=== PATIENT | female | born 1945 | race Caucasian/White ===

== ENCOUNTER → 2016-04-16 | Outpatient (CLI) | payer OTHER ==
[~2016-04-16] MED LIST: ACET-1256 PO; ASPI81TA28 PO; ATRIN INH; ATRINS NEB; AZIT500T26 PO; CLOP1TAB5 PO; FRS/40 PO; FURO-85 PO; IPRA1AER2 INH; LEVO112T4 PO; LISI-788 PO; LPT/40 PO; LSX40 PO; METO25TA56 PO; NTRGSL/4 UT; OXGN; PARO1TAB29 PO; POLYCAP4 PO; PRED10TA PO; SYMIN/8045 INH; TRAM-10 PO
[2016-04-16 17:24] LABS: HEMATOCRIT 33.6 % (37-47); MEAN CORPUSCULAR HEMOGLOBIN 22.2 pg (25-34); MEAN CORPUSCULAR HGB CONC 30.1 g/dl (32-36); MEAN PLATELET VOLUME 9.5 fL (7.4-10.4); PLATELET COUNT 314 K/uL (130-400); RED BLOOD COUNT 4.54 M/uL (4.2-5.4); WHITE BLOOD COUNT 6.35 K/uL (4.8-10.8)
[2016-04-16 17:41] LABS: ALT/SGPT 21 U/L (12-78); AST/SGOT 15 U/L (15-37); BLOOD UREA NITROGEN 17 mg/dl (7-18); BUN/CREATININE RATIO 19.8 (10-20); CALCIUM 8.9 mg/dl (8.5-10.1); CARBON DIOXIDE 28 mmol/L (21-32); CHLORIDE 101 mmol/L (98-107); CREATININE 0.87 mg/dl (0.60-1.20); GLUCOSE 92 mg/dl (70-99); POTASSIUM 3.9 mmol/L (3.5-5.1); SODIUM 139 mmol/L (136-145)
[2016-04-16 17:52] LABS: ALB/GLOB RATIO 1.3 (0.9-2); ALKALINE PHOSPHATASE 108 U/L (45-117); CHOLESTEROL 131 mg/dl (0-200); CHOLESTEROL/HDL RATIO 2.5; HDL CHOLESTEROL 53 mg/dl; LDL CHOLESTEROL CALCULATED 54 mg/dl; TRIGLYCERIDES 119 mg/dl (0-150); VERY LOW DENSITY LIPOPROT CALC 24 mg/dl
== END | disposition home or self-care (01) ==
LOC: C.LABBFT 12:34
PROVIDERS: ATTEND Internal Medicine
DX: E03.9 Hypothyroidism, unspecified (principal); I10 Essential (primary) hypertension; E78.00 Pure hypercholesterolemia, unspecified

== ENCOUNTER → 2016-04-17 | Outpatient (CLI) | payer OTHER ==
--- NOTE | 2016-04-17 11:34 | DIAGNOSTIC IMAGING REPORT ---
ULTRASOUND LEFT LOWER EXTREMITY VENOUS CLINICAL HISTORY: Left leg swelling. COMPARISON STUDY: No priors. TECHNIQUE: Real-time, grayscale, and color Doppler sonography of the deep veins of the left lower extremity was performed from the inguinal crease to the calf. Compression and augmentation were utilized. FINDINGS: There is no sonographic evidence of deep venous thrombosis identified in the left lower extremity. The common femoral, superficial femoral, and popliteal veins are patent and normally compressible. The greater saphenous vein and the profunda femoris vein at the junction with the common femoral vein are clear. The visualized calf veins are patent. IMPRESSION: There is no sonographic evidence of deep venous thrombosis identified in the left lower extremity. Electronically signed by: Suleman Mcpherson M.D. 04/17/2016 11:32 AM Dictated Date/Time: 04/17/2016 11:32 AM
--- NOTE | 2016-04-21 11:46 | CODING QUERY MEDICAL NECESSITY ---
SUPPORTING DIAGNOSIS NEEDED A supporting diagnosis is required for the test/procedure performed on this patient in order for us to be reimbursed by the patient's insurance. Please provide a supporting diagnosis for the following test/procedure listed below next to the test name along with your signature. *If there is no additional diagnosis for this patient that would support the following test/procedure please document that below next to the test/procedure. Test(s)/Procedure(s) that require a supporting diagnosis: * VENOUS DOPPLER LOWER EXTREMITY DIAGNOSIS: * DOS: 04/17/16 Provider Signature: Date: Thank you Viviane Darby Health Information Management Once completed, please kindly fax back to [phone] For questions please call [phone]
== END | disposition home or self-care (01) ==
LOC: C.ULTR 10:40
PROVIDERS: ATTEND Internal Medicine
DX: M79.89 Other specified soft tissue disorders (principal)

== ENCOUNTER → 2016-04-21 | Outpatient (CLI) | payer OTHER ==
[2016-04-21 18:08] LABS: FERRITIN 13.2 ng/ml (8.0-388.0)
--- NOTE | 2016-04-25 08:42 | CODING QUERY MEDICAL NECESSITY ---
SUPPORTING DIAGNOSIS NEEDED Dr. Samayoa, A supporting diagnosis is required for the test/procedure performed on this patient in order for us to be reimbursed by the patient's insurance. Please provide a supporting diagnosis for the following test/procedure listed below next to the test name along with your signature. *If there is no additional diagnosis for this patient that would support the following test/procedure please document that below next to the test/procedure. Test(s)/Procedure(s) that require a supporting diagnosis: * ([id number]) B12 VITAMIN LEVEL DIAGNOSIS: * ([id number]) FOLATE LEVEL DIAGNOSIS: DATE OF SERVICE: 04/21/16 Provider Signature: Date: Thank you Eriberto Winter [facility] Information Management Once completed, please kindly fax back to [phone] For questions please call [phone]
== END | disposition home or self-care (01) ==
LOC: C.LABBFT 12:27
PROVIDERS: ATTEND Internal Medicine
DX: D64.9 Anemia, unspecified (principal)

== ENCOUNTER 2016-04-29 06:55 | Inpatient (IN) | payer OTHER ==
[2016-04-29] VITALS (8 sets, daily range): BP systolic 109–136; BP diastolic 61–78; PULSE 75–83; TEMP 36.8–37; O2SAT 94–100; Ht 172.7 cm; Wt 77.2 kg
[~2016-04-29] VITALS: Ht 172.7 cm; Wt 77.2 kg
[~2016-04-29 06:55] MED LIST changes: -ACET-1256 PO; -FRS/40 PO; -LSX40 PO; -POLYCAP4 PO
--- NOTE | 2016-04-29 07:03 | EMERGENCY ROOM VISIT NOTE ---
History Report prepared by Phuong: Kiley Martinez Under the Supervision of: Dr. Edith Hart M.D. First contact with patient: 06:56 Chief Complaint: SHORTNESS OF BREATH Stated Complaint: SHORT OF BREATH/NEAR SYNCOPE History of Present Illness The patient is a 70 year old female who presents to the Emergency Room via ambulance with complaints of worsening shortness of breath that began KILN TENDER. Per nursing notes, en route to the emergency room, she was given DuoNeb, Albuterol, 125 mg Solu-Medrol, 0.5 mg Ativan, and 5 sprays of Nitro. She states that her breathing is slightly better. Denies chest pain, nausea, or other complaints. History is limited secondary to dyspnea. Source of History: patient, nursing staff History Limited By: dyspnea Onset: KILN TENDER Position: other (respiratory) Quality: other (shortness of breath) Timing: worsening Modifying Factors (Relieving): other (albuterol, ativan, duoneb, nitro, solu -medrol) Associated Symptoms: No chest pain, No nausea Review of Systems Limited secondary to dyspnea. Past Medical & Surgical Medical Problems: (1) Hypertension (2) Kidney disease (3) STEMI (ST elevation myocardial infarction) Family History FH: cancer FH: gallbladder disease FH: heart disease FH: lung disease FH: seizures Hypertension Social History Smoking Status: Current Every Day Smoker Alcohol Use: none Drug Use: none Marital Status: Housing Status: lives with family Occupation Status: retired, other Current/Historical Medications Scheduled Aspirin (Aspirin Ec), 81 MG PO QAM Atorvastatin (Lipitor), 40 MG PO HS Budesonide/Formoterol Fumarate (Symbicort 80/4.5 Inhaler), 2 PUFFS INH BID Ipratropium [place] (Atrovent Hfa), 2 PUFFS INH BID Ipratropium-Albuterol (Combivent Respimat), 1 PUFFS INH QID Levothyroxine Sodium (Levothyroxine Sodium), 112 MCG PO QAM Metoprolol Tartrate (Lopressor) (Lopressor), 25 MG PO BID Paroxetine (Paxil), 40 MG PO QAM Polysaccharide Iron Complex (Iferex 150), 150 MG PO BID Scheduled PRN Furosemide (Lasix), 20 MG PO DAILY PRN for WT GAIN >9LB Ipratropium [place] (Ipratropium [place]), 1 VIAL NEB QID PRN for Shortness of Breath Nitroglycerin (Nitrostat), 0.4 MG UT UD PRN for Chest Pain Oxygen (Oxygen), 2 LITERS NA UD PRN for Shortness of Breath Tramadol (Ultram), 50 MG PO Q6 PRN for Pain Allergies Coded Allergies: Penicillins (Verified Allergy, Severe, SWELLING, 04/29/16) Morphine (Verified Allergy, Intermediate, bradycardia and hypotension, ) Promethazine (Verified Allergy, Intermediate, bradycardia and hypotension , 04/29/16) Sulfa Antibiotics (Verified Allergy, Unknown, RASH, 04/29/16) Physical Exam Vital Signs Date Time Temp Pulse Resp B/P Pulse Ox O2 Delivery O2 Flow Rate FiO2 04/29/16 12:25 100 CPAP 04/29/16 12:17 74 04/29/16 11:59 74 21 121/84 100 BiPAP 04/29/16 11:44 BiPAP 04/29/16 10:59 68 20 97/55 100 BiPAP 70 04/29/16 10:17 37.0 81 16 109/61 100 BiPAP 70 04/29/16 10:01 68 16 109/61 100 04/29/16 09:30 66 21 119/56 100 04/29/16 09:15 64 20 104/70 100 04/29/16 08:29 61 22 83/53 100 BiPAP 04/29/16 07:30 66 23 87/58 99 CPAP Nebulizer 04/29/16 07:14 77 22 93/64 100 Room Air 04/29/16 07:12 76 04/29/16 07:02 81 30 99 BiPAP/CPAP 70 04/29/16 07:02 100 CPAP 04/29/16 07:02 100 CPAP 04/29/16 07:02 81 99 70 04/29/16 07:02 37.0 88 26 131/75 99 CPAP Physical Exam Vital signs reviewed. Noted to be slightly hypotensive. General: Elderly, critically ill-appearing 70 year old female HEENT: No scleral icterus, PERRLA, neck supple. Atraumatic. Cardiovascular: Regular rate and rhythm, no extra sounds. Pulmonary: Minimal air movement bilaterally with diffuse wheezing. Increased work of breathing on C-pap. Abdomen: Soft, nontender, nondistended, positive bowel sounds. Musculoskeletal: Atraumatic, no peripheral edema. Neurologic: Patient awake alert and oriented x 3, full strength in all 4 extremities. Cranial nerves 2 through 12 grossly intact. Skin: Warm, dry, no rash Medical Decision & Procedures ER Provider Diagnostic Interpretation: X-ray results as stated below per interpretation by me and the radiologist: CHEST ONE VIEW PORTABLE CLINICAL HISTORY: SOB dyspnea COMPARISON STUDY: 08/13/2015 FINDINGS: Diffuse prominence of pulmonary vasculature and interstitium. A component of pulmonary edema must be considered. Diaphragms smooth. IMPRESSION: Pulmonary edema Electronically signed by: Rusty Mays M.D. 04/29/2016 7:28 AM Dictated Date/Time: 04/29/2016 7:28 AM Laboratory Results 04/29/16 06:45 Red Blood Count 4.93, Mean Corpuscular Volume 72.2, Mean Corpuscular Hemoglobin 21.5, Mean Corpuscular Hemoglobin Concent 29.8, Mean Platelet Volume 8.7 Test 04/29/16 06:45 04/29/16 07:19 04/29/16 07:28 04/29/16 09:25 White Blood Count 13.29 K/uL (4.8-10.8) Red Blood Count 4.93 M/uL (4.2-5.4) Hemoglobin 10.6 g/dL (12.0-16.0) Hematocrit 35.6 % (37-47) Mean Corpuscular Volume 72.2 fL (80-100) Mean Corpuscular Hemoglobin 21.5 pg (25-34) Mean Corpuscular Hemoglobin Concent 29.8 g/dl (32-36) Platelet Count 589 K/uL (130-400) Mean Platelet Volume 8.7 fL (7.4-10.4) RDW Standard Deviation 46.8 fL (36.4-46.3) RDW Coefficient of Variation 17.7 % (11.5-14.5) Neutrophils % (Manual) 49.9 % Lymphocytes % (Manual) 33.3 % Monocytes % (Manual) 7.9 % Eosinophils % (Manual) 4.4 % Basophils % (Manual) 1.8 % Metamyelocytes % 1.8 % Myelocytes % 0.9 % Neutrophils # (Manual) 6.63 K/uL (1.4-6.5) Total Absolute Neutrophils 6.63 K/uL (1.4-6.5) Lymphocytes # (Manual) 4.43 K/uL (1.2-3.4) Total Absolute Lymphocytes 4.43 K/uL (1.2-3.4) Monocytes # (Manual) 1.05 K/uL (0.11-0.59) Eosinophils # (Manual) 0.58 K/uL (0-0.5) Basophils # (Manual) 0.24 K/uL (0-0.2) Metamyelocytes # 0.24 K/uL (0-0) Myelocytes # 0.12 K/uL (0-0) Hypochromasia PRESENT Microcytosis PRESENT Ovalocytes 1+ Magnesium Level 2.4 mg/dl (1.8-2.4) Total Bilirubin 0.3 mg/dl (0.2-1) Direct Bilirubin < 0.1 mg/dl (0-0.2) Aspartate Amino Transf (AST/SGOT) 27 U/L (15-37) Alanine Aminotransferase (ALT/SGPT) 27 U/L (12-78) Alkaline Phosphatase 119 U/L (45-117) Total Creatine Kinase 107 U/L (26-192) Total Protein 7.4 gm/dl (6.4-8.2) Albumin 3.2 gm/dl (3.4-5.0) Bedside Troponin I 0.000 ng/ml (0-0.045) EP-Aie-Y-Type Natriuretic Peptide 875 pg/ml (0-900) Bedside Lactic Acid Venous 1.86 mmol/L (0.90-1.70) Prothrombin Time 10.7 SECONDS (9.0-12.0) Prothromb Time International Ratio 1.0 (0.9-1.1) Activated Partial Thromboplast Time 25.0 SECONDS (21.0-31.0) Partial Thromboplastin Ratio 1.0 Laboratory results per my review. Medications Administered Medications (Trade) Dose Ordered Sig/Ton Route Start Time Stop Time Status Last Admin Dose Admin Albuterol/ Ipratropium (Duoneb) 12 ml ONE ONCE INH 04/29/16 07:15 04/29/16 07:16 DC 04/29/16 07:02 12 ML ECG Indication: SOB/dyspnea Rate (beats per minute): 78 Rhythm: sinus rhythm Findings: PVC, no acute ischemic change, other (left atrial enlargement, LVH) ED Course 0659: I gave medic command for this patient en route. Past medical records reviewed. The patient was evaluated in room B1. A complete history and physical examination was performed. 0715: Ordered DuoNeb 12 ml INH. 54: Upon reevaluation, the patient is resting comfortably. I discussed laboratory and radiographic results with the patient and her family. They verbalized agreement of the treatment plan. 55: I spoke with Dr. Vega of the [facility] Hospitalist Service. The patient will be evaluated for further management and care. Medical Decision Differential diagnosis: Etiologies such as infections, reactive airway disease, pneumonia, pneumothorax , COPD, CHF, cardiac ischemia, pulmonary embolism, musculoskeletal, gastrointestinal, as well as others were entertained. This patient was evaluated and appeared to be in some discomfort. Patient was somnolent however vital signs were stable on CPAP. She did receive Ativan in route. Patient's chest x-ray is read as pulmonary edema however the patient has minimal air movement and wheezes bilaterally. EKG reveals a normal sinus rhythm with PVCs and no evidence of acute ischemia. Patient's blood pressure has been low after receiving nitroglycerin in route. Patient was given IV hydration and a continuous DuoNeb treatment. Laboratory work reveals negative cardiac enzymes and a normal BNP. Patient's case was discussed with the hospitalist service. They will evaluate the patient for further management. Patient family are aware of the plan and agree. Consults Time Called: [phone] Consulting Physician: Dr. Vega of the [facility] Hospitalist Service Returned Call: [phone] Vega of the [facility] Hospitalist Service. The patient will be evaluated for further management and care. Impression Primary Impression: COPD exacerbation Additional Impression: Pulmonary congestion Critical Care I have personally spent greater than 30 minutes of critical care time in the direct management of this patient. This includes bedside care, interpretation of diagnostic studies, and testing, discussion with consultants, patient, and family members, and other required patient management activities. This 30 minutes is in excess of all separately billable procedures. Scribe Attestation The scribe's documentation has been prepared under my direction and personally reviewed by me in its entirety. I confirm that the note above accurately reflects all work, treatment, procedures, and medical decision making performed by me. Departure Information Dispostion Being Evaluated By Hospitalist Referrals Ismael Samayoa M.D. (PCP) Patient Instructions My [facility] Problem Qualifiers
[2016-04-29 07:13] LABS: HEMATOCRIT 35.6 % (37-47); MEAN CELL VOLUME 72.2 fL (80-100); MEAN CORPUSCULAR HEMOGLOBIN 21.5 pg (25-34); MEAN CORPUSCULAR HGB CONC 29.8 g/dl (32-36); MEAN PLATELET VOLUME 8.7 fL (7.4-10.4); PLATELET COUNT 589 K/uL (130-400); RED BLOOD COUNT 4.93 M/uL (4.2-5.4); WHITE BLOOD COUNT 13.29 K/uL (4.8-10.8)
[2016-04-29] MEDS ORDERED: ALBUT/IPRATROP 3MG/0.5MG NEB 3 ML VIAL INH ONE (07:15)
--- NOTE | 2016-04-29 07:29 | DIAGNOSTIC IMAGING REPORT ---
CHEST ONE VIEW PORTABLE CLINICAL HISTORY: SOB dyspnea COMPARISON STUDY: 08/13/2015 FINDINGS: Diffuse prominence of pulmonary vasculature and interstitium. A component of pulmonary edema must be considered. Diaphragms smooth. IMPRESSION: Pulmonary edema Electronically signed by: Rusty Mays M.D. 04/29/2016 7:28 AM Dictated Date/Time: 04/29/2016 7:28 AM
[2016-04-29 07:34] LABS: ALT/SGPT 27 U/L (12-78); AST/SGOT 27 U/L (15-37); BLOOD UREA NITROGEN 12 mg/dl (7-18); BUN/CREATININE RATIO 12.6 (10-20); CALCIUM 9.2 mg/dl (8.5-10.1); CARBON DIOXIDE 26 mmol/L (21-32); CHLORIDE 94 mmol/L (98-107); CREATININE 0.97 mg/dl (0.60-1.20); GLUCOSE 294 mg/dl (70-99); MAGNESIUM 2.4 mg/dl (1.8-2.4); POTASSIUM 4.6 mmol/L (3.5-5.1); SODIUM 131 mmol/L (136-145)
[2016-04-29 07:38] LABS: ALKALINE PHOSPHATASE 119 U/L (45-117); CKMB/CK RATIO 1.9 (0-3.0)
[2016-04-29] MEDS ORDERED: POLYCAP4 PO (07:44)
[2016-04-29 07:53] LABS: BASO ABS # 0.24 K/uL (0-0.2); BASOPHIL % 1.8 %; COMPLETE YES; EOSINOPHIL % 4.4 %; HYPOCHROMIA PRESENT; LYMPH ABS # 4.43 K/uL (1.2-3.4); LYMPHOCYTE % 33.3 %; META ABS # 0.24 K/uL (0-0); METAMYELOCYTE % 1.8 %; MICROCYTOSIS PRESENT; MYELOCYTE % 0.9 %; NEUTROPHILS % 49.9 %; OVALOCYTES 1+
[2016-04-29 09:56] LABS: PROTHROMBIN TIME (PATIENT) 10.7 SECONDS (9.0-12.0)
--- NOTE | 2016-04-29 12:26 | History and Physical ---
History & Physical Date & Time of Service: Apr 29, 2016 at 12:02 Chief Complaint: Short Of Breath/Near Syncope Primary Care Physician: Ismael Samayoa M.D. History of Present Illness 70 F pmh COPD on O2 at home, systolic CHF EF 45%, CAD s/p WA s/p stents, htn, hypothyroid brought in by EMS due to worsening SOB. Pt's BP was initially elevated and received several sprays of nitro which subsequently dropped her BP to systolic 80s. She was then given a bolus of fluid which then improved her BP to low 100s. She was then placed on BIPAP and given ativan and duoneb as well as solu-medrol. Family is at bedside. Patient reports she has been having progressive SOB in the past few days. According to , she has had some URI symptoms and has not been feeling well the past few days. She denies orthopnea but does report an episode of PND the other night. She admits non-compliance to salt restriction but reports taking her medications regularly. She does however note that she has been needing her inhalers more frequently in the past few days but unable to quantify. No LE swelling. No chest pain, no abd pain, no urinary symptoms, no fevers, and has a chronic cough has not been worsening. Past Medical/Surgical History Medical Problems: (1) Hypertension Status: Chronic (2) Kidney disease Status: Chronic (3) STEMI (ST elevation myocardial infarction) Status: Resolved Family History FH: cancer FH: gallbladder disease FH: heart disease FH: lung disease FH: seizures Hypertension Social History Smoking Status: Current Every Day Smoker (1 PPD X52 yrs) Drug Use: none Marital Status: Housing status: lives with family Occupational Status: retired, other Immunizations History of Influenza Vaccine: No History of Tetanus Vaccine?: Unknown History of Pneumococcal: Yes Pneumococcal Date: Jun 18, 2010 History of Hepatitis B Vaccine: Unknown Multi-Drug Resistant Organisms History of MDRO: No Allergies Coded Allergies: Penicillins (Verified Allergy, Severe, SWELLING, 04/29/16) Morphine (Verified Allergy, Intermediate, bradycardia and hypotension, ) Promethazine (Verified Allergy, Intermediate, bradycardia and hypotension , 04/29/16) Sulfa Antibiotics (Verified Allergy, Unknown, RASH, 04/29/16) Home Medications Scheduled Aspirin (Aspirin Ec), 81 MG PO QAM Atorvastatin (Lipitor), 40 MG PO HS Budesonide/Formoterol Fumarate (Symbicort 80/4.5 Inhaler), 2 PUFFS INH BID Ipratropium [place] (Atrovent Hfa), 2 PUFFS INH BID Ipratropium-Albuterol (Combivent Respimat), 1 PUFFS INH QID Levothyroxine Sodium (Levothyroxine Sodium), 112 MCG PO QAM Metoprolol Tartrate (Lopressor) (Lopressor), 25 MG PO BID Paroxetine (Paxil), 40 MG PO QAM Polysaccharide Iron Complex (Iferex 150), 150 MG PO BID Scheduled PRN Furosemide (Lasix), 20 MG PO DAILY PRN for WT GAIN >9LB Ipratropium [place] (Ipratropium [place]), 1 VIAL NEB QID PRN for Shortness of Breath Nitroglycerin (Nitrostat), 0.4 MG UT UD PRN for Chest Pain Oxygen (Oxygen), 2 LITERS NA UD PRN for Shortness of Breath Tramadol (Ultram), 50 MG PO Q6 PRN for Pain Review of Systems ROS as per HPI. Rest of ROS negative. Physical Exam Vital Signs Date Time Temp Pulse Resp B/P Pulse Ox O2 Delivery O2 Flow Rate FiO2 04/29/16 10:59 68 20 97/55 100 BiPAP 70 04/29/16 10:17 37.0 81 16 109/61 100 BiPAP 70 04/29/16 10:01 68 16 109/61 100 04/29/16 09:30 66 21 119/56 100 04/29/16 09:15 64 20 104/70 100 04/29/16 08:29 61 22 83/53 100 BiPAP 04/29/16 07:30 66 23 87/58 99 CPAP Nebulizer 04/29/16 07:14 77 22 93/64 100 Room Air 04/29/16 07:12 76 04/29/16 07:02 81 30 99 BiPAP/CPAP 70 04/29/16 07:02 100 CPAP 04/29/16 07:02 100 CPAP 04/29/16 07:02 81 99 70 04/29/16 07:02 37.0 88 26 131/75 99 CPAP NAD, AOx3, eomi, perrl, anicteric s1 s2 rrr, no murmurs appreciated diminished breath sounds with scattered wheezing, remains on BIPAP, minimal rales at bases abd soft, nt/nd +BS no LE edema unable to fully assess neuro status, patient just received ativan but no focal deficits noted and no facial drooping Diagnostics Laboratory Results Results Past 24 Hours Test 04/29/16 06:45 04/29/16 07:19 04/29/16 07:28 04/29/16 09:25 Range/Units White Blood Count 13.29 4.8-10.8 K/uL Red Blood Count 4.93 4.2-5.4 M/uL Hemoglobin 10.6 12.0-16.0 g/dL Hematocrit 35.6 37-47 % Mean Corpuscular Volume 72.2 80-100 fL Mean Corpuscular Hemoglobin 21.5 25-34 pg Mean Corpuscular Hemoglobin Concent 29.8 32-36 g/dl Platelet Count 589 130-400 K/uL Mean Platelet Volume 8.7 7.4-10.4 fL RDW Standard Deviation 46.8 36.4-46.3 fL RDW Coefficient of Variation 17.7 11.5-14.5 % Neutrophils % (Manual) 49.9 % Lymphocytes % (Manual) 33.3 % Monocytes % (Manual) 7.9 % Eosinophils % (Manual) 4.4 % Basophils % (Manual) 1.8 % Metamyelocytes % 1.8 % Myelocytes % 0.9 % Neutrophils # (Manual) 6.63 1.4-6.5 K/uL Total Absolute Neutrophils 6.63 1.4-6.5 K/uL Lymphocytes # (Manual) 4.43 1.2-3.4 K/uL Total Absolute Lymphocytes 4.43 1.2-3.4 K/uL Monocytes # (Manual) 1.05 0.11-0.59 K/uL Eosinophils # (Manual) 0.58 0-0.5 K/uL Basophils # (Manual) 0.24 0-0.2 K/uL Metamyelocytes # 0.24 0-0 K/uL Myelocytes # 0.12 0-0 K/uL Hypochromasia PRESENT Microcytosis PRESENT Ovalocytes 1+ Sodium Level 131 136-145 mmol/L Potassium Level 4.6 3.5-5.1 mmol/L Chloride Level 94 98-107 mmol/L Carbon Dioxide Level 26 21-32 mmol/L Anion Gap 11.0 3-11 mmol/L Blood Urea Nitrogen 12 7-18 mg/dl Creatinine 0.97 0.60-1.20 mg/dl Est Creatinine Clear Calc Drug Dose 60.6 ml/min Estimated GFR () 68.6 Estimated GFR (Non- 59.2 BUN/Creatinine Ratio 12.6 10-20 Random Glucose 294 70-99 mg/dl Calcium Level 9.2 8.5-10.1 mg/dl Magnesium Level 2.4 1.8-2.4 mg/dl Total Bilirubin 0.3 0.2-1 mg/dl Direct Bilirubin < 0.1 0-0.2 mg/dl Aspartate Amino Transf (AST/SGOT) 27 15-37 U/L Alanine Aminotransferase (ALT/SGPT) 27 12-78 U/L Alkaline Phosphatase 119 45-117 U/L Total Creatine Kinase 107 26-192 U/L Creatine Kinase MB 2.0 0.5-3.6 ng/ml Creatine Kinase MB Ratio 1.9 0-3.0 Total Protein 7.4 6.4-8.2 gm/dl Albumin 3.2 3.4-5.0 gm/dl Bedside Troponin I 0.000 0-0.045 ng/ml FI-Cjx-Q-Type Natriuretic Peptide 875 0-900 pg/ml Bedside Lactic Acid Venous 1.86 0.90-1.70 mmol/L Prothrombin Time 10.7 9.0-12.0 SECONDS Prothromb Time International Ratio 1.0 0.9-1.1 Activated Partial Thromboplast Time 25.0 21.0-31.0 SECONDS Partial Thromboplastin Ratio 1.0 Microbiology Results 04/29/16 Blood Culture, Received Pending 04/29/16 Blood Culture, Received Pending Diagnostic Radiology CHEST ONE VIEW PORTABLE CLINICAL HISTORY: SOB dyspnea COMPARISON STUDY: 08/13/2015 FINDINGS: Diffuse prominence of pulmonary vasculature and interstitium. A component of pulmonary edema must be considered. Diaphragms smooth. IMPRESSION: Pulmonary edema Interpretation Summary * Name: SHARAN YEN Study Date: 08/13/2015 10:21 AM BP: 164/93 mmHg Patient Location: [facility] HR: 82 : 1945 (M/d/yyy) Gender : Female Height: 64 in Age: 70 yrs Ethnicity: [place] Weight: 156 lb Ordering Physician: Areli Barba Referring Physician: ARELI BARBA Performed By: Arabella Moe RDCS Reason For Study: CHF BSA: 1.8 m2 History: CHFThe left ventricle is normal in size.There is normal left ventricular wall thickness.Left ventricular systolic function is mildly reduced.Ejection Fraction = 45-50%.RCA and/or Lcx regional wall motion abnormalities. EKG Poor data quality, interpretation may be adversely affected Sinus rhythm with occasional Premature ventricular complexes Possible Left atrial enlargement Left ventricular hypertrophy Abnormal ECG When compared with ECG of 14-AUG-2015 09:09, Premature ventricular complexes are now Present T wave amplitude has decreased in Lateral leads Impression Assessment and Plan 1. acute COPD exacerbation - CXR without e/o pneumonia, will hold off on antibiotic - cont bipap for now - solu-medrol 40mg q8h for now and will taper when improves - nebs around the clock and as needed - advised on smoking cessation 2. acute systolic decompensated CHF - cxr with e/o pulmonary edema, bnp slightly elevated - will switch to IV lasix and monitor i/o and daily weights - will advise on low-salt diet adherence - smoking cessation 3. CAD - cont asa, atorvastatin, metoprolol - cardiac enzymes - EKG as above - tele monitoring 4. HTN - BP elevated initially, now low after nitro - monitor - metoprolol with holding parameters 5.hypothyroid - cont levothyroxine 6. microcytic anemia - likely MALI - cont iron supplementation dvt ppx with lovenox Advanced Directives Existing Living Will: No Existing Power of Insurance Investigator: No
[2016-04-29] MEDS ORDERED: TRAMADOL HCL 50 MG TAB PO PRN (12:30)
[2016-04-29] MEDS ORDERED: ALBUTEROL 0.083% NEBU SOLN 3 ML VIAL INH PRN (12:30)
[2016-04-29] MEDS ORDERED: NITROGLYCERIN 0.4 MG SL PER TAB CHARGE SL PRN (12:30)
[2016-04-29] MEDS ORDERED: FUROSEMIDE INJ 40 MG in SYRINGE 0 ML IV ONE (14:00)
[2016-04-29] MEDS: METHYLPREDNISOLONE IV 40 MG in SYRINGE 0 ML IV SCH ×2 (14:33→20:45)
[2016-04-29] MEDS: ALBUT/IPRATROP 3MG/0.5MG NEB 3 ML VIAL INH SCH ×2 (15:38→19:10)
[2016-04-29] MEDS: ATORVASTATIN 40 MG TAB PO SCH (20:44)
[2016-04-29] MEDS: METOPROLOL TARTRATE 25 MG TAB PO SCH (20:45)
[2016-04-29] MEDS: IRON COMPLEX POLYSACCHARIDE W/VIT C 150 MG CAP PO SCH (20:45)
[2016-04-29] MEDS: ENOXAPARIN 40 MG/0.4 ML SYR SC SCH (20:45)
[2016-04-30] VITALS (18 sets, daily range): BP systolic 130–154; BP diastolic 75–90; PULSE 72–93; TEMP 36.6–36.9; O2SAT 90–99
[2016-04-30] MEDS: ALBUT/IPRATROP 3MG/0.5MG NEB 3 ML VIAL INH SCH ×5 (02:27→19:17)
[2016-04-30 02:47] LABS: BLOOD UREA NITROGEN 16 mg/dl (7-18); BUN/CREATININE RATIO 17.3 (10-20); CALCIUM 9.7 mg/dl (8.5-10.1); CARBON DIOXIDE 31 mmol/L (21-32); CHLORIDE 98 mmol/L (98-107); CREATININE 0.92 mg/dl (0.60-1.20); GLUCOSE 150 mg/dl (70-99); SODIUM 138 mmol/L (136-145)
[2016-04-30 02:49] LABS: CHOLESTEROL 117 mg/dl (0-200); CHOLESTEROL/HDL RATIO 2.8; HDL CHOLESTEROL 42 mg/dl; LDL CHOLESTEROL CALCULATED 57 mg/dl; TRIGLYCERIDES 90 mg/dl (0-150); VERY LOW DENSITY LIPOPROT CALC 18 mg/dl
[2016-04-30] MEDS: METHYLPREDNISOLONE IV 40 MG in SYRINGE 0 ML IV SCH ×3 (05:55→21:54)
[2016-04-30] MEDS: LEVOTHYROXINE 112 MCG TAB PO SCH (05:55)
[2016-04-30] MEDS: METOPROLOL TARTRATE 25 MG TAB PO SCH ×2 (08:10→20:40)
[2016-04-30] MEDS: PAROXETINE 20 MG TAB PO SCH (08:10)
[2016-04-30] MEDS: IRON COMPLEX POLYSACCHARIDE W/VIT C 150 MG CAP PO SCH ×2 (08:10→20:40)
[2016-04-30] MEDS: ASPIRIN 81 MG ECTAB PO SCH (08:11)
[2016-04-30] MEDS: FUROSEMIDE INJ 40 MG in SYRINGE 0 ML IV SCH (08:11)
[2016-04-30] MEDS ORDERED: VANCOMYCIN CONSULT ACTIVE PRN (11:11)
--- NOTE | 2016-04-30 11:37 | Pharmacy Progress Note ---
Pharmacy Antibiotic Consult Date of Service: Apr 30, 2016. Pharmacy Dosing Scope Pharmacy is consulted to initiate vancomycin IV dosing therapy, order appropriate labs and adjust drug dose/frequency. Subjective The patient is a 70 year old female admitted on Apr 29, 2016 at 12:25 with a COPD exacerbation. Her vitals and laboratory work is stable. 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 Objective Height (Feet): 5 Height (Inches): 8.00 Weight (Kilograms): 77.200 Lab Results (24hrs): Laboratory Tests Test 04/30/16 02:02 BUN/Creatinine Ratio 17.3 Blood Urea Nitrogen 16 mg/dl Creatinine 0.92 mg/dl Micro Results: RUN DATE: 04/30/16 [facility] LAB PAGE 1 RUN TIME: 917 Specimen Inquiry PATIENT: SHARAN YEN LOC: [facility] # : [id number] AGE/SX: 70/F ROOM: [facility] REG : 04/29/[address]: Chelsea Landa MD : 1945 BED: 2 DIS : STATUS: ADM IN TLOC: SPEC #: [id number] GILDA: 04/29/16 STATUS: RES REQ #: [id number] RECD: 04/29/[address]: Edith Hart M.D. SOURCE: BLOOD ENTR: 04/29/[address] [facility] [address]: Ismael Samayoa M.D. [facility]: ORDERED: BLOOD CULTURE Procedure Result Verified Site BLD CULT Preliminary 04/30/16 Organism 1 GRAM POSITIVE COCCI SENS SENSITIVITIES DEPENDENT ON FURTHER IDENTIFICATION Phoned Positive Blood Culture Gram Stain Report to ABDOULAYE ARMAS on 04/30/16 At 0915 By KEN. Results were verbalized back to KEN. Assessment & Plan Loading dose: vancomycin 2000 mg (25 mg/kg) IV X 1 dose then: vancomycin 1200 mg IV every 14 hours (population pharmacokinetics suggest a half-life of 12.17 hr with an elimination constant of 0.057 hr-1). Goal peak level estimate: between 35 - 40 mcg/mL. Goal trough level estimate: between 15 - 20 mcg/mL (indication bacteremia with unknown GP cocci). Trough has been ordered for: prior to the 0600 dose. Pharmacy will continue to follow and will adjust dose/frequency as necessary. Thank you
[2016-04-30] MEDS ORDERED: VANCOMYCIN INJ 2,000 MG in SODIUM CHLORIDE 0.9% 500ML 500 ML IV ONE (11:45)
--- NOTE | 2016-04-30 14:14 | Progress Note ---
Subjective Date of Service: Apr 30, 2016. Subjective Pt evaluation today including: conversation w/ patient, physical exam, review of studies, review of inpatient medication list Off bipap, breathing better and more comfortable. Voiding well without issues. No chest pain. Problem List Medical Problems: (1) Back pain Status: Acute (2) CHF (congestive heart failure) Status: Acute (3) COPD exacerbation Status: Acute (4) Pulmonary congestion Status: Acute Review of Systems All Other Systems: Reviewed and Negative Medications Albuterol Sulfate (Ventolin 0.083% 2.5MG/3ML Neb) 2.5 mg Q3H PRN INH; Start at 12:30; Stop 05/29/16 at 12:29 Albuterol/ Ipratropium (Duoneb) 3 ml QIDR INH Last administered on 04/30/16 15: 23; Admin Dose 3 ML; Start 04/29/16 at 16:00; Stop 05/29/16 at 15:59 Aspirin (Ecotrin Tab) 81 mg QAM PO Last administered on 04/30/16 08:11; Admin Dose 81 MG; Start 04/30/16 at 09:00; Stop 05/30/16 at 08:59 Atorvastatin Calcium (Lipitor Tab) 40 mg HS PO Last administered on 04/29/16 20 :44; Admin Dose 40 MG; Start 04/29/16 at 21:00; Stop 05/29/16 at 20:59 Enoxaparin Sodium (Lovenox Inj) 40 mg Q24H SC Last administered on 04/29/16 20: 45; Admin Dose 40 MG; Start 04/29/16 at 21:00; Stop 05/29/16 at 20:59 Furosemide/Syringe (Lasix Inj/ Syringe) 4 ml @ 4 mls/min DAILY@09 IV Last administered on 04/30/16 08:11; Admin Dose 4 MLS/MIN; Start 04/30/16 at 09:00; Stop 05/30/16 at 08:59 Levothyroxine Sodium (Synthroid Tab) 112 mcg DAILYBB PO Last administered on 04/30 05:55; Admin Dose 112 MCG; Start 04/30/16 at 06:30; Stop 05/30/16 at 06:29 Methylprednisolone Sodium Succinate/ Syringe (Solu-Medrol IV/ Syringe) 0.64 ml @ 1.5 mls/min Q8@0600,1400,2200 IV Last administered on 04/30/16 15:09; Admin Dose 1.5 MLS/MIN; Start 04/29/16 at 14:30; Stop 05/29/16 at 14:29 Metoprolol Tartrate (Lopressor Tab) 25 mg BID PO Last administered on 04/30/16 08:10; Admin Dose 25 MG; Start 04/29/16 at 21:00; Stop 05/29/16 at 20:59 Nitroglycerin 0.4 mg 0.4 mg UD PRN SL; Start 04/29/16 at 12:30; Stop 05/29/16 at 12:29 Paroxetine HCl (pAXil TAB) 40 mg QAM PO Last administered on 04/30/16 08:10; Admin Dose 40 MG; Start 04/30/16 at 09:00; Stop 05/30/16 at 08:59 Polysaccharide Iron Complex (Niferex-150 w/ Vit C Cap) 150 mg BID PO Last administered on 04/30/16 08:10; Admin Dose 150 MG; Start 04/29/16 at 21:00; Stop 05/29/16 at 20:59 Tramadol HCl (Ultram Tab) 50 mg Q6 PRN PO; Start 04/29/16 at 12:30; Stop at 12:29 Vancomycin HCl 1 ea 1 ea UD PRN N/A; Start 04/30/16 at 11:11; Stop 05/30/16 at 11:10 Vancomycin HCl/ Sodium Chloride (Vancomycin Inj/ Nss 250ml) 274 ml @ 125 mls/ hr Q14H IV; Start 05/01/16 at 02:00; Stop 05/07/16 at 23:59 Objective Vital Signs Date Time Temp Pulse Resp B/P Pulse Ox O2 Delivery O2 Flow Rate FiO2 04/30/16 11:42 79 20 94 Nasal Cannula 3.0 04/30/16 11:22 36.7 75 16 144/85 93 04/30/16 08:00 99 3.0 04/30/16 07:41 36.6 73 16 146/90 99 04/30/16 07:13 72 99 40 04/30/16 07:12 75 22 99 BiPAP/CPAP 5.0 04/30/16 04:55 130/82 3/1/17 04:48 36.8 76 20 154/90 99 BiPAP 04/30/16 04:00 98 BiPAP 04/30/16 02:28 77 99 40 04/30/16 02:27 77 22 96 Nasal Cannula 4.0 04/30/16 00:00 95 Nasal Cannula 3.0 04/29/16 23:40 36.8 83 16 136/78 94 Nasal Cannula 3.0 04/29/16 20:00 Nasal Cannula 4.0 04/29/16 19:11 82 20 95 Nasal Cannula 3.0 04/29/16 16:00 100 BiPAP 40 04/29/16 15:38 80 100 40 04/29/16 15:38 80 22 100 BiPAP/CPAP 40 Physical Exam Comments: nad, aox3, work of breathing is less than yesterday diminished breath sounds, scattered wheezing, scattered rales s1 s2 no murmurs appreciated rrr abd soft nt/nd +BS no LE edema coherent and fluent speech, cn 2-12 grossly intact Laboratory Results Last 24 Hours Test 04/29/16 18:02 04/30/16 02:02 Creatine Kinase MB 3.7 ng/ml 4.0 ng/ml Creatine Kinase MB Ratio Troponin I 0.024 ng/ml 0.015 ng/ml Sodium Level 138 mmol/L Potassium Level 4.0 mmol/L Chloride Level 98 mmol/L Carbon Dioxide Level 31 mmol/L Anion Gap 9.0 mmol/L Blood Urea Nitrogen 16 mg/dl Creatinine 0.92 mg/dl Est Creatinine Clear Calc Drug Dose 63.9 ml/min Estimated GFR () 73.1 Estimated GFR (Non- 63.1 BUN/Creatinine Ratio 17.3 Random Glucose 150 mg/dl Calcium Level 9.7 mg/dl Triglycerides Level 90 mg/dl Cholesterol Level 117 mg/dl HDL Cholesterol 42 mg/dl LDL Cholesterol, Calculated 57 mg/dl VLDL Cholesterol, Calculated 18 mg/dl Cholesterol/HDL Ratio 2.8 Assessment and Plan 1. acute COPD exacerbation - CXR without e/o pneumonia - BCx did come back with GPC, started on vanco for now until cultures come back - cont bipap as needed - solu-medrol 40mg q8h for now and will taper when improves - nebs around the clock and as needed - advised on smoking cessation - repeat CXR in AM 2. acute systolic decompensated CHF - cxr with e/o pulmonary edema, bnp slightly elevated - will switch to IV lasix and monitor i/o and daily weights - will advise on low-salt diet adherence - smoking cessation 3. CAD - cont asa, atorvastatin, metoprolol - cardiac enzymes negative - tele monitoring 4. HTN - BP elevated initially, now low after nitro - monitor - metoprolol with holding parameters 5.hypothyroid - cont levothyroxine 6. microcytic anemia - likely MALI - cont iron supplementation dvt ppx with lovenox
[2016-04-30] MEDS: ATORVASTATIN 40 MG TAB PO SCH (20:40)
[2016-04-30] MEDS: ENOXAPARIN 40 MG/0.4 ML SYR SC SCH (20:41)
[2016-05-01] VITALS (18 sets, daily range): BP systolic 121–179; BP diastolic 80–107; PULSE 73–97; TEMP 36.4–36.9; O2SAT 94–100
[2016-05-01] MEDS: VANCOMYCIN INJ 1,200 MG in SODIUM CHLORIDE 0.9% 250ML 250 ML IV SCH ×2 (01:42→16:09)
[2016-05-01] MEDS: ALBUT/IPRATROP 3MG/0.5MG NEB 3 ML VIAL INH SCH ×5 (01:57→20:17)
[2016-05-01] MEDS: METHYLPREDNISOLONE IV 40 MG in SYRINGE 0 ML IV SCH ×2 (05:37→18:15)
[2016-05-01] MEDS: LEVOTHYROXINE 112 MCG TAB PO SCH (06:11)
[2016-05-01 06:43] LABS: BUN/CREATININE RATIO 34.3 (10-20); CALCIUM 9.2 mg/dl (8.5-10.1); CREATININE 0.69 mg/dl (0.60-1.20); MAGNESIUM 2.3 mg/dl (1.8-2.4); POTASSIUM 4.2 mmol/L (3.5-5.1)
[2016-05-01 06:53] LABS: BASO % 0.1 %; BASO ABS # 0.02 K/uL (0-0.2); HEMATOCRIT 29.9 % (37-47); IG% 0.6 %; LYMPH ABS # 0.87 K/uL (1.2-3.4); MEAN CELL VOLUME 73.1 fL (80-100); MEAN CORPUSCULAR HEMOGLOBIN 21.8 pg (25-34); MEAN CORPUSCULAR HGB CONC 29.8 g/dl (32-36); MEAN PLATELET VOLUME 8.7 fL (7.4-10.4); MONO % 3.9 %; NEUT % 89.4 %; PLATELET COUNT 406 K/uL (130-400); RED BLOOD COUNT 4.09 M/uL (4.2-5.4); WHITE BLOOD COUNT 14.46 K/uL (4.8-10.8)
--- NOTE | 2016-05-01 07:18 | DIAGNOSTIC IMAGING REPORT ---
CHEST ONE VIEW PORTABLE CLINICAL HISTORY: sob dyspnea COMPARISON STUDY: 04/29/2016 FINDINGS: Findings of improving congestive heart failure pulmonary vasculature is diminished. Diaphragms are smooth. IMPRESSION: Improving congestive heart failure Electronically signed by: Rusty Mays M.D. 05/01/2016 7:17 AM Dictated Date/Time: 05/01/2016 7:15 AM
[2016-05-01] MEDS: IRON COMPLEX POLYSACCHARIDE W/VIT C 150 MG CAP PO SCH ×2 (07:41→21:13)
[2016-05-01] MEDS: ASPIRIN 81 MG ECTAB PO SCH (07:41)
[2016-05-01] MEDS: METOPROLOL TARTRATE 25 MG TAB PO SCH ×2 (07:42→21:13)
[2016-05-01] MEDS: PAROXETINE 20 MG TAB PO SCH (07:42)
[2016-05-01 08:58] LABS: COMPLETE YES; HYPOCHROMIA PRESENT; LARGE PLATELETS 1+; MICROCYTOSIS PRESENT; POLYCHROMASIA 1+
[2016-05-01] MEDS: FUROSEMIDE INJ 40 MG in SYRINGE 0 ML IV SCH ×2 (09:11→16:10)
--- NOTE | 2016-05-01 09:49 | Progress Note ---
Subjective Date of Service: May 01, 2016. Subjective Feeling better. SOB usually in the late afternoon. otherwise, no CP , no abd pain. Problem List Medical Problems: (1) Back pain Status: Acute (2) CHF (congestive heart failure) Status: Acute (3) COPD exacerbation Status: Acute (4) Pulmonary congestion Status: Acute Review of Systems All Other Systems: Reviewed and Negative Medications Albuterol Sulfate (Ventolin 0.083% 2.5MG/3ML Neb) 2.5 mg Q3H PRN INH; Start at 12:30; Stop 05/29/16 at 12:29 Albuterol/ Ipratropium (Duoneb) 3 ml QIDR INH Last administered on 05/01/16 07: 15; Admin Dose 3 ML; Start 04/29/16 at 16:00; Stop 05/29/16 at 15:59 Aspirin (Ecotrin Tab) 81 mg QAM PO Last administered on 05/01/16 07:41; Admin Dose 81 MG; Start 04/30/16 at 09:00; Stop 05/30/16 at 08:59 Atorvastatin Calcium (Lipitor Tab) 40 mg HS PO Last administered on 04/30/16 20: 40; Admin Dose 40 MG; Start 04/29/16 at 21:00; Stop 05/29/16 at 20:59 Enoxaparin Sodium (Lovenox Inj) 40 mg Q24H SC Last administered on 04/30/16 20: 41; Admin Dose 40 MG; Start 04/29/16 at 21:00; Stop 05/29/16 at 20:59 Furosemide/Syringe (Lasix Inj/ Syringe) 4 ml @ 4 mls/min DAILY@09 IV Last administered on 05/01/16 09:11; Admin Dose 4 MLS/MIN; Start 04/30/16 at 09:00; Stop 05/30/16 at 08:59 Levothyroxine Sodium (Synthroid Tab) 112 mcg DAILYBB PO Last administered on 05/01 06:11; Admin Dose 112 MCG; Start 04/30/16 at 06:30; Stop 05/30/16 at 06:29 Methylprednisolone Sodium Succinate/ Syringe (Solu-Medrol IV/ Syringe) 0.64 ml @ 1.5 mls/min Q8@0600,1400,2200 IV Last administered on 05/01/16 05:37; Admin Dose 1.5 MLS/MIN; Start 04/29/16 at 14:30; Stop 05/29/16 at 14:29 Metoprolol Tartrate (Lopressor Tab) 25 mg BID PO Last administered on 05/01/16 07:42; Admin Dose 25 MG; Start 04/29/16 at 21:00; Stop 05/29/16 at 20:59 Nitroglycerin 0.4 mg 0.4 mg UD PRN SL; Start 04/29/16 at 12:30; Stop 05/29/16 at 12:29 Paroxetine HCl (pAXil TAB) 40 mg QAM PO Last administered on 05/01/16 07:42; Admin Dose 40 MG; Start 04/30/16 at 09:00; Stop 05/30/16 at 08:59 Polysaccharide Iron Complex (Niferex-150 w/ Vit C Cap) 150 mg BID PO Last administered on 05/01/16 07:41; Admin Dose 150 MG; Start 04/29/16 at 21:00; Stop 05/29/16 at 20:59 Tramadol HCl (Ultram Tab) 50 mg Q6 PRN PO; Start 04/29/16 at 12:30; Stop at 12:29 Vancomycin HCl 1 ea 1 ea UD PRN N/A; Start 04/30/16 at 11:11; Stop 05/30/16 at 11:10 Vancomycin HCl/ Sodium Chloride (Vancomycin Inj/ Nss 250ml) 274 ml @ 125 mls/ hr Q14H IV Last administered on 05/01/16 01:42; Admin Dose 125 MLS/HR; Start 05/01/16 at 02:00; Stop 05/07/16 at 23:59 Objective Vital Signs Date Time Temp Pulse Resp B/P Pulse Ox O2 Delivery O2 Flow Rate FiO2 05/01/16 08:00 Nasal Cannula 2.0 05/01/16 07:30 36.4 80 20 168/104 95 05/01/16 07:16 87 16 96 Nasal Cannula 2.0 05/01/16 04:21 36.7 79 20 169/107 99 BiPAP 05/01/16 04:00 98 BiPAP 05/01/16 02:02 77 100 40 05/01/16 01:57 82 20 96 Nasal Cannula 2.0 05/01/16 00:22 36.9 83 20 161/93 95 Nasal Cannula 3.0 05/01/16 00:00 94 Nasal Cannula 3.0 04/30/16 20:35 130/75 04/30/16 20:00 90 Nasal Cannula 3.0 BiPAP 04/30/16 19:51 36.9 81 18 137/80 96 Nasal Cannula 3.0 04/30/16 19:17 87 20 93 Nasal Cannula 2.0 04/30/16 16:00 Nasal Cannula 3.0 BiPAP 04/30/16 15:41 36.7 93 18 151/89 92 Nasal Cannula 3.0 04/30/16 15:23 77 20 94 Nasal Cannula 3.0 04/30/16 11:42 79 20 94 Nasal Cannula 3.0 04/30/16 11:22 36.7 75 16 144/85 93 Physical Exam Comments: nad, aox3, eomi, perrl, anicteric s1 s2 rrr, no murmurs ctab no w/r/r abd soft nt/nd +BS no LE edema cn 2-12 grossly intact Laboratory Results Last 24 Hours Test 05/01/16 05:42 White Blood Count 14.46 K/uL Red Blood Count 4.09 M/uL Hemoglobin 8.9 g/dL Hematocrit 29.9 % Mean Corpuscular Volume 73.1 fL Mean Corpuscular Hemoglobin 21.8 pg Mean Corpuscular Hemoglobin Concent 29.8 g/dl Platelet Count 406 K/uL Mean Platelet Volume 8.7 fL Neutrophils (%) (Auto) 89.4 % Lymphocytes (%) (Auto) 6.0 % Monocytes (%) (Auto) 3.9 % Eosinophils (%) (Auto) 0.0 % Basophils (%) (Auto) 0.1 % Neutrophils # (Auto) 12.93 K/uL Lymphocytes # (Auto) 0.87 K/uL Monocytes # (Auto) 0.56 K/uL Eosinophils # (Auto) 0.00 K/uL Basophils # (Auto) 0.02 K/uL RDW Standard Deviation 48.3 fL RDW Coefficient of Variation 18.0 % Immature Granulocyte % (Auto) 0.6 % Immature Granulocyte # (Auto) 0.08 K/uL Large Platelets 1+ Polychromasia 1+ Hypochromasia PRESENT Microcytosis PRESENT Sodium Level 140 mmol/L Potassium Level 4.2 mmol/L Chloride Level 102 mmol/L Carbon Dioxide Level 31 mmol/L Anion Gap 7.0 mmol/L Blood Urea Nitrogen 24 mg/dl Creatinine 0.69 mg/dl Est Creatinine Clear Calc Drug Dose 82.9 ml/min Estimated GFR () 102.2 Estimated GFR (Non- 88.2 BUN/Creatinine Ratio 34.3 Random Glucose 133 mg/dl Calcium Level 9.2 mg/dl Magnesium Level 2.3 mg/dl CHEST ONE VIEW PORTABLE CLINICAL HISTORY: sob dyspnea COMPARISON STUDY: 04/29/2016 FINDINGS: Findings of improving congestive heart failure pulmonary vasculature is diminished. Diaphragms are smooth. IMPRESSION: Improving congestive heart failure Electronically signed by: Rusty Mays M.D. 05/01/2016 7:17 AM Dictated Date/Time: 05/01/2016 7:15 AM Assessment and Plan 1. acute COPD exacerbation - CXR without e/o pneumonia - BCx did come back with GPC, started on vanco for now until cultures come back - cont bipap as needed - solu-medrol 40mg q8h tapered to q12h - nebs around the clock and as needed - advised on smoking cessation - repeat CXR improved 2. acute systolic decompensated CHF - cxr with e/o pulmonary edema - will switch to IV lasix and now BID and monitor i/o and daily weights - will advise on low-salt diet adherence - smoking cessation emphasized - nicotine patch 3. CAD - cont asa, atorvastatin, metoprolol - cardiac enzymes negative - tele monitoring 4. HTN - BP elevated initially, now low after nitro - monitor - metoprolol with holding parameters 5.hypothyroid - cont levothyroxine 6. microcytic anemia - likely MALI - cont iron supplementation dvt ppx with lovenox
[2016-05-01] MEDS: ENOXAPARIN 40 MG/0.4 ML SYR SC SCH (21:12)
[2016-05-01] MEDS: ATORVASTATIN 40 MG TAB PO SCH (21:13)
[2016-05-02] VITALS (9 sets, daily range): BP systolic 139–175; BP diastolic 75–103; PULSE 67–88; TEMP 36.3–37; O2SAT 95–100
[2016-05-02] MEDS ORDERED: VANCOMYCIN TROUGH SCH (05:30)
[2016-05-02 06:02] LABS: BASO % 0.2 %; BASO ABS # 0.02 K/uL (0-0.2); EOS % 0.1 %; HEMATOCRIT 32.6 % (37-47); IG% 0.5 %; LYMPH % 12.2 %; LYMPH ABS # 1.54 K/uL (1.2-3.4); MEAN CELL VOLUME 73.6 fL (80-100); MEAN CORPUSCULAR HEMOGLOBIN 21.7 pg (25-34); MEAN CORPUSCULAR HGB CONC 29.4 g/dl (32-36); MEAN PLATELET VOLUME 8.5 fL (7.4-10.4); MONO % 9.3 %; NEUT % 77.7 %; PLATELET COUNT 448 K/uL (130-400); RED BLOOD COUNT 4.43 M/uL (4.2-5.4); WHITE BLOOD COUNT 12.64 K/uL (4.8-10.8)
[2016-05-02] MEDS: METHYLPREDNISOLONE IV 40 MG in SYRINGE 0 ML IV SCH ×2 (06:10→17:27)
[2016-05-02] MEDS: LEVOTHYROXINE 112 MCG TAB PO SCH (06:10)
[2016-05-02] MEDS: VANCOMYCIN INJ 1,200 MG in SODIUM CHLORIDE 0.9% 250ML 250 ML IV SCH (06:10)
[2016-05-02 06:24] LABS: COMPLETE YES; HYPOCHROMIA PRESENT
[2016-05-02 06:39] LABS: CALCIUM 9.2 mg/dl (8.5-10.1); CREATININE 0.76 mg/dl (0.60-1.20); MAGNESIUM 2.2 mg/dl (1.8-2.4); POTASSIUM 4.3 mmol/L (3.5-5.1)
[2016-05-02] MEDS: ALBUT/IPRATROP 3MG/0.5MG NEB 3 ML VIAL INH SCH ×4 (07:04→19:15)
[2016-05-02] MEDS: METOPROLOL TARTRATE 25 MG TAB PO SCH ×2 (07:40→21:48)
[2016-05-02] MEDS: ASPIRIN 81 MG ECTAB PO SCH (07:41)
[2016-05-02] MEDS: PAROXETINE 20 MG TAB PO SCH (07:41)
[2016-05-02] MEDS: IRON COMPLEX POLYSACCHARIDE W/VIT C 150 MG CAP PO SCH ×2 (07:41→21:47)
[2016-05-02] MEDS: NICOTINE 14 MG/24 HR TDSY TD SCH (07:41)
[2016-05-02] MEDS: FUROSEMIDE INJ 40 MG in SYRINGE 0 ML IV SCH ×2 (08:27→15:52)
--- NOTE | 2016-05-02 11:14 | Pharmacy Progress Note ---
Pharmacy Antibiotic Prog Note Date of Service: May 02, 2016. Subjective: The patient is currently receiving vancomycin 1200 mg iv q 14 hours The patient is currently on day # 3 of IV therapy. Objective: Height (Feet): 5 Height (Inches): 8.00 Weight (Kilograms): 75.500 Levels: Item Value Date Time Vancomycin Level Trough 13.8 mcg/ml 05/02/16 0548 Lab Results (24hrs): Laboratory Tests Test 05/02/16 05:48 BUN/Creatinine Ratio 31.0 Blood Urea Nitrogen 24 mg/dl Creatinine 0.76 mg/dl White Blood Count 12.64 K/uL Red Blood Count 4.43 M/uL Hemoglobin 9.6 g/dL Hematocrit 32.6 % Mean Corpuscular Volume 73.6 fL Mean Corpuscular Hemoglobin 21.7 pg Mean Corpuscular Hemoglobin Concent 29.4 g/dl Platelet Count 448 K/uL Mean Platelet Volume 8.5 fL Neutrophils (%) (Auto) 77.7 % Lymphocytes (%) (Auto) 12.2 % Monocytes (%) (Auto) 9.3 % Eosinophils (%) (Auto) 0.1 % Basophils (%) (Auto) 0.2 % Neutrophils # (Auto) 9.84 K/uL Lymphocytes # (Auto) 1.54 K/uL Monocytes # (Auto) 1.17 K/uL Eosinophils # (Auto) 0.01 K/uL Basophils # (Auto) 0.02 K/uL Micro Results: Item Value Date Time Blood Culture Received 05/02/16 0900 Blood Pending Blood Culture - Preliminary Resulted 04/29/16 0750 Blood Staphylococcus Aureus Blood Culture - Preliminary Resulted 04/29/16 0720 Blood NO GROWTH TO DATE. Assessment & Plan: Patient on vancomycin for possible pneumonia/COPD exacerbation. BC 03/03 now positive MRSA and repeat BC are pending. Leukocytosis is improving. Patient afebrile. Vancomycin: * Trough level this am was ~13.8 mcg/ml (slightly subtherapeutic - goal is 15- 20 mcg/ml) * Will increase the dose to vancomycin 1500 mg iv q 14 hours to provide trough within goal * Renal function is stable, CrCl today 70 ml/min * Will plan to recheck trough prior to the 1400 dose on 05/04 to ensure therapeutic; will recheck sooner if renal function changes Pharmacy will continue to follow and will adjust dose/frequency as necessary. Thank you
[2016-05-02] MEDS ORDERED: VANCOMYCIN CONSULT ACTIVE PRN (11:30)
--- NOTE | 2016-05-02 12:58 | Progress Note ---
Subjective Date of Service: May 02, 2016. Subjective Pt evaluation today including: conversation w/ patient, physical exam, lab review, review of studies, review of inpatient medication list She reports rashes around her legs which were itchy yesterday but has gotten better. She also notes a few rashes in her back. Breathing is much improved. No chest pain. No n/v/d/c, no urinary symptoms. Problem List Medical Problems: (1) Back pain Status: Acute (2) CHF (congestive heart failure) Status: Acute (3) COPD exacerbation Status: Acute (4) Pulmonary congestion Status: Acute Review of Systems All Other Systems: Reviewed and Negative Medications Albuterol Sulfate (Ventolin 0.083% 2.5MG/3ML Neb) 2.5 mg Q3H PRN INH; Start at 12:30; Stop 05/29/16 at 12:29 Albuterol/ Ipratropium (Duoneb) 3 ml QIDR INH Last administered on 05/02/16 11: 35; Admin Dose 3 ML; Start 04/29/16 at 16:00; Stop 05/29/16 at 15:59 Aspirin (Ecotrin Tab) 81 mg QAM PO Last administered on 05/02/16 07:41; Admin Dose 81 MG; Start 04/30/16 at 09:00; Stop 05/30/16 at 08:59 Atorvastatin Calcium (Lipitor Tab) 40 mg HS PO Last administered on 05/01/16 21: 13; Admin Dose 40 MG; Start 04/29/16 at 21:00; Stop 05/29/16 at 20:59 Diphenhydramine HCl 25 mg 25 mg Q6H PRN PO Last administered on 05/02/16 07:40 ; Admin Dose 25 MG; Start 05/01/16 at 22:45; Stop 05/31/16 at 22:44 Enoxaparin Sodium (Lovenox Inj) 40 mg Q24H SC Last administered on 05/01/16 21: 12; Admin Dose 40 MG; Start 04/29/16 at 21:00; Stop 05/29/16 at 20:59 Furosemide 40 mg/ Syringe 4 ml @ 4 mls/min BID@0900,1500 IV Last administered on 05/02/16 08:27; Admin Dose 4 MLS/MIN; Start 05/01/16 at 15:00; Stop 05/31/16 at 14:59 Levothyroxine Sodium (Synthroid Tab) 112 mcg DAILYBB PO Last administered on 05/02 06:10; Admin Dose 112 MCG; Start 04/30/16 at 06:30; Stop 05/30/16 at 06:29 Methylprednisolone Sodium Succinate/ Syringe (Solu-Medrol IV/ Syringe) 0.64 ml @ 1.5 mls/min Q12@0600,1800 IV Last administered on 05/02/16 06:10; Admin Dose 1.5 MLS/MIN; Start 05/01/16 at 18:00; Stop 05/31/16 at 17:59 Metoprolol Tartrate (Lopressor Tab) 25 mg BID PO Last administered on 05/02/16 07:40; Admin Dose 25 MG; Start 04/29/16 at 21:00; Stop 05/29/16 at 20:59 Miscellaneous (Remove Nicoderm Patch) 1 ea DAILY@2100 N/A; Start 05/02/16 at 21: 00; Stop 06/01/16 at 20:59 Nicotine (Nicoderm Cq 14MG Patch) 1 patch DAILY TD; Start 05/02/16 at 09:00; Stop 06/01/16 at 08:59 Nitroglycerin (Nitrostat Tab) 0.4 mg UD PRN SL; Start 04/29/16 at 12:30; Stop 05/29/16 at 12:29 Paroxetine HCl (pAXil TAB) 40 mg QAM PO Last administered on 05/02/16 07:41; Admin Dose 40 MG; Start 04/30/16 at 09:00; Stop 05/30/16 at 08:59 Polysaccharide Iron Complex (Niferex-150 w/ Vit C Cap) 150 mg BID PO Last administered on 05/02/16 07:41; Admin Dose 150 MG; Start 04/29/16 at 21:00; Stop 05/29/16 at 20:59 Tramadol HCl 50 mg 50 mg Q6 PRN PO; Start 04/29/16 at 12:30; Stop 05/29/16 at 12:29 Vancomycin HCl (Consult) 1 ea UD PRN N/A; Start 05/02/16 at 11:30; Stop 06/01/16 at 11:29 Vancomycin HCl/ Sodium Chloride (Vancomycin Inj/ Nss 500ml) 530 ml @ 200 mls/ hr Q14H IV; Start 05/02/16 at 20:00; Stop 05/07/16 at 19:59 Objective Vital Signs Date Time Temp Pulse Resp B/P Pulse Ox O2 Delivery O2 Flow Rate FiO2 05/02/16 12:29 36.3 88 24 145/75 98 Room Air 05/02/16 11:35 71 16 97 Nasal Cannula 2.0 05/02/16 07:52 Nasal Cannula 2.0 05/02/16 07:31 36.7 73 24 175/103 100 2.0 164/94 05/02/16 07:05 85 16 95 Nasal Cannula 2.0 05/02/16 04:00 Nasal Cannula 2.0 05/02/16 04:00 36.5 73 16 172/90 96 Nasal Cannula 2.0 05/02/16 00:00 Nasal Cannula 2.0 05/01/16 23:19 36.4 75 20 172/90 97 Nasal Cannula 2.0 05/01/16 20:17 79 16 96 Nasal Cannula 2.0 05/01/16 20:00 96 Nasal Cannula 2.0 05/01/16 19:45 36.5 83 14 179/94 96 Nasal Cannula 2.0 05/01/16 15:56 88 16 97 Nasal Cannula 2.0 05/01/16 15:36 95 Nasal Cannula 2.0 05/01/16 14:47 36.8 78 20 161/97 95 Physical Exam Comments: nad, aox3 eomi, perrl, anicteric s1 s2 no m/r/g appreciated diminished breath sounds, no rhonchi, no rales abd soft, nt/nd +BS no LEedema cn 2-12 grossly intact Laboratory Results Last 24 Hours Test 05/02/16 05:48 White Blood Count 12.64 K/uL Red Blood Count 4.43 M/uL Hemoglobin 9.6 g/dL Hematocrit 32.6 % Mean Corpuscular Volume 73.6 fL Mean Corpuscular Hemoglobin 21.7 pg Mean Corpuscular Hemoglobin Concent 29.4 g/dl Platelet Count 448 K/uL Mean Platelet Volume 8.5 fL Neutrophils (%) (Auto) 77.7 % Lymphocytes (%) (Auto) 12.2 % Monocytes (%) (Auto) 9.3 % Eosinophils (%) (Auto) 0.1 % Basophils (%) (Auto) 0.2 % Neutrophils # (Auto) 9.84 K/uL Lymphocytes # (Auto) 1.54 K/uL Monocytes # (Auto) 1.17 K/uL Eosinophils # (Auto) 0.01 K/uL Basophils # (Auto) 0.02 K/uL RDW Standard Deviation 48.1 fL RDW Coefficient of Variation 18.1 % Immature Granulocyte % (Auto) 0.5 % Immature Granulocyte # (Auto) 0.06 K/uL Hypochromasia PRESENT Macrocytosis PRESENT Sodium Level 138 mmol/L Potassium Level 4.3 mmol/L Chloride Level 98 mmol/L Carbon Dioxide Level 33 mmol/L Anion Gap 7.0 mmol/L Blood Urea Nitrogen 24 mg/dl Creatinine 0.76 mg/dl Est Creatinine Clear Calc Drug Dose 69.5 ml/min Estimated GFR () 92.1 Estimated GFR (Non- 79.5 BUN/Creatinine Ratio 31.0 Random Glucose 110 mg/dl Calcium Level 9.2 mg/dl Magnesium Level 2.2 mg/dl Vancomycin Level Trough 13.8 mcg/ml Assessment and Plan 1. acute COPD exacerbation - CXR without e/o pneumonia - MRSA BSI on vanco - cont bipap as needed - solu-medrol 40mg q8h tapered to q12h - nebs around the clock and as needed - advised on smoking cessation - repeat CXR improved 2. MRSA BSI - no e/o pneumonia on cxr - possibly skin source? - repeat BCx pending - contact precautions - Cont vanco for now - ID consulted 3. acute systolic decompensated CHF - cxr with e/o pulmonary edema - improving - will transition to po lasix 40mg IV to 80 mg po daily - advised on low-salt diet adherence - smoking cessation emphasized - nicotine patch 3. CAD - cont asa, atorvastatin, metoprolol - cardiac enzymes negative - tele monitoring 4. HTN - BP elevated initially, now low after nitro - monitor - metoprolol with holding parameters 5.hypothyroid - cont levothyroxine 6. microcytic anemia - likely MALI - cont iron supplementation dvt ppx with lovenox
--- NOTE | 2016-05-02 15:17 | Progress Note ---
Progress Note Date of Service May 02, 2016. Progress Note ID Consult Dictated #[id number] A/P: 1. MRSA Septicemia 2. Leukocytosis- likely multifactorial, bsi and IV steroids -Continue vanco, maintain trough 15-20 -repeat blood cultures pending, follow results -will need tte, r/o veg -If echo and repeat blood cultures negative will need 14 days IV abx from first negative culture -thank you
--- NOTE | 2016-05-02 15:46 | INFECT. DISEASE CONSULTATION ---
DATE OF CONSULTATION: 05/02/2016 DATE OF CONSULTATION: 05/02/2016. REQUESTING PHYSICIAN: Dr. Landa. HISTORY OF PRESENT ILLNESS: This is a 70-year-old female who was admitted after she had worsening shortness of breath at home. She has been treated for COPD exacerbation here. She has not had a flu swab. Her chest x-ray was negative for pulmonary infiltrate. She is currently receiving a nebulizer treatment on my examination. She states overall she is feeling significantly better. She denies any cough, shortness of breath, wheezing or chest pain on my examination. Overall, her pulmonary complaints have improved. She denies any fevers or chills during this admission or at home prior to admission. She states she was having several small areas where she had scratched and had opened cuts on her skin, but otherwise has no other complaints. As part of her initial workup, blood cultures were obtained in the Emergency Room. One of 2 sets is growing MRSA. She has been on vancomycin and is tolerating this well. Her trough is acceptable. She is also receiving IV steroids. She has been afebrile since admission. Her initial white blood cell count was 13, it has improved to 12.6 today. Repeat blood cultures were ordered today and are pending. She has not had an echocardiogram. Her remaining review of systems are reviewed and are negative except or as noted above. PAST MEDICAL HISTORY: Significant for hypertension, kidney disease, coronary artery disease with a history of ST elevated [place]. She also has an ejection fraction of 45%. PAST SURGICAL HISTORY: Unremarkable. FAMILY HISTORY: Noncontributory. SOCIAL HISTORY: Significant for daily tobacco use. She smoked 1 pack per day for 52 years. She is . She lives with her family. She denies any drug use or alcohol use. She denies any sick contacts recently. ALLERGIES: SHE HAS ALLERGIES TO PENICILLIN, MORPHINE, PROMETHAZINE, SULFA ANTIBIOTICS. CURRENT MEDICATIONS: Include Lasix, prednisone, vancomycin, Nicoderm patch, Benadryl, Solu-Medrol, furosemide, Paxil, Ecotrin, Synthroid, Lovenox, Lipitor, Lopressor, Niferex, DuoNebs, albuterol and Ultram. PHYSICAL EXAMINATION: VITAL SIGNS: She is afebrile since admission, pulse 71, respiratory rate 16, blood pressure 145/75, oxygen saturation is 98% on room air. GENERAL: She is awake, alert and oriented x3. She is in no acute distress. HEAD, EYES, EARS, NOSE, AND THROAT: Mucous membranes are moist. She is receiving a neb treatment on my examination. HEART: Regular. I do not auscultate a murmur. LUNGS: Clear bilaterally with decreased breath sounds. ABDOMEN: Soft. There is no lower extremity edema. I do not see any rash on exam. LABORATORY STUDIES: CBC today reveals a white blood cell count 12.6, hemoglobin 9.6, platelets are 448. Chemistry panel today reveals a sodium of 138, potassium 4.3, BUN 24, creatinine 0.7, glucose 110. LFTs were done on admission and were normal. Vancomycin level today is 13.8, 1 out of 2 blood cultures done on the is growing MRSA with a vanco JULIETTE of 1, repeat blood cultures done today are pending. Most recent chest x-ray was done yesterday which shows pulmonary edema. ASSESSMENT AND PLAN: Methicillin-resistant Staphylococcus aureus septicemia, likely secondary to skin source. She is on vancomycin and tolerating this well. Repeat blood cultures have been obtained today. If these are negative, she will need 14 days from first negative culture. Her trough should be maintained between 15 and 20. If her repeat cultures are negative and an echocardiogram is negative for vegetation she can be treated with a 14-day course of IV vancomycin. She will likely need a PICC line placement prior to discharge. I would await the results of her repeat blood cultures to ensure sterility prior to placing a PICC line. Thank you for this consultation.
--- NOTE | 2016-05-02 17:45 | ECHOCARDIOGRAM REPORT ---
*NOTICE TO RECEIVING [employer] This information is strictly Confidential and protected under [place] law. [place] law prohibits you from making any further disclosure of this information unless further disclosure is expressly permitted by the written consent of the person to whom it pertains or is authorized by law. A general authorization for the release of medical or other information is not sufficient for this purpose. Hospital accepts no responsibility if the information is made available to any other person, INCLUDING THE PATIENT. Interpretation Summary * Name: SHARAN YEN Study Date: 05/02/2016 04:27 PM BP: 149/96 mmHg * Patient Location: [facility]\S\N284\S\2 HR: 73 * : 1945 (M/d/yyy) Gender: Female Height: 68 in * Age: 70 yrs Ethnicity: [place] Weight: 166 lb * Ordering Physician: Chelsea Landa * Referring Physician: Self, Referred * Performed By: Arabella Moe RDCS * * Reason For Study: CHF * BSA: 1.9 m2 * History: CHF * -- Conclusions -- * Left ventricular systolic function is low normal. * There are regional wall motion abnormalities as specified. * The left atrium is mildly dilated. * There is mild mitral regurgitation. * Grade I diastolic dysfunction, (abnormal relaxation pattern). * Compared directly to the last echocardiogram from 08/2015, there is minimal change Procedure Details * A complete two-dimensional transthoracic echocardiogram was performed (2D, M-mode, Doppler and color flow Doppler). Left Ventricle * The left ventricle is normal in size. * There is normal left ventricular wall thickness. * Ejection Fraction = 50-55%. * Left ventricular systolic function is low normal. * Grade I diastolic dysfunction, (abnormal relaxation pattern). * Mild basal inferior and lateral hypokinesis. Mild basal anterior hypokinesis * There are regional wall motion abnormalities as specified. Right Ventricle * The right ventricle is normal in size and function. Atria * The left atrium is mildly dilated. * Right atrial size is normal. Mitral Valve * The mitral valve is grossly normal. * There is mild mitral regurgitation. Tricuspid Valve * There is trace tricuspid regurgitation. * Right ventricular systolic pressure is normal. Aortic Valve * Aortic valve sclerosis mild, without significant aortic valvular stenosis. * No hemodynamically significant valvular aortic stenosis. * There is no significant aortic regurgitation. Great Vessels * The aortic root is normal size. Pericardium/Pleural * There is no pericardial effusion. MMode 2D Measurements and Calculations IVSd 1.1 cm IVSs 1.4 cm LVIDd 4.9 cm LVIDs 3.6 cm LVPWd 1.2 cm LVPWs 1.3 cm IVS/LVPW 0.91 FS 25.6 % EDV(Teich) 110.7 ml ESV(Teich) 55.0 ml EF(Teich) 50.3 % EDV(cubed) 114.8 ml ESV(cubed) 47.3 ml EF(cubed) 58.9 % % IVS thick 31.9 % % LVPW thick 12.3 % LV mass(C)d 203.6 grams LV mass(C)dI 107.7 grams/m\S\2 LV mass(C)s 174.1 grams LV mass(C)sI 92.1 grams/m\S\2 SV(Teich) 55.7 ml SI(Teich) 29.5 ml/m\S\2 SV(cubed) 67.6 ml SI(cubed) 35.8 ml/m\S\2 Ao root diam 3.3 cm Ao root area 8.8 cm\S\2 LA dimension 4.2 cm LA/Ao 1.3 LVAd ap4 31.8 cm\S\2 LVLd ap4 8.4 cm EDV(MOD-sp4) 100.0 ml EDV(sp4-el) 102.7 ml LVAs ap4 20.5 cm\S\2 LVLs ap4 7.2 cm ESV(MOD-sp4) 49.9 ml ESV(sp4-el) 49.2 ml EF(MOD-sp4) 50.0 % EF(sp4-el) 52.1 % LVAd ap2 28.5 cm\S\2 LVLd ap2 8.4 cm EDV(MOD-sp2) 81.8 ml EDV(sp2-el) 81.8 ml LVAs ap2 18.2 cm\S\2 LVLs ap2 7.2 cm ESV(MOD-sp2) 40.0 ml ESV(sp2-el) 39.0 ml EF(MOD-sp2) 51.1 % EF(sp2-el) 52.3 % LVLd %diff 0.21 % EDV(MOD-bp) 90.6 ml LVLs %diff -0.31 % ESV(MOD-bp) 44.6 ml EF(MOD-bp) 50.7 % SV(MOD-sp4) 50.0 ml SI(MOD-sp4) 26.5 ml/m\S\2 SV(MOD-sp2) 41.8 ml SI(MOD-sp2) 22.1 ml/m\S\2 SV(MOD-bp) 46.0 ml SI(MOD-bp) 24.3 ml/m\S\2 SV(sp4-el) 53.5 ml SI(sp4-el) 28.3 ml/m\S\2 SV(sp2-el) 42.8 ml SI(sp2-el) 22.6 ml/m\S\2 Doppler Measurements and Calculations MV E max maged 74.0 cm/sec MV A max maged 56.2 cm/sec MV E/A 1.3 MV dec time 0.25 sec Ao V2 max 163.1 cm/sec Ao max PG 10.6 mmHg Ao max PG (full) 7.1 mmHg LV V1 max PG 3.5 mmHg LV V1 max 94.0 cm/sec TR max maged 259.4 cm/sec
[2016-05-02 18:06] LABS: BUN/CREATININE RATIO 29.7 (10-20); CALCIUM 9.6 mg/dl (8.5-10.1); CREATININE 0.92 mg/dl (0.60-1.20)
[2016-05-02] MEDS: VANCOMYCIN INJ 1,500 MG in SODIUM CHLORIDE 0.9% 500ML 500 ML IV SCH (20:04)
[2016-05-02] MEDS: ENOXAPARIN 40 MG/0.4 ML SYR SC SCH (21:47)
[2016-05-02] MEDS: ATORVASTATIN 40 MG TAB PO SCH (21:48)
[2016-05-03] VITALS (10 sets, daily range): BP systolic 135–163; BP diastolic 81–99; PULSE 61–75; TEMP 36.5–36.8; O2SAT 95–99
[2016-05-03 06:10] LABS: BASO % 0.2 %; BASO ABS # 0.02 K/uL (0-0.2); EOS % 0.1 %; HEMATOCRIT 34.1 % (37-47); IG% 0.5 %; LYMPH % 14.4 %; LYMPH ABS # 1.74 K/uL (1.2-3.4); MEAN CELL VOLUME 72.9 fL (80-100); MEAN CORPUSCULAR HEMOGLOBIN 21.4 pg (25-34); MEAN CORPUSCULAR HGB CONC 29.3 g/dl (32-36); MEAN PLATELET VOLUME 8.7 fL (7.4-10.4); MONO % 8.3 %; NEUT % 76.5 %; PLATELET COUNT 481 K/uL (130-400); RED BLOOD COUNT 4.68 M/uL (4.2-5.4); WHITE BLOOD COUNT 12.08 K/uL (4.8-10.8)
[2016-05-03] MEDS: LEVOTHYROXINE 112 MCG TAB PO SCH (06:12)
[2016-05-03 06:31] LABS: ANISOCYTOSIS PRESENT; COMPLETE YES; HYPOCHROMIA PRESENT; POLYCHROMASIA 1+
[2016-05-03 06:36] LABS: CREATININE 0.72 mg/dl (0.60-1.20)
[2016-05-03] MEDS: ALBUT/IPRATROP 3MG/0.5MG NEB 3 ML VIAL INH SCH ×4 (07:35→19:08)
[2016-05-03] MEDS: METOPROLOL TARTRATE 25 MG TAB PO SCH ×2 (08:28→20:25)
[2016-05-03] MEDS: NICOTINE 14 MG/24 HR TDSY TD SCH (08:29)
[2016-05-03] MEDS: PAROXETINE 20 MG TAB PO SCH (08:29)
[2016-05-03] MEDS: IRON COMPLEX POLYSACCHARIDE W/VIT C 150 MG CAP PO SCH ×2 (08:29→20:27)
[2016-05-03] MEDS: ASPIRIN 81 MG ECTAB PO SCH (08:29)
[2016-05-03] MEDS ORDERED: FUROSEMIDE 80 MG TAB PO SCH (09:00)
[2016-05-03] MEDS: VANCOMYCIN INJ 1,500 MG in SODIUM CHLORIDE 0.9% 500ML 500 ML IV SCH (09:45)
[2016-05-03] MEDS: FUROSEMIDE 40 MG TAB PO SCH (10:34)
--- NOTE | 2016-05-03 12:17 | Progress Note ---
Subjective Date of Service: May 03, 2016. Subjective Pt evaluation today including: conversation w/ patient, physical exam, lab review, review of inpatient medication list Feeling well. Afebrile. No chest pain. Breathing much improved. No new complaints. Problem List Medical Problems: (1) Back pain Status: Acute (2) CHF (congestive heart failure) Status: Acute (3) COPD exacerbation Status: Acute (4) Pulmonary congestion Status: Acute Review of Systems All Other Systems: Reviewed and Negative Medications Albuterol Sulfate (Ventolin 0.083% 2.5MG/3ML Neb) 2.5 mg Q3H PRN INH; Start at 12:30; Stop 05/29/16 at 12:29 Albuterol/ Ipratropium (Duoneb) 3 ml QIDR INH Last administered on 05/03/16 11: 20; Admin Dose 3 ML; Start 04/29/16 at 16:00; Stop 05/29/16 at 15:59 Aspirin (Ecotrin Tab) 81 mg QAM PO Last administered on 05/03/16 08:29; Admin Dose 81 MG; Start 04/30/16 at 09:00; Stop 05/30/16 at 08:59 Atorvastatin Calcium (Lipitor Tab) 40 mg HS PO Last administered on 05/02/16 21: 48; Admin Dose 40 MG; Start 04/29/16 at 21:00; Stop 05/29/16 at 20:59 Diphenhydramine HCl 25 mg 25 mg Q6H PRN PO Last administered on 05/02/16 07:40 ; Admin Dose 25 MG; Start 05/01/16 at 22:45; Stop 05/31/16 at 22:44 Enoxaparin Sodium (Lovenox Inj) 40 mg Q24H SC Last administered on 05/02/16 21: 47; Admin Dose 40 MG; Start 04/29/16 at 21:00; Stop 05/29/16 at 20:59 Furosemide (Lasix Tab) 40 mg QAM PO Last administered on 05/03/16 10:34; Admin Dose 40 MG; Start 05/03/16 at 10:45; Stop 06/02/16 at 10:44 Levothyroxine Sodium (Synthroid Tab) 112 mcg DAILYBB PO Last administered on 05/03 06:12; Admin Dose 112 MCG; Start 04/30/16 at 06:30; Stop 05/30/16 at 06:29 Metoprolol Tartrate (Lopressor Tab) 25 mg BID PO Last administered on 05/03/16 08:28; Admin Dose 25 MG; Start 04/29/16 at 21:00; Stop 05/29/16 at 20:59 Miscellaneous (Remove Nicoderm Patch) 1 ea DAILY@2100 N/A; Start 05/02/16 at 21: 00; Stop 06/01/16 at 20:59 Nicotine (Nicoderm Cq 14MG Patch) 1 patch DAILY TD; Start 05/02/16 at 09:00; Stop 06/01/16 at 08:59 Nitroglycerin (Nitrostat Tab) 0.4 mg UD PRN SL; Start 04/29/16 at 12:30; Stop 05/29/16 at 12:29 Paroxetine HCl (pAXil TAB) 40 mg QAM PO Last administered on 05/03/16 08:29; Admin Dose 40 MG; Start 04/30/16 at 09:00; Stop 05/30/16 at 08:59 Polysaccharide Iron Complex (Niferex-150 w/ Vit C Cap) 150 mg BID PO Last administered on 05/03/16 08:29; Admin Dose 150 MG; Start 04/29/16 at 21:00; Stop 05/29/16 at 20:59 Prednisone (PredniSONE TAB) 20 mg Q12 PO Last administered on 05/03/16 08:28; Admin Dose 20 MG; Start 05/03/16 at 09:00; Stop 06/02/16 at 08:59 Tramadol HCl (Ultram Tab) 50 mg Q6 PRN PO; Start 04/29/16 at 12:30; Stop at 12:29 Vancomycin HCl (Consult) 1 ea UD PRN N/A; Start 05/02/16 at 11:30; Stop 06/01/16 at 11:29 Vancomycin HCl/ Sodium Chloride (Vancomycin Inj/ Nss 500ml) 530 ml @ 200 mls/ hr Q14H IV Last administered on 05/03/16 09:45; Admin Dose 200 MLS/HR; Start 05/02/16 at 20:00; Stop 05/07/16 at 19:59 Objective Vital Signs Date Time Temp Pulse Resp B/P Pulse Ox O2 Delivery O2 Flow Rate FiO2 05/03/16 11:20 61 16 97 Nasal Cannula 2.0 05/03/16 11:20 36.6 65 20 146/92 97 05/03/16 07:56 Nasal Cannula 2.0 05/03/16 07:44 36.7 65 20 163/99 97 05/03/16 07:35 65 16 97 Nasal Cannula 2.0 05/03/16 04:20 Nasal Cannula 2.0 05/03/16 04:00 36.5 65 18 151/96 99 2.0 05/03/16 00:00 Nasal Cannula 2.0 05/03/16 00:00 36.8 75 18 153/84 95 2.0 05/02/16 20:00 Nasal Cannula 2.0 05/02/16 19:30 37.0 67 18 139/86 97 Nasal Cannula 2.0 05/02/16 19:15 70 16 97 Nasal Cannula 2.0 05/02/16 16:00 Nasal Cannula 2.0 05/02/16 15:32 36.6 73 24 149/96 98 05/02/16 15:02 71 16 97 Nasal Cannula 2.0 05/02/16 12:29 36.3 88 24 145/75 98 Room Air Physical Exam Comments: nad, aox3 perrl, eomi s1 s2 rrr, no murmurs appreciated ctab no w/r/r abd soft nt/nd +BS no le edema cn 2-12 grossly intact Laboratory Results Last 24 Hours Test 05/02/16 17:30 05/03/16 05:38 Sodium Level 138 mmol/L Potassium Level 4.0 mmol/L Chloride Level 95 mmol/L Carbon Dioxide Level 35 mmol/L Anion Gap 8.0 mmol/L Blood Urea Nitrogen 27 mg/dl Creatinine 0.92 mg/dl 0.72 mg/dl Est Creatinine Clear Calc Drug Dose 57.4 ml/min 73.3 ml/min Estimated GFR () 73.1 98.3 Estimated GFR (Non- 63.1 84.9 BUN/Creatinine Ratio 29.7 Random Glucose 108 mg/dl Calcium Level 9.6 mg/dl White Blood Count 12.08 K/uL Red Blood Count 4.68 M/uL Hemoglobin 10.0 g/dL Hematocrit 34.1 % Mean Corpuscular Volume 72.9 fL Mean Corpuscular Hemoglobin 21.4 pg Mean Corpuscular Hemoglobin Concent 29.3 g/dl Platelet Count 481 K/uL Mean Platelet Volume 8.7 fL Neutrophils (%) (Auto) 76.5 % Lymphocytes (%) (Auto) 14.4 % Monocytes (%) (Auto) 8.3 % Eosinophils (%) (Auto) 0.1 % Basophils (%) (Auto) 0.2 % Neutrophils # (Auto) 9.25 K/uL Lymphocytes # (Auto) 1.74 K/uL Monocytes # (Auto) 1.00 K/uL Eosinophils # (Auto) 0.01 K/uL Basophils # (Auto) 0.02 K/uL RDW Standard Deviation 48.0 fL RDW Coefficient of Variation 18.3 % Immature Granulocyte % (Auto) 0.5 % Immature Granulocyte # (Auto) 0.06 K/uL Polychromasia 1+ Hypochromasia PRESENT Anisocytosis PRESENT Assessment and Plan 1. acute COPD exacerbation - CXR without e/o pneumonia - MRSA BSI on vanco - cont bipap as needed - steroids now po pred 20mg bid - nebs around the clock and as needed - advised on smoking cessation 2. MRSA BSI - no e/o pneumonia on cxr - possibly skin source? - repeat BCx pending - contact precautions - Cont vanco for now - ID input appreciated 3. acute systolic decompensated CHF - cxr with e/o pulmonary edema - improving - now on po lasix and cont to monitor i/o and daily weights - advised on low-salt diet adherence - smoking cessation emphasized - nicotine patch 3. CAD - cont asa, atorvastatin, metoprolol - cardiac enzymes negative - tele monitoring 4. HTN - BP elevated initially, now low after nitro - monitor - metoprolol with holding parameters 5.hypothyroid - cont levothyroxine 6. microcytic anemia - likely MALI - cont iron supplementation dvt ppx with lovenox
[2016-05-03] MEDS: ENOXAPARIN 40 MG/0.4 ML SYR SC SCH (20:26)
[2016-05-03] MEDS: ATORVASTATIN 40 MG TAB PO SCH (20:27)
[2016-05-04] VITALS (16 sets, daily range): BP systolic 105–167; BP diastolic 66–102; PULSE 59–71; TEMP 36.6–37.4; O2SAT 95–98
[2016-05-04] MEDS: VANCOMYCIN INJ 1,500 MG in SODIUM CHLORIDE 0.9% 500ML 500 ML IV SCH ×2 (00:25→14:00)
[2016-05-04] MEDS: LEVOTHYROXINE 112 MCG TAB PO SCH (05:57)
[2016-05-04 06:13] LABS: BUN/CREATININE RATIO 35.1 (10-20); CALCIUM 8.9 mg/dl (8.5-10.1); CREATININE 0.67 mg/dl (0.60-1.20); MAGNESIUM 2.4 mg/dl (1.8-2.4); POTASSIUM 4.5 mmol/L (3.5-5.1)
[2016-05-04] MEDS: ALBUT/IPRATROP 3MG/0.5MG NEB 3 ML VIAL INH SCH ×4 (07:01→20:11)
--- NOTE | 2016-05-04 08:23 | Progress Note ---
Subjective Date of Service: May 04, 2016. Subjective echo negative, repeat cultures negative to date, afebrile. tolerating abx. Problem List Medical Problems: (1) Back pain Status: Acute (2) CHF (congestive heart failure) Status: Acute (3) COPD exacerbation Status: Acute (4) Pulmonary congestion Status: Acute Objective Vital Signs Date Time Temp Pulse Resp B/P Pulse Ox O2 Delivery O2 Flow Rate FiO2 05/04/16 07:19 36.9 67 20 141/93 98 Nasal Cannula 2.0 05/04/16 05:06 167/88 05/04/16 04:00 Nasal Cannula 2.0 05/04/16 03:10 36.6 67 16 159/102 95 Nasal Cannula 2.0 05/03/16 23:59 Nasal Cannula 2.0 05/03/16 23:57 36.7 71 18 151/91 95 2.0 05/03/16 20:00 Nasal Cannula 2.0 05/03/16 19:08 65 16 97 Nasal Cannula 2.0 05/03/16 16:00 95 Nasal Cannula 2.0 05/03/16 15:42 71 16 95 Nasal Cannula 2.0 05/03/16 15:31 36.7 70 16 135/81 98 05/03/16 12:00 Nasal Cannula 2.0 05/03/16 11:20 61 16 97 Nasal Cannula 2.0 05/03/16 11:20 36.6 65 20 146/92 97 Laboratory Results Item Value Date Time Blood Culture - Preliminary Resulted 05/02/16 0900 Blood NO GROWTH TO DATE. Blood Culture - Preliminary Resulted 04/29/16 0750 Blood Staphylococcus Aureus Last 24 Hours Test 05/04/16 05:05 Sodium Level 137 mmol/L Potassium Level 4.5 mmol/L Chloride Level 97 mmol/L Carbon Dioxide Level 34 mmol/L Anion Gap 6.0 mmol/L Blood Urea Nitrogen 23 mg/dl Creatinine 0.67 mg/dl Est Creatinine Clear Calc Drug Dose 78.8 ml/min Estimated GFR () 103.2 Estimated GFR (Non- 89.1 BUN/Creatinine Ratio 35.1 Random Glucose 125 mg/dl Calcium Level 8.9 mg/dl Magnesium Level 2.4 mg/dl Assessment and Plan (1) Staphylococcus aureus septicemia Assessment & Plan: echo negative, repeat cultures negative. will need 14 days IV vanco from first negative culture, ok for picc line. maintain vanco level 15- 20
[2016-05-04] MEDS: NICOTINE 14 MG/24 HR TDSY TD SCH ×2 (09:00→09:04)
[2016-05-04] MEDS ORDERED: LISINOPRIL 10 MG TAB PO ONE (09:00)
[2016-05-04] MEDS: ASPIRIN 81 MG ECTAB PO SCH (09:02)
[2016-05-04] MEDS: METOPROLOL TARTRATE 25 MG TAB PO SCH ×2 (09:03→20:46)
[2016-05-04] MEDS: FUROSEMIDE 40 MG TAB PO SCH ×2 (09:03→15:40)
[2016-05-04] MEDS: IRON COMPLEX POLYSACCHARIDE W/VIT C 150 MG CAP PO SCH ×2 (09:03→20:44)
[2016-05-04] MEDS: PAROXETINE 20 MG TAB PO SCH (09:03)
--- NOTE | 2016-05-04 10:42 | Progress Note ---
Subjective Date of Service: May 04, 2016. Subjective Pt evaluation today including: conversation w/ patient, physical exam, review of inpatient medication list Feeling well. Breathing continues to improve. No fevers. No chest pain. No new complaints. RIsk/benefits/alternatives to PICC discussed. Consent signed. Problem List Medical Problems: (1) Back pain Status: Acute (2) CHF (congestive heart failure) Status: Acute (3) COPD exacerbation Status: Acute (4) Pulmonary congestion Status: Acute Review of Systems All Other Systems: Reviewed and Negative Medications Albuterol Sulfate (Ventolin 0.083% 2.5MG/3ML Neb) 2.5 mg Q3H PRN INH; Start at 12:30; Stop 05/29/16 at 12:29 Albuterol/ Ipratropium (Duoneb) 3 ml QIDR INH Last administered on 05/04/16 07: 01; Admin Dose 3 ML; Start 04/29/16 at 16:00; Stop 05/29/16 at 15:59 Aspirin (Ecotrin Tab) 81 mg QAM PO Last administered on 05/04/16 09:02; Admin Dose 81 MG; Start 04/30/16 at 09:00; Stop 05/30/16 at 08:59 Atorvastatin Calcium (Lipitor Tab) 40 mg HS PO Last administered on 05/03/16 20: 27; Admin Dose 40 MG; Start 04/29/16 at 21:00; Stop 05/29/16 at 20:59 Diphenhydramine HCl 25 mg 25 mg Q6H PRN PO Last administered on 05/02/16 07:40 ; Admin Dose 25 MG; Start 05/01/16 at 22:45; Stop 05/31/16 at 22:44 Enoxaparin Sodium (Lovenox Inj) 40 mg Q24H SC Last administered on 05/03/16 20: 26; Admin Dose 40 MG; Start 04/29/16 at 21:00; Stop 05/29/16 at 20:59 Furosemide (Lasix Tab) 40 mg BID@0700,1500 PO; Start 05/04/16 at 15:00; Stop 06/03 at 14:59 Levothyroxine Sodium (Synthroid Tab) 112 mcg DAILYBB PO Last administered on 05/04 05:57; Admin Dose 112 MCG; Start 04/30/16 at 06:30; Stop 05/30/16 at 06:29 Lisinopril (Zestril Tab) 10 mg HS PO; Start 05/04/16 at 21:00; Stop 06/03/16 at 20 :59 Metoprolol Tartrate (Lopressor Tab) 25 mg BID PO Last administered on 05/04/16 09:03; Admin Dose 25 MG; Start 04/29/16 at 21:00; Stop 05/29/16 at 20:59 Miscellaneous (Remove Nicoderm Patch) 1 ea DAILY@2100 N/A; Start 05/02/16 at 21: 00; Stop 06/01/16 at 20:59 Nicotine (Nicoderm Cq 14MG Patch) 1 patch DAILY TD; Start 05/02/16 at 09:00; Stop 06/01/16 at 08:59 Nitroglycerin (Nitrostat Tab) 0.4 mg UD PRN SL; Start 04/29/16 at 12:30; Stop 05/29/16 at 12:29 Paroxetine HCl (pAXil TAB) 40 mg QAM PO Last administered on 05/04/16 09:03; Admin Dose 40 MG; Start 04/30/16 at 09:00; Stop 05/30/16 at 08:59 Polysaccharide Iron Complex (Niferex-150 w/ Vit C Cap) 150 mg BID PO Last administered on 05/04/16 09:03; Admin Dose 150 MG; Start 04/29/16 at 21:00; Stop 05/29/16 at 20:59 Prednisone (PredniSONE TAB) 20 mg Q12 PO Last administered on 05/04/16 09:03; Admin Dose 20 MG; Start 05/03/16 at 09:00; Stop 06/02/16 at 08:59 Tramadol HCl (Ultram Tab) 50 mg Q6 PRN PO; Start 04/29/16 at 12:30; Stop at 12:29 Vancomycin HCl (Consult) 1 ea UD PRN N/A; Start 05/02/16 at 11:30; Stop 06/01/16 at 11:29 Vancomycin HCl/ Sodium Chloride (Vancomycin Inj/ Nss 500ml) 530 ml @ 200 mls/ hr Q14H IV Last administered on 05/04/16 00:25; Admin Dose 200 MLS/HR; Start 05/02/16 at 20:00; Stop 05/07/16 at 19:59 Objective Vital Signs Date Time Temp Pulse Resp B/P Pulse Ox O2 Delivery O2 Flow Rate FiO2 05/04/16 08:00 98 Nasal Cannula 2.0 05/04/16 07:19 36.9 67 20 141/93 98 Nasal Cannula 2.0 05/04/16 07:01 71 16 98 Nasal Cannula 2.0 05/04/16 05:06 167/88 05/04/16 04:00 Nasal Cannula 2.0 05/04/16 03:10 36.6 67 16 159/102 95 Nasal Cannula 2.0 05/03/16 23:59 Nasal Cannula 2.0 05/03/16 23:57 36.7 71 18 151/91 95 2.0 05/03/16 20:00 Nasal Cannula 2.0 05/03/16 19:08 65 16 97 Nasal Cannula 2.0 05/03/16 16:00 95 Nasal Cannula 2.0 05/03/16 15:42 71 16 95 Nasal Cannula 2.0 05/03/16 15:31 36.7 70 16 135/81 98 05/03/16 12:00 Nasal Cannula 2.0 05/03/16 11:20 61 16 97 Nasal Cannula 2.0 05/03/16 11:20 36.6 65 20 146/92 97 Physical Exam Comments: nad, aox3 eomi, perrl s1 s2 rrr, no murmurs appreciated ctab no w/r/r abd soft nt/nd +BS no Le edema cn 2-12 grossly intact Laboratory Results Last 24 Hours Test 05/04/16 05:05 Sodium Level 137 mmol/L Potassium Level 4.5 mmol/L Chloride Level 97 mmol/L Carbon Dioxide Level 34 mmol/L Anion Gap 6.0 mmol/L Blood Urea Nitrogen 23 mg/dl Creatinine 0.67 mg/dl Est Creatinine Clear Calc Drug Dose 78.8 ml/min Estimated GFR () 103.2 Estimated GFR (Non- 89.1 BUN/Creatinine Ratio 35.1 Random Glucose 125 mg/dl Calcium Level 8.9 mg/dl Magnesium Level 2.4 mg/dl Assessment and Plan 1. acute COPD exacerbation - CXR without e/o pneumonia - MRSA BSI on vanco - steroids now po pred 20mg bid and cont to taper - nebs around the clock and as needed - advised on smoking cessation 2. MRSA BSI - no e/o pneumonia on cxr - possibly skin source? - repeat BCx negative so far from 05/02 - contact precautions - Cont vanco until 05/15 to maintain trough 15-20 - ID input appreciated - for PICC line - will need to be arranged for home infusions 3. acute systolic decompensated CHF - cxr with e/o pulmonary edema - improving - would discharge on lasix 40mg bid and counselled on weight-directed lasix dosing - advised on low-salt diet adherence - smoking cessation emphasized - nicotine patch now and on discharge 3. CAD - cont asa, atorvastatin, metoprolol - cardiac enzymes negative 4. HTN - BP elevated initially, now low after nitro - monitor - metoprolol with holding parameters 5.hypothyroid - cont levothyroxine 6. microcytic anemia - likely MALI - cont iron supplementation dvt ppx with lovenox
[2016-05-04] MEDS ORDERED: VANCOMYCIN TROUGH ONE (13:30)
--- NOTE | 2016-05-04 15:51 | Pharmacy Progress Note ---
Pharmacy Antibiotic Prog Note Date of Service: May 04, 2016. Subjective: The patient is currently receiving Vancomycin 1500mg IV q14h. The patient is currently on day #5 of IV therapy. Objective: Height (Feet): 5 Height (Inches): 8.00 Weight (Kilograms): 76.100 Levels: Item Value Date Time Vancomycin Level Trough 15.5 mcg/ml 05/04/16 1341 Vancomycin Level Trough 13.8 mcg/ml 05/02/16 0548 Lab Results (24hrs): Laboratory Tests Test 05/04/16 05:05 BUN/Creatinine Ratio 35.1 Blood Urea Nitrogen 23 mg/dl Creatinine 0.67 mg/dl Micro Results: Item Value Date Time Blood Culture - Preliminary Resulted 04/29/16 0720 Blood NO GROWTH TO DATE. Blood Culture - Preliminary Resulted 04/29/16 0750 Blood Staphylococcus Aureus Blood Culture - Preliminary Resulted 05/02/16 0900 Blood NO GROWTH TO DATE. RUN DATE: 05/02/16 [facility] PAGE 1 RUN TIME: 812 Specimen Inquiry PATIENT: SHARAN YEN LOC: [facility] U # : [id number] AGE/SX: 70/F ROOM: N284 REG : 04/29/[address]: Chelsea Landa MD : 1945 BED: 2 DIS : STATUS: ADM IN TLOC: SPEC #: [id number] GILDA: 04/29/16 STATUS: RES REQ #: [id number] RECD: 04/29/[address]: Edith Hart M.D. SOURCE: BLOOD ENTR: 04/29/[address] [facility] [address]: Ismael Samayoa M.D. [facility]: ORDERED: BLOOD CULTURE Procedure Result Verified Site BLD CULT Preliminary 05/02/16-08 Organism 1 STAPHYLOCOCCUS AUREUS SENS SENSITIVITY TO FOLLOW SENSITIVITY RESULT INDICATES A METHICILLIN RESISTANT STAPH. AUREUS. PHONED TO TISH HOPKINS ON 05/02/16 AT 0812 BY Karen Patricia. Results were verbalized back to ADRIEL. RESULTS WERE ALSO CALLED TO [facility] CONTROL ANSWERING MACHINE ON 05/02/16 BY ADRIEL. Phoned Positive Blood Culture Gram Stain Report to ABDOULAYE ARMAS on 04/30/16 At 0915 By KEN. Results were verbalized back to KEN. 1. STAPHYLOCOCCUS AUREUS Target Route Dose RX AB Cost M.I.C. IQ ------ ----- ------ -- ------ -------- - ------ TRIMET/SULFA S <=0.5/ 9.5 * OXACILLIN R * >2 VANCOMYCIN S 1 ERYTHROMYCIN R >4 TETRACYCLINE S <=4 CLINDAMYCIN R >4 DAPTOMYCIN S <=0.5 RIFAMPIN S <=1 S = SENSITIVE I = INTERMEDIATE R = RESISTANT Recent Pertinent Medications: Item Value Date Time Vancomycin HCl 540 ml @ 200 mls/hr 04/30/16 1145 2000 mg/Sodium NOW ONCE/IV 04/30/16 1235 Chloride Vancomycin HCl 274 ml @ 125 mls/hr 05/01/16 0200 1200 mg/Sodium Q14H/IV 05/02/16 0610 Chloride Vancomycin HCl 530 ml @ 200 mls/hr 05/02/16 2000 1500 mg/Sodium Q14H/IV 05/04/16 1400 Chloride Assessment & Plan: Vancomycin * 70 yo F on IV Vanco for GPC bacteremia to continue for 14 days from first negative culture * goal trough level: 15-20mcg/mL * trough level drawn: 15.5mcg/mL --> Therapeutic * continue current dose: vancomycin 1500mg IV q14h * will recheck level in a few days or sooner if needed Pharmacy will continue to follow and will adjust dose/frequency as necessary. Thank you
[2016-05-04] MEDS: LISINOPRIL 10 MG TAB PO SCH ×2 (20:44→21:00)
[2016-05-04] MEDS: ATORVASTATIN 40 MG TAB PO SCH (20:47)
[2016-05-04] MEDS: ENOXAPARIN 40 MG/0.4 ML SYR SC SCH (20:48)
[2016-05-05] VITALS (8 sets, daily range): BP systolic 117–158; BP diastolic 55–90; PULSE 62–69; TEMP 36.5–36.9; O2SAT 93–97
[2016-05-05] MEDS: VANCOMYCIN INJ 1,500 MG in SODIUM CHLORIDE 0.9% 500ML 500 ML IV SCH (04:25)
[2016-05-05] MEDS: LEVOTHYROXINE 112 MCG TAB PO SCH (05:16)
[2016-05-05 05:57] LABS: CREATININE 0.68 mg/dl (0.60-1.20)
[2016-05-05] MEDS: FUROSEMIDE 40 MG TAB PO SCH ×2 (06:04→13:42)
[2016-05-05] MEDS: ALBUT/IPRATROP 3MG/0.5MG NEB 3 ML VIAL INH SCH ×3 (07:00→11:47)
[2016-05-05] MEDS: METOPROLOL TARTRATE 25 MG TAB PO SCH (08:27)
[2016-05-05] MEDS: PAROXETINE 20 MG TAB PO SCH (08:27)
[2016-05-05] MEDS: IRON COMPLEX POLYSACCHARIDE W/VIT C 150 MG CAP PO SCH (08:27)
[2016-05-05] MEDS: NICOTINE 14 MG/24 HR TDSY TD SCH (08:27)
[2016-05-05] MEDS: ASPIRIN 81 MG ECTAB PO SCH (08:28)
[2016-05-05] MEDS ORDERED: VANCOMYCIN INJ 1,250 MG in SODIUM CHLORIDE 0.9% 250ML 250 ML IV ONE (14:00)
[2016-05-05] MEDS ORDERED: PRED10TA PO (14:14)
--- NOTE | 2016-05-05 14:24 | Discharge Instructions ---
Discharge Instructions Date of Service May 05, 2016. Admission Reason for Admission: Chf, Copd Exacerbation Discharge Discharge Diagnosis / Problem: MRSA septicemia, COPD exacerbation. Discharge Goals Goal(s): Decrease discomfort, Improve function Activity Recommendations Activity Limitations: resume your previous activity . Instructions / Follow-Up Instructions / Follow-Up Take your prednisone as follows: Prednisone 10mg tablets take #2 each day for days 1-5, then take #1 each day for days 6-10. Vancomycin IV 1250mg Q 12 hours via PICC line through 05/15/16. (Hand written script provided) Follow up with your PCP in 5-7 days. Follow up with Infectious disease, Dr. Chelsie Fu D.O. - call office for a hospital follow up appointment. Have home alvin team draw blood for CBC, BMP, and vancomycin trough before your morning dose of vancomycin on Thursday05/07/16. Current Hospital Diet Patient's current hospital diet: Regular Diet, Low Sodium Diet (2gm Na), AHA Diet (Heart Healthy) Discharge Diet Recommended Diet: Regular Diet Procedures Procedures Performed: PICC line placement 05/04/16 Pending Studies Studies pending at discharge: no Laboratory Results Lipid Panel Test 04/30/16 02:02 Range/Units Triglycerides Level 90 0-150 mg/dl Cholesterol Level 117 0-200 mg/dl HDL Cholesterol 42 mg/dl Cholesterol/HDL Ratio 2.8 LDL Cholesterol, Calculated 57 mg/dl Medical Emergencies . Who to Call and When: Medical Emergencies: If at any time you feel your situation is an emergency, please call 911 immediately. . Non-Emergent Contact Non-Emergency issues call your: Primary Care Provider . . "Provider Documentation" section prepared by Negrito Connell. VTE Core Measure Inpt VTE Proph given/why not?: Enoxaparin (Lovenox)SQ
[2016-05-05] MEDS ORDERED: LSX40 PO (14:28)
--- NOTE | 2016-05-05 14:45 | Discharge Summary ---
Discharge Summary Date of Service May 05, 2016. Discharge Summary Admission Date: Apr 29, 2016 at 12:25 Discharge Date: May 05, 2016 Discharge Disposition: Home with services Principal Diagnosis: COPD exacerbation, MRSA septicemia Problems/Secondary Diagnoses: HTN Immunizations: Have You Had Influenza Vaccine: No History of Tetanus Vaccine?: Unknown History of Pneumococcal: Yes Pneumococcal Date: Jun 18, 2010 History of Hepatitis B Vaccine: Unknown Consultations: Infectious diseases, Dr. Chelsie Fu, D.O. Medication Reconciliation New Medications: Prednisone (Prednisone) 10 Mg Tab 10 MG PO DIRECTED for 10 Days, #15 TAB NS Furosemide (Furosemide) 40 Mg Tab 40 MG PO BID@0700,1500 for 30 Days, #60 TAB 0 Refills Continued Medications: Aspirin (Aspirin Ec) 81 Mg Tab 81 MG PO QAM Atorvastatin (Lipitor) 40 Mg Tab 40 MG PO HS, TAB Budesonide/Formoterol Fumarate (Symbicort 80/4.5 Inhaler) Aero 2 PUFFS INH BID, INHALER Ipratropium [place] (Atrovent Hfa) 200 Puffs/3400 Mcg Aers 2 PUFFS INH BID, #12.9 GM 3 Refills Ipratropium [place] (Ipratropium [place]) 0.5 Mg/2.5 Ml Nebu 1 VIAL NEB QID PRN for Shortness of Breath for 30 Days, #300 ML 3 Refills Ipratropium-Albuterol (Combivent Respimat) 1 Aer Aer 1 PUFFS INH QID, INH Levothyroxine Sodium (Levothyroxine Sodium) 112 Mcg Tab 112 MCG PO QAM Metoprolol Tartrate (Lopressor) (Lopressor) 25 Mg Tab 25 MG PO BID, TAB Nitroglycerin (Nitrostat) 0.4 Mg Tab 0.4 MG UT UD PRN for Chest Pain Oxygen (Oxygen) Gas 2 LITERS NA UD PRN for Shortness of Breath Paroxetine (Paxil) 40 Mg Tab 40 MG PO QAM Polysaccharide Iron Complex (Iferex 150) 150 Mg Cap 150 MG PO BID Tramadol (Ultram) 50 Mg Tab 50 MG PO Q6 PRN for Pain, TAB Discontinued Medications: Furosemide (Lasix) 20 Mg Tab 20 MG PO DAILY PRN for WT GAIN >9LB MAY TAKE ADDITION TO ROUTINE DAILY 20MG FOR INCREASED WEIGHT DAILY Discharge Exam A 10 system review was performed and all were negative or than an intermittent cough. GEN: Awake, alert, and oriented x 3. Not in acute distress HEENT: Tm's intact, no inflammation, EOMI, PERRLA, MMM Neck: Soft, supple Lungs: CTA b/l, no r/r/w Heart: REG, nrl S1S2 without murmurs, rubs or gallops Abdomen: Soft, NT, ND, + BS EXT: No C/C/E NEURO: CN's II-XII grossly intact, non-focal Skin: warm, dry, no rashes PSYCH: pleasant, cooperative, no signs of significant anxiety or depression. Hospital Course Patient was admitted with COPD exacerbation and treated with IV antibiotics and IV steroids. Blood culture grew MRSA and infectious disease specialist was consulted. It was felt that the patient should continue IV Vancomycin through . A PICC line was placed on 05/04/16. It was felt the patient had clinical signs and CXR evidence of CHF. It was felt that this was systolic decompensated CHF. The patients Lasix dose was increased to 40mg po BID. She continued her other outpatient medications for chronic medical conditions. On the day of discharge, her vital signs were stable. She was afebrile and felt that she would do well at home. Total Time Spent: Greater than 30 minutes This includes examination of the patient, discharge planning, medication reconciliation, and communication with other providers. Discharge Instructions Please refer to the electronic Patient Visit Report (Discharge Instructions) for additional information. Follow-Up PCP in 5-7 days. Infectious disease, Dr. Chelsie Fu, D.O. - call office for hospital follow up appointment.
[2016-05-05] MEDS ORDERED: VANCOMYCIN INJ 1,250 MG in SODIUM CHLORIDE 0.9% 250ML 250 ML IV SCH (16:00)
[2016-05-05] MEDS ORDERED: VANCOMYCIN INJ 1,250 MG in SODIUM CHLORIDE 0.9% 500ML 500 ML IV SCH (16:00)
[2016-05-07] MEDS ORDERED: VANCOMYCIN TROUGH SCH ×2 (03:30→11:30)
[2016-11-12] MEDS ORDERED: FURO-85 PO (11:46)
[2016-11-12] MEDS ORDERED: FRS/40 PO (11:46)
[2016-11-12] MEDS ORDERED: ACET-1256 PO (11:46)
== END 2016-05-05 16:15 | disposition home health service (06) | DRG 190 ==
LOC: ENRESERVDT → ENRESERVTM → EDBD 06:55 → C.EDB 06:56 → C.MED 12:25 → C.2E 05-03 18:48 → CMPBEDREQ 05-05 12:29
PROVIDERS: ADMIT Internal Medicine; ATTEND Internal Medicine
DX: J44.1 Chronic obstructive pulmonary disease with (acute) exacerbation (principal); I50.23 Acute on chronic systolic (congestive) heart failure; I13.0 Hypertensive heart and chronic kidney disease with heart failure and stage 1 through stage 4 chronic kidney disease, or unspecified chronic kidney disease; N18.9 Chronic kidney disease, unspecified; I25.2 Old myocardial infarction; I25.10 Atherosclerotic heart disease of native coronary artery without angina pectoris; E03.9 Hypothyroidism, unspecified; D50.9 Iron deficiency anemia, unspecified; F17.200 Nicotine dependence, unspecified, uncomplicated; Z80.9 Family history of malignant neoplasm, unspecified; Z82.49 Family history of ischemic heart disease and other diseases of the circulatory system; Z88.4 Allergy status to anesthetic agent; Z88.0 Allergy status to penicillin; Z79.82 Long term (current) use of aspirin

== ENCOUNTER → 2016-05-07 | Outpatient (CLI) | payer OTHER ==
[~2016-05-07] MED LIST changes: +ACET-1256 PO; -AZIT500T26 PO; -CLOP1TAB5 PO; +FRS/40 PO; -LISI-788 PO; +LSX40 PO; +POLYCAP4 PO
[2016-05-07 09:52] LABS: BASO % 0.4 %; BASO ABS # 0.05 K/uL (0-0.2); EOS % 1.7 %; HEMATOCRIT 32.6 % (37-47); IG% 0.5 %; LYMPH % 19.6 %; LYMPH ABS # 2.43 K/uL (1.2-3.4); MEAN CELL VOLUME 72.8 fL (80-100); MEAN CORPUSCULAR HEMOGLOBIN 22.1 pg (25-34); MEAN CORPUSCULAR HGB CONC 30.4 g/dl (32-36); MEAN PLATELET VOLUME 8.9 fL (7.4-10.4); MONO % 11.2 %; NEUT % 66.6 %; PLATELET COUNT 477 K/uL (130-400); RED BLOOD COUNT 4.48 M/uL (4.2-5.4); WHITE BLOOD COUNT 12.42 K/uL (4.8-10.8)
[2016-05-07 09:59] LABS: BLOOD UREA NITROGEN 25 mg/dl (7-18); BUN/CREATININE RATIO 27.4 (10-20); CALCIUM 8.8 mg/dl (8.5-10.1); CARBON DIOXIDE 33 mmol/L (21-32); CHLORIDE 96 mmol/L (98-107); CREATININE 0.91 mg/dl (0.60-1.20); GLUCOSE 82 mg/dl (70-99); POTASSIUM 3.7 mmol/L (3.5-5.1); SODIUM 137 mmol/L (136-145)
[2016-05-07 10:27] LABS: ANISOCYTOSIS PRESENT; COMPLETE YES; HYPOCHROMIA PRESENT; POLYCHROMASIA 1+
--- NOTE | 2016-05-08 08:58 | CODING QUERY NO DIAGNOSIS ---
Valid Physician Order Needed 45 A valid physician order must be submitted in order to properly bill for the service(s) provided, including date of service(s), valid diagnosis, and physician signature. If these tests are done on a recurring basis the original physician order must be submitted in order to code and bill for the service(s) provided. Please fax us the original, signed physician order so that we may expedite billing to [phone] DOS 05/07/2016 * PARTIAL RENAL PROFILE * CBC W/AUTO DIFF * VANCO TROUGH Thank you [facility] Information Management
== END | disposition home or self-care (01) ==
LOC: C.LABSPEC 09:41
PROVIDERS: ATTEND Hospitalist
DX: A41.02 Sepsis due to Methicillin resistant Staphylococcus aureus (principal)

== ENCOUNTER → 2016-05-08 | Outpatient (CLI) | payer OTHER ==
[2016-05-08 08:30] LABS: BLOOD UREA NITROGEN 21 mg/dl (7-18); BUN/CREATININE RATIO 22.9 (10-20); CALCIUM 9.1 mg/dl (8.5-10.1); CARBON DIOXIDE 32 mmol/L (21-32); CHLORIDE 97 mmol/L (98-107); CREATININE 0.93 mg/dl (0.60-1.20); GLUCOSE 88 mg/dl (70-99); POTASSIUM 3.4 mmol/L (3.5-5.1); SODIUM 138 mmol/L (136-145)
== END | disposition home or self-care (01) ==
LOC: C.LABSPEC 08:03
PROVIDERS: ATTEND Internal Medicine Infectious Disease
DX: A49.02 Methicillin resistant Staphylococcus aureus infection, unspecified site (principal)

== ENCOUNTER → 2016-05-11 | Outpatient (CLI) | payer OTHER ==
[2016-05-11 09:10] LABS: BASO % 1.3 %; BASO ABS # 0.16 K/uL (0-0.2); EOS % 5.1 %; HEMATOCRIT 32.1 % (37-47); IG% 0.3 %; LYMPH % 18.4 %; LYMPH ABS # 2.35 K/uL (1.2-3.4); MEAN CORPUSCULAR HEMOGLOBIN 22.6 pg (25-34); MEAN CORPUSCULAR HGB CONC 30.5 g/dl (32-36); MEAN PLATELET VOLUME 9.1 fL (7.4-10.4); MONO % 8.6 %; NEUT % 66.3 %; PLATELET COUNT 415 K/uL (130-400); RED BLOOD COUNT 4.34 M/uL (4.2-5.4)
[2016-05-11 09:28] LABS: ALT/SGPT 29 U/L (12-78); BLOOD UREA NITROGEN 20 mg/dl (7-18); BUN/CREATININE RATIO 22.2 (10-20); C-REACTIVE PROTEIN < 0.29 mg/dl (0-0.29); CALCIUM 8.9 mg/dl (8.5-10.1); CARBON DIOXIDE 34 mmol/L (21-32); CHLORIDE 97 mmol/L (98-107); CREATININE 0.92 mg/dl (0.60-1.20); GLUCOSE 89 mg/dl (70-99); POTASSIUM 3.3 mmol/L (3.5-5.1); SODIUM 138 mmol/L (136-145)
[2016-05-11 09:31] LABS: ALB/GLOB RATIO 1.1 (0.9-2); ALKALINE PHOSPHATASE 75 U/L (45-117); ANISOCYTOSIS PRESENT; AST/SGOT 17 U/L (15-37); COMPLETE YES; HYPOCHROMIA PRESENT; MICROCYTOSIS PRESENT
== END ==
LOC: C.LABSPEC 12:08
PROVIDERS: ATTEND Internal Medicine Infectious Disease
DX: A49.02 Methicillin resistant Staphylococcus aureus infection, unspecified site (principal)

== ENCOUNTER → 2016-05-19 | Outpatient (CLI) | payer OTHER ==
[~2016-05-19] MED LIST changes: -PRED10TA PO
[2016-05-19 10:43] LABS: BASO ABS # 0.13 K/uL (0-0.2); EOS % 9.4 %; HEMATOCRIT 31.7 % (37-47); IG% 0.3 %; LYMPH % 28.9 %; LYMPH ABS # 1.85 K/uL (1.2-3.4); MEAN CELL VOLUME 76.4 fL (80-100); MEAN CORPUSCULAR HEMOGLOBIN 22.9 pg (25-34); MEAN PLATELET VOLUME 9.4 fL (7.4-10.4); MONO % 8.9 %; NEUT % 50.5 %; PLATELET COUNT 286 K/uL (130-400); RED BLOOD COUNT 4.15 M/uL (4.2-5.4); WHITE BLOOD COUNT 6.41 K/uL (4.8-10.8)
[2016-05-19 10:51] LABS: ALT/SGPT 30 U/L (12-78); BLOOD UREA NITROGEN 11 mg/dl (7-18); BUN/CREATININE RATIO 11.1 (10-20); C-REACTIVE PROTEIN < 0.29 mg/dl (0-0.29); CARBON DIOXIDE 31 mmol/L (21-32); CHLORIDE 99 mmol/L (98-107); GLUCOSE 91 mg/dl (70-99); POTASSIUM 3.5 mmol/L (3.5-5.1); SODIUM 137 mmol/L (136-145)
[2016-05-19 10:54] LABS: ALB/GLOB RATIO 1.1 (0.9-2); ALKALINE PHOSPHATASE 86 U/L (45-117); AST/SGOT 18 U/L (15-37)
[2016-05-19 12:04] LABS: ANISOCYTOSIS PRESENT; COMPLETE YES; POLYCHROMASIA 1+
== END | disposition home or self-care (01) ==
LOC: C.LABSPEC 09:33
PROVIDERS: ATTEND Internal Medicine Infectious Disease
DX: Z79.2 Long term (current) use of antibiotics (principal); Z51.81 Encounter for therapeutic drug level monitoring

== ENCOUNTER → 2016-05-26 | Outpatient (CLI) | payer OTHER ==
[2016-05-26 08:53] LABS: BASO % 0.8 %; BASO ABS # 0.06 K/uL (0-0.2); EOS % 9.1 %; HEMATOCRIT 29.9 % (37-47); IG% 0.1 %; LYMPH % 25.4 %; LYMPH ABS # 1.81 K/uL (1.2-3.4); MEAN CELL VOLUME 73.5 fL (80-100); MEAN CORPUSCULAR HEMOGLOBIN 23.1 pg (25-34); MEAN CORPUSCULAR HGB CONC 31.4 g/dl (32-36); MEAN PLATELET VOLUME 8.7 fL (7.4-10.4); MONO % 7.4 %; NEUT % 57.2 %; PLATELET COUNT 281 K/uL (130-400); RED BLOOD COUNT 4.07 M/uL (4.2-5.4); WHITE BLOOD COUNT 7.12 K/uL (4.8-10.8)
[2016-05-26 09:00] LABS: BLOOD UREA NITROGEN 20 mg/dl (7-18); C-REACTIVE PROTEIN < 0.29 mg/dl (0-0.29); CALCIUM 9.3 mg/dl (8.5-10.1); CARBON DIOXIDE 31 mmol/L (21-32); CHLORIDE 99 mmol/L (98-107); GLUCOSE 92 mg/dl (70-99); POTASSIUM 3.4 mmol/L (3.5-5.1); SODIUM 137 mmol/L (136-145)
[2016-05-26 09:03] LABS: ALB/GLOB RATIO 1.1 (0.9-2); ALKALINE PHOSPHATASE 106 U/L (45-117); ALT/SGPT 47 U/L (12-78); AST/SGOT 32 U/L (15-37)
[2016-05-26 09:32] LABS: ANISOCYTOSIS PRESENT; COMPLETE YES; OVALOCYTES 1+; POLYCHROMASIA 1+
== END | disposition home or self-care (01) ==
LOC: C.LABSPEC 08:34
PROVIDERS: ATTEND Internal Medicine Infectious Disease
DX: Z79.2 Long term (current) use of antibiotics (principal)

== ENCOUNTER 2016-08-25 12:20 | Emergency (ER) | payer OTHER ==
[~2016-08-25] VITALS: Ht 165.1 cm; Wt 77.5 kg
[~2016-08-25 12:20] MED LIST changes: -ACET-1256 PO; -FRS/40 PO; -FURO-85 PO
[2016-08-25 12:27] VITALS: TEMP 37; Ht 165.1 cm; Wt 77.5 kg
[2016-08-25] MEDS ORDERED: IBUPROFEN 600 MG TAB PO STA (12:44)
--- NOTE | 2016-08-25 13:23 | DIAGNOSTIC IMAGING REPORT ---
LEFT WRIST 5 VIEWS CLINICAL HISTORY: Fall with wrist pain. FINDINGS: 5 views of the left wrist are obtained. No prior studies are available for comparison at the time of dictation. The skeletal structures are osteopenic. There is no subtle cortical buckling seen on the posterior aspect of the distal radial metaphysis only on the lateral view. No additional findings are concerning for Fracture. Mild narrowing is seen at the radiocarpal articulation. The joint spaces of the wrist are otherwise preserved. Mild soft tissue swelling is noted. IMPRESSION: 1. There is mild soft soft tissue swelling. Subtle cortical buckling is suggested along the dorsal aspect of the distal right metaphysis only on the lateral view. Fracture is not excluded. Correlate for point tenderness at this site. 2. No additional findings are concerning for fracture. Electronically signed by: Suleman Mcpherson M.D. 08/25/2016 1:22 PM Dictated Date/Time: 08/25/2016 1:18 PM
--- NOTE | 2016-08-25 13:32 | EMERGENCY ROOM VISIT NOTE ---
ED Visit Note First contact with patient: 12:27 This Patient was discussed with the physician safety admin assistant, Eileen Mays PA-C. The pertinent historical and physical exam findings were confirmed. I agree with the studies ordered and with the interpretations of these studies. I agree with the disposition and care plan.
--- NOTE | 2016-08-25 13:33 | EMERGENCY ROOM VISIT NOTE ---
ED Visit Note First contact with patient: 12:27 CHIEF COMPLAINT: Left wrist injury HISTORY OF PRESENT ILLNESS: This 71-year-old female presents the ER with chief complaint of left wrist pain secondary to an injury. The patient states last week she was walking and actually tripped and fell onto an outstretched left arm. The patient now has pain in the left wrist. Patient denies any numbness and tingling. The patient is right-hand dominant. The patient has not taken anything for pain today. The patient has not seen any orthopedics surgeons in the past. REVIEW OF SYSTEMS: 6 system review was performed and was negative unless stated otherwise in history of present illness. PMH: The patient is healthy; CAD, urgency, hypertension, COPD, cholecystectomy SOCIAL HISTORY: Patient admits to tobacco use but denies any alcohol use PHYSICAL EXAM: Vital Signs: Were reviewed Reviewed Nurse's notes. GEN.: 71-year -old white female appears in no acute distress. Nasal cannula is in place. MENTAL Status: Alert and oriented 3. LEFT WRIST: No gross bony deformity noted. There is edema and ecchymosis noted over the radial aspect of the wrist and tenderness over the snuffbox. The patient is able to flex and extend her fingers without difficulty. No elbow tenderness noted. EMERGENCY DEPARTMENT COURSE: The patient was evaluated. The patient was given Motrin 600 mg by mouth for pain. X-ray of the left wrist with navicular view was ordered to by the radiologist and myself. DIAGNOSTICS:LEFT WRIST 5 VIEWS CLINICAL HISTORY: Fall with wrist pain. FINDINGS: 5 views of the left wrist are obtained. No prior studies are available for comparison at the time of dictation. The skeletal structures are osteopenic. There is no subtle cortical buckling seen on the posterior aspect of the distal radial metaphysis only on the lateral view. No additional findings are concerning for Fracture. Mild narrowing is seen at the radiocarpal articulation. The joint spaces of the wrist are otherwise preserved. Mild soft tissue swelling is noted. IMPRESSION: 1. There is mild soft soft tissue swelling. Subtle cortical buckling is suggested along the dorsal aspect of the distal right metaphysis only on the lateral view. Fracture is not excluded. Correlate for point tenderness at this site. 2. No additional findings are concerning for fracture. Electronically signed by: Suleman Mcpherson M.D. 08/25/2016 1:22 PM the patient was informed of the findings. The patient was placed in a thumb spica splint. The patient was independently evaluated by Dr. Landin who agreed with treatment plan. The patient was discharged home in stable condition. DIAGNOSIS: Fractured distal left radius DISCHARGE INSTRUCTIONS AND TREATMENT: Wear the wrist splint except for bathing until evaluated by orthopedics. Ibuprofen 600 mg every 6 hours with food for pain. Call [facility] for follow-up appointment. Problem List Medical Problems: (1) Hypertension Status: Chronic (2) Kidney disease Status: Chronic (3) STEMI (ST elevation myocardial infarction) Status: Resolved Current/Historical Medications Scheduled Aspirin (Aspirin Ec), 81 MG PO QAM Atorvastatin (Lipitor), 40 MG PO HS Budesonide/Formoterol Fumarate (Symbicort 80/4.5 Inhaler), 2 PUFFS INH BID Furosemide (Furosemide), 40 MG PO BID@0700,1500 Ipratropium [place] (Atrovent Hfa), 2 PUFFS INH BID Ipratropium-Albuterol (Combivent Respimat), 1 PUFFS INH QID Levothyroxine Sodium (Levothyroxine Sodium), 112 MCG PO QAM Metoprolol Tartrate (Lopressor) (Lopressor), 25 MG PO BID Paroxetine (Paxil), 40 MG PO QAM Polysaccharide Iron Complex (Iferex 150), 150 MG PO BID Scheduled PRN Home O2 Therapy (Oxygen), 2 LITERS NA UD PRN for Shortness of Breath Ipratropium [place] (Ipratropium [place]), 1 VIAL NEB QID PRN for Shortness of Breath Nitroglycerin (Nitrostat), 0.4 MG UT UD PRN for Chest Pain Allergies Coded Allergies: Penicillins (Verified Allergy, Severe, SWELLING, 08/25/16) Morphine (Verified Allergy, Intermediate, bradycardia and hypotension, ) Promethazine (Verified Allergy, Intermediate, bradycardia and hypotension , 08/25/16) Sulfa Antibiotics (Verified Allergy, Unknown, RASH, 08/25/16) Vital Signs Date Time Temp Pulse Resp B/P (MAP) Pulse Ox O2 Delivery O2 Flow Rate FiO2 08/25/16 12:27 37.0 59 18 103/71 98 Nasal Cannula 2.0 Medications Administered Medications (Trade) Dose Ordered Sig/Ton Route Start Time Stop Time Status Last Admin Dose Admin Ibuprofen (Motrin Tab) 600 mg NOW STAT PO 08/25/16 12:44 08/25/16 12:45 DC 08/25/16 12:52 600 MG Departure Information Referrals No Doctor, Assigned (PCP) Patient Instructions [facility]
[2016-08-25 13:45] VITALS: BP 113/72; PULSE 59; O2SAT 98
[2016-11-12] MEDS ORDERED: FURO-85 PO (11:46)
[2016-11-12] MEDS ORDERED: ACET-1256 PO (11:46)
[2016-11-12] MEDS ORDERED: FRS/40 PO (11:46)
== END 2016-08-25 13:50 | disposition home or self-care (01) ==
LOC: C.EDB 12:21 → C.EDD 13:50
DX: S52.502A Unspecified fracture of the lower end of left radius, initial encounter for closed fracture (principal); W01.198A Fall on same level from slipping, tripping and stumbling with subsequent striking against other object, initial encounter; Y93.01 Activity, walking, marching and hiking; Y99.8 Other external cause status; I10 Essential (primary) hypertension; I25.10 Atherosclerotic heart disease of native coronary artery without angina pectoris; J44.9 Chronic obstructive pulmonary disease, unspecified; I25.2 Old myocardial infarction; Z90.49 Acquired absence of other specified parts of digestive tract; Z72.0 Tobacco use; Z79.82 Long term (current) use of aspirin; Z79.899 Other long term (current) drug therapy

== ENCOUNTER → 2016-10-23 | Outpatient (CLI) | payer OTHER ==
[~2016-10-23] MED LIST changes: +ACET-1256 PO; +FRS/40 PO; +FURO-85 PO; -TRAM-10 PO
[2016-10-23 17:56] LABS: ALT/SGPT 26 U/L (12-78); AST/SGOT 16 U/L (15-37); BLOOD UREA NITROGEN 14 mg/dl (7-18); BUN/CREATININE RATIO 14.1 (10-20); CALCIUM 9.1 mg/dl (8.5-10.1); CARBON DIOXIDE 34 mmol/L (21-32); CHLORIDE 99 mmol/L (98-107); CHOLESTEROL 146 mg/dl (0-200); CREATININE 0.96 mg/dl (0.60-1.20); GLUCOSE 101 mg/dl (70-99); POTASSIUM 3.7 mmol/L (3.5-5.1); SODIUM 136 mmol/L (136-145); TRIGLYCERIDES 121 mg/dl (0-150); VERY LOW DENSITY LIPOPROT CALC 24 mg/dl
[2016-10-23 18:05] LABS: ALB/GLOB RATIO 1.1 (0.9-2); ALKALINE PHOSPHATASE 117 U/L (45-117); CHOLESTEROL/HDL RATIO 2.8; FERRITIN 5.8 ng/ml (8.0-388.0); HDL CHOLESTEROL 52 mg/dl; LDL CHOLESTEROL CALCULATED 70 mg/dl; THYROID STIMULATING HORMONE 0.404 uIu/ml (0.300-4.500); TOTAL IRON BINDING CAPACITY 519 mcg/dl (250-450)
[2016-10-23 18:34] LABS: HEMATOCRIT 35.2 % (37-47); MEAN CELL VOLUME 72.3 fL (80-100); MEAN CORPUSCULAR HEMOGLOBIN 20.9 pg (25-34); MEAN PLATELET VOLUME 8.9 fL (7.4-10.4); PLATELET COUNT 294 K/uL (130-400); RED BLOOD COUNT 4.87 M/uL (4.2-5.4); WHITE BLOOD COUNT 6.06 K/uL (4.8-10.8)
[2016-10-23 18:46] LABS: ANISOCYTOSIS PRESENT; BASO % 0.5 %; BASO ABS # 0.03 K/uL (0-0.2); COMPLETE YES; EOS % 3.5 %; IG% 0.2 %; LYMPH % 34.5 %; LYMPH ABS # 2.09 K/uL (1.2-3.4); MONO % 9.2 %; NEUT % 52.1 %; OVALOCYTES 1+; POLYCHROMASIA 1+
== END | disposition home or self-care (01) ==
LOC: C.LABBFT 13:37
PROVIDERS: ATTEND Internal Medicine
DX: E03.9 Hypothyroidism, unspecified (principal); D64.9 Anemia, unspecified; J44.9 Chronic obstructive pulmonary disease, unspecified; I25.10 Atherosclerotic heart disease of native coronary artery without angina pectoris

== ENCOUNTER → 2016-12-03 | Day surgery (SDC) | payer OTHER ==
[2016-11-12 11:48] VITALS: Ht 165.1 cm; Wt 74.1 kg
[~2016-12-03] VITALS: Ht 165.1 cm; Wt 74.1 kg
[~2016-12-03] MED LIST changes: +500ML BSS 0.3ML EPI 1:1000PF IRRIG ONE; +ACETAMINOPHEN 325 MG TAB ONE; +ACETAMINOPHEN 325 MG TAB PO PRN; +AMVISC PLUS 0.8ML SYRINGE INT OCU ONE; -ATRIN INH; +ATROPINE SULFATE 0.1 MG/ML 5ML SYR IV PRN; +BSS FLUSH ONE; +ENDOCOAT 0.85ML SYRINGE INT OCU ONE; +EpHEDrine SULFATE INJ 50 MG/ML AMP IV PRN; +EpINEphrine INJ 1MG/ML AMP 1 MG/ML AMP ONE; +FENTANYL CITRATE INJ 50 MCG/1 ML 2 ML VIAL IV PRN; +FLUMAZENIL 0.1 MG/1 ML 10 ML VIAL IV PRN; +LABETALOL HCL IV 5 MG/ML 20ML IV PRN; +LACTATED RINGER'S 1000ML 500 ML IV SCH; +LIDOCAINE 4% OP SOLN DROP CHARGE ONE; +LIDOCAINE 4% OP SOLN DROP CHARGE OPR SCH; +LIDOCAINE HCL 1% MPF 2 ML VIAL ONE; -LSX40 PO; +MEPERIDINE HCL 25 MG/ML CARP IV PRN; +MIDAZOLAM HCL 1 MG/ML 2ML VIAL ONE; +MIX: 4ML BSS 1ML EPI 1:1000 PF TOP ONE; +MOXIFLOXACIN OPH SOLN PER DROP CHARGE ONE; +NALOXONE HCL 0.4 MG/1 ML VIAL/CARP IV PRN; +ONDANSETRON INJ 2 MG/ML 2 ML VIAL IV PRN; +PHENYLEPHRINE 100MCG/ML 5ML SYR IV PRN; +POVIDONE-IODINE OP SOLN 30 ML BTL ONE; +PROPARACAINE 0.5% OP SOLN PER DROP CHARGE OPR SCH; +TOBRAMYCIN/DEXAMETHASONE OPH OINT PER APPLN CHARGE ONE
--- NOTE | 2016-12-03 09:24 | History & Physical Bridge - SC ---
H&P Re-Evaluation Bridge Note: I have examined the patient, reviewed the History & Physical and in the interval since the performance of the History & Physical I have noted the following changes of clinical significance: No changes noted
[2016-12-03] MEDS: PHENYLEPHRINE HCL 2.5% OP SOLN PER DROP CHARGE OPR SCH ×3 (09:33→09:43)
[2016-12-03] MEDS: TROPICAMIDE 1% OP SOLN PER DROP CHARGE OPR SCH ×3 (09:34→09:44)
[2016-12-03] MEDS: CYCLOPENTOLATE HCL 1% OP SOLN PER DROP CHARGE OPR SCH ×3 (09:35→09:45)
[2016-12-03] MEDS: MOXIFLOXACIN OPH SOLN PER DROP CHARGE OPR SCH ×3 (09:36→09:46)
--- NOTE | 2016-12-03 10:48 | [facility] Post Operative Brief Note ---
Immediate Operative Summary Operative Date Dec 03, 2016. Pre-Operative Diagnosis Right Eye Cataract Post-Operative Diagnosis same Procedure(s) Performed Right Cataract Phacoemulsification With Intraocular Lens Implant Surgeon Dr Johnson Geomagnetician Surgeon(s) none Estimated Blood Loss 0ml Findings right cataract Specimens none Complication(s) None Disposition
--- NOTE | 2016-12-03 10:49 | [facility] Operative Report ---
Operative Report Date of Service Dec 03, 2016. Operative Report DATE OF OPERATION: 12/03/16 PREOPERATIVE DIAGNOSIS: Senile nuclear cataract, right eye POSTOPERATIVE DIAGNOSIS: Senile nuclear cataract, right eye PROCEDURE PERFORMED: Phacoemulsification with intraocular lens implantation, right eye SURGEON: Dr. Ghassan Johnson ANESTHESIA: Topical with 1% intracameral lidocaine and monitored anesthesia care COMPLICATIONS: None DESCRIPTION OF PROCEDURE: After positively identifying the patient both verbally and by wristband in the preoperative area, the right eye was marked as the operative eye. The patient was then brought back to the operating room by the anesthesia and nursing staff where they were given a drop of Lidocaine and betadine into the operative eye. They were then sterilely prepped and draped in the standard fashion typical for ophthalmic surgery. Steri-strips were placed along the upper eyelids to keep the lashes back, and a lid speculum was placed into the operative eye. At this point, a documented time out was performed with members of the ophthalmology, nursing, and anesthesia staffs all agreeing upon the correct patient, correct location for surgery, correct procedure, and correct type and power of intraocular lens to be implanted. The microscope was then swung into position. First, a paracentesis wound was made using a sideport blade. Then, in sequence, 1% preservative-free lidocaine followed by Endocoat viscoelastic was injected into the anterior chamber. Next , the main incision was made with a keratome blade in triplanar fashion. A sharp cystotome was introduced into the eye and used to create a tear in the anterior capsule, which was directed into a continuous curvilinear capsulorrhexis using Utrata forceps. Hydrodissection was then performed with BSS on a flat-tip cannula. Next, the phacoemulsification handpiece was introduced into the eye and used to remove the nucleus in a [id number] fashion. This was done without complication and then the irrigation-aspiration handpiece was introduced into the eye and used to remove all remaining cortical and epinuclear material. Amvisc was then injected into the anterior chamber as well as into the capsular bag and using the lens injector system, an MX60 21.5 D lens, serial number [id number], and expiration date 08/2019 was injected into the capsular bag and rotated into the correct position. Next, the irrigation- aspiration handpiece was used to remove all remaining Amvisc. BSS was used to hydrate the main wound, and then BSS was injected into the paracentesis site to reach physiologic pressure and then the main wound was checked and found to be watertight. The patient was given drops of Vigamox and Tobradex ointment into the operative eye, and then the surrounding area was cleaned and dried. A clear plastic shield was placed over the eye and the patient was then sat up and taken from the operating room by the anesthesia staff having tolerated the procedure well and suffering no complications. DISPOSITION: The patient was returned to the recovery room in stable condition. I attest to the content of the Intraoperative Record and any orders documented therein. Any exceptions are noted below.
--- NOTE | 2016-12-03 10:50 | Discharge Instructions-SurgCtr ---
Discharge Instructions Date of Service Dec 03, 2016. Visit Reason for Visit: Cataract Right Eye Discharge Discharge Diagnosis / Problem: right cataract Discharge Goals Goal(s): Decrease discomfort, Improve function Activity Recommendations Activity Limitations: as noted below Anesthesia . Post Anesthesia Instructions: If you have had General Anesthesia or IV Sedation: * Do not drive today. * Resume driving when surgeon permits. * Do not make important decisions or sign legal documents today. * Call surgeon for: 1. Temperature elevations greater than 101 degrees F. 2. Uncontrollable pain. 3. Excessive bleeding. 4. Persistent nausea and vomiting. 5. Medication intolerance (nausea, vomiting or rash). * For nausea and vomiting use only clear liquids such as: tea, soda, bouillon until nausea subsides, then gradually increase diet as tolerated. * If you have any concerns or questions, call your surgeon's office. If physician is unavailable and it is an emergency, call 911 or go to the nearest emergency room. . Instructions / Follow-Up Instructions / Follow-Up ACTIVITY RECOMMENDATIONS: * Light activities. * You may walk outside, read, watch television. * You may notice redness on the white part of the eye and some blurry vision - this is normal. MEDICATIONS: Resume previous medications unless instructed otherwise by your surgeon. Start all eye drops at 1 pm today: * Eye drops (today): Prednisone - one drop in operative eye every 2 hours while awake Ofloxacin - one drop in operative eye every 2 hours while awake Bromfenac - one drop in operative eye daily SPECIAL CARE INSTRUCTIONS: * Tape plastic shield over eye to sleep at night. Call your doctor at with any concerns or problems. FOLLOW UP VISIT: Follow-up with Dr Johnson at [place] office as scheduled. Diet Recommendations Home Diet: no limitations Procedures Procedures Performed: Right Cataract Phacoemulsification With Intraocular Lens Implant Pending Studies Studies pending at discharge: no Medical Emergencies . Who to Call and When: Medical Emergencies: If at any time you feel your situation is an emergency, please call 911 immediately. . Non-Emergent Contact Non-Emergency issues call your: Surgeon . . "Provider Documentation" section prepared by Ghassan Johnson. .
--- NOTE | 2016-12-03 11:09 | Anesthesia Progress Nt - [facility] ---
Anesthesia Post Op Note Date & Time Dec 03, 2016 at 11:08 Vital Signs Pain Intensity: 0 Vital Signs Past 12 Hours Date Time Temp Pulse Resp B/P (MAP) Pulse Ox O2 Delivery O2 Flow Rate FiO2 12/03/16 10:50 36.5 66 16 143/79 (100) 97 Room Air 12/03/16 09:21 36.8 66 16 134/88 (103) 94 Room Air Notes Mental Status: alert / awake / arousable, participated in evaluation Pt Amnestic to Procedure: Yes Nausea / Vomiting: adequately controlled Pain: adequately controlled Airway Patency, RR, SpO2: stable & adequate BP & HR: stable & adequate Hydration State: stable & adequate Anesthetic Complications: no major complications apparent
[2016-12-03 11:20] VITALS: BP 145/76; PULSE 71; O2SAT 95
== END | disposition home or self-care (01) ==
LOC: X.SURG 09:06
PROVIDERS: ATTEND Ophthalmology
DX: H25.11 Age-related nuclear cataract, right eye (principal); I10 Essential (primary) hypertension; J43.9 Emphysema, unspecified; E78.00 Pure hypercholesterolemia, unspecified; I25.2 Old myocardial infarction; Z85.3 Personal history of malignant neoplasm of breast; M06.9 Rheumatoid arthritis, unspecified; F32.9 Major depressive disorder, single episode, unspecified; Z90.10 Acquired absence of unspecified breast and nipple; Z95.818 Presence of other cardiac implants and grafts; E03.9 Hypothyroidism, unspecified; Z79.82 Long term (current) use of aspirin; Z86.718 Personal history of other venous thrombosis and embolism; Z87.442 Personal history of urinary calculi; I25.10 Atherosclerotic heart disease of native coronary artery without angina pectoris

== ENCOUNTER → 2016-12-24 | Day surgery (SDC) | payer OTHER ==
[2016-12-18 10:04] VITALS: Ht 162.6 cm; Wt 74.1 kg
[~2016-12-24] VITALS: Ht 162.6 cm; Wt 74.1 kg
[~2016-12-24] MED LIST changes: -ACETAMINOPHEN 325 MG TAB ONE; -FENTANYL CITRATE INJ 50 MCG/1 ML 2 ML VIAL IV PRN; -FLUMAZENIL 0.1 MG/1 ML 10 ML VIAL IV PRN; -LABETALOL HCL IV 5 MG/ML 20ML IV PRN; +LIDOCAINE 4% OP SOLN DROP CHARGE OPL SCH; -LIDOCAINE 4% OP SOLN DROP CHARGE OPR SCH; -MEPERIDINE HCL 25 MG/ML CARP IV PRN; -NALOXONE HCL 0.4 MG/1 ML VIAL/CARP IV PRN; -ONDANSETRON INJ 2 MG/ML 2 ML VIAL IV PRN; -PHENYLEPHRINE 100MCG/ML 5ML SYR IV PRN; +PROPARACAINE 0.5% OP SOLN PER DROP CHARGE OPL SCH; -PROPARACAINE 0.5% OP SOLN PER DROP CHARGE OPR SCH
[2016-12-24] MEDS: PHENYLEPHRINE HCL 2.5% OP SOLN PER DROP CHARGE OPL SCH ×3 (06:51→07:02)
[2016-12-24] MEDS: TROPICAMIDE 1% OP SOLN PER DROP CHARGE OPL SCH ×3 (06:52→07:02)
[2016-12-24] MEDS: CYCLOPENTOLATE HCL 1% OP SOLN PER DROP CHARGE OPL SCH ×3 (06:52→07:02)
[2016-12-24] MEDS: MOXIFLOXACIN OPH SOLN PER DROP CHARGE OPL SCH ×3 (06:53→07:02)
--- NOTE | 2016-12-24 08:15 | [facility] Post Operative Brief Note ---
Immediate Operative Summary Operative Date Dec 24, 2016. Pre-Operative Diagnosis Cataract Left Eye Post-Operative Diagnosis Same Procedure(s) Performed Left Cataract Phacoemulsification With Intraocular Lens Implant Surgeon Dr. Johnson Database D[employer] Surgeon(s) None Estimated Blood Loss 0 Findings left cataract Specimens 0 Complication(s) None Disposition
--- NOTE | 2016-12-24 08:16 | [facility] Operative Report ---
Operative Report Date of Service Dec 24, 2016. Operative Report DATE OF OPERATION: 12/24/16 PREOPERATIVE DIAGNOSIS: Senile nuclear cataract, left eye POSTOPERATIVE DIAGNOSIS: Senile nuclear cataract, left eye PROCEDURE PERFORMED: Phacoemulsification with intraocular lens implantation, left eye SURGEON: Dr. Ghassan Johnson ANESTHESIA: Topical with 1% intracameral lidocaine and monitored anesthesia care COMPLICATIONS: None DESCRIPTION OF PROCEDURE: After positively identifying the patient both verbally and by wristband in the preoperative area, the left eye was marked as the operative eye. The patient was then brought back to the operating room by the anesthesia and nursing staff where they were given a drop of Lidocaine and betadine into the operative eye. They were then sterilely prepped and draped in the standard fashion typical for ophthalmic surgery. Steri-strips were placed along the upper eyelids to keep the lashes back, and a lid speculum was placed into the operative eye. At this point, a documented time out was performed with members of the ophthalmology, nursing, and anesthesia staffs all agreeing upon the correct patient, correct location for surgery, correct procedure, and correct type and power of intraocular lens to be implanted. The microscope was then swung into position. First, a paracentesis wound was made using a sideport blade. Then, in sequence, 1% preservative-free lidocaine followed by Endocoat viscoelastic was injected into the anterior chamber. Next , the main incision was made with a keratome blade in triplanar fashion. A sharp cystotome was introduced into the eye and used to create a tear in the anterior capsule, which was directed into a continuous curvilinear capsulorrhexis using Utrata forceps. Hydrodissection was then performed with BSS on a flat-tip cannula. Next, the phacoemulsification handpiece was introduced into the eye and used to remove the nucleus in a [id number] fashion. This was done without complication and then the irrigation-aspiration handpiece was introduced into the eye and used to remove all remaining cortical and epinuclear material. Amvisc was then injected into the anterior chamber as well as into the capsular bag and using the lens injector system, an MX60 22.0 D lens, serial number [id number], and expiration date 07/2019 was injected into the capsular bag and rotated into the correct position. Next, the irrigation- aspiration handpiece was used to remove all remaining Amvisc. BSS was used to hydrate the main wound, and then BSS was injected into the paracentesis site to reach physiologic pressure and then the main wound was checked and found to be watertight. The patient was given drops of Vigamox and Tobradex ointment into the operative eye, and then the surrounding area was cleaned and dried. A clear plastic shield was placed over the eye and the patient was then sat up and taken from the operating room by the anesthesia staff having tolerated the procedure well and suffering no complications. DISPOSITION: The patient was returned to the recovery room in stable condition. I attest to the content of the Intraoperative Record and any orders documented therein. Any exceptions are noted below.
--- NOTE | 2016-12-24 08:17 | Discharge Instructions-SurgCtr ---
Discharge Instructions Date of Service Dec 24, 2016. Visit Reason for Visit: Left Cataract Discharge Discharge Diagnosis / Problem: left cataract Discharge Goals Goal(s): Decrease discomfort, Improve function Activity Recommendations Activity Limitations: as noted below Anesthesia . Post Anesthesia Instructions: If you have had General Anesthesia or IV Sedation: * Do not drive today. * Resume driving when surgeon permits. * Do not make important decisions or sign legal documents today. * Call surgeon for: 1. Temperature elevations greater than 101 degrees F. 2. Uncontrollable pain. 3. Excessive bleeding. 4. Persistent nausea and vomiting. 5. Medication intolerance (nausea, vomiting or rash). * For nausea and vomiting use only clear liquids such as: tea, soda, bouillon until nausea subsides, then gradually increase diet as tolerated. * If you have any concerns or questions, call your surgeon's office. If physician is unavailable and it is an emergency, call 911 or go to the nearest emergency room. . Instructions / Follow-Up Instructions / Follow-Up ACTIVITY RECOMMENDATIONS: * Light activities. * You may walk outside, read, watch television. * You may notice redness on the white part of the eye and some blurry vision - this is normal. MEDICATIONS: Resume previous medications unless instructed otherwise by your surgeon. Start all eye drops at 10 am today: * Eye drops (today): Prednisone - one drop in operative eye every 2 hours while awake Ofloxacin - one drop in operative eye every 2 hours while awake Bromfenac - one drop in operative eye daily SPECIAL CARE INSTRUCTIONS: * Tape plastic shield over eye to sleep at night. Call your doctor at with any concerns or problems. FOLLOW UP VISIT: Follow-up with Dr Johnson at [place] office as scheduled. Diet Recommendations Home Diet: no limitations Procedures Procedures Performed: Left Cataract Phacoemulsification With Intraocular Lens Implant Pending Studies Studies pending at discharge: no Medical Emergencies . Who to Call and When: Medical Emergencies: If at any time you feel your situation is an emergency, please call 911 immediately. . Non-Emergent Contact Non-Emergency issues call your: Surgeon . . "Provider Documentation" section prepared by Ghassan Johnson. .
[2016-12-24 08:18] VITALS: TEMP 37
[2016-12-24 08:34] VITALS: BP 155/95; PULSE 64; O2SAT 94
--- NOTE | 2016-12-24 08:37 | Anesthesiology Progress Note ---
Anesthesia Post Op Note Date & Time Dec 24, 2016 at 08:36 Vital Signs Pain Intensity: 0 Vital Signs Past 12 Hours Date Time Temp Pulse Resp B/P (MAP) Pulse Ox O2 Delivery O2 Flow Rate FiO2 12/24/16 08:34 64 16 155/95 (115) 94 Room Air 12/24/16 08:18 37 60 16 147/89 (108) 97 Room Air 12/24/16 06:40 37 58 24 144/87 (106) 94 Room Air Notes Mental Status: alert / awake / arousable, participated in evaluation Nausea / Vomiting: adequately controlled Pain: adequately controlled Airway Patency, RR, SpO2: stable & adequate BP & HR: stable & adequate Hydration State: stable & adequate Anesthetic Complications: no major complications apparent
== END | disposition home or self-care (01) ==
LOC: X.SURG 06:25
PROVIDERS: ATTEND Ophthalmology
DX: H25.12 Age-related nuclear cataract, left eye (principal); I11.0 Hypertensive heart disease with heart failure; I50.9 Heart failure, unspecified; J44.9 Chronic obstructive pulmonary disease, unspecified; J45.909 Unspecified asthma, uncomplicated; F32.9 Major depressive disorder, single episode, unspecified; I25.10 Atherosclerotic heart disease of native coronary artery without angina pectoris; G47.33 Obstructive sleep apnea (adult) (pediatric); I25.2 Old myocardial infarction; F17.200 Nicotine dependence, unspecified, uncomplicated; Z88.0 Allergy status to penicillin; Z88.2 Allergy status to sulfonamides; Z88.5 Allergy status to narcotic agent; Z90.10 Acquired absence of unspecified breast and nipple; Z90.89 Acquired absence of other organs

== ENCOUNTER → 2017-02-02 | Outpatient (CLI) | payer OTHER ==
[~2017-02-02] MED LIST changes: -500ML BSS 0.3ML EPI 1:1000PF IRRIG ONE; -ACETAMINOPHEN 325 MG TAB PO PRN; -AMVISC PLUS 0.8ML SYRINGE INT OCU ONE; -ATROPINE SULFATE 0.1 MG/ML 5ML SYR IV PRN; -BSS FLUSH ONE; -ENDOCOAT 0.85ML SYRINGE INT OCU ONE; -EpHEDrine SULFATE INJ 50 MG/ML AMP IV PRN; -EpINEphrine INJ 1MG/ML AMP 1 MG/ML AMP ONE; -LACTATED RINGER'S 1000ML 500 ML IV SCH; -LIDOCAINE 4% OP SOLN DROP CHARGE ONE; -LIDOCAINE 4% OP SOLN DROP CHARGE OPL SCH; -LIDOCAINE HCL 1% MPF 2 ML VIAL ONE; -MIDAZOLAM HCL 1 MG/ML 2ML VIAL ONE; -MIX: 4ML BSS 1ML EPI 1:1000 PF TOP ONE; -MOXIFLOXACIN OPH SOLN PER DROP CHARGE ONE; -POVIDONE-IODINE OP SOLN 30 ML BTL ONE; -PROPARACAINE 0.5% OP SOLN PER DROP CHARGE OPL SCH; -TOBRAMYCIN/DEXAMETHASONE OPH OINT PER APPLN CHARGE ONE
== END | disposition home or self-care (01) ==
LOC: C.MAMM 09:06
PROVIDERS: ATTEND Internal Medicine
DX: M81.0 Age-related osteoporosis without current pathological fracture (principal); M85.851 Other specified disorders of bone density and structure, right thigh

== ENCOUNTER → 2017-05-06 | Outpatient (CLI) | payer OTHER ==
[2017-05-06 18:19] LABS: ALBUMIN 3.6 gm/dl (3.4-5.0); ALT/SGPT 29 U/L (12-78); BLOOD UREA NITROGEN 17 mg/dl (7-18); CALCIUM 9.2 mg/dl (8.5-10.1); CARBON DIOXIDE 31 mmol/L (21-32); CHOLESTEROL 123 mg/dl (0-200); CREATININE 0.85 mg/dl (0.60-1.20); GLUCOSE 91 mg/dl (70-99); POTASSIUM 3.8 mmol/L (3.5-5.1); SODIUM 137 mmol/L (136-145)
[2017-05-06 18:28] LABS: ALKALINE PHOSPHATASE 112 U/L (45-117); AST/SGOT 23 U/L (15-37); LDL CHOLESTEROL CALCULATED 56 mg/dl; TOTAL PROTEIN 6.6 gm/dl (6.4-8.2); TRANSFERRIN 352 mg/dl (200-360)
[2017-05-06 19:07] LABS: BASO % 0.8 %; BASO ABS # 0.05 K/uL (0-0.2); EOS % 2.9 %; EOS ABS # 0.19 K/uL (0-0.5); HEMATOCRIT 38.1 % (37-47); HEMOGLOBIN 11.3 g/dL (12.0-16.0); IG# 0.01 K/uL (0.00-0.02); LYMPH % 29.2 %; LYMPH ABS # 1.89 K/uL (1.2-3.4); MEAN CELL VOLUME 76.2 fL (80-100); MEAN CORPUSCULAR HEMOGLOBIN 22.6 pg (25-34); MEAN CORPUSCULAR HGB CONC 29.7 g/dl (32-36); MEAN PLATELET VOLUME 9.8 fL (7.4-10.4); MONO % 8.3 %; MONO ABS # 0.54 K/uL (0.11-0.59); NEUT % 58.6 %; PLATELET COUNT 283 K/uL (130-400); RED CELL DISTRIBUTION WIDTH CV 18.1 % (11.5-14.5); RED CELL DISTRIBUTION WIDTH SD 50.7 fL (36.4-46.3); WHITE BLOOD COUNT 6.48 K/uL (4.8-10.8)
== END | disposition home or self-care (01) ==
LOC: C.LABBFT 13:17
PROVIDERS: ATTEND Internal Medicine
DX: D64.9 Anemia, unspecified (principal); I25.10 Atherosclerotic heart disease of native coronary artery without angina pectoris; E03.9 Hypothyroidism, unspecified

== ENCOUNTER 2019-03-13 09:52 | Observation (INO) ==
[2019-03-13] MEDS ORDERED: SODIUM CHLORIDE 0.9% 1000ML 250 ML IV ONE (10:22)
[2019-03-13] MEDS ORDERED: ALBUTEROL 0.083% NEBU SOLN 3 ML VIAL NEB STA (10:23)
[2019-03-13] MEDS ORDERED: methylPREDNISolone 125 MG/2 ML VIAL IV STA (10:23)
[2019-03-13 11:08] LABS: Basophils # (auto) 0.05 K/uL (0-0.2); Basophils % (auto) 0.7 %; Eosinophils # (auto) 0.61 K/uL (0-0.5); Eosinophils % (auto) 8.9 %; Hematocrit (blood only) 39.5 % (37-47); Hemoglobin 12.5 g/dL (12.0-16.0); Immature Granulocytes # (auto) 0.01 K/uL (0.00-0.02); Immature Granulocytes % (auto) 0.1 %; Lymphocytes # (auto) 1.67 K/uL (1.2-3.4); Lymphocytes % (auto) 24.3 %; Mean Corpuscular Hemoglobin 29.2 pg (25-34); Mean Corpuscular Hgb Conc 31.6 g/dL (32-36); Mean Corpuscular Volume 92.3 fL (80-100); Mean Platelet Volume 9.8 fL (7.4-10.4); Monocytes # (auto) 0.57 K/uL (0.11-0.59); Monocytes % (auto) 8.3 %; Neutrophils # (auto) 3.97 K/uL (1.4-6.5); Neutrophils % (auto) 57.7 %; Platelet Count 199 K/uL (130-400); RDW Coefficient of Variation 12.7 % (11.5-14.5); RDW Standard Deviation 43.1 fL (36.4-46.3); Red Blood Count 4.28 M/uL (4.2-5.4); White Blood Count 6.88 K/uL (4.8-10.8)
--- NOTE | 2019-03-13 11:15 | XRay Report ---
XR chest 1V portable CLINICAL HISTORY: SEPSIS COUGH SHORTNESS OF BREATH AND WEAKNESS COMPARISON STUDY: May 01, 2016 FINDINGS: The cardiac and mediastinal contours are normal. There is no evidence of focal pulmonary co nsolidation. There is no evidence of failure. No pleural effusions are visualized.[The patient is hyp erinflated. Surgical clips project over the left upper chest. IMPRESSION: No active disease in the chest. ACT 112: Negative or not required by law. Electronically signed by: Prashant Grewal M.D. 03/13/2019 11:14 AM
[2019-03-13 11:18] LABS: Partial Thromboplastin Ratio 0.9; Partial Thromboplastin Time 25.3 Seconds (21.0-31.0); Prothrombin Time 10.3 Seconds (9.0-12.0)
[2019-03-13 11:26] LABS: Alanine Aminotransferase 16 U/L (12-78); Albumin Level 3.4 gm/dl (3.4-5.0); Aspartate Aminotransferase 13 U/L (15-37); BUN Creatinine Ratio 12.9 (10-20); Blood Urea Nitrogen 10 mg/dl (7-18); Calcium 9.3 mg/dl (8.5-10.1); Carbon Dioxide 39 mmol/L (21-32); Chloride 100 mmol/L (98-107); Creatinine Clr Calc Pharmacy 62.5 ml/min; Est GFR (African American) 86.1; Est GFR (Non-African American) 74.3; Glucose 113 mg/dl (70-99); Magnesium 2.1 mg/dl (1.8-2.4); Potassium 2.9 mmol/L (3.5-5.1); Sodium 140 mmol/L (136-145)
[2019-03-13 11:29] LABS: Albumin Globulin Ratio 1.1 (0.9-2); Alkaline Phosphatase 106 U/L (45-117); Bilirubin,Total 0.4 mg/dl (0.2-1); Total Protein 6.4 gm/dl (6.4-8.2); Troponin I < 0.015 ng/ml (0-0.045)
[2019-03-13 11:42] LABS: Influenza A virus by PCR Neg for Influ A (Neg); Influenza B virus by PCR Neg for Influ B (Neg)
[2019-03-13] MEDS ORDERED: POTASSIUM CHLORIDE 10 MEQ TABCR PO STA (12:55)
--- NOTE | 2019-03-13 13:16 | Emergency Department Note ---
Entered by Evin Neff acting as a scribe for History of Present Illness General Chief complaint: Respiratory Problems Stated complaint: diff. breathing Time Seen by Provider: 03/13/19 10:15 Source: patient Limitations: no limitations History of Present Illness Onset (ago): week(s) 1 Location: chest Pain Consistency: + intermittent Maximum Pain Intensity: 0 Quality: + other (yellow sputum) Associated symptoms: + denies other symptoms (abdominal pain, pain or swelling of legs), + fever/chills (fever) and + other (diarrhea); no chest pain Treatments prior to arrival: other (albuterol) The patient is a 73 year old female who presents to the Emergency Room with complaints of an intermittent cough for a week. She states she always wears 2L oxygen. She notes she has been coughing up yellow sputum. She states she has had diarrhea for a week. She states she had a fever. She notes her stools are always black because she takes iron. She states she has not taken any steroids. She states she has been in breast cancer remission for the past 20 years. She states she had a heart attack 5 years ago. She states she did an albuterol treatment. She states she got the flu shot this year. She notes she still smokes. The patient denies having chest pain, abdominal pain, and pain or swelling in her legs. She denies being exposed to anyone else that is sick. Home Medications Home Medications Medication Instructions Recorded Confirmed Type acetaminophen [Tylenol Arthritis 1,300 mg PO HS 08/07/18 03/13/19 History Pain] aspirin 81 mg PO DAILY 08/07/18 03/13/19 History budesonide-formoterol 2 puff INHALATION BID 08/07/18 03/13/19 History levothyroxine 112 mcg tablet 112 mcg PO DAILY #30 tab 10/04/18 03/13/19 Rx furosemide 20 mg tablet 40 mg PO BID #120 tab 11/15/18 03/13/19 Rx polysaccharide iron complex 150 mg 150 mg PO BID #60 cap 11/15/18 03/13/19 Rx iron capsule nitroglycerin 0.4 mg sublingual 0.4 mg SUBLINGUAL UD PRN #25 tab 11/22/18 03/13/19 Rx tablet ipratropium 0.5 mg-albuterol 3 mg See Rx Instructions .ROUTE 01/14/19 03/13/19 Rx (2.5 mg base)/3 mL nebulization .COMPLEX #360 milliliter soln atorvastatin 40 mg tablet 40 mg PO DAILY #90 tab 02/08/19 03/13/19 Rx ipratropium 20 mcg-albuterol 100 1 puffs INH .COMPLEX #4 gm 02/08/19 03/13/19 Rx mcg/actuation mist for inhalation amlodipine 2.5 mg tablet 2.5 mg PO DAILY #90 tab 02/17/19 03/13/19 Rx metoprolol tartrate 25 mg tablet 25 mg PO BID #60 tab 03/07/19 03/13/19 Rx paroxetine HCl 40 mg tablet 40 mg PO DAILY #30 tab 03/07/19 03/13/19 Rx Allergies Allergy/AdvReac Type Severity Reaction Status Date / Time Penicillins Allergy Severe SWELLING Verified 12/28/18 10:39 Sulfa (Sulfonamide Allergy Intermediate RASH Verified 12/28/18 10:39 Antibiotics) morphine AdvReac Intermediate bradycardia Verified 12/28/18 10:39 and hypotension promethazine AdvReac Intermediate bradycardia Verified 12/28/18 10:39 and hypotension Past Med/Surg History Medical History Cardiac arrest (Resolved) CHF (congestive heart failure) (Chronic) COPD exacerbation (Inactive) Hypertension (Chronic) Kidney disease (Chronic) STEMI (ST elevation myocardial infarction) (Resolved) May 2014. Inferior wall myocardial infarction status post PCI with drug-eluting stent x2 to the RCA. Residual 80% stenosis of D1 Ventricular fibrillation (Resolved) Family History Other Brain cancer Myocardial infarction Social History Preferred Language: [place] Hearing Ability: Normal marital status: Current Living Situation: Spouse current 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 status: retired Feels Safe at Home: Yes Smoking Status: Current every day smoker Tobacco Type: cigarettes ; Age Started Using Tobacco: 15 ; packs per day: 0.5 ; Cigarettes Per Day: 10 ; Hx Alcohol Use: No Hx Substance Use: No Seatbelt Use: always Sunscreen Use: Yes Review of Systems See HPI for pertinent positives & negatives. and A total of 10 systems reviewed and were otherwise negative Physical Exam Vital Signs Vital Signs - 24 hr 03/13/19 10:01 03/13/19 10:14 03/13/19 10:59 Temperature 37.1 C Temperature Source Oral Pulse Rate 82 Pulse Rate [Apical] Pulse Rate from SpO2 Sensor Respiratory Rate 24 Respiratory Effort / Characteristics Blood Pressure 93/75 L Blood Pressure Mean 81 Pulse Oximetry 94 89 L 92 Oxygen Delivery Method Nasal Cannula Room Air Nasal Cannula Oxygen Flow Rate 2 2 Sepsis Recent Fever Within 48 Hours No Sepsis New/Unexplained Change in Mental Status No Sepsis Action Taken by Nursing No Action Required 03/13/19 11:12 03/13/19 11:17 03/13/19 11:30 Temperature Temperature Source Pulse Rate 74 70 Pulse Rate [Apical] 72 Pulse Rate from SpO2 Sensor 74 70 Respiratory Rate 25 H 20 22 Respiratory Effort / Characteristics Non-Labored Spontaneous Blood Pressure 123/82 114/91 Blood Pressure Mean 94 93 Pulse Oximetry 92 93 99 Oxygen Delivery Method Nasal Cannula Nasal Cannula Nebulizer Oxygen Flow Rate 2 2 Sepsis Recent Fever Within 48 Hours Sepsis New/Unexplained Change in Mental Status Sepsis Action Taken by Nursing 03/13/19 12:00 03/13/19 12:30 03/13/19 13:00 Temperature Temperature Source Pulse Rate 75 81 84 Pulse Rate [Apical] Pulse Rate from SpO2 Sensor 76 82 85 Respiratory Rate 20 25 H 28 H Respiratory Effort / Characteristics Blood Pressure 127/85 134/114 H 144/94 H Blood Pressure Mean 106 126 112 Pulse Oximetry 98 98 91 Oxygen Delivery Method Nebulizer Nebulizer Nasal Cannula Oxygen Flow Rate 2 Sepsis Recent Fever Within 48 Hours Sepsis New/Unexplained Change in Mental Status Sepsis Action Taken by Nursing 03/13/19 13:30 03/13/19 13:42 Temperature Temperature Source Pulse Rate 81 Pulse Rate [Apical] Pulse Rate from SpO2 Sensor 84 Respiratory Rate 24 Respiratory Effort / Characteristics Blood Pressure 151/86 H Blood Pressure Mean 96 Pulse Oximetry 83 L 90 Oxygen Delivery Method Room Air Nasal Cannula Oxygen Flow Rate 2 Sepsis Recent Fever Within 48 Hours Sepsis New/Unexplained Change in Mental Status Sepsis Action Taken by Nursing General: Chronically-ill appearing older female who is mildly tachypneic. Answers questions appropriately HEENT: Normal cephalic atraumatic. Pupils are equal round and reactive to light. Extraocular movements are intact. Oropharynx is pink with moist mucous membranes. No swelling of the mouth lips or tongue. Neck: Supple with a midline trachea. No meningeal signs or stiffness, no JVD or bruits. No Stridor. Chest: Clear to auscultation bilaterally. No wheezes or rhonchi. No increased work of breathing. Scattered wheezes bilaterally with decreased movement. Heart: regular rate and rhythm. Abdomen: Soft nontender, nondistended without rebound guarding or rigidity. Extremities: No cyanosis clubbing or edema. No calf tenderness or asymmetry Spine/Back. Non tender to palpation. No CVA tenderness Skin: Good turgor without rashes. Neurologic exam: Cranial nerves two through 12 are intact. Motor and sensation are intact and symmetrical throughout. Course Course 1016: The patient was evaluated in room B11B, and a complete history and physical examination were performed. 1306: I reevaluated the patient. She looks significantly better. I turned off the oxygen to see how the patient will do. 1343: I reevaluated the patient. She desaturated to 84 percent. She is still wheezing. 1351: I discussed the patient's case with Dr. Sanches - [facility] Hospitalist. He will evaluate the patient for further management Administered Medications Discontinued Medications Albuterol (Ventolin 0.083% 2.5mg/3ml) 10 mg NEB NOW STA Stop: 03/13/19 10:24 Last Admin: 03/13/19 11:15 Dose: 10 mg Documented by: [id number] Sodium Chloride (Nss 1000ml) 250 mls @ 999 mls/hr IV .Q16M ONE Stop: 03/13/19 10:37 Last Infusion: 03/13/19 11:40 Dose: 0 mls/hr Documented by: [id number] Admin: 03/13/19 11:10 Dose: 999 mls/hr Documented by: [id number] Methylprednisolone (Solumedrol) 125 mg IV NOW STA Stop: 03/13/19 10:24 Last Admin: 03/13/19 11:14 Dose: 125 mg Documented by: [id number] Potassium Chloride (Klor-Con M10) 60 meq PO NOW STA Stop: 03/13/19 12:56 Last Admin: 03/13/19 13:00 Dose: 60 meq Documented by: [id number] Medical Decision Making Differential Diagnosis Differential Diagnosis includes but is not limited to hypoxemia, CHF, pneumonia, sepsis, COPD exacerbation, and electrolyte or metabolic abnormality. Medical Records Attestation: I reviewed the patient's medical records. Home Medications Current Medication List: was personally reviewed by me Laboratory Data Attestation: I reviewed the patient's lab results. Result diagrams: 03/13/19 10:53 03/13/19 10:53 Lab Results 03/13/19 03/13/19 03/13/19 Range/Units 10:53 10:53 10:53 WBC 6.88 (4.8-10.8) K/uL RBC 4.28 (4.2-5.4) M/uL Hgb 12.5 (12.0-16.0) g/dL Hct 39.5 (37-47) % MCV 92.3 (80-100) fL MCH 29.2 (25-34) pg MCHC 31.6 L (32-36) g/dL RDW Std Deviation 43.1 (36.4-46.3) fL RDW Coeff of Yun 12.7 (11.5-14.5) % Plt Count 199 (130-400) K/uL MPV 9.8 (7.4-10.4) fL Immature Gran % (Auto) 0.1 % Neut % (Auto) 57.7 % Lymph % (Auto) 24.3 % [place] % (Auto) 8.3 % Eos % (Auto) 8.9 % Baso % (Auto) 0.7 % Immature Gran # (Auto) 0.01 (0.00-0.02) K/uL Neut # (Auto) 3.97 (1.4-6.5) K/uL Lymph # (Auto) 1.67 (1.2-3.4) K/uL [place] # (Auto) 0.57 (0.11-0.59) K/uL Eos # (Auto) 0.61 H (0-0.5) K/uL Baso # (Auto) 0.05 (0-0.2) K/uL PT 10.3 (9.0-12.0) Seconds INR 1.0 (0.9-1.1) APTT 25.3 (21.0-31.0) Seconds PTT Ratio 0.9 Sodium 140 (136-145) mmol/L Potassium 2.9 L (3.5-5.1) mmol/L Chloride 100 (98-107) mmol/L Carbon Dioxide 39 H (21-32) mmol/L Anion Gap 1.0 L (3-11) BUN 10 (7-18) mg/dl Creatinine 0.79 (0.6-1.2) mg/dl Est Cr Clr Drug Dosing 62.5 ml/min Est GFR ( Amer) 86.1 Est GFR (Non-Af Amer) 74.3 BUN/Creatinine Ratio 12.9 (10-20) Glucose 113 H (70-99) mg/dl Lactate (0.4-2.0) mmol/L Calcium 9.3 (8.5-10.1) mg/dl Magnesium 2.1 (1.8-2.4) mg/dl Total Bilirubin 0.4 (0.2-1) mg/dl AST 13 L (15-37) U/L ALT 16 (12-78) U/L Alkaline Phosphatase 106 (45-117) U/L Troponin I < 0.015 (0-0.045) ng/ml Total Protein 6.4 (6.4-8.2) gm/dl Albumin 3.4 (3.4-5.0) gm/dl Globulin 3.0 (2.5-4.0) gm/dl Albumin/Globulin Ratio 1.1 (0.9-2) Influenza Type A (PCR) (Neg) Influenza Type B (PCR) (Neg) 03/13/19 03/13/19 Range/Units 10:53 11:00 WBC (4.8-10.8) K/uL RBC (4.2-5.4) M/uL Hgb (12.0-16.0) g/dL Hct (37-47) % MCV (80-100) fL MCH (25-34) pg MCHC (32-36) g/dL RDW Std Deviation (36.4-46.3) fL RDW Coeff of Yun (11.5-14.5) % Plt Count (130-400) K/uL MPV (7.4-10.4) fL Immature Gran % (Auto) % Neut % (Auto) % Lymph % (Auto) % [place] % (Auto) % Eos % (Auto) % Baso % (Auto) % Immature Gran # (Auto) (0.00-0.02) K/uL Neut # (Auto) (1.4-6.5) K/uL Lymph # (Auto) (1.2-3.4) K/uL [place] # (Auto) (0.11-0.59) K/uL Eos # (Auto) (0-0.5) K/uL Baso # (Auto) (0-0.2) K/uL PT (9.0-12.0) Seconds INR (0.9-1.1) APTT (21.0-31.0) Seconds PTT Ratio Sodium (136-145) mmol/L Potassium (3.5-5.1) mmol/L Chloride (98-107) mmol/L Carbon Dioxide (21-32) mmol/L Anion Gap (3-11) BUN (7-18) mg/dl Creatinine (0.6-1.2) mg/dl Est Cr Clr Drug Dosing ml/min Est GFR ( Amer) Est GFR (Non-Af Amer) BUN/Creatinine Ratio (10-20) Glucose (70-99) mg/dl Lactate 1.0 (0.4-2.0) mmol/L Calcium (8.5-10.1) mg/dl Magnesium (1.8-2.4) mg/dl Total Bilirubin (0.2-1) mg/dl AST (15-37) U/L ALT (12-78) U/L Alkaline Phosphatase (45-117) U/L Troponin I (0-0.045) ng/ml Total Protein (6.4-8.2) gm/dl Albumin (3.4-5.0) gm/dl Globulin (2.5-4.0) gm/dl Albumin/Globulin Ratio (0.9-2) Influenza Type A (PCR) Neg for Influ A (Neg) Influenza Type B (PCR) Neg for Influ B (Neg) Imaging Data Radiologist's Impression: Radiology results as stated below per my review and the radiologist's interpretation: XR chest 1V portable CLINICAL HISTORY: SEPSIS COUGH SHORTNESS OF BREATH AND WEAKNESS COMPARISON STUDY: May 01, 2016 FINDINGS: The cardiac and mediastinal contours are normal. There is no evidence of focal pulmonary consolidation. There is no evidence of failure. No pleural effusions are visualized.[The patient is hyperinflated. Surgical clips project over the left upper chest. IMPRESSION: No active disease in the chest. ACT 112: Negative or not required by law. Electronically signed by: Prashant Grewal M.D. 03/13/2019 11:14 AM ECG Data Attestation: I personally reviewed and interpreted this ECG as follows: Indication: + SOB/dyspnea Rate (beats per minute): 78 Rhythm: + normal sinus ECG ST segments: + Nonspecific ST abnormalities ECG Findings: + Other (Nonspecific T wave abnormalities) Comparison ECG Date: from (05/03/16) Change: the following changes noted (Nonspecific ST and T wave abnormalities are now present. ) Blood Pressure Blood Pressure Findings: Elevated blood pressure Blood Pressure Disposition: further management by hospitalist MDM Narrative This patient comes in as described above. She was placed in room B11. She has a history of COPD and comes in after a cough and shortness of breath. She initially had a dry cough and was mildly tachypneic. She does wear 2 L oxygen at home as needed but she wears it pretty much [id number] lately she tells me. She has had no swelling in her legs. No chest pain. She felt warm at home but has no fever here. IV access was established was given 1 hour albuterol Atrovent continuous neb as well as Solu-Medrol 125 mg IV. she is feeling much better. she still has some wheezing on exam but is in no acute distress. Chest x-ray is clear and shows no pneumonia or CHF or pneumothorax. Her blood work shows a low potassium of 2.9, she was given 60 mEq p.o. EKG does not show any acute ischemic changes or any changes compared to old and additionally she has a normal troponin and her symptoms do not sound likely a cardiac related. I did talk to the patient and her family and we turned off the oxygen are going to see how she feels. When we turned off the oxygen and she desaturated to 84%. she still has significant wheezes as well and I do think she should benefit from admission/observation given her hypoxemia and chronic lung problems as well as acute respiratory problems. Impression & Plan COPD exacerbation, SOB (shortness of breath), Hypoxemia, Bronchitis Discharge Plan Visit Data Chief Complaint: Respiratory Problems Stated Complaint: diff. breathing ED Provider: Mingo Dorado Discharge Problem: COPD exacerbation, SOB (shortness of breath), Hypoxemia, Bronchitis Patient Disposition: Being Evaluated by Hospitalist Forms Stand Alone Forms: [facility] [place] [facility] Prescriptions Prescriptions: No Action levothyroxine [Synthroid] 112 mcg tablet 112 mcg PO DAILY Qty: 30 RF: 5 furosemide [Lasix] 20 mg tablet 40 mg PO BID Qty: 120 RF: 5 polysaccharide iron complex [Ferrex 150] 150 mg iron capsule 150 mg PO BID Qty: 60 RF: 5 ipratropium-albuterol 0.5 mg-3 mg(2.5 mg base)/3 mL solution for nebulization See Rx Instructions .ROUTE .COMPLEX Qty: 360 RF: 2 atorvastatin [Lipitor] 40 mg tablet 40 mg PO DAILY Qty: 90 RF: 3 Combivent Respimat 20-100 mcg/actuation mist 1 puffs INH .COMPLEX Qty: 4 RF: 3 amlodipine 2.5 mg tablet 2.5 mg PO DAILY Qty: 90 RF: 3 metoprolol tartrate 25 mg tablet 25 mg PO BID Qty: 60 RF: 5 paroxetine HCl [Paxil] 40 mg tablet 40 mg PO DAILY Qty: 30 RF: 5 nitroglycerin [Nitrostat] 0.4 mg tablet, sublingual 0.4 mg sublingual UD PRN (Reason: Chest Pain) Qty: 25 RF: 3 aspirin 81 mg Tablet,Delayed Release (Dr/Ec) 81 mg PO DAILY RF: 0 acetaminophen [Tylenol Arthritis Pain] 650 mg Tablet Extended Release 1,300 mg PO HS RF: 0 budesonide-formoterol 160-4.5 mcg/actuation Hfa Aerosol Inhaler 2 puff INHALATION BID RF: 0 Referrals Referrals: Ismael Samayoa III, MD [Primary Care Provider] - The scribe's documentation has been prepared under my direction and personally reviewed by me in its entirety. I confirm that the note above accurately reflects all work, treatment, procedures, and medical decision making performed by me.
--- NOTE | 2019-03-13 14:04 | History & Physical Report ---
Date of Service March 13, 2019 Assessment & Plan (1) Acute respiratory failure with hypoxia: Secondary to COPD exacerbation as below. Aim O2 sats > 92 % (2) COPD exacerbation: Secondary to running out of her medication. No PFTs available on [facility]. 125mg IV solumedrol given in ER -> Switch to prednisone 40mg PO daily for 3-5 day course Duonebs QID + PRN Continue Symbicort 160/4.5 2 puffs BID Add Spiriva. (3) Diarrhea: Unclear etiology. However only going twice a day. Not watery to suggest c. diff. No abdominal pain to suggest diverticulitis. Not significantly anemic to suggest ongoing bleed. Monitor for now. Will test for occult blood. (4) Hypokalemia: Secondary to diarrhea + albuterol use 60 meq KCl given in ER. Will repeat with AM labs and replace as necessary. (5) Hypothyroidism: Continue levothyroxine 112 mcg daily. TSH with morning labs. (6) CHF (congestive heart failure): Chronic without acute exacerbation. No echo on [facility]. Continue lasix 20mg PO BID (originally ordered incorrectly as 40g BID) (7) CAD (coronary artery disease): Continue ASA, metoprolol, atorvastatin (8) Hypertension: hypotensive on admission. Will continue her routine home meds currently. (9) DVT prophylaxis: Lovenox 40mg SQ daily (10) Discharge planning issues: PT/OT/discharge planning History of Present Illness Chief Complaint: Cough, shortness of breath Primary Care Provider: Ismael Samayoa MD Jackelyn aWggoner is a 73 year old female with COPD who presented to the ER with shortness of breath, cough, and diarrhea for the 2 weeks. Symptoms appear to be related to each other. Diarrhea - last episode yesterday night. Black, thin, not watery. Occurring twice a day. Large amounts each time. No recent colonoscopy as per patient recollection. Associated sweating at night. Last night felt "queezy" in stomach. Feels this has been getting progressively worse (worse over the last 2 days). No nausea or vomiting. Fever with EMS this morning but afebrile in ER. Shortness of breath over same time period - ran out of Symbicort 1.5 weeks ago as having to take more than prescribed dose due to worsening shortness of breath. She appears a little confused about her inhalers but appears to also take her nebulizers and Combivent regularly in addition to the Symbicort. She has oxygen at home but doesn't always wear it. She reports a month ago she would wear oxygen approximately 50% of the time at rest. In the ER workup included routine labs with unremarkable CBC, CMP - potassium 2.9, negative troponin, normal INR/PTT, negative influenza PCR. CXR reported as no acitve disease in the chest (independently reviewed by myself). She was treated with 250ml bolus normal saline, hour long nebulizer, 125mg IV Solumedrol and 60 meq PO potassium chloride. Currently still on 2L nasal cannula with O2 sats 90%. Significant hypoxia without oxygen down to 84% on room air. Last recorded saturation were in an ER visit in July when she was 92-96% on room air. She has had significant improvement with nebulizer and solu-medrol given. She is up to date on pneumonia and influenza vaccinations as per PCP note from October. Her last reported exacerbation at that time was in 2016. No prior PFTs available for review on [facility]. She continues to smoke 0.5 packs/day (although gave up with recent shortness of breath). She will be admitted to med/surg for ongoing care. Allergies Allergy/AdvReac Type Severity Reaction Status Date / Time Penicillins Allergy Severe SWELLING Verified 12/28/18 10:39 Sulfa (Sulfonamide Allergy Intermediate RASH Verified 12/28/18 10:39 Antibiotics) morphine AdvReac Intermediate bradycardia Verified 12/28/18 10:39 and hypotension promethazine AdvReac Intermediate bradycardia Verified 12/28/18 10:39 and hypotension Home Medications Home Medications Medication Instructions Recorded Confirmed Type acetaminophen [Tylenol Arthritis 1,300 mg PO HS 08/07/18 03/13/19 History Pain] aspirin 81 mg PO DAILY 08/07/18 03/13/19 History budesonide-formoterol 2 puff INHALATION BID 08/07/18 03/13/19 History levothyroxine 112 mcg tablet 112 mcg PO DAILY #30 tab 10/04/18 03/13/19 Rx furosemide 20 mg tablet 40 mg PO BID #120 tab 11/15/18 03/13/19 Rx polysaccharide iron complex 150 mg 150 mg PO BID #60 cap 11/15/18 03/13/19 Rx iron capsule nitroglycerin 0.4 mg sublingual 0.4 mg SUBLINGUAL UD PRN #25 tab 11/22/18 03/13/19 Rx tablet ipratropium 0.5 mg-albuterol 3 mg See Rx Instructions .ROUTE 01/14/19 03/13/19 Rx (2.5 mg base)/3 mL nebulization .COMPLEX #360 milliliter soln atorvastatin 40 mg tablet 40 mg PO DAILY #90 tab 02/08/19 03/13/19 Rx ipratropium 20 mcg-albuterol 100 1 puffs INH .COMPLEX #4 gm 02/08/19 03/13/19 Rx mcg/actuation mist for inhalation amlodipine 2.5 mg tablet 2.5 mg PO DAILY #90 tab 02/17/19 03/13/19 Rx metoprolol tartrate 25 mg tablet 25 mg PO BID #60 tab 03/07/19 03/13/19 Rx paroxetine HCl 40 mg tablet 40 mg PO DAILY #30 tab 03/07/19 03/13/19 Rx Past Med/Surg History Medical History Cardiac arrest (Resolved) CHF (congestive heart failure) (Chronic) COPD exacerbation (Inactive) Hypertension (Chronic) Kidney disease (Chronic) STEMI (ST elevation myocardial infarction) (Resolved) May 2014. Inferior wall myocardial infarction status post PCI with drug- eluting stent x2 to the RCA. Residual 80% stenosis of D1 Ventricular fibrillation (Resolved) Family History Other Brain cancer Myocardial infarction Social History Preferred Language: [place] Communication Ability: Effective Hearing Ability: Normal Bottle Assembler Required: No Beliefs That Will Affect Care: None marital status: Current Living Situation: Family current 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 status: retired Other Information That Helps Us Care for You: No Feels Safe at Home: Yes Safety Concerns: Feels Safe At This Time Smoking Status: Former smoker Tobacco Type: cigarettes ; Age Started Using Tobacco: 15 ; packs per day: 0.5 ; Cigarettes Per Day: 10 ; Do You Dip or Chew Tobacco: No ; Smoking End Date: March ; Second Hand Exposure: No ; Tobacco Cessation Education Requested by Patient: No Hx Alcohol Use: No Hx Substance Use: No Seatbelt Use: always Sunscreen Use: Yes Review of Systems Review of Systems: All systems reviewed & are unremarkable except as noted in HPI & below Physical Exam Constitutional: WD/WN, vitals as above no acute distress Eyes: PERRL, conjunctivae normal, anicteric sclerae Neck: trachea midline, no thyromegaly Respiratory: normal respiratory effort and + labored breathing; + not able to speak in complete sentence Auscultation: + wheezes (expiratory throughout); no diminished lung sounds, no crackles and no rales Cardiovascular: RRR, no murmur, no edema Vessels: no JVD Extremities: normal capillary refill; no calf tenderness Gastrointestinal (Abdomen): normal bowel sounds, soft, nontender, no hepatosplenomegaly Musculoskeletal: no cyanosis or clubbing, extremities motor strength 5/5 Skin: no rashes, warm and dry Neurologic: moves all extremities and awake; no focal motor deficits and not confused Speech / Cognition: normal speech Motor/Sensory: + tremor (mild assymetric resting (patient reports sine stopping smoking)); no pronator drift Psychiatric: A+Ox3, euthymic affect Lymphatic: no cervical or axillary lymphadenopathy Results & Data Vital Signs (Past 12 Hours) Vital Signs Temp Pulse Pulse Resp BP Pulse Ox 03/13/19 13:42 90 03/13/19 13:30 81 24 151/86 H 83 L 03/13/19 13:00 84 28 H 144/94 H 91 03/13/19 12:30 81 25 H 134/114 H 98 03/13/19 12:00 75 20 127/85 98 03/13/19 11:30 70 22 114/91 99 03/13/19 11:17 72 20 93 03/13/19 11:12 74 25 H 123/82 92 03/13/19 10:59 92 03/13/19 10:14 37.1 C 82 24 93/75 L 89 L 03/13/19 10:01 94 ECG Rate (beats per minute): 78 Rhythm: normal sinus Findings: + T-wave inversion (Lateral) Comparison ECG Date: no prior available Code Status & VTE Plan Code Status DNR/DNI as discussed with the patient VTE Prophylaxis Plan VTE Prophylaxis will be ordered: Yes PG Care Time/CCT Total # of Minutes Spent Total Time Spent with Patient: Total time spent is greater than 50% in coordination of care (as documented) at patient's floor/unit and/or counseling patient: (1) Hypothyroidism Hypothyroidism type: unspecified Qualified Code(s): E03.9 - Hypothyroidism, unspecified (2) CHF (congestive heart failure) Heart failure type: unspecified Heart failure chronicity: chronic Qualified Code(s): I50.9 - Heart failure, unspecified (3) Diarrhea Diarrhea type: unspecified type Qualified Code(s): R19.7 - Diarrhea, unspecified (4) Hypertension Hypertension type: essential hypertension Qualified Code(s): I10 - Essential (primary) hypertension
[2019-03-13] MEDS ORDERED: ALUMINUM/MAGNESIUM SUSP 30 ML UDC PO PRN (14:26)
[2019-03-13] MEDS ORDERED: ACETAMINOPHEN 325 MG TAB PO PRN (14:26)
[2019-03-13] MEDS ORDERED: ONDANSETRON INJ 2 MG/ML 2 ML VIAL IV PRN (14:26)
[2019-03-13] MEDS ORDERED: MAGNESIUM HYDROXIDE SUSP 30 ML UDC PO PRN (14:26)
[2019-03-13] MEDS ORDERED: NITROGLYCERIN SL 0.4 MG/TAB TAB SL PRN (14:34)
[2019-03-13] MEDS: ALBUT/IPRATROP 3MG/0.5MG NEB 3 ML VIAL NEB SCH ×2 (16:07→19:13)
[2019-03-13 16:46] LABS: Appearance Urine Cloudy (Clear); Bacteria Urine Automated Negative (Negative); Bilirubin Urine Negative (Negative); Blood Urine Negative (Negative); Color Urine Dark Yellow; Epithelial Cell Urine Auto >30 /lpf (0-5); Glucose Urine UA Negative (Negative); Ketones Urine Negative (Negative); Leukocyte Esterase Urine Trace (Negative); Nitrite Urine Negative (Negative); Protein Urine Negative (Negative); RBC Urine Automated 0-4 /hpf (0-4); Specific Gravity Urine 1.018 (1.000-1.030); Urobilinogen Urine Negative (Negative); pH Urine 5.5 (4.5-7.5)
[2019-03-13] MEDS ORDERED: FUROSEMIDE 40 MG TAB PO SCH (17:00)
[2019-03-13] MEDS ORDERED: NICOTINE 14 MG/24 HR PATCH TD STA (20:17)
[2019-03-13] MEDS ORDERED: NICOTINE POLACRILEX 2 MG GUM MT PRN (20:39)
[2019-03-13] MEDS ORDERED: ACETAMINOPHEN 500 MG TAB PO SCH (21:00)
[2019-03-13] MEDS ORDERED: ENOXAPARIN INJ 40 MG/0.4 ML SYR SQ ONE (21:05)
[2019-03-13] MEDS: IRON POLYSACCHARIDE COMPLEX 150 MG CAPSULE PO SCH (21:12)
[2019-03-13] MEDS: BUDESONIDE/FORMOTEROL FUMARATE 160/4.5 60 PUFFS/INHALER INH SCH (21:13)
[2019-03-13] MEDS: METOPROLOL TARTRATE 25 MG TAB PO SCH (21:15)
[2019-03-13] MEDS ORDERED: COUGH DROP (SUGAR FREE) LOZ 24 LOZ/1 BOX BUCCAL PRN (22:09)
--- NOTE | 2019-03-13 22:16 | Electrocardiogram Report ---
Test Reason : Blood Pressure : / mmHG Vent. Rate : 078 BPM Atrial Rate : 078 BPM P-R Int : 138 ms QRS Dur : 094 ms QT Int : 382 ms P-R-T Axes : 069 050 096 degrees QTc Int : 435 ms Normal sinus rhythm Nonspecific ST and T wave abnormality Abnormal ECG When compared with ECG of 03-MAY-2016 01:05, Nonspecific T wave abnormality now evident in Inferior leads Nonspecific T wave abnormality now evident in Lateral leads Confirmed by Juliano Ramirez ([id number]) on 03/13/2019 10:16:31 PM Referred By: REFERRED SELF Confirmed By:Juliano Ramirez
[2019-03-14] MEDS ORDERED: LEVOTHYROXINE SODIUM 112 MCG TABLET PO SCH (06:30)
[2019-03-14] MEDS: ALBUT/IPRATROP 3MG/0.5MG NEB 3 ML VIAL NEB SCH ×3 (07:00→15:06)
[2019-03-14 07:04] LABS: BUN Creatinine Ratio 15.4 (10-20); Calcium 9.9 mg/dl (8.5-10.1); Creatinine Clr Calc Pharmacy 50.4 ml/min; Est GFR (African American) 66.3; Est GFR (Non-African American) 57.2; Potassium 3.4 mmol/L (3.5-5.1)
[2019-03-14 07:18] LABS: Thyroid Stimulating Hormone 0.712 uIu/ml (0.300-4.500)
[2019-03-14] MEDS: BUDESONIDE/FORMOTEROL FUMARATE 160/4.5 60 PUFFS/INHALER INH SCH (07:43)
[2019-03-14] MEDS: METOPROLOL TARTRATE 25 MG TAB PO SCH (07:48)
[2019-03-14] MEDS: IRON POLYSACCHARIDE COMPLEX 150 MG CAPSULE PO SCH (07:48)
[2019-03-14] MEDS ORDERED: PARoxetine HCl 20 MG TAB PO SCH (09:00)
[2019-03-14] MEDS ORDERED: NICOTINE 7 MG/24 HR TDSY TD SCH (09:00)
[2019-03-14] MEDS ORDERED: AMLODIPINE BESYLATE 5 MG TAB PO SCH (09:00)
[2019-03-14] MEDS ORDERED: ASPIRIN 81 MG ECTAB PO SCH (09:00)
[2019-03-14] MEDS ORDERED: TIOTROPIUM BROMIDE 5 PUFF/90 MCG INH INH SCH (09:00)
[2019-03-14] MEDS ORDERED: predniSONE 20 MG TAB PO SCH ×2 (09:00)
[2019-03-14] MEDS ORDERED: FUROSEMIDE 20 MG TAB PO SCH (09:00)
[2019-03-14] MEDS ORDERED: ATORVASTATIN 40 MG TAB PO SCH (09:00)
[2019-03-14] MEDS ORDERED: POTASSIUM CHLORIDE 20 MEQ TABCR PO STA (09:06)
[2019-03-14] MEDS ORDERED: AZITHROMYCIN 250 MG TAB PO ONE (14:45)
--- NOTE | 2019-03-14 17:05 | Discharge Summary ---
Date of Service March 14, 2019 Admission HPI Per Admitting Provider Jackelyn Waggoner is a 73 year old female with COPD who presented to the ER with shortness of breath, cough, and diarrhea for the 2 weeks. Symptoms appear to be related to each other. Diarrhea - last episode yesterday night. Black, thin, not watery. Occurring twice a day. Large amounts each time. No recent colonoscopy as per patient recollection. Associated sweating at night. Last night felt "queezy" in stomach. Feels this has been getting progressively worse (worse over the last 2 days). No nausea or vomiting. Fever with EMS this morning but afebrile in ER. Shortness of breath over same time period - ran out of Symbicort 1.5 weeks ago as having to take more than prescribed dose due to worsening shortness of breath. She appears a little confused about her inhalers but appears to also take her nebulizers and Combivent regularly in addition to the Symbicort. She has oxygen at home but doesn't always wear it. She reports a month ago she would wear oxygen approximately 50% of the time at rest. In the ER workup included routine labs with unremarkable CBC, CMP - potassium 2.9, negative troponin, normal INR/PTT, negative influenza PCR. CXR reported as no acitve disease in the chest (independently reviewed by myself). She was treated with 250ml bolus normal saline, hour long nebulizer, 125mg IV Solumedrol and 60 meq PO potassium chloride. Currently still on 2L nasal cannula with O2 sats 90%. Significant hypoxia without oxygen down to 84% on room air. Last recorded saturation were in an ER visit in July when she was 92-96% on room air. She has had significant improvement with nebulizer and solu-medrol given. She is up to date on pneumonia and influenza vaccinations as per PCP note from October. Her last reported exacerbation at that time was in 2017. No prior PFTs available for review on [employer]. She continues to smoke 0.5 packs/day (although gave up with recent shortness of breath). She will be admitted to med/surg for ongoing care. Admission Exam Per Admitting Provider Constitutional: WD/WN, vitals as above no acute distress Eyes: PERRL, conjunctivae normal, anicteric sclerae Neck: trachea midline, no thyromegaly Respiratory: normal respiratory effort and + labored breathing; + not able to speak in complete sentence Auscultation: + wheezes (expiratory throughout); no diminished lung sounds, no crackles and no rales Cardiovascular: RRR, no murmur, no edema Vessels: no JVD Extremities: normal capillary refill; no calf tenderness Gastrointestinal (Abdomen): normal bowel sounds, soft, nontender, no hepatosplenomegaly Musculoskeletal: no cyanosis or clubbing, extremities motor strength 5/5 Skin: no rashes, warm and dry Neurologic: moves all extremities and awake; no focal motor deficits and not confused Speech / Cognition: normal speech Motor/Sensory: + tremor (mild assymetric resting (patient reports sine stopping smoking)); no pronator drift Psychiatric: A+Ox3, euthymic affect Lymphatic: no cervical or axillary lymphadenopathy Principal Diagnosis Acute Hypoxia Respiratory Failure, COPD Exacerbation Discharge Exam Constitutional WD/WN, vitals as above no acute distress Eyes PERRL, conjunctivae normal, anicteric sclerae Neck trachea midline, no thyromegaly Respiratory normal respiratory effort; no respiratory distress and no labored breathing Auscultation: + diminished lung sounds and + wheezes (expiratory, L>>R) Cardiovascular RRR, no murmur, no edema Gastrointestinal (Abdomen) normal bowel sounds, soft, nontender, no hepatosplenomegaly Musculoskeletal Head/Neck/Chest: normocephalic and head atraumatic Extremities: strength 5/5 throughout Skin no rashes, warm and dry Neurologic patellar DTR's 2+ bilat, sensation intact Psychiatric A+Ox3, euthymic affect Lymphatic no cervical or axillary lymphadenopathy Discharge Data Allergies Allergy/AdvReac Type Severity Reaction Status Date / Time Penicillins Allergy Severe SWELLING Verified 12/28/18 10:39 Sulfa (Sulfonamide Allergy Intermediate RASH Verified 12/28/18 10:39 Antibiotics) morphine AdvReac Intermediate bradycardia Verified 12/28/18 10:39 and hypotension promethazine AdvReac Intermediate bradycardia Verified 12/28/18 10:39 and hypotension Consultations 03/13/19 13:52 ED Decision to Admit Stat 03/13/19 21:01 Consult Case Management - Discharge Planning Routine Ordered Studies CXR Hospital Course (1) Acute respiratory failure with hypoxia: * Secondary to COPD exacerbation as below. (2) COPD exacerbation: * Secondary to running out of her medication. No PFTs available on [employer]. * 125mg IV solumedrol given in ER -> Switched to prednisone 40mg PO daily. Tapered dose at discharge. Duonebs QID + PRN * Initiated on azithromycin -- to complete 5 day course on 03/18/19 * Continued Symbicort 160/4.5 2 puffs BID * Added Spiriva -- given on discharge * Formal 2-step performed prior to discharge - patient requiring 3L with ambulation, 2L at rest-- prescription [facility] prior to d/c * Would recommend follow up with Pulmonology as outpatient -- defer to PCP (3) Diarrhea: * Unclear etiology. However only going twice a day. Not watery to suggest c. diff. No abdominal pain to suggest diverticulitis. Not significantly anemic to suggest ongoing bleed. * Resolved on day of discharge (4) Hypokalemia: * Secondary to diarrhea + albuterol use * 60 meq KCl given in ER. * Repeat K 3.4 -- given additional 20 MEQ KCl (5) Hypothyroidism: * Continued levothyroxine 112 mcg daily. * TSH wnl (6) CHF (congestive heart failure): * Chronic without acute exacerbation. Most recent ECHO April 2016 -- mild MR, some regional wall motion abn, LV systolic function low normal, EF 50-55%, LA mildly dilated * Continued lasix as home dose -- patient only takes 20mg BID, med rec listed 40mg BID (7) CAD (coronary artery disease): * Continued ASA, metoprolol, atorvastatin * EKG with nonspecific ST, T wave abnormality compared with EKG April 2016 -- patient without chest pain. No troponin checked on admission. (8) Hypertension: * Hypertensive on admission. * Continued home medications * BP stable at143/99 prior to discharge (9) DVT prophylaxis: * Lovenox 40mg SQ daily while inpatient (10) CKD (chronic kidney disease) stage 3, GFR 30-59 ml/min: Cr stable, 0.98, gfr 57.2 prior to discharge Total Time Total Time Spent Total Time Spent (In Minutes): 75 Discharge Plan Discharge Items Patient Disposition: Home - Self-Care Reason For Visit: HYPOKALEMIA, COPD EXCERBATION Discharge Diagnosis: COPD Exacerbation Goals: You have been hospitalized for an acute medical problem. During your stay at [facility], we have made an effort to correct the problem that brought you to the hospital while keeping you as comfortable as possible. Medications were used to bring your condition under control and your discharge instructions will include directions for any medications you should take after leaving the hospital. Please make sure you see your Primary Care Provider as part of your follow up plan. Activity: Resume your previous activity Non-emergency contact: Primary Care Provider Call non-emergency contact if: you have any medication questions, your symptoms worsen and you have a fever Follow-up/Referrals: Ismael Samayoa III, MD [Primary Care Provider] - Diet: Regular Addtl Attending Provider Instructions: You have been sent renewed prescriptions for your combivent and your symbicort. You have been sent a prescription for azithromycin as well. This is an antibiotic. You received your first dose while you were hospitalized, and you will have four additional days to complete the course. Please take as directed and take full course. Please also finish out the course of prednisone taper as prescribed. You should follow up with your primary care provider in the next 3-5 days. You may want to discuss referral to a negative notcher at your next visit, for further management of your COPD. You had a formal test to determine your oxygen needs prior to discharge. It was found that you require 3L with movement and 2L while at rest, as we discussed. Case management faxed the order to [facility] so that they have your updated needs. It is VERY IMPORTANT that you immediately QUIT SMOKING to improve your health. You can buy the nicotine patches over the counter to help with this and discuss other prescription medications with your doctor that can help you quit smoking. It has been a pleasure being a part of the medical team providing for your during this hospitalization. Take care! Pending Studies at Discharge: No Stand-Alone Forms: My [facility], Smoking Cessation Medications and DC Order Prescriptions: New prednisone 20 mg Tablet See Rx Instructions .ROUTE .COMPLEX Qty: 15 RF: 0 furosemide 20 mg Tablet 20 mg PO [id number] 30 Days Qty: 30 RF: 0 nicotine 14 mg/24 hr patch 24 hour 1 patch TD DAILY Qty: 14 RF: 0 azithromycin 250 mg tablet 250 mg PO DAILY 4 Days Qty: 4 RF: 0 Continued levothyroxine [Synthroid] 112 mcg tablet 112 mcg PO DAILY Qty: 30 RF: 5 polysaccharide iron complex [Ferrex 150] 150 mg iron capsule 150 mg PO BID Qty: 60 RF: 5 ipratropium-albuterol 0.5 mg-3 mg(2.5 mg base)/3 mL solution for nebulization See Rx Instructions .ROUTE .COMPLEX Qty: 360 RF: 2 atorvastatin [Lipitor] 40 mg tablet 40 mg PO DAILY Qty: 90 RF: 3 amlodipine 2.5 mg tablet 2.5 mg PO DAILY Qty: 90 RF: 3 metoprolol tartrate 25 mg tablet 25 mg PO BID Qty: 60 RF: 5 paroxetine HCl [Paxil] 40 mg tablet 40 mg PO DAILY Qty: 30 RF: 5 nitroglycerin [Nitrostat] 0.4 mg tablet, sublingual 0.4 mg sublingual UD PRN (Reason: Chest Pain) Qty: 25 RF: 3 aspirin 81 mg Tablet,Delayed Release (Dr/Ec) 81 mg PO DAILY RF: 0 acetaminophen [Tylenol Arthritis Pain] 650 mg Tablet Extended Release 1,300 mg PO HS RF: 0 budesonide-formoterol 160-4.5 mcg/actuation Hfa Aerosol Inhaler 2 puff INHALATION BID Qty: 6 RF: 0 Changed Combivent Respimat 20-100 mcg/actuation mist 1 puffs INH Q6H Qty: 4 RF: 3 Discontinued furosemide [Lasix] 20 mg tablet 40 mg PO BID Qty: 120 RF: 5 Discharge Orders: Discharge Order (Routine); Ordered 03/14/19 Ordered By: Jenise Vega Admission Data Admit Date/Time: 03/13/19 14:39 Attending Provider: Jenise Vega Admit Provider: Cristóbal Sanches Primary Care Provider: Ismael Samayoa III Other Providers: Cristóbal Sanches Other Interventions: Discharge Summary Assessment (RN) Last Done: 03/14/19 17:20
[2019-03-14] MEDS ORDERED: ENOXAPARIN INJ 40 MG/0.4 ML SYR SQ SCH (21:00)
== END 2019-03-14 17:45 | disposition home or self-care (01) ==
LOC: ED 09:52 → INTOOBSV 14:39 → 4W 14:39 → SUATTDRO 14:39 → 4W 15:17

== ENCOUNTER 2019-10-08 17:06 | Observation (INO) ==
[2019-10-08] MEDS ORDERED: ASPIRIN CHEW 324 MG PO STA (17:10)
[2019-10-08] MEDS ORDERED: ASPIRIN 81 MG CHEW ONE (17:11)
[2019-10-08] MEDS ORDERED: NITROGLYCERIN SL 0.4 MG/TAB TAB ONE (17:11)
[2019-10-08] MEDS: NITROGLYCERIN SL 0.4 MG/TAB TAB SL PRN ×3 (17:16→17:39)
--- NOTE | 2019-10-08 17:22 | XRay Report ---
XR chest 1V portable CLINICAL HISTORY: Chest Pain dyspnea COMPARISON STUDY: 03/13/2019 FINDINGS: Increased general prominence of the bronchovascular markings. This may simply represent dif fuse bilateral parenchymal infiltrative change. No significant cardiac enlargement. Prior left axilla ry dissection. IMPRESSION: Interval development of diffuse bilateral parenchymal infiltrates versus atypical conges tive failure. ACT 112: Negative or not required by law. The above report was generated using voice recognition software. It may contain grammatical, syntax or spelling errors. Electronically signed by: Rusty Mays M.D. 10/08/2019 5:21 PM
[2019-10-08] MEDS ORDERED: LORazepam 2 MG/4 ML VIAL ONE (17:24)
[2019-10-08] MEDS ORDERED: ALBUT/IPRATROP 3MG/0.5MG NEB 3 ML VIAL NEB STA (17:25)
[2019-10-08] MEDS ORDERED: LORazepam 0.5 MG/1 ML VIAL IV STA (17:25)
[2019-10-08 17:30] LABS: Basophils # (auto) 0.05 K/uL (0-0.2); Basophils % (auto) 0.4 %; Eosinophils # (auto) 0.19 K/uL (0-0.5); Eosinophils % (auto) 1.6 %; Hematocrit (blood only) 45.6 % (37-47); Hemoglobin 14.4 g/dL (12.0-16.0); Immature Granulocytes # (auto) 0.04 K/uL (0.00-0.02); Immature Granulocytes % (auto) 0.3 %; Lymphocytes # (auto) 4.86 K/uL (1.2-3.4); Lymphocytes % (auto) 39.7 %; Mean Corpuscular Hemoglobin 28.9 pg (25-34); Mean Corpuscular Hgb Conc 31.6 g/dL (32-36); Mean Corpuscular Volume 91.4 fL (80-100); Mean Platelet Volume 9.6 fL (7.4-10.4); Monocytes # (auto) 1.14 K/uL (0.11-0.59); Monocytes % (auto) 9.3 %; Neutrophils # (auto) 5.96 K/uL (1.4-6.5); Neutrophils % (auto) 48.7 %; Platelet Count 334 K/uL (130-400); RDW Coefficient of Variation 14.9 % (11.5-14.5); RDW Standard Deviation 50.2 fL (36.4-46.3); Red Blood Count 4.99 M/uL (4.2-5.4); White Blood Count 12.24 K/uL (4.8-10.8)
[2019-10-08] MEDS ORDERED: STAT IV Infusion **Titration per Protocol STA (17:40)
[2019-10-08 17:45] LABS: INR 0.9 (0.9-1.1); Partial Thromboplastin Ratio 0.9; Partial Thromboplastin Time 24.5 Seconds (21.0-31.0); Prothrombin Time 9.9 Seconds (9.0-12.0)
[2019-10-08] MEDS ORDERED: NITROGLYCERIN/D5W 100MCG/ML 250 ML IV SCH (17:45)
[2019-10-08 17:46] LABS: BUN Creatinine Ratio 16.4 (10-20); Blood Urea Nitrogen 21 mg/dl (7-18); Calcium 9.5 mg/dl (8.5-10.1); Carbon Dioxide 30 mmol/L (21-32); Chloride 103 mmol/L (98-107); Est GFR (African American) 47.2; Est GFR (Non-African American) 40.8; Glucose 124 mg/dl (70-99); Lipase 234 U/L (73-393); Potassium 3.9 mmol/L (3.5-5.1); Sodium 140 mmol/L (136-145)
[2019-10-08 17:51] LABS: NT Pro B Type Natriuretic Pept 1346 pg/ml (0-900); Troponin I < 0.015 ng/ml (0-0.045)
[2019-10-08] MEDS ORDERED: FUROSEMIDE 40 MG/4 ML VIAL IV STA (17:54)
[2019-10-08 18:06] LABS: Base Excess VBG 0.8 mEq/L; Oxygen Saturation VBG 87.6 %; pH VBG 7.23 (7.36-7.41)
[2019-10-08 18:37] LABS: Base Excess ABG 2.3 mEq/L (-9-1.8); HCO3 ABG 30 mmol/L (19-24); PCO2 ABG 62 mmHg (35-46); PO2 ABG 83 mmHg (80-95)
[2019-10-08 18:39] LABS: Allen Test Pos (Pos)
--- NOTE | 2019-10-08 18:58 | Emergency Department Note ---
History of Present Illness General Chief complaint: Shortness of Breath/Dyspnea Stated complaint: SOB Time Seen by Provider: 10/08/19 17:09 History of Present Illness Provider complaint: Shortness of breath Onset (ago): minute(s) 5 Location: chest Radiation: non-radiation Maximum Pain Intensity: 0 Associated symptoms: + shortness of breath; no chest pain, no diaphoresis and no fever/chills 74-year-old female presents to the emergency department. Patient was here to vi sit her in room C4 after who is [facility]. The patient has not seen her in 5 weeks. The nurse was rolling the patient into the room as a visitor when on arrival at the room the patient suddenly started saying that she could not breathe and started tripoding. Patient was immediately brought back into the adjacent room C3. Home Medications Home Medications Medication Instructions Recorded Confirmed Type acetaminophen [Tylenol Arthritis 1,300 mg PO HS 08/07/18 07/05/19 History Pain] aspirin 81 mg PO DAILY 08/07/18 07/05/19 History nitroglycerin 0.4 mg sublingual 0.4 mg SUBLINGUAL UD PRN #25 tab 11/22/18 07/05/19 Rx tablet amlodipine 2.5 mg tablet 2.5 mg PO DAILY #90 tab 02/17/19 07/05/19 Rx albuterol sulfate 90 mcg/actuation 2 puffs INH Q4H PRN #18 gm 03/24/19 07/05/19 Rx aerosol inhaler bupropion HCl 75 mg tablet 150 mg PO BID #120 tab 03/24/19 07/05/19 Rx dextromethorphan-guaifenesin 30 1 tab PO Q12H PRN #60 tab 03/24/19 07/05/19 Rx mg-600 mg tablet extended [id number] hr levothyroxine 112 mcg tablet 112 mcg PO DAILY #30 tab 04/11/19 07/05/19 Rx furosemide 20 mg tablet 20 mg PO BID #120 tab 05/09/19 07/05/19 Rx polysaccharide iron complex 150 mg 150 mg PO BID #60 cap 05/30/19 07/05/19 Rx iron capsule budesonide-formoterol HFA 160 2 puff INHALATION BID #6 gm 06/01/19 07/05/19 Rx mcg-4.5 mcg/actuation aerosol inhaler tiotropium bromide 2.5 2 puff INH DAILY #4 gm 06/01/19 07/05/19 Rx mcg/actuation mist for inhalation ipratropium 0.5 mg-albuterol 3 mg See Rx Instructions .ROUTE 07/02/19 07/05/19 Rx (2.5 mg base)/3 mL nebulization .COMPLEX #360 ml soln ipratropium 20 mcg-albuterol 100 1 puffs INH QID #4 gm 08/30/19 Rx mcg/actuation mist for inhalation metoprolol tartrate 25 mg tablet 25 mg PO BID #60 tab 09/13/19 Rx paroxetine HCl 40 mg tablet 40 mg PO DAILY #30 tab 09/13/19 Rx atorvastatin 40 mg tablet 40 mg PO DAILY #90 tab 10/07/19 Rx Allergies Allergy/AdvReac Type Severity Reaction Status Date / Time Penicillins Allergy Severe SWELLING Verified 07/05/19 11:28 Sulfa (Sulfonamide Allergy Intermediate RASH Verified 07/05/19 11:28 Antibiotics) morphine AdvReac Intermediate bradycardia Verified 07/05/19 11:28 and hypotension promethazine AdvReac Intermediate bradycardia Verified 07/05/19 11:28 and hypotension Past Med/Surg History Medical History Cardiac arrest (Resolved) CHF (congestive heart failure) (Chronic) Hypertension (Chronic) STEMI (ST elevation myocardial infarction) (Resolved) May 2014. Inferior wall myocardial infarction status post PCI with drug- eluting stent x2 to the RCA. Residual 80% stenosis of D1 Ventricular fibrillation (Resolved) Surgical History History of appendectomy History of cholecystectomy History of excision of lesion History of intravascular stent placement History of kidney surgery History of left mastectomy History of lumbar discectomy History of tonsillectomy Family History Brother Brain cancer Mother Cancer of kidney Father Coronary arteriosclerosis Son Myocardial infarction Social History Smoking Status: Current every day smoker Age Started Using Tobacco: 15; packs per day: 0.5; Cigarettes Per Day: 10; Second Hand Exposure: No; Hx Alcohol Use: No Hx Substance Use: No Preferred Language: Tristanian Communication Ability: Effective Hearing Ability: Normal Blacksmith Assistant Required: No Beliefs That Will Affect Care: None marital status: Current Living Situation: Family current 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 status: retired Feels Safe at Home: Yes Seatbelt Use: always Sunscreen Use: Yes Review of Systems Unable to obtain due to the patient's respiratory status Physical Exam Vital Signs Vital Signs - 24 hr 10/08/19 17:04 10/08/19 17:08 10/08/19 17:16 Temperature 36.9 C Temperature Source Oral Pulse Rate 94 H 94 H 96 H Pulse Rate [Apical] Pulse Rate from SpO2 Sensor 94 H 96 H Pulse Rhythm Regular Respiratory Rate 27 H 25 H 19 Respiratory Effort / Characteristics Short of Breath Tripoding Respiratory Depth Respiratory Pattern Blood Pressure 236/192 H 236/192 H 229/135 H Blood Pressure Mean 206 198 149 Pulse Oximetry 93 100 100 Oxygen Delivery Method BiPAP Non-rebreather BiPAP Oxygen Flow Rate 3 Fraction of Inspired Oxygen Sepsis Recent Fever Within 48 Hours No Sepsis New/Unexplained Change in Mental Status No Sepsis Action Taken by Nursing No Action Required 10/08/19 17:26 10/08/19 17:30 10/08/19 17:34 Temperature Temperature Source Pulse Rate 103 H 97 H 110 H Pulse Rate [Apical] Pulse Rate from SpO2 Sensor 103 H 109 H 107 H Pulse Rhythm Regular Respiratory Rate 22 22 24 Respiratory Effort / Characteristics Spontaneous Short of Breath Respiratory Depth Normal Respiratory Pattern Tachypnea Blood Pressure 219/141 H 209/168 H 216/143 H Blood Pressure Mean 164 191 162 Pulse Oximetry 97 93 96 Oxygen Delivery Method BiPAP BiPAP BiPAP Oxygen Flow Rate Fraction of Inspired Oxygen 40 Sepsis Recent Fever Within 48 Hours Sepsis New/Unexplained Change in Mental Status Sepsis Action Taken by Nursing 10/08/19 17:35 10/08/19 17:41 10/08/19 17:45 Temperature Temperature Source Pulse Rate 103 H 103 H Pulse Rate [Apical] 97 H Pulse Rate from SpO2 Sensor 103 H 104 H Pulse Rhythm Respiratory Rate 22 23 23 Respiratory Effort / Characteristics Spontaneous Short of Breath Respiratory Depth Respiratory Pattern Blood Pressure 209/131 H 197/130 H Blood Pressure Mean 149 143 Pulse Oximetry 93 90 91 Oxygen Delivery Method BiPAP BiPAP BiPAP Oxygen Flow Rate Fraction of Inspired Oxygen 40 Sepsis Recent Fever Within 48 Hours Sepsis New/Unexplained Change in Mental Status Sepsis Action Taken by Nursing 10/08/19 17:57 10/08/19 18:00 10/08/19 18:16 Temperature Temperature Source Pulse Rate 96 H 96 H 88 Pulse Rate [Apical] Pulse Rate from SpO2 Sensor 96 H 96 H 85 Pulse Rhythm Respiratory Rate 23 21 26 H Respiratory Effort / Characteristics Respiratory Depth Respiratory Pattern Blood Pressure 169/107 H 165/114 H 147/100 H Blood Pressure Mean 133 127 107 Pulse Oximetry 91 92 93 Oxygen Delivery Method BiPAP BiPAP BiPAP Oxygen Flow Rate Fraction of Inspired Oxygen Sepsis Recent Fever Within 48 Hours Sepsis New/Unexplained Change in Mental Status Sepsis Action Taken by Nursing 10/08/19 18:31 10/08/19 18:46 10/08/19 19:06 Temperature Temperature Source Pulse Rate 80 79 Pulse Rate [Apical] Pulse Rate from SpO2 Sensor 80 79 Pulse Rhythm Respiratory Rate 26 H 24 Respiratory Effort / Characteristics Respiratory Depth Respiratory Pattern Blood Pressure 116/85 130/78 Blood Pressure Mean 92 102 Pulse Oximetry 94 93 95 Oxygen Delivery Method BiPAP BiPAP Oxygen Flow Rate Fraction of Inspired Oxygen 40 Sepsis Recent Fever Within 48 Hours Sepsis New/Unexplained Change in Mental Status Sepsis Action Taken by Nursing Physical Exam GENERAL: She is distressed NECK: JVD present CV: Normal rate, regular rhythm, normal heart sounds and intact distal pulses. There is no peripheral edema. Palpable radial pulses bue. PULM/CHEST: Respiratory distress. Retracting. Minutes breath sounds and rales at the bases bilaterally. ABD: The abdomen is soft. Course Course 1705: 74-year-old female presents to the emergency department. Patient was here to visit her in room C4 after who is sent here from the jail. The patient has not seen her in 5 weeks. The nurse was rolling the patient into the room as a visitor when on arrival at the room the patient suddenly started saying that she could not breathe and started tripoding. Wendi ent was immediately brought back into the adjacent room C3. She was attached to cardiac monitor technician and placed on oxygen. Respiratory was called to start the patient on BiPAP. Patient was found to be extremely hypertensive. Is thought that she is suffering from flash pulmonary edema. Patient was given aspirin 324 and sublingual nitro which improved her blood pressure slightly. Portable chest x-ray showed cephalization and cardiomegaly consistent with appearance of flash pulmonary edema. Repeat doses of sublingual nitroglycerin were given. EMR reviewed. Patient is a DNR/DNI with a history of CKD, CHF, and COPD. She always wears home oxygen. Cardiac monitoring: An order was placed for continuous cardiac monitoring. The monitor shows a rate of 90 with sinus rhythm 1745: Patient remains hypertensive. She is tolerating BiPAP well. We will place the patient on nitro drip as she has received multiple boluses of sublingual nitro and her blood pressure still elevated. 1810: Nitro drip stopped as the patient's blood pressure is significantly improved. Lasix 40 mg ordered for the patient. Patient's proBNP is elevated. Repeat EKG shows sinus rhythm with rate of 89. MO QRS and QTc intervals within normal limits. No ST elevation or ST depression. Dr. Sanches [facility] Hospitalist was notified about the patient's admission. Administered Medications Nitroglycerin/Dextrose (Nitroglycerin/D5w 100 Mcg/Ml) 250 mls @ 3 mls/hr IV .Q24H [facility]; Protocol Stop: 11/07/19 17:44 Last Titration: 10/08/19 18:01 Dose: 0 mcg/min, 0 mls/hr Documented by: [id number] Titration: 10/08/19 17:56 Dose: 10 mcg/min, 6 mls/hr Documented by: [id number] Admin: 10/08/19 17:45 Dose: 5 mcg/min, 3 mls/hr Documented by: [id number] Cosigned by: [id number] Nitroglycerin (Nitrostat) 0.4 mg SL PRN PRN PRN Reason: Chest Pain Stop: 11/07/19 17:09 Last Admin: 10/08/19 17:39 Dose: 0.4 mg Documented by: [id number] Admin: 10/08/19 17:27 Dose: 0.4 mg Documented by: [id number] Admin: 10/08/19 17:16 Dose: 0.4 mg Documented by: [id number] Discontinued Medications Albuterol (Duoneb) 3 ml NEB NOW STA Stop: 10/08/19 17:26 Last Admin: 10/08/19 17:36 Dose: 3 ml Documented by: [id number] Aspirin (Aspirin Chew) Confirm Administered Dose 324 mg .ROUTE .STK-MED ONE Stop: 10/08/19 17:12 Last Admin: 10/08/19 17:15 Dose: Not Given Documented by: [id number] Aspirin (Aspirin) 324 mg PO NOW STA Stop: 10/08/19 17:11 Last Admin: 10/08/19 17:15 Dose: 324 mg Documented by: [id number] Furosemide (Lasix) 40 mg IV NOW STA Stop: 10/08/19 17:55 Last Admin: 10/08/19 17:59 Dose: 40 mg Documented by: [id number] Lorazepam (Ativan) 0.5 mg in 1 mls @ 1 mls/min IV NOW STA Stop: 10/08/19 17:26 Last Admin: 10/08/19 17:28 Dose: Not Given Documented by: [id number] Lorazepam (Ativan) Confirm Administered Dose 2 mg .ROUTE .STK-MED ONE Stop: 10/08/19 17:25 Last Increment: 10/08/19 17:28 Dose: 0.5 mg Documented by: [id number] Miscellaneous () 1 ea N/A NOW STA Stop: 10/08/19 17:41 Last Admin: 10/08/19 17:46 Dose: Not Given Documented by: [id number] Nitroglycerin (Nitrostat) Confirm Administered Dose 1.2 mg .ROUTE .STK-MED ONE Stop: 10/08/19 17:12 Last Admin: 10/08/19 17:16 Dose: Not Given Documented by: [id number] Critical Care Time Critical Care Time: Yes Total Critical Care Time: 60 I have personally spent greater than 60 minutes of critical care time in the direct management of this patient. This includes bedside care, interpretation of diagnostic studies, and testing, discussion with consultants, patient, and family members, and other required patient management activities. This 60 minutes is in excess of all separately billable procedures. Medical Decision Making Laboratory Data Result diagrams: 10/08/19 17:15 10/08/19 17:15 Lab Results 10/08/19 10/08/19 10/08/19 Range/Units 17:15 17:15 17:15 WBC 12.24 H (4.8-10.8) K/uL RBC 4.99 (4.2-5.4) M/uL Hgb 14.4 (12.0-16.0) g/dL Hct 45.6 (37-47) % MCV 91.4 (80-100) fL MCH 28.9 (25-34) pg MCHC 31.6 L (32-36) g/dL RDW Std Deviation 50.2 H (36.4-46.3) fL RDW Coeff of Yun 14.9 H (11.5-14.5) % Plt Count 334 (130-400) K/uL MPV 9.6 (7.4-10.4) fL Immature Gran % (Auto) 0.3 % Neut % (Auto) 48.7 % Lymph % (Auto) 39.7 % [place] % (Auto) 9.3 % Eos % (Auto) 1.6 % Baso % (Auto) 0.4 % Neut # (Auto) 5.96 (1.4-6.5) K/uL Lymph # (Auto) 4.86 H (1.2-3.4) K/uL [place] # (Auto) 1.14 H (0.11-0.59) K/uL Eos # (Auto) 0.19 (0-0.5) K/uL Baso # (Auto) 0.05 (0-0.2) K/uL Immature Gran # (Auto) 0.04 H (0.00-0.02) K/uL PT 9.9 (9.0-12.0) Seconds INR 0.9 (0.9-1.1) APTT 24.5 (21.0-31.0) Seconds PTT Ratio 0.9 ABG pH (7.35-7.45) ABG pCO2 (35-46) mmHg ABG pO2 (80-95) mmHg ABG HCO3 (19-24) mmol/L ABG O2 Saturation (90-95) % ABG Base Excess (-9-1.8) mEq/L Kleber Test (Pos) VBG pH (7.36-7.41) VBG pCO2 (38-50) mmHg VBG pO2 mmHg VBG HCO3 mmol/L VBG O2 Saturation % VBG Base Excess mEq/L Barometric Pressure mm/Hg Oxygen Given Sodium 140 (136-145) mmol/L Potassium 3.9 (3.5-5.1) mmol/L Chloride 103 (98-107) mmol/L Carbon Dioxide 30 (21-32) mmol/L Anion Gap 7.0 (3-11) BUN 21 H (7-18) mg/dl Creatinine 1.29 H (0.6-1.2) mg/dl Est Cr Clr Drug Dosing 38.0 ml/min Est GFR ( Amer) 47.2 Est GFR (Non-Af Amer) 40.8 BUN/Creatinine Ratio 16.4 (10-20) Glucose 124 H (70-99) mg/dl Calcium 9.5 (8.5-10.1) mg/dl Troponin I < 0.015 (0-0.045) ng/ml NT-Pro-B Natriuret Pep 1346 H (0-900) pg/ml Lipase 234 (73-393) U/L 10/08/19 10/08/19 Range/Units 17:57 18:24 WBC (4.8-10.8) K/uL RBC (4.2-5.4) M/uL Hgb (12.0-16.0) g/dL Hct (37-47) % MCV (80-100) fL MCH (25-34) pg MCHC (32-36) g/dL RDW Std Deviation (36.4-46.3) fL RDW Coeff of Yun (11.5-14.5) % Plt Count (130-400) K/uL MPV (7.4-10.4) fL Immature Gran % (Auto) % Neut % (Auto) % Lymph % (Auto) % [place] % (Auto) % Eos % (Auto) % Baso % (Auto) % Neut # (Auto) (1.4-6.5) K/uL Lymph # (Auto) (1.2-3.4) K/uL [place] # (Auto) (0.11-0.59) K/uL Eos # (Auto) (0-0.5) K/uL Baso # (Auto) (0-0.2) K/uL Immature Gran # (Auto) (0.00-0.02) K/uL PT (9.0-12.0) Seconds INR (0.9-1.1) APTT (21.0-31.0) Seconds PTT Ratio ABG pH 7.30 L (7.35-7.45) ABG pCO2 62 H (35-46) mmHg ABG pO2 83 (80-95) mmHg ABG HCO3 30 H (19-24) mmol/L ABG O2 Saturation 95.0 (90-95) % ABG Base Excess 2.3 H (-9-1.8) mEq/L Kleber Test Pos (Pos) VBG pH 7.23 L (7.36-7.41) VBG pCO2 74 H (38-50) mmHg VBG pO2 65 mmHg VBG HCO3 30 mmol/L VBG O2 Saturation 87.6 % VBG Base Excess 0.8 mEq/L Barometric Pressure 734.6 734.6 mm/Hg Oxygen Given 40% Sodium (136-145) mmol/L Potassium (3.5-5.1) mmol/L Chloride (98-107) mmol/L Carbon Dioxide (21-32) mmol/L Anion Gap (3-11) BUN (7-18) mg/dl Creatinine (0.6-1.2) mg/dl Est Cr Clr Drug Dosing ml/min Est GFR ( Amer) Est GFR (Non-Af Amer) BUN/Creatinine Ratio (10-20) Glucose (70-99) mg/dl Calcium (8.5-10.1) mg/dl Troponin I (0-0.045) ng/ml NT-Pro-B Natriuret Pep (0-900) pg/ml Lipase (73-393) U/L Imaging Data Radiologist's Impression: XR chest 1V portable CLINICAL HISTORY: Chest Pain dyspnea COMPARISON STUDY: 03/13/2019 FINDINGS: Increased general prominence of the bronchovascular markings. This may simply represent diffuse bilateral parenchymal infiltrative change. No s ignificant cardiac enlargement. Prior left axillary dissection. IMPRESSION: Interval development of diffuse bilateral parenchymal infiltrates versus atypical congestive failure. ACT 112: Negative or not required by law. The above report was generated using voice recognition software. It may contain grammatical, syntax or spelling errors. Electronically signed by: Rusty Mays M.D. 10/08/2019 5:21 PM Dictated: 10/08/191719 Transcribed: 10/08/191719 ECG Data Indication: + SOB/dyspnea Rate (beats per minute): 93 Rhythm: + normal sinus ECG Intervals/blocks: + Normal QRS, + Normal MO and + Normal QT-c ECG ST segments: + Normal ST segments Additional Comments: EKG #2 at 1809: Sinus rhythm with rate of 89. MO QRS and QTc intervals within normal limits. No ST elevation or ST depression. [facility] Narrative 1706: 74-year-old female presents to the emergency department. Patient was here to visit her in room C4 after who [facility] The patient has not seen her in 5 weeks. The nurse was rolling the patient into the room as a visitor when on arrival at the room the patient suddenly started saying that she could not breathe and started tripoding. Patient was immediately brought back into the adjacent room C3. She was attached to cardiac monitor technician and placed on oxygen. Respiratory was called to start the patient on BiPAP. Patient was found to be extremely hypertensive. Is thought that she is suffering from flash pulmonary edema. Patient was given aspirin 324 and sublingual nitro which improved her blood pressure slightly. Portable chest x-ray showed cephalization and cardiomegaly consistent with appearance of flash pulmonary edema. Repeat doses of sublingual nitroglycerin were given. EMR reviewed. Patient is a DNR/DNI with a history of CKD, CHF, and COPD. She always wears home oxygen. Cardiac monitoring: An order was placed for continuous cardiac monitoring. The monitor shows a rate of 90 with sinus rhythm 1745: Patient remains hypertensive. She is tolerating BiPAP well. We will place the patient on nitro drip as she has received multiple boluses of sublingual nitro and her blood pressure still elevated. 1810: Nitro drip stopped as the patient's blood pressure is significantly improved. Lasix 40 mg ordered for the patient. Patient's proBNP is elevated. Repeat EKG shows sinus rhythm with rate of 89. MO QRS and QTc intervals within normal limits. No ST elevation or ST depression. Dr. Sanches [facility] hospitalist was notified about the patient's admission. Impression & Plan Flash pulmonary edema Discharge Plan Visit Data Chief Complaint: Shortness of Breath/Dyspnea Stated Complaint: SOB ED Provider: Silver Kwong Discharge Problem: Flash pulmonary edema Patient Disposition: Admitted As Inpatient Forms [facility] Alone [facility] Department, Important Visit Information Prescriptions Prescriptions: No Action amlodipine 2.5 mg tablet 2.5 mg PO DAILY Qty: 90 RF: 3 levothyroxine [Synthroid] 112 mcg tablet 112 mcg PO DAILY Qty: 30 RF: 5 furosemide 20 mg tablet 20 mg PO BID Qty: 120 RF: 4 polysaccharide iron complex [Ferrex 150] 150 mg iron capsule 150 mg PO BID Qty: 60 RF: 5 budesonide-formoterol 160-4.5 mcg/actuation HFA aerosol inhaler 2 puff INHALATION BID Qty: 6 RF: 4 Spiriva Respimat 2.5 mcg/actuation mist 2 puff INH DAILY Qty: 4 RF: 4 ipratropium-albuterol 0.5 mg-3 mg(2.5 mg base)/3 mL solution for nebulization See Rx Instructions .ROUTE .COMPLEX Qty: 360 RF: 4 Combivent Respimat 20-100 mcg/actuation mist 1 puffs INH QID Qty: 4 RF: 11 metoprolol tartrate 25 mg tablet 25 mg PO BID Qty: 60 RF: 5 paroxetine HCl [Paxil] 40 mg tablet 40 mg PO DAILY Qty: 30 RF: 5 atorvastatin [Lipitor] 40 mg tablet 40 mg PO DAILY Qty: 90 RF: 3 bupropion HCl 75 mg tablet 150 mg PO BID Qty: 120 RF: 2 Hold Instructions: patient developed hallucinations and self d/c'd Mucinex DM 30-600 mg tablet extended release 12 hr 1 tab PO Q12H PRN (Reason: cough) Qty: 60 RF: 0 albuterol sulfate 90 mcg/actuation HFA aerosol inhaler 2 puffs INH Q4H PRN (Reason: Shortness Of Breath Or Wheezing) Qty: 18 RF: 2 nitroglycerin [Nitrostat] 0.4 mg tablet, sublingual 0.4 mg sublingual UD PRN (Reason: Chest Pain) Qty: 25 RF: 3 aspirin 81 mg Tablet,Delayed Release (Dr/Ec) 81 mg PO DAILY RF: 0 acetaminophen [Tylenol Arthritis Pain] 650 mg Tablet Extended Release 1,300 mg PO HS RF: 0 Referrals Referrals: Ismael Samayoa III, MD [Primary Care Provider] -
--- NOTE | 2019-10-08 19:44 | History & Physical Report ---
Date of Service October 08, 2019 Assessment & Plan (1) Acute on chronic respiratory failure with hypoxia and hypercapnia: Secondary to stopping her chronic oxygen and developing flash pulmonary edema Aim O2 sats 88-92% on BiPAP, ABG with pCO2 62 - increase IPAP to 14, repeat ABG 2 hours after settings changed. (2) Flash pulmonary edema: Stop nitroglycerin IV drip Hold metoprolol for now (suspect this can be restarted in AM, monitor on telemetry for rebound tachycardia) Lasix 40 mg IV given in ER, no further diuresis required at time of admission. I&Os, daily weights NPO except ice chips and meds until respiratory status more stable Low likelihood ACS given good alternative cause of flash pulmonary edema however will get serial troponins to better assess for this. If significantly elevated with the next lab will start on IV heparin drip. TTE - given increased stress with her 's illness and need to come back to hospital after any 1 day at home, diagnosis of exclusion would be stress-induced cardiomyopathy (Takutsubo's) (3) Hypertensive emergency: Resolved with BiPAP, nitro and lasix. Holding BB as above in acute decompensated heart failure. Currently more concerned about hypertension and will also hold her amlodipine, pending improvement. (4) CAD (coronary artery disease): History of STEMI Continue aspirin 81 mg p.o. daily, metoprolol on hold due to acute heart failure as above, not on ACEi/ARB (could consider this once more stable), continue atorvastatin 40 mg p.o. daily (5) Right hip pain: Concerning for hairline fracture which she has not previously had evaluated X-ray right hip (6) Constipation: Once respiratory status more stable will have to address this. (7) COPD with emphysema: No current exacerbation Prior history of running out of her inhalers and requiring admission for exacerbation Continue her usual LAMA/LABA/ICS regimen or hospital formulary equivalent (8) CKD (chronic kidney disease) stage 3, GFR 30-59 ml/min: Mildly elevated on admission suspect due to poor cardiac output with flash pulmonary edema (9) Hypothyroidism: TSH WNL in Mar. 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 Do not suspect hypothyroidism driving her shortness of breath. Continue levothyroxine 112 mcg p.o. daily (10) DVT prophylaxis: Chemical prophylaxis deferred pending serial troponin and possible need for IV heparin drip. If troponin not significantly elevated by morning would recommend starting chemical VTE prophylaxis Admission and Anticipated Discharge Date Admission Date: 10/08/2019 History of Present Illness Chief Complaint: Sudden onset shortness of breath Primary Care Provider: Ismael Samayoa MD Jackelyn Waggoner is a 74-year-old female with severe COPD, chronic respiratory failure with hypoxia and hypercapnia, tobacco use disorder, CHF who was actually here to see her in the ER when she developed sudden onset shortness of breath while being wheeled on a wheelchair to see him. Turned out she had forgotten to turn her oxygen on when she got out of the car - she chronically uses 2L. She was taken to the adjacent ER room and found to have flash pulmonary edema. She reports feeling well prior to coming to the ER. No chest pain, orthopnea, PND, palpitations or claudication prior to this. No fever, chills, cough, acute shortness of breath, known COVID-19 exposure acutely prior to this episode. She was noted to be extremely hypertensive with systolic blood pressure 230. She was given Lasix 40 mg IV and given x3 nitroglycerin 0.4 mg sublingual tabs. Her blood pressure remained high so she was started on a nitroglycerin drip however this dropped her blood pressure significantly and was subsequently discontinued. When reviewed 30 minutes later her blood pressure was stable and her respiratory status had improved and off for transfer to PCU. Allergies Allergy/AdvReac Type Severity Reaction Status Date / Time Penicillins Allergy Severe SWELLING Verified 10/08/19 19:42 Sulfa (Sulfonamide Allergy Intermediate RASH Verified 10/08/19 19:43 Antibiotics) morphine AdvReac Intermediate bradycardia Verified 10/08/19 19:43 and hypotension promethazine AdvReac Intermediate bradycardia Verified 10/08/19 19:43 and hypotension bupropion AdvReac Hallucinati Unverified 10/08/19 19:45 ng Home Medications Home Medications Medication Instructions Recorded Confirmed Type acetaminophen [Tylenol Arthritis 1,300 mg PO HS 08/07/18 10/08/19 History Pain] aspirin 81 mg PO DAILY 08/07/18 10/08/19 History nitroglycerin 0.4 mg sublingual 0.4 mg SUBLINGUAL UD PRN #25 tab 11/22/18 10/08/19 Rx tablet amlodipine 2.5 mg tablet 2.5 mg PO DAILY #90 tab 02/17/19 10/08/19 Rx albuterol sulfate 90 mcg/actuation 2 puffs INH Q4H PRN #18 gm 03/24/19 10/08/19 Rx aerosol inhaler dextromethorphan-guaifenesin 30 1 tab PO Q12H PRN #60 tab 03/24/19 10/08/19 Rx mg-600 mg tablet extended [id number] hr levothyroxine 112 mcg tablet 112 mcg PO DAILY #30 tab 04/11/19 10/08/19 Rx furosemide 20 mg tablet 20 mg PO BID #120 tab 05/09/19 10/08/19 Rx polysaccharide iron complex 150 mg 150 mg PO BID #60 cap 05/30/19 10/08/19 Rx iron capsule budesonide-formoterol HFA 160 2 puff INHALATION BID #6 gm 06/01/19 10/08/19 Rx mcg-4.5 mcg/actuation aerosol inhaler tiotropium bromide 2.5 2 puff INH DAILY #4 gm 06/01/19 10/08/19 Rx mcg/actuation mist for inhalation ipratropium 20 mcg-albuterol 100 1 puffs INH QID #4 gm MDD 6 PUFFS 08/30/19 10/08/19 Rx mcg/actuation mist for inhalation metoprolol tartrate 25 mg tablet 25 mg PO BID #60 tab 09/13/19 10/08/19 Rx paroxetine HCl 40 mg tablet 40 mg PO DAILY #30 tab 09/13/19 10/08/19 Rx atorvastatin 40 mg tablet 40 mg PO DAILY #90 tab 10/07/19 10/08/19 Rx ipratropium-albuterol 3 ml INHALATION QID MDD 6 PUFFS 10/08/19 10/08/19 History Past Med/Surg History Medical History Cardiac arrest (Resolved) CHF (congestive heart failure) (Chronic) Hypertension (Chronic) STEMI (ST elevation myocardial infarction) (Resolved) May 2014. Inferior wall myocardial infarction status post PCI with drug- eluting stent x2 to the RCA. Residual 80% stenosis of D1 Ventricular fibrillation (Resolved) Surgical History History of appendectomy History of cholecystectomy History of excision of lesion History of intravascular stent placement History of kidney surgery History of left mastectomy History of lumbar discectomy History of tonsillectomy Family History Brother Brain cancer Mother Cancer of kidney Father Coronary arteriosclerosis Son Myocardial infarction Social History Smoking Status: Current every day smoker Age Started Using Tobacco: 15; packs per day: 0.5; Cigarettes Per Day: 10; Second Hand Exposure: No; Hx Alcohol Use: No Hx Substance Use: No Preferred Language: Macanese Communication Ability: Effective Hearing Ability: Normal Certified Nurses' Aide Required: No Beliefs That Will Affect Care: None marital status: Current Living Situation: Spouse current 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 status: retired Feels Safe at Home: Yes Safety Concerns: Feels Safe At This Time Seatbelt Use: always Sunscreen Use: Yes Review of Systems Review of Systems: All systems reviewed & are unremarkable except as noted in HPI & below Gastrointestinal: + constipation (Gradually getting worse over the last week); no abdominal pain and no heartburn Musculoskeletal: She reports falling 1 month ago, having right groin pain since then, has been walking on a hip but has pain every time she walks. Due to her 's recent severe illness and rehab stay she has yet seen a medical provider for this. Physical Exam Constitutional: + acute distress (Severe respiratory distress on BiPAP) Respiratory: + respiratory distress, + labored breathing, + retractions, + uses accessory muscles and + prolonged expiratory phase; no cough and + not able to speak in complete sentence Auscultation: + rhonchi (Throughout); no wheezes Cardiovascular: Rate/Rhythm: regular rhythm and + tachycardic Heart Sounds: no murmur Vessels: + JVD Extremities: normal capillary refill and + pedal edema (Trace bilateral ankles) Gastrointestinal (Abdomen): normal bowel sounds, soft, nontender, no hepatosplenomegaly Musculoskeletal: Severe right groin and right lateral hip pain with minimal internal and external rotation of hip. No overlying skin changes anterior laterally. Skin: no rashes, warm and dry Neurologic: moves all extremities and awake; not confused Motor/Sensory: no pronator drift Psychiatric: Orientation: alert and oriented x 3 Genitourinary: no CVA tenderness Lymphatic: no cervical or axillary lymphadenopathy Results & Data Results & Data ([facility]) Vital Signs (Past 12 Hours) Vital Signs Temp Pulse Pulse Resp BP BP Pulse Ox 10/08/19 19:07 74 32 H 109/77 95 10/08/19 19:06 95 10/08/19 18:46 79 24 130/78 93 10/08/19 18:31 80 26 H 116/85 94 10/08/19 18:16 88 26 H 147/100 H 93 10/08/19 18:00 96 H 21 165/114 H 92 10/08/19 17:57 96 H 23 169/107 H 91 10/08/19 17:45 103 H 23 197/130 H 91 10/08/19 17:41 103 H 23 209/131 H 90 10/08/19 17:35 97 H 22 93 10/08/19 17:34 110 H 24 216/143 H 96 10/08/19 17:30 97 H 22 209/168 H 93 10/08/19 17:26 103 H 22 219/141 H 97 10/08/19 17:16 96 H 19 229/135 H 100 10/08/19 17:08 94 H 25 H 236/192 H 100 10/08/19 17:04 36.9 C 94 H 27 H 236/192 H 93 Diagnostic Findings XR chest 1V portable IMPRESSION: Interval development of diffuse bilateral parenchymal infiltrates versus atypical congestive failure. ECG Indication: SOB/dyspnea Rate (beats per minute): 89 Rhythm: normal sinus Findings: no acute ischemic change Comparison ECG Date: from (03/13/2019) Change: the following changes noted (T wave and ST abnormalities no longer present) Code Status & VTE Plan Code Status DNR/DNI VTE Prophylaxis Plan VTE Prophylaxis will be ordered: Yes PG Care Time/CCT Total # of Minutes Spent Total Time Spent with Patient: Total time spent is greater than 50% in coordination of care (as documented) at patient's floor/unit and/or counseling patient: Coding Level of Care Code 20861 Initial Inpt Care Lvl 3 Diagnoses Acute on chronic respiratory failure with hypoxia and hypercapnia J96.21; J96.22 Flash pulmonary edema J81.0 Hypertensive emergency I16.1 CAD (coronary artery disease) I25.10 Right hip pain M25.551 Constipation K59.00 COPD with emphysema J43.9 CKD (chronic kidney disease) stage 3, GFR 30-59 ml/min N18.3 Hypothyroidism E03.9 Hypothyroidism type: unspecified DVT prophylaxis Z29.9 (1) Hypothyroidism Hypothyroidism type: unspecified Qualified Code(s): E03.9 - Hypothyroidism, unspecified
[2019-10-08] MEDS ORDERED: ACETAMINOPHEN 325 MG TAB PO STA (19:50)
[2019-10-08] MEDS ORDERED: TRAMADOL HCL 50 MG TABLET PO STA (19:50)
--- NOTE | 2019-10-08 19:53 | XRay Report ---
XR hip RT 2V w pelvis CLINICAL HISTORY: right hip XR COMPARISON: None. DISCUSSION: Moderate generalized degenerative change. No evidence for fracture or dislocation. No joann dence for acetabular protrusion. There is no evidence for soft tissue swelling. IMPRESSION: Degenerative change. No acute bony abnormality. ACT 112: Negative or not required by law. The above report was generated using voice recognition software. It may contain grammatical, syntax or spelling errors. Electronically signed by: Rusty Mays M.D. 10/08/2019 7:52 PM
[2019-10-08] MEDS: buPROPion HCl 75 MG TABLET PO SCH (21:26)
[2019-10-08] MEDS: IRON POLYSACCHARIDE COMPLEX 150 MG CAPSULE PO SCH (21:26)
[2019-10-08] MEDS ORDERED: HYDROmorphone INJ 1 MG/ML SYRINGE IV STA (21:29)
[2019-10-08 23:26] LABS: Base Excess ABG 4.7 mEq/L (-9-1.8); HCO3 ABG 31 mmol/L (19-24); Oxygen Saturation ABG 95.1 % (90-95); PCO2 ABG 58 mmHg (35-46); PO2 ABG 80 mmHg (80-95); pH ABG 7.35 (7.35-7.45)
[2019-10-08 23:27] LABS: Allen Test Pos (Pos)
[2019-10-09] MEDS: HYDROmorphone INJ 0.5 MG/0.5 ML SYR IV PRN ×2 (00:12→14:32)
[2019-10-09 06:17] LABS: Basophils # (auto) 0.01 K/uL (0-0.2); Basophils % (auto) 0.2 %; Eosinophils # (auto) 0.07 K/uL (0-0.5); Eosinophils % (auto) 1.3 %; Hemoglobin 11.7 g/dL (12.0-16.0); Immature Granulocytes # (auto) 0.01 K/uL (0.00-0.02); Immature Granulocytes % (auto) 0.2 %; Lymphocytes # (auto) 1.45 K/uL (1.2-3.4); Lymphocytes % (auto) 27.8 %; Mean Corpuscular Hemoglobin 28.3 pg (25-34); Mean Corpuscular Hgb Conc 31.6 g/dL (32-36); Mean Corpuscular Volume 89.6 fL (80-100); Mean Platelet Volume 9.8 fL (7.4-10.4); Monocytes # (auto) 0.42 K/uL (0.11-0.59); Neutrophils # (auto) 3.26 K/uL (1.4-6.5); Neutrophils % (auto) 62.5 %; Platelet Count 228 K/uL (130-400); RDW Coefficient of Variation 14.8 % (11.5-14.5); RDW Standard Deviation 48.6 fL (36.4-46.3); Red Blood Count 4.13 M/uL (4.2-5.4); White Blood Count 5.22 K/uL (4.8-10.8)
--- NOTE | 2019-10-09 06:26 | CT Scan Report ---
CT hip RT wo con CT DOSE: 524.23 mGy.cm HISTORY: Trauma. Pain. R groin with hip rotatation r/o hairline fracture TECHNIQUE: Multiaxial CT images of the right hip were performed and reformatted in the sagittal and c oronal plane without the use of contrast. A dose lowering technique was utilized adhering to the sanjeev Bartlett. COMPARISON: Routine images same day FINDINGS: No fracture or dislocation. Soft tissues are unremarkable. Significant degenerative change. Mild soft tissue edema. IMPRESSION: No acute bony abnormality. Degenerative change. No change compared to the prior routine series of hetal ges. ACT 112: Negative or not required by law. The above report was generated using voice recognition software. It may contain grammatical, syntax or spelling errors. Electronically signed by: Rusty Mays M.D. 10/09/2019 6:24 AM
[2019-10-09] MEDS: LEVOTHYROXINE SODIUM 112 MCG TABLET PO SCH (06:34)
[2019-10-09 07:00] LABS: Albumin Level 3.1 gm/dl (3.4-5.0); Bilirubin,Total 0.4 mg/dl (0.2-1); Calcium 8.6 mg/dl (8.5-10.1); Creatinine Clr Calc Pharmacy 56.6 ml/min; Est GFR (African American) 77.1; Est GFR (Non-African American) 66.6; Magnesium 2.4 mg/dl (1.8-2.4); Potassium 3.3 mmol/L (3.5-5.1); Total Protein 6.1 gm/dl (6.4-8.2); Troponin I 0.074 ng/ml (0-0.045)
[2019-10-09] MEDS: IRON POLYSACCHARIDE COMPLEX 150 MG CAPSULE PO SCH ×2 (08:09→20:56)
[2019-10-09] MEDS: ATORVASTATIN 40 MG TAB PO SCH (08:09)
[2019-10-09] MEDS: ASPIRIN 81 MG ECTAB PO SCH (08:09)
[2019-10-09] MEDS: PARoxetine HCL 20 MG TAB PO SCH (08:09)
[2019-10-09] MEDS: buPROPion HCl 75 MG TABLET PO SCH ×2 (08:09→20:57)
[2019-10-09] MEDS: UMECLIDINIUM BROMIDE 62.5MCG/BLISTER 7 PUFFS/INHALER INH SCH (08:13)
[2019-10-09] MEDS: FLUTICASONE/VILANTEROL 100/25MCG 14 PUFFS/INHALER INH SCH (08:13)
--- NOTE | 2019-10-09 08:54 | XRay Report ---
XR chest 1V portable CLINICAL HISTORY: hypoxia, pulmonary edema COMPARISON STUDY: No previous studies for comparison. FINDINGS: The bones soft tissues and hemidiaphragms are normal. The cardiomediastinal silhouette is n ormal. The lungs are clear. The pulmonary vasculature is normal. IMPRESSION: Negative chest. ACT 112: Negative or not required by law. The above report was generated using voice recognition software. It may contain grammatical, syntax or spelling errors. Electronically signed by: Rusty Mays M.D. 10/09/2019 8:52 AM
[2019-10-09] MEDS ORDERED: FUROSEMIDE 40 MG in SYRINGE 0 ML IV ONE (09:00)
[2019-10-09 09:49] LABS: HCO3 ABG 33 mmol/L (19-24); Oxygen Saturation ABG 96.3 % (90-95); PCO2 ABG 53 mmHg (35-46); PO2 ABG 84 mmHg (80-95); pH ABG 7.41 (7.35-7.45)
[2019-10-09] MEDS: POTASSIUM CHLORIDE 20 MEQ TABCR PO SCH ×3 (09:54→20:55)
[2019-10-09 09:56] LABS: Allen Test Pos (Pos)
--- NOTE | 2019-10-09 10:20 | XCELERA ---
[id number] \\[id number]
--- NOTE | 2019-10-09 10:59 | Electrocardiogram Report ---
Test Reason : Blood Pressure : / mmHG Vent. Rate : 089 BPM Atrial Rate : 089 BPM P-R Int : 136 ms QRS Dur : 104 ms QT Int : 380 ms P-R-T Axes : 074 076 081 degrees QTc Int : 462 ms Normal sinus rhythm Normal ECG When compared with ECG of 08-OCT-2019 17:07, (unconfirmed) No significant change was found Confirmed by Jatin Meza ([id number]) on 10/09/2019 10:59:27 AM Referred By: REFERRED SELF Confirmed By:Lee Meza
--- NOTE | 2019-10-09 11:02 | Electrocardiogram Report ---
Test Reason : Blood Pressure : / mmHG Vent. Rate : 093 BPM Atrial Rate : 093 BPM P-R Int : 134 ms QRS Dur : 090 ms QT Int : 336 ms P-R-T Axes : 073 074 061 degrees QTc Int : 417 ms Poor data quality, interpretation may be adversely affected Normal sinus rhythm Normal ECG When compared with ECG of 13-MAR-2019 10:07, ST no longer depressed in Anterior leads Nonspecific T wave abnormality no longer evident in Inferior leads T wave inversion no longer evident in Lateral leads Confirmed by Jatin Meza ([id number]) on 10/09/2019 11:02:10 AM Referred By: REFERRED SELF Confirmed By:Lee Meza
[2019-10-09] MEDS ORDERED: Nursing to Pharmacy Communication SCH (11:30)
[2019-10-09] MEDS: METOPROLOL TARTRATE 25 MG TAB PO SCH ×2 (11:41→18:46)
[2019-10-09] MEDS: AMLODIPINE BESYLATE 5 MG TAB PO SCH (11:41)
[2019-10-09] MEDS: FUROSEMIDE 20 MG TAB PO SCH ×2 (11:41→17:36)
[2019-10-09] MEDS: ALBUT/IPRATROP 3MG/0.5MG NEB 3 ML VIAL NEB PRN ×2 (16:35→21:23)
--- NOTE | 2019-10-09 21:47 | Hospitalist Progress Note ---
Date of Service October 09, 2019 Assessment & Plan (1) Acute on chronic respiratory failure with hypoxia and hypercapnia: Secondary to stopping her chronic oxygen and developing flash pulmonary edema Aim O2 sats 88-92% on BiPAP remained on BIPAP over night and this morning repeat ABG with CO2 down to 60 with pH of 7.36, thus her baseline, PaO2 71 CXR with no pulmonary edema titrated to nasal canula the rest of the day, will continue to use CPAP/BIPAP HS as she uses this at home acute component nearly resolved (2) Flash pulmonary edema: Lasix 40 mg IV given in ER, responded quite well I&Os, daily weights continue Lasix 20mg IV BID, negative 2.2 liters today, breathing better echo today with preserved EF, no major changes compared to prior echo Low likelihood ACS given good alternative cause of flash pulmonary edema, troponin peaked at 0.08, no chest pain, doubt ACS (3) Hypertensive emergency: Resolved with BiPAP, nitro and lasix. resume norvasc 2.5mg and metoprolol 25mg BID (4) CAD (coronary artery disease): History of STEMI Continue aspirin 81 mg p.o. daily, metoprolol 25mg BID, not on ACEi/ARB (could consider this once more stable), continue atorvastatin 40 mg p.o. daily (5) Right hip pain: Concerning for hairline fracture which she has not previously had evaluated CT hip negative for fracture tender over greater trochanter, possible bursitis? could consider injection ask ortho to see tomorrow, consult Dr. Baird's group (6) Constipation: Once respiratory status more stable will have to address this. (7) COPD with emphysema: No current exacerbation Prior history of running out of her inhalers and requiring admission for exacerbation Continue her usual LAMA/LABA/ICS regimen or hospital formulary equivalent (8) CKD (chronic kidney disease) stage 3, GFR 30-59 ml/min: Mildly elevated on admission suspect due to poor cardiac output with flash pulmonary edema Cr is stable today with diuresis check in the morning (9) Hypothyroidism: TSH WNL in Mar. 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 Do not suspect hypothyroidism driving her shortness of breath. Continue levothyroxine 112 mcg p.o. daily (10) DVT prophylaxis: Lovenox Admission and Anticipated Discharge Date Admission Date: October 08, 2019 Subjective patient continues to diurese will with Lasix IV this morning she was still on BIPAP, RN tried to remove around 8am but the patient became short of breath and diaphoretic ABG showed that CO2 down to baseline and pH normal CXR with resolved pulmonary edema able to wean down to nasal canula by lunch time, patient ate a little no chest pain, no fever/chills, no nausea reviewed chart from admission reviewed labs, CBC with normal WBC, Hb and plts ABG: pH 7.36, CO2 60, paO2 71 K 3.3, placed on PO replacement, Cr stable at 0.86 troponin 0.08 and 0.076, no significant increase patient still c/o pain in right hip, pain with ambulating and with pressure CT of the hip on admission negative for fracture, injury, no major changes, could be bursitis? Review of Systems Review of Systems: All systems reviewed & are unremarkable except as noted in Subjective Respiratory: + cough, + dyspnea and + dyspnea on exertion; no wheezing Cardiovascular: no chest pain, no palpitations, no syncope and no edema Musculoskeletal: + joint pain (right hip) Physical Exam Constitutional: well developed, well nourished, + frail appearing, cooperative and + in distress (mild respiratory distress off bipap this morning) Eyes: PERRL, conjunctivae normal, anicteric sclerae ENMT: external ear and nose normal, oropharynx normal Neck: trachea midline, no thyromegaly Respiratory: + labored breathing and + uses accessory muscles; no cough Auscultation: lungs clear to auscultation bilaterally and + diminished lung sounds (bases) Cardiovascular: RRR, no murmur, no edema Gastrointestinal (Abdomen): normal bowel sounds, soft, nontender, no hepatosplenomegaly Musculoskeletal: Head/Neck/Chest: normocephalic, head atraumatic and neck supple Extremities: extremities normal to inspection and strength 5/5 throughout Hip: + joint line tenderness (pain over right greater trochanter, bursa) Skin: no rashes, warm and dry Neurologic: patellar DTR's 2+ bilat, sensation intact and PERRL, EOMI, accommodation nl, no face palsy, no dysarthria Psychiatric: A+Ox3, euthymic affect Lymphatic: no cervical or axillary lymphadenopathy Results & Data Results & Data ([facility]) Vital Signs (Past 12 Hours) Vital Signs Temp Pulse Pulse Resp BP Pulse Ox 10/09/19 21:28 93 H 25 H 93 10/09/19 21:23 93 H 25 H 90 10/09/19 19:36 37.4 C 80 18 183/95 H 96 10/09/19 18:17 74 169/88 H 98 10/09/19 16:36 73 26 H 92 10/09/19 16:16 36.6 C 76 18 176/99 H 91 10/09/19 16:00 85 10/09/19 15:37 76 26 H 97 10/09/19 11:39 36.8 C 80 20 161/88 H 95 Laboratory Results Laboratory Results - last 24 hr 10/08/19 10/08/19 10/09/19 23:13 23:13 04:41 WBC RBC Hgb Hct MCV MCH MCHC RDW Std Deviation RDW Coeff of Yun Plt Count MPV Immature Gran % (Auto) Neut % (Auto) Lymph % (Auto) [place] % (Auto) Eos % (Auto) Baso % (Auto) Neut # (Auto) Lymph # (Auto) [place] # (Auto) Eos # (Auto) Baso # (Auto) Immature Gran # (Auto) ABG pH 7.35 ABG pCO2 58 H ABG pO2 80 ABG HCO3 31 H ABG O2 Saturation 95.1 H ABG Base Excess 4.7 H Kleber Test Pos Barometric Pressure 735.8 Oxygen Given 30% Sodium 144 Potassium 3.3 L D Chloride 106 Carbon Dioxide 31 Anion Gap 7.0 BUN 18 Creatinine 0.86 D Est Cr Clr Drug Dosing 56.6 Est GFR ( Amer) 77.1 Est GFR (Non-Af Amer) 66.6 BUN/Creatinine Ratio 21.0 H Glucose 82 Calcium 8.6 Magnesium 2.4 Total Bilirubin 0.4 AST 29 ALT 31 Alkaline Phosphatase 88 Troponin I 0.080 H* 0.074 H* Total Protein 6.1 L Albumin 3.1 L Globulin 3.0 Albumin/Globulin Ratio 1.0 10/09/19 10/09/19 04:41 09:37 WBC 5.22 RBC 4.13 L Hgb 11.7 L Hct 37.0 MCV 89.6 MCH 28.3 MCHC 31.6 L RDW Std Deviation 48.6 H RDW Coeff of Yun 14.8 H Plt Count 228 MPV 9.8 Immature Gran % (Auto) 0.2 Neut % (Auto) 62.5 Lymph % (Auto) 27.8 [place] % (Auto) 8.0 Eos % (Auto) 1.3 Baso % (Auto) 0.2 Neut # (Auto) 3.26 Lymph # (Auto) 1.45 [place] # (Auto) 0.42 Eos # (Auto) 0.07 Baso # (Auto) 0.01 Immature Gran # (Auto) 0.01 ABG pH 7.41 ABG pCO2 53 H ABG pO2 84 ABG HCO3 33 H ABG O2 Saturation 96.3 H ABG Base Excess 7.0 H Kleber Test Pos Barometric Pressure 736.1 Oxygen Given 30% Sodium Potassium Chloride Carbon Dioxide Anion Gap BUN Creatinine Est Cr Clr Drug Dosing Est GFR ( Amer) Est GFR (Non-Af Amer) BUN/Creatinine Ratio Glucose Calcium Magnesium Total Bilirubin AST ALT Alkaline Phosphatase Troponin I Total Protein Albumin Globulin Albumin/Globulin Ratio Diagnostic Findings XR chest 1V portable CLINICAL HISTORY: hypoxia, pulmonary edema COMPARISON STUDY: No previous studies for comparison. FINDINGS: The bones soft tissues and hemidiaphragms are normal. The cardiomediastinal silhouette is normal. The lungs are clear. The pulmonary va sculature is normal. IMPRESSION: Negative chest. Medications Administered Current Inpatient Medications Albuterol (Duoneb) 3 ml NEB Q4R PRN PRN Reason: Shortness Of Breath Or Wheezing Stop: 11/08/19 18:59 Last Admin: 10/09/19 21:23 Dose: 3 ml Documented by: Amlodipine Besylate (Norvasc) 2.5 mg PO DAILY [facility] Stop: 11/08/19 10:59 Last Admin: 10/09/19 11:41 Dose: 2.5 mg Documented by: Aspirin (Ecotrin Ectab) 81 mg PO DAILY [facility] Stop: 11/08/19 08:59 Last Admin: 10/09/19 08:09 Dose: 81 mg Documented by: Atorvastatin Calcium (Lipitor) 40 mg PO DAILY [facility] Stop: 11/08/19 08:59 Last Admin: 10/09/19 08:09 Dose: 40 mg Documented by: Bupropion HCl (Wellbutrin) 150 mg PO BID [facility] Stop: 11/07/19 21:04 Last Admin: 10/09/19 20:57 Dose: 150 mg Documented by: Fluticasone/Vilanterol (Breo Ellipta 100/25 Mcg Inh) 1 puffs INH DAILY TIM Stop: 11/08/19 08:59 Last Admin: 10/09/19 08:13 Dose: 1 puffs Documented by: Furosemide (Lasix) 20 mg PO BID17 TIM Stop: 11/08/19 10:59 Last Admin: 10/09/19 17:36 Dose: 20 mg Documented by: Hydromorphone HCl (Dilaudid) 0.5 mg IV Q4H PRN PRN Reason: Pain Stop: 10/22/19 21:28 Last Admin: 10/09/19 14:32 Dose: 0.5 mg Documented by: Levothyroxine Sodium (Synthroid) 112 mcg PO DAILYBB TIM Stop: 11/08/19 06:29 Last Admin: 10/09/19 06:34 Dose: Not Given Documented by: Metoprolol Tartrate (Lopressor) 25 mg PO BID TIM Stop: 11/08/19 10:59 Last Admin: 10/09/19 18:46 Dose: 25 mg Documented by: Paroxetine HCl (Paxil) 40 mg PO DAILY TIM Stop: 11/08/19 08:59 Last Admin: 10/09/19 08:09 Dose: 40 mg Documented by: Polysaccharide Iron Complex (Niferex-150 W/Vit C Cap) 150 mg PO BID TIM Stop: 11/07/19 21:04 Last Admin: 10/09/19 20:56 Dose: 150 mg Documented by: Potassium Chloride (Klor-Con M20) 20 meq PO TID TIM Stop: 11/08/19 08:59 Last Admin: 10/09/19 20:55 Dose: 20 meq Documented by: Umeclidinium [place] (Incruse Ellipta) 1 puffs INH DAILY TIM Stop: 11/08/19 08:59 Last Admin: 10/09/19 08:13 Dose: 1 puffs Documented by: PG Care Time/CCT Total # of Minutes Spent Total Time Spent with Patient: Total time spent is greater than 50% in coordination of care (as documented) at patient's floor/unit and/or counseling patient: Coding Level of Care Code 09635 Subseq Hosp Care Lvl 3 Diagnoses Acute on chronic respiratory failure with hypoxia and hypercapnia J96.21; J96.22 Flash pulmonary edema J81.0 Hypertensive emergency I16.1 CAD (coronary artery disease) I25.10 Right hip pain M25.551 Constipation K59.00 COPD with emphysema J43.9 CKD (chronic kidney disease) stage 3, GFR 30-59 ml/min N18.3 Hypothyroidism E03.9 Hypothyroidism type: unspecified DVT prophylaxis Z29.9 (1) Hypothyroidism Hypothyroidism type: unspecified Qualified Code(s): E03.9 - Hypothyroidism, unspecified
[2019-10-09] MEDS ORDERED: NITROGLYCERIN 2% OINTMENT 30GM TUBE EXT ONE (22:18)
[2019-10-09 22:49] LABS: Base Excess ABG 5.7 mEq/L (-9-1.8); HCO3 ABG 33 mmol/L (19-24); Oxygen Saturation ABG 93.4 % (90-95); PCO2 ABG 60 mmHg (35-46); PO2 ABG 71 mmHg (80-95); pH ABG 7.36 (7.35-7.45)
[2019-10-09 22:50] LABS: Allen Test Pos (Pos)
[2019-10-10] MEDS: HYDROmorphone INJ 0.5 MG/0.5 ML SYR IV PRN (00:03)
[2019-10-10] MEDS: ALBUT/IPRATROP 3MG/0.5MG NEB 3 ML VIAL NEB PRN ×5 (03:52→19:07)
[2019-10-10] MEDS: LEVOTHYROXINE SODIUM 112 MCG TABLET PO SCH (05:53)
[2019-10-10 06:30] LABS: Hematocrit (blood only) 36.9 % (37-47); Hemoglobin 11.6 g/dL (12.0-16.0); Mean Corpuscular Hemoglobin 28.5 pg (25-34); Mean Corpuscular Hgb Conc 31.4 g/dL (32-36); Mean Corpuscular Volume 90.7 fL (80-100); Mean Platelet Volume 9.3 fL (7.4-10.4); Platelet Count 186 K/uL (130-400); RDW Coefficient of Variation 14.5 % (11.5-14.5); RDW Standard Deviation 48.1 fL (36.4-46.3); Red Blood Count 4.07 M/uL (4.2-5.4); White Blood Count 8.86 K/uL (4.8-10.8)
[2019-10-10 07:06] LABS: BUN Creatinine Ratio 18.8 (10-20); Calcium 9.3 mg/dl (8.5-10.1); Creatinine Clr Calc Pharmacy 57.8 ml/min; Est GFR (African American) 79.4; Est GFR (Non-African American) 68.5; Magnesium 2.5 mg/dl (1.8-2.4); Potassium 3.8 mmol/L (3.5-5.1)
[2019-10-10] MEDS: AMLODIPINE BESYLATE 5 MG TAB PO SCH (08:00)
[2019-10-10] MEDS: buPROPion HCl 75 MG TABLET PO SCH ×2 (08:00→20:16)
[2019-10-10] MEDS: ASPIRIN 81 MG ECTAB PO SCH (08:01)
[2019-10-10] MEDS: METOPROLOL TARTRATE 25 MG TAB PO SCH ×2 (08:01→20:17)
[2019-10-10] MEDS: ATORVASTATIN 40 MG TAB PO SCH (08:01)
[2019-10-10] MEDS: PARoxetine HCL 20 MG TAB PO SCH (08:01)
[2019-10-10] MEDS: IRON POLYSACCHARIDE COMPLEX 150 MG CAPSULE PO SCH ×2 (08:01→20:17)
[2019-10-10] MEDS: POTASSIUM CHLORIDE 20 MEQ TABCR PO SCH ×3 (08:01→20:17)
[2019-10-10] MEDS: FUROSEMIDE 20 MG TAB PO SCH ×2 (08:01→17:12)
[2019-10-10] MEDS: UMECLIDINIUM BROMIDE 62.5MCG/BLISTER 7 PUFFS/INHALER INH SCH (08:02)
[2019-10-10] MEDS: FLUTICASONE/VILANTEROL 100/25MCG 14 PUFFS/INHALER INH SCH (08:02)
[2019-10-10] MEDS: ENOXAPARIN INJ 40 MG/0.4 ML SYR SQ SCH (09:50)
--- NOTE | 2019-10-10 10:37 | Pulmonary Consultation ---
Date of Consultation October 10, 2019 Assessment & Plan (1) Acute on chronic respiratory failure with hypoxia and hypercapnia: Chest x-ray 10/09/2019: Personally reviewed. Portable film, good inspiratory effort, left costophrenic and cardiophrenic angles are clean, right costophrenic angle little bit hazy, mild haziness appreciated in the right lower lobe area. --Acute on chronic hypoxic hypercapnic respiratory failure Multifactorial Patient had hypertensive emergency while she presented to the ER responded to BiPAP, Lasix, nitro drip which has been discontinued Patient does have some wheezing appreciated at that time of examination today I would like to give her Solu-Medrol 40 mg on a daily basis and continue with inhaled therapy. Looking at the right lower side haziness on the chest x-ray could be confluence of shadows given is a portable film. I will order of procalcitonin if it is negative would just give azithromycin for her underlying COPD. O2 supplementation to keep O2 saturation around 88-92% BiPAP nightly and PRN shortness of breath -- Active smoker > 40 pack-year smoking history, currently smoking 2 or 3 cigarettes a day, advised to quit. Patient was started on bupropion as an outpatient but she was not able to tolerate it. I want to refer the patient to smoking cessation clinic to see if she can benefit from nicotine patch and gum. --DNR Plan: Solu-Medrol 40 mg on a daily basis O2 saturation 88-92% Nurse was made aware of the need of O2 saturation being 88-92 Follow-up procalcitonin. Add Mucinex p.o. twice daily Please note the above document was generated using voice recognition software. It may contain grammatical, syntax or spelling errors. History of Present Illness Attending Physician: Jenise Vega MD History of Present Illness 74-year-old female with past medical history of hypoxic respiratory f ailure on 2 L nasal cannula at rest with an 4 L on exertion, coronary artery disease status post stent, hypertension, depression Patient was last seen by me on 07/05/2019 in the clinic Patient had come to the hospital to see her who is also admitted to the hospital. While coming to the hospital she complained of shortness of breath she had systolic blood pressure of 230s at that time and complaining of shortness of breath which is progressively getting worse. She denies any chest pain at the time. Patient was in the ED started on nitro drip given Lasix and started on BiPAP. Clinically she improved. Patient said that she is compliant with her inhalers at home on a daily basis along with O2 which is 2 L at rest and 4 L on exertion. Patient denies any fever or chills. No dysuria, no diarrhea. Denies any headache, no dizziness, no chest pain. She does have chronic cough which is usually clear. It has not changed in consistency or frequency in the recent past. Social history: > 40 pack-year active smoker, currently smoking 2-3 cigarettes a day, no illicit drug use, no alcohol use. 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 Denies any exposure to any chemicals. Stays in a senior citizen home right now. No pets or dogs at home. No pull tree at home. No personal history or family history of asthma. Personal history of breast cancer status post left mastectomy and chemotherapy done in 1990. No personal or family history of lung cancer Allergies Allergy/AdvReac Type Severity Reaction Status Date / Time Penicillins Allergy Severe SWELLING Verified 10/08/19 19:42 Sulfa (Sulfonamide Allergy Intermediate RASH Verified 10/08/19 19:43 Antibiotics) morphine AdvReac Intermediate bradycardia Verified 10/08/19 19:43 and hypotension promethazine AdvReac Intermediate bradycardia Verified 10/08/19 19:43 and hypotension bupropion AdvReac Hallucinati Unverified 10/08/19 19:45 ng Home Medications Home Medications Medication Instructions Recorded Confirmed Type acetaminophen [Tylenol Arthritis 1,300 mg PO HS 08/07/18 10/08/19 History Pain] aspirin 81 mg PO DAILY 08/07/18 10/08/19 History nitroglycerin 0.4 mg sublingual 0.4 mg SUBLINGUAL UD PRN #25 tab 11/22/18 10/08/19 Rx tablet amlodipine 2.5 mg tablet 2.5 mg PO DAILY #90 tab 02/17/19 10/08/19 Rx albuterol sulfate 90 mcg/actuation 2 puffs INH Q4H PRN #18 gm 03/24/19 10/08/19 Rx aerosol inhaler dextromethorphan-guaifenesin 30 1 tab PO Q12H PRN #60 tab 03/24/19 10/08/19 Rx mg-600 mg tablet extended hr levothyroxine 112 mcg tablet 112 mcg PO DAILY #30 tab 04/11/19 10/08/19 Rx furosemide 20 mg tablet 20 mg PO BID #120 tab 05/09/19 10/08/19 Rx polysaccharide iron complex 150 mg 150 mg PO BID #60 cap 05/30/19 10/08/19 Rx iron capsule budesonide-formoterol HFA 160 2 puff INHALATION BID #6 gm 06/01/19 10/08/19 Rx mcg-4.5 mcg/actuation aerosol inhaler tiotropium bromide 2.5 2 puff INH DAILY #4 gm 06/01/19 10/08/19 Rx mcg/actuation mist for inhalation ipratropium 20 mcg-albuterol 100 1 puffs INH QID #4 gm MDD 6 PUFFS 08/30/19 10/08/19 Rx mcg/actuation mist for inhalation metoprolol tartrate 25 mg tablet 25 mg PO BID #60 tab 09/13/19 10/08/19 Rx paroxetine HCl 40 mg tablet 40 mg PO DAILY #30 tab 09/13/19 10/08/19 Rx atorvastatin 40 mg tablet 40 mg PO DAILY #90 tab 10/07/19 10/08/19 Rx ipratropium-albuterol 3 ml INHALATION QID MDD 6 PUFFS 10/08/19 10/08/19 History Patient History Medical History Cardiac arrest (Resolved) CHF (congestive heart failure) (Chronic) Hypertension (Chronic) STEMI (ST elevation myocardial infarction) (Resolved) May 2014. Inferior wall myocardial infarction status post PCI with drug- eluting stent x2 to the RCA. Residual 80% stenosis of D1 Ventricular fibrillation (Resolved) Surgical History History of appendectomy History of cholecystectomy History of excision of lesion History of intravascular stent placement History of kidney surgery History of left mastectomy History of lumbar discectomy History of tonsillectomy Family History Brother Brain cancer Mother Cancer of kidney Father Coronary arteriosclerosis Son Myocardial infarction Social History Smoking Status: Current every day smoker Age Started Using Tobacco: 15; packs per day: 0.5; Cigarettes Per Day: 10; Second Hand Exposure: No; Hx Alcohol Use: No Hx Substance Use: No Preferred Language: Slovenian Communication Ability: Effective Hearing Ability: Normal C D Still Operator Required: No Beliefs That Will Affect Care: None marital status: Current Living Situation: Spouse current 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 status: retired Feels Safe at Home: Yes Safety Concerns: Feels Safe At This Time Seatbelt Use: always Sunscreen Use: Yes Review of Systems Review of Systems: All systems reviewed & are unremarkable except as noted in Subjective Physical Exam Physical Exam: Constitutional: No acute distress HEENT: EOMI, PERRLA Respiratory system: Decreased air entry bilaterally, no crackles, no rhonchi, positive expiratory wheeze appreciated especially bilateral posteriorly CVS: S1-S2 positive, no murmurs, distant heart sounds or gallops Abdomen: Soft, nontender, nondistended, positive bowel sounds x4 Extremities: +2 pulses bilaterally radialis/ dorsalis pedis, no cyanosis, no edema Neuro: Awake alert oriented x3 Psych: Normal mood and affect G/U: +ve hernandez Skin: no rashes, warm and dry Lymphatic: no cervical or axillary lymphadenopathy Results & Data Results & Data ([facility]) Vital Signs (Past 12 Hours) Vital Signs Temp Pulse Pulse Resp BP Pulse Ox 10/10/19 07:08 36.8 C 79 19 128/74 97 10/10/19 06:57 77 22 97 10/10/19 03:55 96 H 26 H 94 10/10/19 03:23 37.6 C H 71 20 172/92 H 97 10/10/19 02:38 76 24 95 10/09/19 23:21 36.4 C L 72 20 142/83 H 94 10/09/19 23:18 73 34 H 95 10/10/19 06:07 10/10/19 06:07 PG Care Time/CCT Total # of Minutes Spent Total Time Spent with Patient: Total time spent is greater than 50% in coordination of care (as documented) at patient's floor/unit and/or counseling patient: Coding Level of Care Code 88627 Initial Inpt Care Lvl 3 Diagnoses Acute on chronic respiratory failure with hypoxia and hypercapnia J96.21; J96.22
[2019-10-10] MEDS: methylPREDNISolone 40 MG in SYRINGE 0 ML IV SCH (11:32)
--- NOTE | 2019-10-10 14:21 | Orthopedic Consultation ---
Date of Consultation October 10, 2019 Assessment & Plan (1) Osteoarthritis of right hip: We talked about the arthritis in her hip at bedside. I told her the treatment options would either be oral anti-inflammatory medications, an intra- articular cortisone injection, or a hip replacement surgery. She is not interested in any surgery or injections at this time. She is happy to continue with oral anti-inflammatories as needed. She is also happy that there are no signs of fracture around her right hip. She will continue to ambulate with a cane. If she wants any further treatment for her right hip am happy to follow her up in the office at any time. My office phone number is [phone]. Present on Admission?: Yes History of Present Illness Reason for Consultation: Advanced arthritis of the right hip Attending Physician: Jenise Vega MD History of Present Illness Jackelyn is a pleasant 74-year-old female who has been having a several year history of right hip pain. She ambulates with a cane and lives in a house with her . Unfortunately, about 2 months ago she fell directly onto her right hip. Since that time her hip pain has been much worse. She is still able to ambulate with a cane and she has not sought any care for her hip pain. Unfortun ately, she was recently admitted to the hospital for medical condition. She talked to the hospitalist about her hip pain. There was concerns for a possible occult fracture. X-rays of her hip showed advanced arthritis. CT scan of her hip did not show any fracture and confirm the arthritis. She was still having a lot of hip pain and orthopedics was consulted to evaluate and treat. Allergies Allergy/AdvReac Type Severity Reaction Status Date / Time Penicillins Allergy Severe SWELLING Verified 10/08/19 19:42 Sulfa (Sulfonamide Allergy Intermediate RASH Verified 10/08/19 19:43 Antibiotics) morphine AdvReac Intermediate bradycardia Verified 10/08/19 19:43 and hypotension promethazine AdvReac Intermediate bradycardia Verified 10/08/19 19:43 and hypotension bupropion AdvReac Hallucinati Unverified 10/08/19 19:45 ng Home Medications Home Medications Medication Instructions Recorded Confirmed Type acetaminophen [Tylenol Arthritis 1,300 mg PO HS 08/07/18 10/08/19 History Pain] aspirin 81 mg PO DAILY 08/07/18 10/08/19 History nitroglycerin 0.4 mg sublingual 0.4 mg SUBLINGUAL UD PRN #25 tab 11/22/18 10/08/19 Rx tablet amlodipine 2.5 mg tablet 2.5 mg PO DAILY #90 tab 02/17/19 10/08/19 Rx albuterol sulfate 90 mcg/actuation 2 puffs INH Q4H PRN #18 gm 03/24/19 10/08/19 Rx aerosol inhaler dextromethorphan-guaifenesin 30 1 tab PO Q12H PRN #60 tab 03/24/19 10/08/19 Rx mg-600 mg tablet extended [id number] hr levothyroxine 112 mcg tablet 112 mcg PO DAILY #30 tab 04/11/19 10/08/19 Rx furosemide 20 mg tablet 20 mg PO BID #120 tab 05/09/19 10/08/19 Rx polysaccharide iron complex 150 mg 150 mg PO BID #60 cap 05/30/19 10/08/19 Rx iron capsule budesonide-formoterol HFA 160 2 puff INHALATION BID #6 gm 06/01/19 10/08/19 Rx mcg-4.5 mcg/actuation aerosol inhaler tiotropium bromide 2.5 2 puff INH DAILY #4 gm 06/01/19 10/08/19 Rx mcg/actuation mist for inhalation ipratropium 20 mcg-albuterol 100 1 puffs INH QID #4 gm MDD 6 PUFFS 08/30/19 10/08/19 Rx mcg/actuation mist for inhalation metoprolol tartrate 25 mg tablet 25 mg PO BID #60 tab 09/13/19 10/08/19 Rx paroxetine HCl 40 mg tablet 40 mg PO DAILY #30 tab 09/13/19 10/08/19 Rx atorvastatin 40 mg tablet 40 mg PO DAILY #90 tab 10/07/19 10/08/19 Rx ipratropium-albuterol 3 ml INHALATION QID 10/08/19 10/08/19 History ipratropium-albuterol 3 ml INHALATION QID 10/10/19 10/10/19 History Patient History Medical History Cardiac arrest (Resolved) CHF (congestive heart failure) (Chronic) Hypertension (Chronic) STEMI (ST elevation myocardial infarction) (Resolved) May 2014. Inferior wall myocardial infarction status post PCI with drug- eluting stent x2 to the RCA. Residual 80% stenosis of D1 Ventricular fibrillation (Resolved) Surgical History History of appendectomy History of cholecystectomy History of excision of lesion History of intravascular stent placement History of kidney surgery History of left mastectomy History of lumbar discectomy History of tonsillectomy Family History Brother Brain cancer Mother Cancer of kidney Father Coronary arteriosclerosis Son Myocardial infarction Social History Smoking Status: Current every day smoker Age Started Using Tobacco: 15; packs per day: 0.5; Cigarettes Per Day: 10; Second Hand Exposure: No; Hx Alcohol Use: No Hx Substance Use: No Preferred Language: Latvian Communication Ability: Effective Hearing Ability: Normal Mold Forms Builder Required: No Beliefs That Will Affect Care: None marital status: Current Living Situation: Spouse current 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 status: retired Feels Safe at Home: Yes Safety Concerns: Feels Safe At This Time Seatbelt Use: always Sunscreen Use: Yes Review of Systems Review of Systems: All systems reviewed & are unremarkable except as noted in HPI & below Physical Exam Constitutional: WD/WN, vitals as above Eyes: PERRL, conjunctivae normal, anicteric sclerae ENMT: external ear and nose normal, oropharynx normal Neck: trachea midline, no thyromegaly Respiratory: normal respiratory effort Cardiovascular: RRR, no murmur, no edema Gastrointestinal (Abdomen): normal bowel sounds, soft, nontender, no hepatosplenomegaly Musculoskeletal: On physical examination of her right hip, she sitting comfortably at bedside. She is neurovascular intact. She has pain in her groin and her her gluteal region. She is unable to bring her leg up into a [id number] position. She has pain with forced internal and external rotation. Psychiatric: A+Ox3, euthymic affect Results & Data ([facility]) Vital Signs (Past 12 Hours) Vital Signs Temp Pulse Pulse Resp BP Pulse Ox 10/10/19 12:08 37.0 C 76 19 105/66 91 10/10/19 11:09 71 18 95 10/10/19 07:08 36.8 C 79 19 128/74 97 10/10/19 06:57 77 22 97 10/10/19 03:55 96 H 26 H 94 10/10/19 03:23 37.6 C H 71 20 172/92 H 97 10/10/19 02:38 76 24 95 Diagnostic Findings X-rays of the right hip do show advanced osteoarthritis with joint space narrowing osteophyte formation and [id number] articulation. CT scan of the right hip did not show any signs of fracture. There is advanced osteoarthritis of the hip joint. PG Care Time/CCT Total # of Minutes Spent Total Time Spent with Patient: Total time spent is greater than 50% in coordination of care (as documented) at patient's floor/unit and/or counseling patient: Coding Level of Care Code 49494 Inpt Consult Level 4 Diagnoses Osteoarthritis of right hip M16.11
[2019-10-10] MEDS: AZITHROMYCIN 250 MG TAB PO SCH (17:12)
--- NOTE | 2019-10-10 17:41 | Hospitalist Progress Note ---
Date of Service October 10, 2019 Assessment & Plan (1) Acute on chronic respiratory failure with hypoxia and hypercapnia: Secondary to stopping her chronic oxygen and developing flash pulmonary edema Was treated initially with BiPAP and is now weaned down to 3 L oxygen mask which is just slightly over her baseline of 2 L at home at rest repeat ABG with CO2 down to 60 with pH of 7.36, thus her baseline, PaO2 71 CXR with no pulmonary edema -Appreciate pulmonology consultation-added steroids, procalcitonin negative, and added azithromycin 500 mg daily -continue to use CPAP/BIPAP HS as she uses this at home -Overall much improved, hopefully can go home tomorrow (2) Flash pulmonary edema: Lasix 40 mg IV given in ER, responded quite well, has diuresed quite a bit I&Os, daily weights continue Lasix 20mg p.o. BID echo today with preserved EF, no major changes compared to prior echo Low likelihood ACS given good alternative cause of flash pulmonary edema, troponin peaked at 0.08, no chest pain, doubt ACS (3) Hypertensive emergency: Resolved with BiPAP, nitro and lasix. -Continue Norvasc 2.5mg and metoprolol 25mg BID, Lasix (4) CAD (coronary artery disease): History of STEMI Continue aspirin 81 mg p.o. daily, metoprolol 25mg BID, not on ACEi/ARB (could consider this once more stable), continue atorvastatin 40 mg p.o. daily (5) Right hip pain: Concerning for hairline fracture on x-ray, which was ruled out on CT-which she has not previously had evaluated CT hip negative for fracture tender over greater trochanter, possible bursitis? Seen by orthopedics here who says that she has significant arthritis of the hip -Patient declines surgical intervention or injection, will stick with pain management with medications Patient reports she is just relieved that she does not have cancer in her hip (6) Constipation: Ongoing -We will add docusate/senna (7) COPD with emphysema: With wheezing here -Pulmonology consultation appreciated-added on IV Solu-Medrol 40 mg once daily Prior history of running out of her inhalers and requiring admission for exacerbation Continue her usual LAMA/LABA/ICS regimen or hospital formulary equivalent (8) CKD (chronic kidney disease) stage 3, GFR 30-59 ml/min: Mildly elevated on admission suspect due to poor cardiac output with flash pulmonary edema Cr is stable today with diuresis check BMP in the morning (9) Hypothyroidism: TSH WNL in Mar. 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 Do not suspect hypothyroidism driving her shortness of breath. Continue levothyroxine 112 mcg p.o. daily (10) Current smoker: Encouraged smoking cessation -Continue on bupropion here Pulmonology recommends referral to smoking cessation clinic as an outpatient (11) DVT prophylaxis: Lovenox SQ Disposition-improving, hopeful for discharge to home tomorrow May need a two-step prior to discharge to see if oxygen requirements have changed Admission and Anticipated Discharge Date Admission Date: October 08, 2019 Subjective Patient reports feeling better, less short of breath. She is weaned down to 3 L oxygen mask by later on today. Denies chest pain. She has a chronic cough that is unchanged from previous. She continues to have right hip pain but feels better knowing that it is not cancer after having the CT of the hip and seeing the orthopedic surgeon. Denies nausea or vomiting, she is eating well. She still has a Sher catheter in place She has not been out of bed much Telemetry with normal sinus rhythm with rates in the 70s to 80s, some PACs Review of Systems Review of Systems: All systems reviewed & are unremarkable except as noted in HPI & below Physical Exam Constitutional: WD/WN, vitals as above Eyes: + anicteric sclerae Neck: trachea midline, no thyromegaly Respiratory: normal respiratory effort and + cough Auscultation: + diminished lung sounds (Throughout) and + wheezes (Bilateral expiratory at the bases); no crackles and no rhonchi Cardiovascular: RRR, no murmur, no edema Chest (Breasts): Chest: normal inspection of chest Gastrointestinal (Abdomen): normal bowel sounds, soft, nontender, no hepatosplenomegaly Musculoskeletal: Extremities: extremities normal to inspection; no cyanosis and no clubbing Skin: no rashes, warm and dry Neurologic: moves all extremities and awake; no focal motor deficits Psychiatric: A+Ox3, euthymic affect Genitourinary: Sher catheter in place draining clear yellow urine Lymphatic: no lymphedema Results & Data Results & Data ([facility]) Vital Signs (Past 12 Hours) Vital Signs Temp Pulse Pulse Resp BP Pulse Ox 10/10/19 15:44 36.6 C 78 19 150/88 H 96 10/10/19 15:18 78 18 94 10/10/19 12:08 37.0 C 76 19 105/66 91 10/10/19 11:09 71 18 95 10/10/19 07:08 36.8 C 79 19 128/74 97 10/10/19 06:57 77 22 97 Laboratory Results 10/10/19 10/10/19 10/10/19 Range/Units 11:12 06:07 06:07 WBC 8.86 (4.8-10.8) K/uL RBC 4.07 L (4.2-5.4) M/uL Hgb 11.6 L (12.0-16.0) g/dL Hct 36.9 L (37-47) % MCV 90.7 (80-100) fL MCH 28.5 (25-34) pg MCHC 31.4 L (32-36) g/dL RDW Std Deviation 48.1 H (36.4-46.3) fL RDW Coeff of Yun 14.5 (11.5-14.5) % Plt Count 186 (130-400) K/uL MPV 9.3 (7.4-10.4) fL ABG pH (7.35-7.45) ABG pCO2 (35-46) mmHg ABG pO2 (80-95) mmHg ABG HCO3 (19-24) mmol/L ABG O2 Saturation (90-95) % ABG Base Excess (-9-1.8) mEq/L Kleber Test (Pos) Oxygen Given Sodium 141 (136-145) mmol/L Potassium 3.8 D (3.5-5.1) mmol/L Chloride 102 (98-107) mmol/L Carbon Dioxide 34 H (21-32) mmol/L Anion Gap 5.0 (3-11) BUN 16 (7-18) mg/dl Creatinine 0.84 (0.6-1.2) mg/dl Est Cr Clr Drug Dosing 57.8 ml/min Est GFR ( Amer) 79.4 Est GFR (Non-Af Amer) 68.5 BUN/Creatinine Ratio 18.8 (10-20) Glucose 118 H (70-99) mg/dl Calcium 9.3 (8.5-10.1) mg/dl Magnesium 2.5 H (1.8-2.4) mg/dl Procalcitonin 0.44 (0-0.5) ng/ml 10/09/19 Range/Units 22:40 WBC (4.8-10.8) K/uL RBC (4.2-5.4) M/uL Hgb (12.0-16.0) g/dL Hct (37-47) % MCV (80-100) fL MCH (25-34) pg MCHC (32-36) g/dL RDW Std Deviation (36.4-46.3) fL RDW Coeff of Yun (11.5-14.5) % Plt Count (130-400) K/uL MPV (7.4-10.4) fL ABG pH 7.36 (7.35-7.45) ABG pCO2 60 H (35-46) mmHg ABG pO2 71 L (80-95) mmHg ABG HCO3 33 H (19-24) mmol/L ABG O2 Saturation 93.4 (90-95) % ABG Base Excess 5.7 H (-9-1.8) mEq/L Kleber Test Pos (Pos) Oxygen Given 4L Sodium (136-145) mmol/L Potassium (3.5-5.1) mmol/L Chloride (98-107) mmol/L Carbon Dioxide (21-32) mmol/L Anion Gap (3-11) BUN (7-18) mg/dl Creatinine (0.6-1.2) mg/dl Est Cr Clr Drug Dosing ml/min Est GFR ( Amer) Est GFR (Non-Af Amer) BUN/Creatinine Ratio (10-20) Glucose (70-99) mg/dl Calcium (8.5-10.1) mg/dl Magnesium (1.8-2.4) mg/dl Procalcitonin (0-0.5) ng/ml PG Care Time/CCT Total # of Minutes Spent Total Time Spent with Patient: Total time spent is greater than 50% in coordination of care (as documented) at patient's floor/unit and/or counseling patient: Coding Level of Care Code 15507 Subseq Hosp Care Lvl 3 Diagnoses Acute on chronic respiratory failure with hypoxia and hypercapnia J96.21; J96.22 Flash pulmonary edema J81.0 Hypertensive emergency I16.1 CAD (coronary artery disease) I25.10 Right hip pain M25.551 Constipation K59.00 COPD with emphysema J43.9 CKD (chronic kidney disease) stage 3, GFR 30-59 ml/min N18.3 Hypothyroidism E03.9 Hypothyroidism type: unspecified Current smoker F17.200 DVT prophylaxis Z29.9 (1) Hypothyroidism Hypothyroidism type: unspecified Qualified Code(s): E03.9 - Hypothyroidism, unspecified
[2019-10-10] MEDS: guaiFENesin 600 MG TABCR PO SCH (20:17)
[2019-10-10] MEDS: DOCUSATE SODIUM/SENNA 50/8.6MG TAB PO SCH (21:19)
[2019-10-11] MEDS: ALBUT/IPRATROP 3MG/0.5MG NEB 3 ML VIAL NEB PRN ×3 (04:22→10:57)
[2019-10-11] MEDS: LEVOTHYROXINE SODIUM 112 MCG TABLET PO SCH (06:06)
[2019-10-11 07:23] LABS: BUN Creatinine Ratio 21.2 (10-20); Calcium 9.9 mg/dl (8.5-10.1); Creatinine Clr Calc Pharmacy 62.5 ml/min; Est GFR (African American) 88.2; Est GFR (Non-African American) 76.1; Magnesium 2.4 mg/dl (1.8-2.4); Potassium 3.8 mmol/L (3.5-5.1)
[2019-10-11] MEDS: DOCUSATE SODIUM/SENNA 50/8.6MG TAB PO SCH (08:01)
[2019-10-11] MEDS: UMECLIDINIUM BROMIDE 62.5MCG/BLISTER 7 PUFFS/INHALER INH SCH (08:01)
[2019-10-11] MEDS: buPROPion HCl 75 MG TABLET PO SCH (08:01)
[2019-10-11] MEDS: guaiFENesin 600 MG TABCR PO SCH (08:02)
[2019-10-11] MEDS: IRON POLYSACCHARIDE COMPLEX 150 MG CAPSULE PO SCH (08:02)
[2019-10-11] MEDS: ATORVASTATIN 40 MG TAB PO SCH (08:02)
[2019-10-11] MEDS: AMLODIPINE BESYLATE 5 MG TAB PO SCH (08:03)
[2019-10-11] MEDS: PARoxetine HCL 20 MG TAB PO SCH (08:03)
[2019-10-11] MEDS: POTASSIUM CHLORIDE 20 MEQ TABCR PO SCH (08:04)
[2019-10-11] MEDS: FUROSEMIDE 20 MG TAB PO SCH (08:04)
[2019-10-11] MEDS: ASPIRIN 81 MG ECTAB PO SCH (08:05)
[2019-10-11] MEDS: METOPROLOL TARTRATE 25 MG TAB PO SCH (08:05)
[2019-10-11] MEDS: AZITHROMYCIN 250 MG TAB PO SCH (08:05)
[2019-10-11] MEDS: FLUTICASONE/VILANTEROL 100/25MCG 14 PUFFS/INHALER INH SCH (08:06)
[2019-10-11] MEDS: ENOXAPARIN INJ 40 MG/0.4 ML SYR SQ SCH (08:06)
[2019-10-11] MEDS: methylPREDNISolone 40 MG in SYRINGE 0 ML IV SCH (09:10)
--- NOTE | 2019-10-11 11:23 | Pulmonology Progress Note ---
Date of Service October 11, 2019 Assessment & Plan (1) Acute on chronic respiratory failure with hypoxia and hypercapnia: Chest x-ray 10/09/2019: Personally reviewed. Portable film, good inspiratory effort, left costophrenic and cardiophrenic angles are clean, right costophrenic angle little bit hazy, mild haziness appreciated in the right lower lobe area. --Acute on chronic hypoxic hypercapnic respiratory failure Multifactorial Patient had hypertensive emergency while she presented to the ER responded to BiPAP, Lasix, nitro drip which has been discontinued COPD exacerbation Procalcitonin was 0.44. O2 supplementation to keep O2 saturation around 88-92% BiPAP nightly and PRN shortness of breath -- Active smoker > 40 pack-year smoking history, currently smoking 2 or 3 cigarettes a day, advised to quit. Patient was started on bupropion as an outpatient but she was not able to tolerate it. I want to refer the patient to smoking cessation clinic to see if she can benefit from nicotine patch and gum. --DNR Plan: DC IV Solu-Medrol. Transition to p.o. 40 mg prednisone for total of 3 days followed by 20 mg for 2 days. Continue azithromycin for total of 5 days. Importance of using trilogy at home whenever she is asleep and whenever she is short of breath explained to the patient. No further recommendations from pulmonary perspective. Please note the above document was generated using voice recognition software. It may contain grammatical, syntax or spelling errors. Admission and Anticipated Discharge Date Admission Date: October 08, 2019 Subjective Patient seen and examined at bedside. No acute distress, no adverse events overnight. Patient said that her breathing is significantly improved. Denies any chest pain, no palpitation, no dizziness. Patient did not use her BiPAP overnight. Importance of using it every time when she is asleep or taking a nap explained to the patient. Good appetite. Patient was saturating 96% on 2 L nasal cannula with heart rate of 83 at rest. Review of Systems Review of Systems: All systems reviewed & are unremarkable except as noted in HPI & below Physical Exam Physical Exam: Constitutional: No acute distress HEENT: EOMI, PERRLA Respiratory system: Decreased air entry bilaterally, no crackles, no rhonchi, no wheeze CVS: S1-S2 positive, no murmurs, distant heart sounds or gallops Abdomen: Soft, nontender, nondistended, positive bowel sounds x4 Extremities: +2 pulses bilaterally radialis/ dorsalis pedis, no cyanosis, no edema Neuro: Awake alert oriented x3 Psych: Normal mood and affect G/U: +ve hernandez Skin: no rashes, warm and dry Lymphatic: no cervical or axillary lymphadenopathy Results & Data Results & Data ([facility]) Vital Signs (Past 12 Hours) Vital Signs Temp Pulse Pulse Pulse Pulse Pulse Resp 10/11/19 10:57 80 18 10/11/19 09:22 101 H 103 H 95 H 88 10/11/19 07:43 36.8 C 77 20 10/11/19 06:58 83 18 10/11/19 04:44 36.7 C 80 20 10/11/19 04:23 80 20 10/11/19 00:21 10/10/19 23:49 36.8 C 78 18 Resp Resp Resp Resp BP Pulse Ox Pulse Ox 10/11/19 10:57 98 10/11/19 09:22 22 22 20 16 90 10/11/19 07:43 149/88 H 98 10/11/19 06:58 96 10/11/19 04:44 153/98 H 96 10/11/19 04:23 97 10/11/19 00:21 154/80 H 10/10/19 23:49 171/99 H 96 Pulse Ox Pulse Ox Pulse Ox 10/11/19 10:57 10/11/19 09:22 85 L 91 93 10/11/19 07:43 10/11/19 06:58 10/11/19 04:44 10/11/19 04:23 10/11/19 00:21 10/10/19 23:49 10/10/19 06:07 10/11/19 06:23 PG Care Time/CCT Total # of Minutes Spent Total Time Spent with Patient: Total time spent is greater than 50% in coordination of care (as documented) at patient's floor/unit and/or counseling patient: Coding Level of Care Code 54440 Subseq Hosp Care Lvl 3 Diagnoses Acute on chronic respiratory failure with hypoxia and hypercapnia J96.21; J96.22
[2019-10-11 11:40] VITALS: BP 125/81; TEMP 97.9; O2SAT 100
--- NOTE | 2019-10-11 12:17 | Discharge Summary ---
Date of Service October 11, 2019 Admission HPI Per Admitting Provider Jackelyn Waggoner is a 74-year-old female with severe COPD, chronic respiratory failure with hypoxia and hypercapnia, tobacco use disorder, CHF who was actually here to see her in the ER when she developed sudden onset shortness of breath while being wheeled on a wheelchair to see him. Turned out she had forgotten to turn her oxygen on when she got out of the car - she chronically uses 2L. She was taken to the adjacent ER room and found to have flash pulmonary edema. She reports feeling well prior to coming to the ER. No chest pain, orthopnea, PND, palpitations or claudication prior to this. No fever, chills, cough, acute shortness of breath, known COVID-19 exposure acutely prior to this episode. She was noted to be extremely hypertensive with systolic blood pressure 230. She was given Lasix 40 mg IV and given x3 nitroglycerin 0.4 mg sublingual tabs. Her blood pressure remained high so she was started on a nitroglycerin drip however this dropped her blood pressure significantly and was subsequently discontinued. When reviewed 30 minutes later her blood pressure was stable and her respiratory status had improved and off for transfer to PCU. Principal Diagnosis Acute on chronic respiratory failure with hypoxia, Acute on chronic diastolic CHF, hypertensive urgency Discharge Exam Constitutional WD/WN, vitals as above Eyes + anicteric sclerae Neck trachea midline, no thyromegaly Respiratory normal respiratory effort Auscultation: + diminished lung sounds (Throughout) and + wheezes (occasional wheeze); no crackles and no rhonchi Cardiovascular RRR, no murmur, no edema Chest (Breasts) Chest: normal inspection of chest Gastrointestinal (Abdomen) normal bowel sounds, soft, nontender, no hepatosplenomegaly Musculoskeletal Extremities: extremities normal to inspection; no cyanosis and no clubbing Skin no rashes, warm and dry Neurologic moves all extremities and awake; no focal motor deficits Psychiatric A+Ox3, euthymic affect Lymphatic no lymphedema Discharge Data Allergies Allergy/AdvReac Type Severity Reaction Status Date / Time Penicillins Allergy Severe SWELLING Verified 10/08/19 19:42 Sulfa (Sulfonamide Allergy Intermediate RASH Verified 10/08/19 19:43 Antibiotics) morphine AdvReac Intermediate bradycardia Verified 10/08/19 19:43 and hypotension promethazine AdvReac Intermediate bradycardia Verified 10/08/19 19:43 and hypotension bupropion AdvReac Hallucinati Unverified 10/08/19 19:45 ng Consultations 10/08/19 17:54 ED Decision to Admit Stat 10/10/19 00:08 Consult Orthopedic Surgery Routine 10/10/19 09:22 Consult Pulmonology Routine Ordered Studies 10/08/19 21:39 CT hip RT wo con Urgent CXR x 2 Hip/pelvis xray ECHOCARDIOGRAM Hospital Course (1) Acute on chronic respiratory failure with hypoxia and hypercapnia: Secondary to stopping her chronic oxygen and developing flash pulmonary edema Was treated initially with BiPAP and is now weaned back down to her usual 2LNC at rest and 3L with exertion on 2-step testing repeat ABG with CO2 down to 60 with pH of 7.36, thus her baseline, PaO2 71 CXR with no pulmonary edema -Appreciate pulmonology consultation-added steroids, procalcitonin negative, and added azithromycin 500 mg daily x 5 day course -finish out prednisone taper over the next 5 days -continue to use Trilogy ventilator HS as she uses this at home -Overall much improved, stable for dc to home (2) Flash pulmonary edema: Lasix 40 mg IV given in ER, responded quite well, has diuresed quite a bit I&Os, daily weights continue Lasix 20mg p.o. BID echo there with preserved EF, no major changes compared to prior echo Low likelihood ACS given good alternative cause of flash pulmonary edema, troponin peaked at 0.08, no chest pain, doubt ACS (3) Hypertensive emergency: Resolved with BiPAP, nitro and lasix. -Continue Norvasc 2.5mg and metoprolol 25mg BID, Lasix (4) CAD (coronary artery disease): History of STEMI Continue aspirin 81 mg p.o. daily, metoprolol 25mg BID, not on ACEi/ARB (could consider this once more stable, as outpt), continue atorvastatin 40 mg p.o. daily (5) Right hip pain: Concerning for hairline fracture on x-ray, which was ruled out on CT-which she has not previously had evaluated CT hip negative for fracture tender over greater trochanter, possible bursitis? Seen by orthopedics here who says that she has significant arthritis of the hip -Patient declines surgical intervention or injection, will stick with pain letty gement with medications Patient reports she is just relieved that she does not have cancer in her hip (6) Constipation: Ongoing continue bowel regimen at home (7) COPD with emphysema: With wheezing here, now improved -Pulmonology consultation appreciated-added on IV Solu-Medrol 40 mg once daily x 2 days, now convert to po prednisone Prior history of running out of her inhalers and requiring admission for exacerbation Continue her usual LAMA/LABA/ICS regimen (8) CKD (chronic kidney disease) stage 3, GFR 30-59 ml/min: Mildly elevated on admission suspect due to poor cardiac output with flash pulmonary edema Cr is stable today with diuresis (9) Hypothyroidism: TSH WNL in Mar. 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 Do not suspect hypothyroidism driving her shortness of breath. Continue levothyroxine 112 mcg p.o. daily (10) Current smoker: Encouraged smoking cessation -has hallucinations with buprorpion-will stop Pulmonology recommends referral to smoking cessation clinic as an outpatient (11) DVT prophylaxis: Lovenox SQ Disposition-stable for dc Total Time Total Time Spent Total Time Spent (In Minutes): >30 min Total Time Includes: Examination of the Patient, Discharge Planning and Medication Reconciliation Discharge Plan Discharge Items Patient Disposition: Home - Self-Care Reason For Visit: ACUTE RESPIRATORY FAILURE WITH HYPOXIA Discharge Diagnosis: Acute on chronic respiratory failure with hypoxia, COPD exacerbation,Congestive heart failure Condition on Discharge: Fair Activity: Resume your previous activity Non-emergency contact: Primary Care Provider and Mechanical Fitter Call non-emergency contact if: you have any medication questions and your symptoms worsen Follow-up/Referrals: Ismael Samayoa III, MD [Primary Care Provider] - (Please follow up with your PCP within 1-2 weeks.) Diet: Heart Healthy and Low Sodium (2gm) Fluids: 1800ml (7 cups) Addtl Attending Provider Instructions: Please continue to take lasix 40mg once daily. Finish out the course of azithromycin x 3 more days and prednisone taper over the next 5 days. Follow up with your PCP and with Pulmonology within 1-2 weeks. Call your Primary Care doctor if any of the following symptoms or problems start or get worse: * Shortness of breath or difficulty breathing * Wake up at night short of breath * Chest pain * Cough * Swelling of your hands, feet, or legs * More fatigued or tired with your normal activity * Palpitations - sudden fast heart beats WEIGHT * Weigh yourself every morning after using the bathroom. * Use the same scale. * Wear the same amount of clothing. * Write your weight down on a chart. * Call your Primary Care doctor if you gain more than 2-3 pounds in 1-2 days. MEDICATIONS * Use this discharge instruction sheet for medication instructions. * Take your medications at the time your doctor ordered. * Do not skip a dose of your medicines. * If you miss a dose of medicine, take it as soon as possible, but DO NOT DOUBLE A DOSE. * Read your medicine information when you get home. * Know all of the side effects of your medicine. If in doubt, ask your pharmacist * Call your Primary Care doctor's office if you have any side effects. * Be sure all of your doctors know what medicine and herbs you take (including cold, flu, and herbal medicine). Take the following with you to your follow-up doctor appointments: * Weight Chart * Medication List * List of questions Do not drink excessive alcohol, beer or wine. Pending Studies at Discharge: No Stand-Alone Forms: My [facility], Smoking Cessation Medications and DC Order Prescriptions: New azithromycin 250 mg Tablet 500 mg PO QAM 3 Days Qty: 6 RF: 0 prednisone 20 mg Tablet 40 mg PO DAILY Qty: 8 RF: 0 potassium chloride [Klor-Con M20] 20 mEq Tablet,Er Particles/Crystals 20 meq PO BID Qty: 60 RF: 0 Continued amlodipine 2.5 mg tablet 2.5 mg PO DAILY Qty: 90 RF: 3 polysaccharide iron complex [Ferrex 150] 150 mg iron capsule 150 mg PO BID Qty: 60 RF: 5 budesonide-formoterol 160-4.5 mcg/actuation HFA aerosol inhaler 2 puff INHALATION BID Qty: 6 RF: 4 Spiriva Respimat 2.5 mcg/actuation mist 2 puff INH DAILY Qty: 4 RF: 4 Combivent Respimat 20-100 mcg/actuation mist 1 puffs INH QID MDD 6 PUFFS Qty: 4 RF: 11 metoprolol tartrate 25 mg tablet 25 mg PO BID Qty: 60 RF: 5 paroxetine HCl [Paxil] 40 mg tablet 40 mg PO DAILY Qty: 30 RF: 5 atorvastatin [Lipitor] 40 mg tablet 40 mg PO DAILY Qty: 90 RF: 3 levothyroxine [Synthroid] 112 mcg tablet 112 mcg PO DAILY Qty: 30 RF: 11 Mucinex DM 30-600 mg tablet extended release 12 hr 1 tab PO Q12H PRN (Reason: cough) Qty: 60 RF: 0 albuterol sulfate 90 mcg/actuation HFA aerosol inhaler 2 puffs INH Q4H PRN (Reason: Shortness Of Breath Or Wheezing) Qty: 18 RF: 2 nitroglycerin [Nitrostat] 0.4 mg tablet, sublingual 0.4 mg sublingual UD PRN (Reason: Chest Pain) Qty: 25 RF: 3 ipratropium-albuterol 0.5 mg-3 mg(2.5 mg base)/3 mL solution for nebulization 3 ml inhalation QID RF: 0 ipratropium-albuterol 0.5 mg-3 mg(2.5 mg base)/3 mL solution for nebulization 3 ml INHALATION QID RF: 0 furosemide 20 mg tablet 20 mg PO BID Qty: 60 RF: 0 aspirin 81 mg Tablet,Delayed Release (Dr/Ec) 81 mg PO DAILY RF: 0 acetaminophen [Tylenol Arthritis Pain] 650 mg Tablet Extended Release 1,300 mg PO HS RF: 0 Discharge Orders: Discharge Order (Routine); Ordered 10/11/19 Ordered By: Jenise Vega Admission Data Admit Date/Time: 10/08/19 19:33 Attending Provider: Jenise Vega Admit Provider: Cristóbal Sanches Primary Care Provider: Ismael Samayoa III Other Providers: Cristóbal Sanches ; Cristiano Baird ; Kelvin Kaiser Coding Level of Care Code D/C Day Management >30 mins Diagnoses Acute on chronic respiratory failure with hypoxia and hypercapnia J96.21; J96.22 Flash pulmonary edema J81.0 Hypertensive emergency I16.1 CAD (coronary artery disease) I25.10 Right hip pain M25.551 Constipation K59.00 COPD with emphysema J43.9 CKD (chronic kidney disease) stage 3, GFR 30-59 ml/min N18.3 Hypothyroidism E03.9 Hypothyroidism type: unspecified Current smoker F17.200 DVT prophylaxis Z29.9
[2019-10-11 12:33] VITALS: PULSE 77
[2019-10-12] MEDS ORDERED: predniSONE 20 MG TAB PO SCH (09:00)
== END 2019-10-11 15:42 | disposition home health service (06) ==
LOC: ED 17:06 → 2S 19:33 → INTOOBSV 19:33 → SUATTDRO 19:33 → 2S 20:40

== ENCOUNTER 2022-02-03 17:49 | Inpatient (IN) ==
[2022-02-03] MEDS ORDERED: ALBUT/IPRATROP 3MG/0.5MG NEB 3 ML VIAL NEB ONE (17:54)
[2022-02-03] MEDS ORDERED: ALBUT/IPRATROP 3MG/0.5MG NEB 3 ML VIAL ONE (17:54)
--- NOTE | 2022-02-03 18:02 | Emergency Department Note ---
Impression & Plan Acute respiratory failure with hypoxia, COPD with emphysema, COPD exacerbation ED Provider Note Provider: Garth Banks MD DATE OF SERVICE: 02/03/2022 CHIEF COMPLAINT: Respiratory distress HISTORY OF PRESENT ILLNESS: Patient is a 76-year-old female history of CAD, CKD, CHF, and COPD chronic on 2 L oxygen presenting here today via ambulance. Patient's helper evidently quit today and she went out to get her mail. Was in her car to do this but got very short of breath. Is in respiratory distress according EMS. Was not severely hypoxic on her 2 L of oxygen but working to breathe. Was transitioned to CPAP for EMS. Patient reports some improvement with this. Received some albuterol as well as 125 mg of Solu-Medrol prior to arrival. Patient herself denies any significant pain. She denies significant leg swelling. States she is been sick for about a week with a cough. Patient denies nausea or vomiting. Patient states she is feeling uncomfortable with the treatments thus far. Patient's car was locked according to EMS and her dog was put in her apartment. REVIEW OF SYSTEMS: A total of 10 review of systems was obtained and negative except as stated above in the HPI. PAST MEDICAL HISTORY: As noted above MEDICATIONS: Reviewed home medications SOCIAL HISTORY: Lives at home, smoker PHYSICAL EXAM: GENERAL: alert and oriented with CPAP mask in place. Head: normocephalic and atraumatic EYES: No injection, discharge or icterus. NECK: Trachea midline. ENT: Mucous membranes pink and moist. LUNGS: Airway patent. No retractions. Breath sounds diffuse expiratory wheeze, tachypnea with some increased work of breathing HEART: Regular rate and rhythm. No chest wall tenderness ABDOMEN: Soft and non-tender, without guarding or rebound. SKIN: Acyanotic, warm, dry, without rashes EXTREMITIES: Without swelling, tenderness or deformity with only trace bilateral pedal edema NEUROLOGICAL: No focal deficits. No aphasia. No facial droop or slurred speech. Normal strength and tone in the extremities. Sensation to gross touch normal. EK bpm sinus rhythm occasional PVC. No acute ST segment elevation with an incomplete left bundle branch block and some inferior T wave flattening. QTc 447. CONTINUOUS CARDIAC MONITORING: was ordered and showed a heart rate of 60s-90s bpm in sinus rhythm Patient's laboratory studies and imaging reviewed. Differential includes Reactive airway disease, pneumonia, pneumothorax, COPD, CHF, infections, cardiac ischemia, pulmonary embolism, musculoskeletal, gastrointestinal, as well as other pathologies. IMPRESSION/MEDICAL DECISION MAKING: Patient transition to BiPAP on arrival with improvement of symptoms. Put on Duo Neb as she is significantly wheezy. Minimal leg swelling. We will complete chest x-ray as well as blood work and BNP. COVID & influenza test to be completed. Chest x-ray per radiology showed some atelectasis versus pneumonitis in the right base with emphysema changes. Blood work without significant anemia or leukocytosis. Troponin minimally elevated. BNP minimally elevated. Doubt significant fluid overload. Patient much more comfortable on the BiPAP now. Again received Solu-Medrol for EMS. Finally got a hold of her daughter via phone and was updated. Negative influenza and COVID testing for her. Question at this simply to COPD. Lower suspicion for pneumonia. Much improved again but will monitor overnight. Hospitalist contacted. DIAGNOSIS: Acute respiratory failure, COPD DISPOSITION: Hospitalist will evaluate Patient was agreeable with this plan. Critical Care I have personally spent 38 minutes of critical care time in the direct management of this patient. This includes bedside care, interpretation of diagnostic studies, and testing, discussion with consultants, patient, and family members, and other required patient management activities. These 38 minutes is in excess of all separately billable procedures. Past Med/Surg History Medical History (Updated 02/04/22 @ 00:31 by Garth Banks M.D.) Cardiac arrest CHF (congestive heart failure) Current smoker Hypertension STEMI (ST elevation myocardial infarction) May 2014. Inferior wall myocardial infarction status post PCI with drug- eluting stent x2 to the RCA. Residual 80% stenosis of D1 Ventricular fibrillation Surgical History History of appendectomy History of cholecystectomy History of excision of lesion History of intravascular stent placement History of kidney surgery History of left mastectomy History of lumbar discectomy History of tonsillectomy Family History Brother Brain cancer Mother Cancer of kidney Father Coronary arteriosclerosis Son Myocardial infarction Denies family history of Ovarian cancer Prostate cancer Breast cancer Colorectal cancer Social History (Updated 11/12/21 @ 13:04 by YONATHAN Turner) Smoking Status: Current every day smoker Tobacco Type: Cigarettes Age Started Using Tobacco: 15; packs per day: 0.5; Cigarettes Per Day: 20; Second Hand Exposure: No; Hx Alcohol Use: No Hx Substance Use: No Preferred Language: Syriac Communication Ability: Effective Visual Impairment: No Limitations Hearing Ability: Normal Hr Administrator Required: No Beliefs That Will Affect Care: None marital status: / Current Living Situation: Alone 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, 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 Other Information That Helps Us Care for You: No Feels Safe at Home: Yes Safety Concerns: Feels Safe At This Time Childhood Exposure to Second-Hand Smoke: No Dental Care, Regularly: No Physical Activity Frequency: Does not Exercise Seatbelt Use: always Sunscreen Use: Yes Assistive Devices: Denture - Upper, Denture - Lower, Glasses and Walker Allergies Allergies Allergy/AdvReac Type Severity Reaction Status Date / Time Penicillins Allergy Severe SWELLING Verified 02/03/22 20:16 Sulfa (Sulfonamide Allergy Intermediate RASH Verified 02/03/22 20:16 Antibiotics) bupropion AdvReac Intermediate Hallucinati Verified 02/03/22 20:16 ng morphine AdvReac Intermediate bradycardia Verified 02/03/22 20:16 and hypotension promethazine AdvReac Intermediate bradycardia Verified 02/03/22 20:16 and hypotension Home Meds Home Medications Medication Instructions Recorded Confirmed acetaminophen 650 mg 1,300 mg PO HS 08/07/18 02/03/22 tablet,extended release (Tylenol Arthritis Pain) aspirin 81 mg tablet,delayed 81 mg PO DAILY 08/07/18 02/03/22 release polysaccharide iron complex 150 mg 150 mg PO BID 02/03/22 02/03/22 iron capsule Previous Rx's Medication Instructions Recorded nitroglycerin 0.4 mg sublingual 0.4 mg sublingual UD PRN Chest 11/22/18 tablet (Nitrostat) Pain #25 tabs nebulizers (Aeroneb Go Nebulizer) #1 ea 06/26/20 potassium chloride 10 mEq 20 meq PO BID #180 tabs 02/12/21 tablet,extended release paroxetine HCl 40 mg tablet (Paxil) 40 mg PO DAILY #90 tabs 04/02/21 levothyroxine 112 mcg tablet 112 mcg PO DAILY #90 tabs 04/10/21 (Synthroid) atorvastatin 40 mg tablet (Lipitor) 40 mg PO DAILY #90 tabs 06/13/21 ipratropium 0.5 mg-albuterol 3 mg 3 ml inhalation QID #360 mL 07/10/21 (2.5 mg base)/3 mL nebulization soln Portable Oxygen #1 ea 08/16/21 budesonide-formoterol HFA 160 2 puff inhalation BID #6 grams 08/16/21 mcg-4.5 mcg/actuation aerosol inhaler roflumilast 500 mcg tablet 500 mcg PO DAILY #90 tabs 08/16/21 Depends Underwear #90 ea 09/13/21 furosemide 20 mg tablet 40 mg PO QAM #180 tabs 09/16/21 metoprolol tartrate 25 mg tablet 25 mg PO BID #60 tabs 09/19/21 ipratropium 20 mcg-albuterol 100 1 puff inhalation Q6H #1 inhaler 01/28/22 mcg/actuation mist for inhalation (Combivent Respimat) Results & Data (ED) Vital Signs Vital Signs - 24 hr 02/03/22 18:01 02/03/22 18:01 02/03/22 18:12 Temperature 36.7 C Temperature Source Axillary Pulse Rate 69 Pulse Rate [Finger] Pulse Rate from SpO2 Sensor Pulse Rhythm [Finger] Respiratory Rate 29 H Respiratory Effort / Characteristics Short of Breath SOB on Exertion Short of Breath Respiratory Depth Respiratory Pattern Blood Pressure 150/104 H Blood Pressure [Left Arm] Blood Pressure Mean 119 Blood Pressure Mean [Left Arm] Blood Pressure Position [Left Arm] Pulse Oximetry 100 100 Oxygen Delivery Method BiPAP BiPAP Fraction of Inspired Oxygen Sepsis Recent Fever Within 48 Hours No Sepsis New/Unexplained Change in Mental Status No Sepsis Action Taken by Nursing No Action Required 02/03/22 18:12 02/03/22 18:12 02/03/22 18:01 Temperature Temperature Source Pulse Rate 66 73 Pulse Rate [Finger] 64 Pulse Rate from SpO2 Sensor Pulse Rhythm [Finger] Regular Respiratory Rate 30 H 26 H 30 H Respiratory Effort / Characteristics Short of Breath Spontaneous Respiratory Depth Normal Respiratory Pattern Tachypnea Blood Pressure Blood Pressure [Left Arm] Blood Pressure Mean Blood Pressure Mean [Left Arm] Blood Pressure Position [Left Arm] Pulse Oximetry 100 100 100 Oxygen Delivery Method BiPAP BiPAP Fraction of Inspired Oxygen 40 Sepsis Recent Fever Within 48 Hours Sepsis New/Unexplained Change in Mental Status Sepsis Action Taken by Nursing 02/03/22 18:03 02/03/22 18:31 02/03/22 18:40 Temperature Temperature Source Pulse Rate Pulse Rate [Finger] 73 64 63 Pulse Rate from SpO2 Sensor Pulse Rhythm [Finger] Respiratory Rate 30 H 24 20 Respiratory Effort / Characteristics Spontaneous Short of Breath Respiratory Depth Respiratory Pattern Blood Pressure Blood Pressure [Left Arm] 114/72 108/78 Blood Pressure Mean Blood Pressure Mean [Left Arm] 86 88 Blood Pressure Position [Left Arm] Pulse Oximetry 100 100 100 Oxygen Delivery Method BiPAP BiPAP BiPAP Fraction of Inspired Oxygen 40 Sepsis Recent Fever Within 48 Hours Sepsis New/Unexplained Change in Mental Status Sepsis Action Taken by Nursing 02/03/22 19:19 02/03/22 17:59 02/03/22 18:00 Temperature Temperature Source Pulse Rate 70 72 Pulse Rate [Finger] 65 Pulse Rate from SpO2 Sensor 69 70 Pulse Rhythm [Finger] Respiratory Rate 20 17 30 H Respiratory Effort / Characteristics Respiratory Depth Respiratory Pattern Blood Pressure Blood Pressure [Left Arm] 115/82 Blood Pressure Mean Blood Pressure Mean [Left Arm] 93 Blood Pressure Position [Left Arm] Sitting Pulse Oximetry 100 99 98 Oxygen Delivery Method BiPAP Fraction of Inspired Oxygen Sepsis Recent Fever Within 48 Hours Sepsis New/Unexplained Change in Mental Status Sepsis Action Taken by Nursing 02/03/22 18:27 02/03/22 18:27 02/03/22 18:30 Temperature Temperature Source Pulse Rate 65 64 Pulse Rate [Finger] Pulse Rate from SpO2 Sensor 62 65 Pulse Rhythm [Finger] Respiratory Rate 26 H 21 Respiratory Effort / Characteristics Respiratory Depth Respiratory Pattern Blood Pressure 114/72 Blood Pressure [Left Arm] Blood Pressure Mean 86 Blood Pressure Mean [Left Arm] Blood Pressure Position [Left Arm] Pulse Oximetry 100 100 Oxygen Delivery Method Fraction of Inspired Oxygen Sepsis Recent Fever Within 48 Hours Sepsis New/Unexplained Change in Mental Status Sepsis Action Taken by Nursing 02/03/22 18:39 02/03/22 18:39 02/03/22 19:00 Temperature Temperature Source Pulse Rate 66 67 Pulse Rate [Finger] Pulse Rate from SpO2 Sensor 65 64 Pulse Rhythm [Finger] Respiratory Rate 24 24 Respiratory Effort / Characteristics Respiratory Depth Respiratory Pattern Blood Pressure 108/78 Blood Pressure [Left Arm] Blood Pressure Mean 88 Blood Pressure Mean [Left Arm] Blood Pressure Position [Left Arm] Pulse Oximetry 100 100 Oxygen Delivery Method Fraction of Inspired Oxygen Sepsis Recent Fever Within 48 Hours Sepsis New/Unexplained Change in Mental Status Sepsis Action Taken by Nursing 02/03/22 19:20 02/03/22 19:20 02/03/22 19:30 Temperature Temperature Source Pulse Rate 66 71 Pulse Rate [Finger] Pulse Rate from SpO2 Sensor 66 67 Pulse Rhythm [Finger] Respiratory Rate 20 20 Respiratory Effort / Characteristics Respiratory Depth Respiratory Pattern Blood Pressure 115/82 Blood Pressure [Left Arm] Blood Pressure Mean 93 Blood Pressure Mean [Left Arm] Blood Pressure Position [Left Arm] Pulse Oximetry 100 100 Oxygen Delivery Method Fraction of Inspired Oxygen Sepsis Recent Fever Within 48 Hours Sepsis New/Unexplained Change in Mental Status Sepsis Action Taken by Nursing Laboratory Data Result diagrams: 02/03/22 17:57 02/03/22 19:17 Lab Results 02/03/22 02/03/22 02/03/22 Range/Units 17:57 17:57 17:57 WBC 6.96 (4.8-10.8) K/ul RBC 4.60 (3.93-5.22) M/uL Hgb 13.5 (12.0-16.0) g/dl Hct 41.5 (34.1-44.9) % MCV 90.2 (80.0-100.0) fL MCH 29.3 (25.0-34.0) pg MCHC 32.5 (32.0-36.0) g/dL RDW Std Deviation 45.0 (36.4-46.3) fL RDW Coeff of Yun 13.6 (11.5-14.5) % Plt Count 220 (130-400) K/uL MPV 10.3 (9.4-12.3) fL Immature Gran % (Auto) 0.3 % Neut % (Auto) 66.6 % Lymph % (Auto) 24.6 % Mcclain % (Auto) 6.3 % Eos % (Auto) 1.3 % Baso % (Auto) 0.9 % Neut # (Auto) 4.64 (1.4-6.5) K/uL Lymph # (Auto) 1.71 (1.2-3.4) K/uL Mcclain # (Auto) 0.44 (0.24-0.82) K/uL Eos # (Auto) 0.09 (0-0.50) K/uL Baso # (Auto) 0.06 (0-0.2) K/uL Immature Gran # (Auto) 0.02 (0.00-0.02) K/uL PT INR APTT PTT Ratio Sodium Cancelled Potassium Cancelled Chloride Cancelled Carbon Dioxide Cancelled Anion Gap Cancelled BUN Cancelled Creatinine Cancelled Est Cr Clr Drug Dosing Cancelled Est GFR ( Amer) Cancelled Est GFR (Non-Af Amer) Cancelled BUN/Creatinine Ratio Cancelled Glucose Cancelled Calcium Cancelled Magnesium Cancelled Total Bilirubin Cancelled AST Cancelled ALT Cancelled Alkaline Phosphatase Cancelled Troponin I High Sens 17.2 H (0-14) pg/ml B-Natriuretic Peptide 228 H (0-100) pg/ml Total Protein Cancelled Albumin Cancelled Globulin Cancelled Albumin/Globulin Ratio Cancelled Procalcitonin (0-0.5) ng/ml SARS-CoV-2 (PCR) (Negative) Influenza Type A (PCR) (Neg) Influenza Type B (PCR) (Neg) RSV (RT-PCR) (Neg) 02/03/22 02/03/22 02/03/22 Range/Units 17:57 18:30 19:16 WBC (4.8-10.8) K/ul RBC (3.93-5.22) M/uL Hgb (12.0-16.0) g/dl Hct (34.1-44.9) % MCV (80.0-100.0) fL MCH (25.0-34.0) pg MCHC (32.0-36.0) g/dL RDW Std Deviation (36.4-46.3) fL RDW Coeff of Yun (11.5-14.5) % Plt Count (130-400) K/uL MPV (9.4-12.3) fL Immature Gran % (Auto) % Neut % (Auto) % Lymph % (Auto) % Mcclain % (Auto) % Eos % (Auto) % Baso % (Auto) % Neut # (Auto) (1.4-6.5) K/uL Lymph # (Auto) (1.2-3.4) K/uL Mcclain # (Auto) (0.24-0.82) K/uL Eos # (Auto) (0-0.50) K/uL Baso # (Auto) (0-0.2) K/uL Immature Gran # (Auto) (0.00-0.02) K/uL PT Cancelled INR Cancelled APTT Cancelled PTT Ratio Cancelled Sodium Potassium Chloride Carbon Dioxide Anion Gap BUN Creatinine Est Cr Clr Drug Dosing Est GFR ( Amer) Est GFR (Non-Af Amer) BUN/Creatinine Ratio Glucose Calcium Magnesium Total Bilirubin AST ALT Alkaline Phosphatase Troponin I High Sens (0-14) pg/ml B-Natriuretic Peptide (0-100) pg/ml Total Protein Albumin Globulin Albumin/Globulin Ratio Procalcitonin < 0.05 (0-0.5) ng/ml SARS-CoV-2 (PCR) NEGATIVE (Negative) Influenza Type A (PCR) Negative (Neg) Influenza Type B (PCR) Negative (Neg) RSV (RT-PCR) Negative (Neg) 02/03/22 02/03/22 Range/Units 19:17 19:17 WBC (4.8-10.8) K/ul RBC (3.93-5.22) M/uL Hgb (12.0-16.0) g/dl Hct (34.1-44.9) % MCV (80.0-100.0) fL MCH (25.0-34.0) pg MCHC (32.0-36.0) g/dL RDW Std Deviation (36.4-46.3) fL RDW Coeff of Yun (11.5-14.5) % Plt Count (130-400) K/uL MPV (9.4-12.3) fL Immature Gran % (Auto) % Neut % (Auto) % Lymph % (Auto) % Mcclain % (Auto) % Eos % (Auto) % Baso % (Auto) % Neut # (Auto) (1.4-6.5) K/uL Lymph # (Auto) (1.2-3.4) K/uL Mcclain # (Auto) (0.24-0.82) K/uL Eos # (Auto) (0-0.50) K/uL Baso # (Auto) (0-0.2) K/uL Immature Gran # (Auto) (0.00-0.02) K/uL PT 10.9 INR 1.0 APTT 25.7 PTT Ratio 0.9 Sodium 139 Potassium 3.2 L Chloride 103 Carbon Dioxide 30 Anion Gap 6 BUN 15 Creatinine 0.85 Est Cr Clr Drug Dosing 60.6 Est GFR ( Amer) 77.1 Est GFR (Non-Af Amer) 66.6 BUN/Creatinine Ratio 17.6 Glucose 136 H Calcium 9.4 Magnesium 2.1 Total Bilirubin 0.5 AST 52 H ALT 61 H Alkaline Phosphatase 110 H Troponin I High Sens (0-14) pg/ml B-Natriuretic Peptide (0-100) pg/ml Total Protein 6.3 Albumin 4.0 Globulin 2.3 L Albumin/Globulin Ratio 1.7 Procalcitonin (0-0.5) ng/ml SARS-CoV-2 (PCR) (Negative) Influenza Type A (PCR) (Neg) Influenza Type B (PCR) (Neg) RSV (RT-PCR) (Neg) Administered Medications Doxycycline Hyclate (Doxycycline Hyclate 100 Mg Cap) 100 mg PO BID TIM Stop: 02/10/22 22:50 Last Admin: 02/04/22 00:23 Dose: 100 mg Documented By: PAPI Enoxaparin Sodium (Enoxaparin Inj 40 Mg/0.4 Ml Syr) 40 mg SQ PM TIM Stop: 03/05/22 22:59 Last Admin: 02/04/22 00:18 Dose: 40 mg Documented By: PAPI Fluticasone/Vilanterol (Fluticasone/Vilanterol 200/25mcg 14 Puffs/Inhaler) 1 puffs INH DAILY TIM Stop: 03/05/22 22:50 Last Admin: 02/04/22 00:19 Dose: 1 puffs Documented By: PAPI Guaifenesin (Guaifenesin 600 Mg Tabcr) 1,200 mg PO BID TIM Stop: 03/05/22 22:50 Last Admin: 02/04/22 00:22 Dose: 1,200 mg Documented By: PAPI Metoprolol Tartrate (Metoprolol Tartrate 25 Mg Tab) 25 mg PO BID TIM Stop: 03/05/22 22:50 Last Admin: 02/04/22 00:21 Dose: 25 mg Documented By: PAPI Potassium Chloride (Potassium Chloride Crtab 20 Meq Tabcr) 20 meq PO BID TIM Stop: 03/05/22 22:50 Last Admin: 02/04/22 00:21 Dose: 20 meq Documented By: PAPI Prednisone (Prednisone 20 Mg Tab) 40 mg PO QAM TIM Stop: 02/08/22 22:50 Last Admin: 02/04/22 00:20 Dose: 40 mg Documented By: PAPI Discontinued Medications Albuterol (Albut/Ipratrop 3mg/0.5mg Neb 3 Ml Vial) Confirm Administered Dose 12 ml .ROUTE .STK-MED ONE Stop: 02/03/22 17:55 Last Admin: 02/03/22 18:01 Dose: 12 ml Documented By: ANTHONY Albuterol (Albut/Ipratrop 3mg/0.5mg Neb 3 Ml Vial) 12 ml NEB ONE ONE; Protocol Stop: 02/03/22 17:55 Last Admin: 02/03/22 18:01 Dose: Not Given Documented By: ANTHONY Potassium Chloride (Potassium Chloride 20 Meq/15 Ml Udc) 40 meq PO NOW STA Stop: 02/03/22 22:52 Last Admin: 02/04/22 00:20 Dose: 40 meq Documented By: PAPI Imaging Data Radiologist's Impression: Chest X-Ray 02/03/22 17:54 XR chest 1V portable HISTORY: 76 years-old Female Dyspnea acute shortness of breath COMPARISON: Chest radiograph 10/09/2019, CT abdomen and pelvis 01/18/2021. TECHNIQUE: AP view of the chest FINDINGS: Cardiomediastinal and hilar silhouettes are within normal limits. No pneumothorax, large pleural effusion or overt pulmonary edema. Emphysema with chronic interstitial coarsening. Mild ill-defined right basilar opacities. Degenerative changes of the shoulders and spine. Surgical clips of the left axilla. IMPRESSION: 1. Mild subsegmental right basilar opacities are suggestive of atelectasis versus pneumonitis. 2. Emphysema with chronic interstitial coarsening. ACT 112: Negative or not required by law. The above report was generated using voice recognition software. It may contain grammatical, syntax or spelling errors. Electronically signed by: Donnie Mars M.D. 02/03/2022 6:19 PM Discharge Plan Visit Data Chief Complaint: Respiratory Distress Stated Complaint: RESP. DISTRESS/ RESP. FAILURE ED Provider: Garth Banks Discharge Problem: Acute respiratory failure with hypoxia, COPD with emphysema, COPD exacerbation Patient Disposition: Admitted As Inpatient Discharge Instructions Interventions: ED Discharge Assessment Last Done: 02/03/22 23:08
[2022-02-03 18:16] LABS: Basophils # (auto) 0.06 K/uL (0-0.2); Basophils % (auto) 0.9 %; Eosinophils # (auto) 0.09 K/uL (0-0.50); Eosinophils % (auto) 1.3 %; Hematocrit (blood only) 41.5 % (34.1-44.9); Hemoglobin 13.5 g/dl (12.0-16.0); Immature Granulocytes # (auto) 0.02 K/uL (0.00-0.02); Immature Granulocytes % (auto) 0.3 %; Lymphocytes # (auto) 1.71 K/uL (1.2-3.4); Lymphocytes % (auto) 24.6 %; Mean Corpuscular Hemoglobin 29.3 pg (25.0-34.0); Mean Corpuscular Hgb Conc 32.5 g/dL (32.0-36.0); Mean Corpuscular Volume 90.2 fL (80.0-100.0); Mean Platelet Volume 10.3 fL (9.4-12.3); Monocytes # (auto) 0.44 K/uL (0.24-0.82); Monocytes % (auto) 6.3 %; Neutrophils # (auto) 4.64 K/uL (1.4-6.5); Neutrophils % (auto) 66.6 %; Platelet Count 220 K/uL (130-400); RDW Coefficient of Variation 13.6 % (11.5-14.5); White Blood Count 6.96 K/ul (4.8-10.8)
--- NOTE | 2022-02-03 18:21 | XRay Report ---
XR chest 1V portable HISTORY: 76 years-old Female Dyspnea acute shortness of breath COMPARISON: Chest radiograph 10/09/2019, CT abdomen and pelvis 01/18/2021. TECHNIQUE: AP view of the chest FINDINGS: Cardiomediastinal and hilar silhouettes are within normal limits. No pneumothorax, large pleural effu baron or overt pulmonary edema. Emphysema with chronic interstitial coarsening. Mild ill-defined right basilar opacities. Degenerative changes of the shoulders and spine. Surgical clips of the left axill a. IMPRESSION: 1. Mild subsegmental right basilar opacities are suggestive of atelectasis versus pneumonitis. 2. Emphysema with chronic interstitial coarsening. ACT 112: Negative or not required by law. The above report was generated using voice recognition software. It may contain grammatical, syntax o r spelling errors. Electronically signed by: Donnie Mars M.D. 02/03/2022 6:19 PM
[2022-02-03 19:41] LABS: Influenza A virus by PCR Negative (Neg); Influenza B virus by PCR Negative (Neg); RSV by PCR Negative (Neg); SARS CoV2 RNA(COVID-19) Ceph NEGATIVE (Negative)
[2022-02-03 19:48] LABS: Partial Thromboplastin Ratio 0.9; Partial Thromboplastin Time 25.7 Seconds (21.0-31.0); Prothrombin Time 10.9 Seconds (9.0-12.0)
[2022-02-03 19:50] LABS: Albumin Globulin Ratio 1.7 (0.9-2); BUN Creatinine Ratio 17.6 (10-20); Bilirubin,Total 0.5 mg/dl (0.2-1.0); Calcium 9.4 mg/dl (8.5-10.1); Creatinine Clr Calc Pharmacy 60.6 ml/min; Est GFR (African American) 77.1 ml/min; Est GFR (Non-African American) 66.6 ml/min; Globulin 2.3 gm/dl (2.5-4.0); Magnesium 2.1 mg/dl (1.7-2.4); Potassium 3.2 mmol/L (3.5-5.1); Total Protein 6.3 gm/dl (6.0-8.3)
--- NOTE | 2022-02-03 19:56 | History & Physical Report ---
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 -- however, no recent f/c/NS; does have new dog at home, which may be contributory to some degree Continue BiPAP as needed to maintain oxygen saturations over 88%, wean as tolerated Mucociliary clearance with scheduled flutter valves and incentive spirometry + Mucinex DuoNebs every 6 hours scheduled Continue home Incruse and Symbicort and Roflumilast -- Of note, pulmonary note from 07/2021 indicates she is on azithromycin M//, however, she declines this to me on admission; consider restarting prior to discharge Prednisone 40mg x 5 days Doxycycline X 5 days Monitor on PCU through the night Consider pulmonary rehab as outpatient Reviewed CXR, which does demonstrate RLL opacities - however, clinically does not appear to have evidence of PNA at this time Add PCT, trend WBCs, continue doxycycline and consider adding CFTX if suspicion rises (2) CHF (congestive heart failure): Plan: HFpEF No signs of volume overload on exam today Last echocardiogram in 10/2019 revealing mild LVH with normal systolic function, mild aortic regurgitation, mild mitral regurgitation. Continue home Lasix, metoprolol (3) CAD (coronary artery disease): Plan: CAD / HTN / HLD Status post AVERY x2 in the RCA in 2014 Continue metoprolol, atorvastatin (4) Hypothyroidism: Plan: Hypothyroidism Continue levothyroxine (5) CKD (chronic kidney disease) stage 3, GFR 30-59 ml/min: Plan: CKD Reported history of CKD stage III, although creatinine upon arrival today was 0.85 and previous values seem to be consistent with such as well Monitor while here, renally dose medications as appropriate (6) Anxiety and depression: Plan: Anxiety and Depression Continue home medications (7) Transaminitis: Plan: Transaminitis AST 52 / ALT 61 / ALP 110 with normal TBili, INR, Cr Primarily suspect to NAFL - however, check RUQ US while here and check hepatitis serologies Check hepatitis B and hepatitis C serologies Trend Plan Code: DNR/DNI Diet: HH PPX: Lovenox Dispo: PCU for now History of Present Illness Primary Care Provider: Eriberto Gonsalez DO 76-year-old female with a history of chronic respiratory failure with hypoxia and hypercapnia, HFpEF, severe COPD, tobacco abuse smoking 1ppd x >40 years, CKD 3, coronary artery disease with STEMI in 2015 s/p 2x AVERY in RCA, hyperlipidemia hypertension, anxiety and depression who presented to [facility] for shortness of breath. 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 Was out doing errands today and she felt significantly more short of breath compared to usual. She felt like she was wheezing a lot and couldn't catch her breath. No CP or palpitations. No n/v/d. No recent travel, long car rides, leg swelling. Medications reviewed and include aspirin, atorvastatin, budesonideformoterol, furosemide 40 mg every morning, duo nebs 4 times daily, levothyroxine, Toprol tartrate, nitroglycerin, paroxetine, Roflumilast, umeclidinium inh. She has been taking her medications and inhalers as prescribed. Last echocardiogram in 10/2019 revealing mild LVH with normal systolic function, mild aortic regurgitation, mild mitral regurgitation. Denies alcohol or recreational drug use. Endorses smoking, as outlined above. In the ED, patient required BiPAP to maintain adequate oxygenation; blood pressure 150/104, respiratory rate 29, temperature 36.7 on admission. Weight 84.9 kg compared to 81.3 kg on 11/12. CBC did not demonstrate any abnormalities, INR 1.0, chemistries revealing hypokalemia 3.2, AST 52/ALT 61/ALP 110, high-sensitivity troponin 7.2, BNP 228. COVID, influenza, RSV negative. Chest x-ray demonstrated subsegmental right basilar opacities concerning for atelectasis versus pneumonitis as well as emphysema with chronic interstitial coarsening. She was given DuoNebs. Allergies Allergy/AdvReac Type Severity Reaction Status Date / Time Penicillins Allergy Severe SWELLING Verified 02/03/22 20:16 Sulfa (Sulfonamide Allergy Intermediate RASH Verified 02/03/22 20:16 Antibiotics) bupropion AdvReac Intermediate Hallucinati Verified 02/03/22 20:16 ng morphine AdvReac Intermediate bradycardia Verified 02/03/22 20:16 and hypotension promethazine AdvReac Intermediate bradycardia Verified 02/03/22 20:16 and hypotension Home Medications Medication Instructions Recorded Confirmed Type acetaminophen 650 mg 1,300 mg PO HS 08/07/18 02/03/22 History tablet,extended release (Tylenol Arthritis Pain) aspirin 81 mg tablet,delayed 81 mg PO DAILY 08/07/18 02/03/22 History release nitroglycerin 0.4 mg sublingual 0.4 mg sublingual UD PRN Chest 11/22/18 02/03/22 Rx tablet (Nitrostat) Pain #25 tabs nebulizers (Aeroneb Go Nebulizer) #1 ea 06/26/20 11/12/21 Rx potassium chloride 10 mEq 20 meq PO BID #180 tabs 02/12/21 02/03/22 Rx tablet,extended release paroxetine HCl 40 mg tablet (Paxil) 40 mg PO DAILY #90 tabs 04/02/21 02/03/22 Rx levothyroxine 112 mcg tablet 112 mcg PO DAILY #90 tabs 04/10/21 02/03/22 Rx (Synthroid) atorvastatin 40 mg tablet (Lipitor) 40 mg PO DAILY #90 tabs 06/13/21 02/03/22 Rx ipratropium 0.5 mg-albuterol 3 mg 3 ml inhalation QID #360 mL 07/10/21 02/03/22 Rx (2.5 mg base)/3 mL nebulization soln Portable Oxygen #1 ea 08/16/21 11/12/21 Rx budesonide-formoterol HFA 160 2 puff inhalation BID #6 grams 08/16/21 02/03/22 Rx mcg-4.5 mcg/actuation aerosol inhaler roflumilast 500 mcg tablet 500 mcg PO DAILY #90 tabs 08/16/21 02/03/22 Rx Depends Underwear #90 ea 09/13/21 11/12/21 Rx furosemide 20 mg tablet 40 mg PO QAM #180 tabs 09/16/21 02/03/22 Rx metoprolol tartrate 25 mg tablet 25 mg PO BID #60 tabs 09/19/21 02/03/22 Rx ipratropium 20 mcg-albuterol 100 1 puff inhalation Q6H #1 inhaler 01/28/22 02/03/22 Rx mcg/actuation mist for inhalation (Combivent Respimat) polysaccharide iron complex 150 mg 150 mg PO BID 02/03/22 02/03/22 History iron capsule Past Med/Surg History Medical History (Updated 02/04/22 @ 00:31 by Garth Banks M.D.) Cardiac arrest CHF (congestive heart failure) Current smoker Hypertension STEMI (ST elevation myocardial infarction) May 2014. Inferior wall myocardial infarction status post PCI with drug- eluting stent x2 to the RCA. Residual 80% stenosis of D1 Ventricular fibrillation Surgical History History of appendectomy History of cholecystectomy History of excision of lesion History of intravascular stent placement History of kidney surgery History of left mastectomy History of lumbar discectomy History of tonsillectomy Family History Brother Brain cancer Mother Cancer of kidney Father Coronary arteriosclerosis Son Myocardial infarction Denies family history of Ovarian cancer Prostate cancer Breast cancer Colorectal cancer Social History (Updated 11/12/21 @ 13:04 by YONATHAN Turner) Smoking Status: Current every day smoker Tobacco Type: Cigarettes Age Started Using Tobacco: 15; packs per day: 0.5; Cigarettes Per Day: 20; Second Hand Exposure: No; Hx Alcohol Use: No Hx Substance Use: No Preferred Language: Mongolian Communication Ability: Effective Visual Impairment: No Limitations Hearing Ability: Normal Sorting Machine Attendant Required: No Beliefs That Will Affect Care: None marital status: / Current Living Situation: Alone 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 Comfortable on BiPAP HEENT: NCAT. - Eyes - Sclera are white, anicteric, and without injection. - Mouth - MMM - Neck - supple, no appreciable JVD Cardiac: Difficult exam given BiPAP and respiratory status. Normal rate and regular rhythm; S1 and S2 present with no murmurs, rubs, or gallops. Pulmonary: Good respiratory effort with symmetric expansion of the chest. No use of accessory muscles. Lungs demonstrating bilateral expiratory wheezes in the upper lung sethi. Abdominal: Normoactive bowel sounds. Abdomen was soft, nondistended, and non- tender to palpation. Extremities: Upper and lower extremities are warm and well perfused. No peripheral edema in the lower extremities bilaterally Psych: Well-developed, well-nourished, appropriately dressed for occasion. Behavior is cooperative and appropriate. Affect is WNL. Insight is appropriate. Results & Data Results & Data ([facility]) Vital Signs (Past 12 Hours) Vital Signs Temp Pulse Pulse Resp BP BP Pulse Ox 02/03/22 19:19 65 20 115/82 100 02/03/22 18:40 63 20 108/78 100 02/03/22 18:31 64 24 114/72 100 02/03/22 18:03 73 30 H 100 02/03/22 18:01 73 30 H 100 02/03/22 18:12 66 26 H 100 02/03/22 18:12 64 30 H 100 02/03/22 18:12 100 02/03/22 18:01 36.7 C 69 29 H 150/104 H 100 O2 Del Method FiO2 02/03/22 19:19 BiPAP 02/03/22 18:40 BiPAP 02/03/22 18:31 BiPAP 02/03/22 18:03 BiPAP 40 02/03/22 18:01 40 02/03/22 18:12 BiPAP 02/03/22 18:12 BiPAP 02/03/22 18:12 BiPAP 02/03/22 18:01 BiPAP Supervising Physician Co-Signing Physician Notes Attending addendum: I have physically seen this patient, have supervised the medical residents activities, and agree with the H&P unless as otherwise noted. Assessment and Plan: Acute on chronic respiratory failure with hypercarbia and hypoxemia/COPD exacerbation- Chronic home oxygen requirement 2 L Continued tobacco abuse, cessation counseling Presently on BiPAP in ED, taper to nasal cannula 2 symptoms improved, target O2 sat 90% Duonebs every 4 hours while awake and every 2 hours when necessary. Negative COVID-19, flu and RSV testing Prednisone and doxycycline as noted Remaining orders and notations as noted Resident Activity Tracking Resident Involvement: Resident Care Provided Care Provided: Adult Hospital Medicine (1) CHF (congestive heart failure) Heart failure chronicity: chronic Heart failure type: unspecified Qualified Code(s): I50.9 - Heart failure, unspecified (2) Hypothyroidism Hypothyroidism type: unspecified Qualified Code(s): E03.9 - Hypothyroidism, unspecified
[2022-02-03] MEDS ORDERED: NITROGLYCERIN SL 0.4 MG/TAB TAB SL PRN (19:58)
[2022-02-03] MEDS ORDERED: POTASSIUM CHLORIDE 20 MEQ/15 ML UDC PO STA (22:51)
[2022-02-03] MEDS ORDERED: diphenhydrAMINE Capsule 25 MG CAP PO PRN (23:11)
[2022-02-04] MEDS: ENOXAPARIN INJ 40 MG/0.4 ML SYR SQ SCH ×2 (00:18→20:45)
[2022-02-04] MEDS: FLUTICASONE/VILANTEROL 200/25MCG 14 PUFFS/INHALER INH SCH ×2 (00:19→07:52)
[2022-02-04] MEDS: predniSONE 20 MG TAB PO SCH ×2 (00:20→07:55)
[2022-02-04] MEDS: POTASSIUM CHLORIDE CRTAB 20 MEQ TABCR PO SCH ×3 (00:21→20:47)
[2022-02-04] MEDS: METOPROLOL TARTRATE 25 MG TAB PO SCH ×3 (00:21→20:47)
[2022-02-04] MEDS: guaiFENesin 600 MG TABCR PO SCH ×3 (00:22→20:46)
[2022-02-04] MEDS: DOXYCYCLINE HYCLATE 100 MG CAP PO SCH ×3 (00:23→20:45)
[2022-02-04] MEDS: ALBUT/IPRATROP 3MG/0.5MG NEB 3 ML VIAL INH SCH ×4 (00:30→20:09)
[2022-02-04 01:39] LABS: Appearance Urine Clear (Clear); Bilirubin Urine Negative (Negative); Blood Urine Trace-intact (Negative); Color Urine Yellow; Glucose Urine UA Negative (Negative); Ketones Urine Negative (Negative); Leukocyte Esterase Urine Negative (Negative); Nitrite Urine Negative (Negative); Protein Urine 2+ (Negative); Urobilinogen Urine Negative (Negative)
[2022-02-04 01:56] LABS: Bacteria Urine 1+ (Negative); RBC Urine 0-4 /hpf (0-4)
[2022-02-04 01:57] LABS: Hyaline Casts Urine 0-5 /lpf (0-5)
[2022-02-04 05:59] LABS: Basophils # (auto) 0.01 K/uL (0-0.2); Basophils % (auto) 0.2 %; Hemoglobin 12.1 g/dl (12.0-16.0); Immature Granulocytes # (auto) 0.02 K/uL (0.00-0.02); Immature Granulocytes % (auto) 0.4 %; Lymphocytes # (auto) 0.45 K/uL (1.2-3.4); Lymphocytes % (auto) 9.9 %; Mean Corpuscular Hemoglobin 29.2 pg (25.0-34.0); Mean Corpuscular Hgb Conc 32.7 g/dL (32.0-36.0); Mean Corpuscular Volume 89.2 fL (80.0-100.0); Mean Platelet Volume 9.6 fL (9.4-12.3); Monocytes # (auto) 0.08 K/uL (0.24-0.82); Monocytes % (auto) 1.8 %; Neutrophils # (auto) 3.97 K/uL (1.4-6.5); Neutrophils % (auto) 87.7 %; Platelet Count 212 K/uL (130-400); RDW Coefficient of Variation 13.5 % (11.5-14.5); RDW Standard Deviation 44.1 fL (36.4-46.3); Red Blood Count 4.15 M/uL (3.93-5.22); White Blood Count 4.53 K/ul (4.8-10.8)
[2022-02-04 06:30] LABS: Albumin Globulin Ratio 1.8 (0.9-2); Albumin Level 3.9 gm/dl (3.4-5.0); Bilirubin,Total 0.5 mg/dl (0.2-1.0); Calcium 9.7 mg/dl (8.5-10.1); Creatinine Clr Calc Pharmacy 68.5 ml/min; Est GFR (African American) 89.7 ml/min; Est GFR (Non-African American) 77.4 ml/min; Globulin 2.2 gm/dl (2.5-4.0); Potassium 4.3 mmol/L (3.5-5.1); Total Protein 6.1 gm/dl (6.0-8.3)
[2022-02-04] MEDS: LEVOTHYROXINE SODIUM 112 MCG TABLET PO SCH (06:30)
[2022-02-04] MEDS: ROFLUMILAST 500 MCG TAB PO SCH (07:55)
[2022-02-04] MEDS: NICOTINE 7 MG/24 HR TDSY TD SCH (07:55)
[2022-02-04] MEDS: ASPIRIN 81 MG ECTAB PO SCH (07:56)
[2022-02-04] MEDS: ATORVASTATIN 40 MG TAB PO SCH (07:56)
[2022-02-04] MEDS: FUROSEMIDE 40 MG TAB PO SCH (07:56)
[2022-02-04] MEDS: PARoxetine HCL 20 MG TAB PO SCH (07:57)
--- NOTE | 2022-02-04 07:57 | Hospitalist Progress Note ---
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 -- however, no recent f/c/NS; does have new dog at home, which may be contributory to some degree Continue BiPAP as needed to maintain oxygen saturations over 88%, wean as tolerated Mucociliary clearance with scheduled flutter valves and incentive spirometry + Mucinex DuoNebs every 6 hours scheduled Continue home Incruse and Symbicort and Roflumilast -- Of note, pulmonary note from 07/2021 indicates she is on azithromycin M//, however, she declines this to me on admission; consider restarting prior to discharge Prednisone 40mg x 5 days Doxycycline X 5 days Monitor on PCU through the night Consider pulmonary rehab as outpatient Reviewed CXR, which does demonstrate RLL opacities - however, clinically does not appear to have evidence of PNA at this time Add PCT, trend WBCs, continue doxycycline and consider adding CFTX if suspicion rises (2) CHF (congestive heart failure): Plan: HFpEF No signs of volume overload on exam today Last echocardiogram in 10/2019 revealing mild LVH with normal systolic function, mild aortic regurgitation, mild mitral regurgitation. Continue home Lasix, metoprolol (3) CAD (coronary artery disease): Plan: CAD / HTN / HLD Status post AVERY x2 in the RCA in 2014 Continue metoprolol, atorvastatin (4) Hypothyroidism: Plan: Hypothyroidism Continue levothyroxine (5) CKD (chronic kidney disease) stage 3, GFR 30-59 ml/min: Plan: CKD Reported history of CKD stage III, although creatinine upon arrival today was 0.85 and previous values seem to be consistent with such as well Monitor while here, renally dose medications as appropriate (6) Anxiety and depression: Plan: Anxiety and Depression Continue home medications (7) Transaminitis: Plan: Transaminitis AST 52 / ALT 61 / ALP 110 with normal TBili, INR, Cr Primarily suspect to NAFL - however, check RUQ US while here and check hepatitis serologies Check hepatitis B and hepatitis C serologies Trend Plan Code: DNR/DNI Diet: HH PPX: Lovenox Dispo: PCU for now Admission and Anticipated Discharge Date Admission Date: February 03, 2022 Supervising Physician Co-Signing Physician Notes I personally examined the patient and verified all chester points of history and exam, discussed case, and agree with decision making with Dr Montemayor Feeling better. Notes that she had some dyspnea earliergot up to go to the bathroom and felt short of breath. Was on BiPAP for a little while afterwards. Vitals noted, in general she is awake and alert pleasant no distress. HEENT normocephalic atraumatic mucous membranes moist. Lungs markedly diminished throughout with scattered rales no rhonchi no wheezes no accessory muscle use no conversational dyspnea. COPD exacerbation with what appears to be acute on chronic hypoxic and hypercapnic respiratory failurecontinue steroids, doxycycline, inhalers, supportive care. DVT prophylaxisLovenox Physical Exam Physical Exam: General: No acute distress HEENT: PERRLA. Normal conjunctiva, anicteric sclera. Oropharynx normal. Respiratory: Normal respiratory effort, slight bibasilar crackles. No rhonchi or wheezes. Diffusely diminished breath sounds in all sethi. Cardiovascular: RRR without murmurs, gallops, or rubs. No edema. GI: Soft abdomen with normal bowel sounds heard on auscultation. Nontender x4 quadrants Neuro: Alert and oriented x3. Results & Data Results & Data ([facility]) Vital Signs (Past 12 Hours) Vital Signs Temp Pulse Pulse Pulse Resp BP Pulse Ox 02/04/22 04:00 74 24 98 02/04/22 03:30 77 25 H 98 02/04/22 03:00 78 25 H 99 02/04/22 02:30 78 26 H 98 02/04/22 02:22 80 17 97 02/04/22 02:22 155/90 H 02/04/22 02:00 78 23 98 02/04/22 01:30 80 23 98 02/04/22 01:00 80 25 H 99 02/04/22 00:31 153/90 H 02/04/22 00:31 78 20 98 02/04/22 00:30 81 17 98 02/04/22 00:29 173/139 H 02/04/22 00:29 81 23 98 02/04/22 00:27 82 29 H 98 02/04/22 00:27 200/134 H 02/04/22 00:01 89 30 H 98 02/04/22 00:01 238/127 H 02/04/22 00:00 88 21 98 02/03/22 23:54 211/137 H 02/03/22 23:54 90 25 H 99 02/03/22 23:30 83 23 97 02/03/22 23:30 151/89 H 02/03/22 23:00 78 18 97 02/03/22 23:00 139/87 02/03/22 22:34 77 20 98 02/03/22 22:34 140/75 02/04/22 02:28 36.6 C 02/04/22 00:03 02/04/22 00:31 81 18 98 02/03/22 23:30 81 25 H 97 02/03/22 20:16 72 27 H 100 02/03/22 23:47 36.5 C 90 24 99 02/03/22 22:30 76 22 98 02/03/22 22:00 82 24 98 02/03/22 21:30 75 23 96 02/03/22 21:00 73 27 H 99 02/03/22 20:30 70 19 100 02/03/22 20:00 67 28 H 100 O2 Del Method O2 Flow Rate FiO2 02/04/22 04:00 02/04/22 03:30 02/04/22 03:00 02/04/22 02:30 02/04/22 02:22 02/04/22 02:22 02/04/22 02:00 02/04/22 01:30 02/04/22 01:00 02/04/22 00:31 02/04/22 00:31 02/04/22 00:30 02/04/22 00:29 02/04/22 00:29 02/04/22 00:27 02/04/22 00:27 02/04/22 00:01 02/04/22 00:01 02/04/22 00:00 02/03/22 23:54 02/03/22 23:54 02/03/22 23:30 02/03/22 23:30 02/03/22 23:00 02/03/22 23:00 02/03/22 22:34 02/03/22 22:34 02/04/22 02:28 02/04/22 00:03 BiPAP 30 12/06/22 00:31 Oxyhood 6 02/03/22 23:30 30 02/03/22 20:16 30 02/03/22 23:47 BiPAP 30 02/03/22 22:30 02/03/22 22:00 02/03/22 21:30 02/03/22 21:00 02/03/22 20:30 02/03/22 20:00 Resident Activity Tracking Resident Involvement: Resident Care Provided Care Provided: Adult Hospital Medicine (1) CHF (congestive heart failure) Heart failure chronicity: chronic Heart failure type: unspecified Qualified Code(s): I50.9 - Heart failure, unspecified (2) Hypothyroidism Hypothyroidism type: unspecified Qualified Code(s): E03.9 - Hypothyroidism, unspecified
[2022-02-04] MEDS: UMECLIDINIUM BROMIDE 62.5MCG/BLISTER 7 PUFFS/INHALER INH SCH (07:58)
--- NOTE | 2022-02-04 11:16 | Ultrasound Report ---
US liver CLINICAL HISTORY: Transaminitis. COMPARISON STUDY: CT of the abdomen and pelvis January 18, 2021. FINDINGS: Hepatic echogenicity is increased. A hypoechoic focus within the radha hepatis likely refle cts fatty sparing. There is no biliary ductal dilatation status post cholecystectomy. Common bile everton t measures 3 mm in caliber. Pancreatic body is normal. Head and tail are partially obscured. A 4.2 cm right hepatic lobe cyst is noted. This was shown on prior CT. This contains a few septations. No rig ht hydronephrosis is present. IMPRESSION: 1. No biliary ductal dilatation status post cholecystectomy. 2. Hepatic steatosis. Suspected fatty sparing within the radha hepatis. 3. 4.4 cm right hepatic lobe cyst. 4. Partially obscured pancreas. ACT 112: Negative or not required by law. Electronically signed by: Pavel Henao M.D. 02/04/2022 11:15 AM
--- NOTE | 2022-02-04 15:57 | XRay Report ---
XR chest 1V portable HISTORY: Shortness of breath. COMPARISON: Chest 02/03/2022. FINDINGS: No pneumothorax. No pleural effusions. The heart is normal in size. There are calcification s within the aortic knob. Emphysema and mild chronic interstitial thickening persists. No new focal l jojo consolidations to suggest a pneumonia. No evidence for pulmonary edema. IMPRESSION: 1. No new focal lung consolidations to suggest a pneumonia. 2. Emphysema and mild chronic interstitial thickening persists. ACT 112: Negative or not required by law. Electronically signed by: Enrike Weeks M.D. 02/04/2022 3:56 PM
--- NOTE | 2022-02-04 16:33 | Electrocardiogram Report ---
Test Reason : Blood Pressure : / mmHG Vent. Rate : 069 BPM Atrial Rate : 069 BPM P-R Int : 150 ms QRS Dur : 112 ms QT Int : 418 ms P-R-T Axes : 059 060 076 degrees QTc Int : 447 ms Sinus rhythm with occasional Premature ventricular complexes Incomplete left bundle block Nonspecific ST and T wave abnormality Abnormal ECG When compared with ECG of 08-OCT-2019 18:09, Premature ventricular complexes are now Present Nonspecific T wave abnormality now evident in Inferior leads Nonspecific T wave abnormality now evident in Lateral leads Confirmed by Ramon Talavera ([id number]) on 02/04/2022 4:33:33 PM Referred By: REFERRED SELF Confirmed By:Ramon Talavera
[2022-02-04 18:11] LABS: Allen Test POS (Pos); Base Excess ABG 3.7 mEq/L (-9-1.8); HCO3 ABG 28 mmol/L (19-24); PCO2 ABG 39 mmHg (35-46); PO2 ABG 73 mmHg (80-95); pH ABG 7.46 (7.35-7.45)
--- NOTE | 2022-02-04 18:33 | Billing Data ---
Date of Service February 04, 2022 Coding Level of Care Code 35993 Subseq Hosp Care Lvl 3
[2022-02-04] MEDS ORDERED: ALBUT/IPRATROP 3MG/0.5MG NEB 3 ML VIAL NEB STA (22:50)
--- NOTE | 2022-02-04 23:52 | Billing Data ---
Date of Service February 04, 2022 Coding Level of Care Code 77755 Initial Inpt Care Lvl 3
[2022-02-05] MEDS: ALBUT/IPRATROP 3MG/0.5MG NEB 3 ML VIAL INH SCH ×6 (01:10→22:34)
[2022-02-05] MEDS: LEVOTHYROXINE SODIUM 112 MCG TABLET PO SCH (05:18)
[2022-02-05] MEDS: ACETAMINOPHEN 325 MG TAB PO PRN ×2 (05:18→23:06)
[2022-02-05 06:12] LABS: Basophils # (auto) 0.02 K/uL (0-0.2); Basophils % (auto) 0.2 %; Eosinophils # (auto) 0.01 K/uL (0-0.50); Eosinophils % (auto) 0.1 %; Hematocrit (blood only) 36.9 % (34.1-44.9); Hemoglobin 11.9 g/dl (12.0-16.0); Immature Granulocytes # (auto) 0.04 K/uL (0.00-0.02); Immature Granulocytes % (auto) 0.4 %; Lymphocytes # (auto) 1.54 K/uL (1.2-3.4); Mean Corpuscular Hemoglobin 29.2 pg (25.0-34.0); Mean Corpuscular Hgb Conc 32.2 g/dL (32.0-36.0); Mean Corpuscular Volume 90.4 fL (80.0-100.0); Mean Platelet Volume 9.6 fL (9.4-12.3); Monocytes # (auto) 0.88 K/uL (0.24-0.82); Monocytes % (auto) 9.1 %; Neutrophils # (auto) 7.13 K/uL (1.4-6.5); Neutrophils % (auto) 74.2 %; Platelet Count 216 K/uL (130-400); RDW Coefficient of Variation 13.6 % (11.5-14.5); RDW Standard Deviation 44.6 fL (36.4-46.3); Red Blood Count 4.08 M/uL (3.93-5.22); White Blood Count 9.62 K/ul (4.8-10.8)
[2022-02-05 06:44] LABS: Albumin Level 3.9 gm/dl (3.4-5.0); BUN Creatinine Ratio 22.5 (10-20); Bilirubin,Total 0.6 mg/dl (0.2-1.0); Calcium 9.9 mg/dl (8.5-10.1); Creatinine Clr Calc Pharmacy 57.7 ml/min; Total Protein 5.9 gm/dl (6.0-8.3)
[2022-02-05 07:30] LABS: Potassium 4.6 mmol/L (3.5-5.1)
[2022-02-05] MEDS ORDERED: methylPREDNISolone 40 MG in SYRINGE 0 ML IV STA (07:51)
--- NOTE | 2022-02-05 08:11 | XRay Report ---
XR chest 1V portable HISTORY: 76 years-old Female resp distress acute respiratory distress COMPARISON: Chest radiograph 02/04/2022 TECHNIQUE: AP view of the chest FINDINGS: Cardiomediastinal and hilar silhouettes are unchanged. Emphysema with chronic interstitial coarsening . Pulmonary vascular congestion with new interstitial opacities. Probable trace pleural effusions. No lobar airspace consolidation. Degenerative changes of the shoulders and spine. IMPRESSION: 1. Cardiomegaly with pulmonary vascular congestion and progressive interstitial opacities suggestive of pulmonary edema. An interstitial pneumonia could appear similarly. 2. Emphysema with chronic fibrotic change. ACT 112: Negative or not required by law. The above report was generated using voice recognition software. It may contain grammatical, syntax o r spelling errors. Electronically signed by: Donnie Mars M.D. 02/05/2022 8:10 AM
[2022-02-05 08:16] LABS: Base Excess ABG -0.6 mEq/L (-9-1.8); HCO3 ABG 29 mmol/L (19-24); Oxygen Saturation ABG 94.9 % (90-95); PCO2 ABG 73 mmHg (35-46); PO2 ABG 77 mmHg (80-95); pH ABG 7.21 (7.35-7.45)
[2022-02-05 08:17] LABS: Allen Test Pos (Pos)
[2022-02-05] MEDS ORDERED: FUROSEMIDE 40 MG/4 ML VIAL IV ONE (08:30)
--- NOTE | 2022-02-05 08:35 | Hospitalist Progress Note ---
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 -- however, no recent f/c/NS; does have new dog at home, which may be contributory to some degree * Continue BiPAP as needed to maintain oxygen saturations over 88%, wean as tolerated * Mucociliary clearance with scheduled flutter valves and incentive spirometry + Mucinex * DuoNebs every 6 hours scheduled * Continue home Incruse and Symbicort and Roflumilast -- Of note, pulmonary note from 07/2021 indicates she is on azithromycin M/W/F, however, she declines this to me on admission; consider restarting prior to discharge * IV Methylprednisone 40mg x 5 days * Doxycycline X 5 days * Consider pulmonary rehab as outpatient HFpEF No signs of volume overload on admission Last echocardiogram in 10/2019 revealing mild LVH with normal systolic function, mild aortic regurgitation, mild mitral regurgitation. Home Lasix converted to IV for morning dose. * Continue home metoprolol, Lasix p.o. as tolerated CAD / HTN / HLD Status post AVERY x2 in the RCA in 2014 * Continue metoprolol, atorvastatin Hypothyroidism * Continue levothyroxine CKD Reported history of CKD stage III, although creatinine upon arrival today was 0.85 and previous values seem to be consistent with such as well * Monitor, renally dose medications as appropriate Anxiety and Depression * Continue home medications Transaminitis AST 52 / ALT 61 / ALP 110 with normal TBili, INR, Cr on admission. Transaminitis continues to improve. Primarily suspect to NAFL -RUQ US showed fatty sparing indicative of hepatic steatosis. 4.4 cm hepatic lobe cyst, approximately same from CT in Dec 2020. * Hepatitis B and hepatitis C serologies pending * Trend transaminases Code: DNR/DNI, but ok with temporary intubation for acute respiratory support if unable to tolerate BiPAP in acute setting Diet: HH PPX: Lovenox Dispo: MedSurg telemetry (2) CHF (congestive heart failure): (3) CAD (coronary artery disease): (4) Hypothyroidism: (5) CKD (chronic kidney disease) stage 3, GFR 30-59 ml/min: (6) Anxiety and depression: (7) Transaminitis: Admission and Anticipated Discharge Date Admission Date: February 03, 2022 Supervising Physician Co-Signing Physician Notes I personally examined the patient and verified all chester points of history and exam, discussed case, and agree with decision making with Dr Montemayor Continues to have ups and downs. Was on BiPAP again for a little while. Feeling better but fatigued afterwards. Still smoking, but seems to be more amenable to the idea of quitting Vitals noted, in general she is awake and alert pleasant no distress. HEENT normocephalic atraumatic mucous membranes moist. Today her lungs show a little bit better air entry, probably, compared to yesterdaybut diffuse wheezing. No conversational dyspnea no rales no rhonchi good effort. COPD exacerbation with what appears to be acute on chronic hypoxic and hypercapnic respiratory failurereview of PFTs from greater than 2 years ago, she is severe, possibly approaching end-stage COPD. Continue BiPAP as needed and at bedtime (she does have this at home) escalate steroids, tighten frequency of nebulizers, continue doxycycline and home inhalers. Anticipate it will take quite a while for her to improve DVT prophylaxisLovenox Subjective NAEON. Notified by nursing of acute episode of res distress satting 85% with RRs in mid 40s requiring BiPAP (40% FiO2). On arrival, she is on BiPAP. She appears tearful and reports orthopnea. Otherwise she denies chest pain, DOE, dizziness, cough, or wheezing. CXR ordered showed slightly worsening left mid lung opacity, blunting of costophrenic angle on the right. EKG showed sinus tach with HR to 100s. She received IV methylprednisolone, IV lasix. Tachypnea, tachycardia began to improve over the next 30 minutes. Review of Systems Review of Systems: All systems reviewed & are unremarkable except as noted in HPI & below Physical Exam Physical Exam: General: No acute distress HEENT: PERRLA. Normal conjunctiva, anicteric sclera. Oropharynx normal. Respiratory: Normal respiratory effort, slight bibasilar crackles. Mild diffuse wheezes. No rhonchi heard. Diminished breath sounds. Cardiovascular: RRR without murmurs, gallops, or rubs. No edema. GI: Soft abdomen with normal bowel sounds heard on auscultation. Nontender x4 quadrants. Neuro: Alert and oriented x3. Results & Data Results & Data ([facility]) Vital Signs (Past 12 Hours) Vital Signs Temp Pulse Pulse Pulse Resp BP BP 02/05/22 07:55 36.4 C L 127 H 20 02/05/22 07:35 139 H 38 H 02/05/22 07:33 36.8 C 130 H 38 H 02/05/22 07:05 110 H 22 02/05/22 03:00 36.6 C 79 18 165/84 H 02/05/22 03:58 79 23 02/05/22 00:25 77 02/05/22 01:10 74 21 02/05/22 01:10 74 21 02/05/22 00:19 36.9 C 85 20 02/05/22 00:15 02/04/22 22:00 82 25 H 02/04/22 22:00 148/99 H 02/04/22 23:04 104 H 29 H 02/04/22 23:02 110 H 34 H BP Pulse Ox O2 Del Method O2 Flow Rate FiO2 02/05/22 07:55 134/86 93 BiPAP 02/05/22 07:35 93 30 02/05/22 07:33 135/80 87 L BiPAP 02/05/22 07:05 93 Nasal Cannula 4 02/05/22 03:00 96 BiPAP 02/05/22 03:58 97 30 02/05/22 00:25 02/05/22 01:10 94 30 02/05/22 01:10 94 BiPAP 30 02/05/22 00:19 186/96 H 93 Nasal Cannula 3 02/05/22 00:15 Nasal Cannula 3 02/04/22 22:00 95 02/04/22 22:00 02/04/22 23:04 92 BiPAP 30 02/04/22 23:02 91 30 Resident Activity Tracking Resident Involvement: Resident Care Provided Care Provided: Adult Hospital Medicine (1) CHF (congestive heart failure) Heart failure chronicity: chronic Heart failure type: unspecified Qualified Code(s): I50.9 - Heart failure, unspecified (2) Hypothyroidism Hypothyroidism type: unspecified Qualified Code(s): E03.9 - Hypothyroidism, unspecified
[2022-02-05] MEDS ORDERED: ALBUT/IPRATROP 3MG/0.5MG NEB 3 ML VIAL INH PRN (08:40)
[2022-02-05] MEDS ORDERED: methylPREDNISolone 40 MG in SYRINGE 0 ML IV SCH (09:00)
[2022-02-05 09:07] LABS: BUN Creatinine Ratio 20.8 (10-20); Calcium 10.8 mg/dl (8.5-10.1); Creatinine Clr Calc Pharmacy 50.9 ml/min; Est GFR (African American) 62.6 ml/min; Potassium 3.9 mmol/L (3.5-5.1)
[2022-02-05] MEDS: POTASSIUM CHLORIDE CRTAB 20 MEQ TABCR PO SCH ×2 (09:54→23:15)
[2022-02-05] MEDS: NICOTINE 7 MG/24 HR TDSY TD SCH (09:54)
[2022-02-05] MEDS: ATORVASTATIN 40 MG TAB PO SCH (09:54)
[2022-02-05] MEDS: ROFLUMILAST 500 MCG TAB PO SCH (09:54)
[2022-02-05] MEDS: METOPROLOL TARTRATE 25 MG TAB PO SCH ×2 (09:55→23:03)
[2022-02-05] MEDS: FLUTICASONE/VILANTEROL 200/25MCG 14 PUFFS/INHALER INH SCH (09:55)
[2022-02-05] MEDS: PARoxetine HCL 20 MG TAB PO SCH (09:55)
[2022-02-05] MEDS: guaiFENesin 600 MG TABCR PO SCH ×2 (09:55→23:03)
[2022-02-05] MEDS: ASPIRIN 81 MG ECTAB PO SCH (09:55)
[2022-02-05] MEDS: FUROSEMIDE 40 MG TAB PO SCH (09:55)
[2022-02-05] MEDS: UMECLIDINIUM BROMIDE 62.5MCG/BLISTER 7 PUFFS/INHALER INH SCH (09:55)
[2022-02-05] MEDS: DOXYCYCLINE HYCLATE 100 MG CAP PO SCH ×2 (09:55→23:03)
--- NOTE | 2022-02-05 14:21 | Electrocardiogram Report ---
Test Reason : Blood Pressure : / mmHG Vent. Rate : 115 BPM Atrial Rate : 115 BPM P-R Int : 136 ms QRS Dur : 100 ms QT Int : 324 ms P-R-T Axes : 087 059 074 degrees QTc Int : 448 ms Poor data quality, interpretation may be adversely affected Sinus tachycardia Otherwise normal ECG When compared with ECG of 03-FEB-2022 17:56, Premature ventricular complexes are no longer Present Vent. rate has increased BY 46 BPM Nonspecific T wave abnormality no longer evident in Inferior leads Nonspecific T wave abnormality, improved in Anterolateral leads Confirmed by Ramon Talavera ([id number]) on 02/05/2022 2:21:13 PM Referred By: REFERRED SELF Confirmed By:Ramon Talavera
--- NOTE | 2022-02-05 17:46 | Billing Data ---
Date of Service February 05, 2022 Coding Level of Care Code 74779 Subseq Hosp Care Lvl 3
[2022-02-05] MEDS: ENOXAPARIN INJ 40 MG/0.4 ML SYR SQ SCH (23:02)
[2022-02-05] MEDS: methylPREDNISolone 40 MG in SYRINGE 0 ML IV SCH (23:03)
[2022-02-06] MEDS: ALBUT/IPRATROP 3MG/0.5MG NEB 3 ML VIAL INH SCH ×6 (05:49→22:24)
[2022-02-06] MEDS: ACETAMINOPHEN 325 MG TAB PO PRN ×2 (06:18→20:53)
[2022-02-06] MEDS: LEVOTHYROXINE SODIUM 112 MCG TABLET PO SCH (06:18)
[2022-02-06 08:12] LABS: Basophils # (auto) 0.01 K/uL (0-0.2); Basophils % (auto) 0.1 %; Hematocrit (blood only) 38.1 % (34.1-44.9); Hemoglobin 12.3 g/dl (12.0-16.0); Immature Granulocytes # (auto) 0.03 K/uL (0.00-0.02); Immature Granulocytes % (auto) 0.4 %; Lymphocytes # (auto) 0.56 K/uL (1.2-3.4); Lymphocytes % (auto) 7.8 %; Mean Corpuscular Hemoglobin 29.1 pg (25.0-34.0); Mean Corpuscular Hgb Conc 32.3 g/dL (32.0-36.0); Mean Corpuscular Volume 90.3 fL (80.0-100.0); Monocytes # (auto) 0.24 K/uL (0.24-0.82); Monocytes % (auto) 3.4 %; Neutrophils % (auto) 88.3 %; Platelet Count 233 K/uL (130-400); RDW Coefficient of Variation 13.8 % (11.5-14.5); RDW Standard Deviation 45.2 fL (36.4-46.3); Red Blood Count 4.22 M/uL (3.93-5.22); White Blood Count 7.14 K/ul (4.8-10.8)
[2022-02-06] MEDS: methylPREDNISolone 40 MG in SYRINGE 0 ML IV SCH ×2 (08:27→20:54)
[2022-02-06] MEDS: NICOTINE 7 MG/24 HR TDSY TD SCH (08:27)
[2022-02-06] MEDS: METOPROLOL TARTRATE 25 MG TAB PO SCH ×2 (08:29→20:55)
[2022-02-06] MEDS: ATORVASTATIN 40 MG TAB PO SCH (08:30)
[2022-02-06] MEDS: guaiFENesin 600 MG TABCR PO SCH ×2 (08:30→20:53)
[2022-02-06] MEDS: DOXYCYCLINE HYCLATE 100 MG CAP PO SCH ×2 (08:30→20:54)
[2022-02-06] MEDS: FUROSEMIDE 40 MG TAB PO SCH (08:30)
[2022-02-06] MEDS: FLUTICASONE/VILANTEROL 200/25MCG 14 PUFFS/INHALER INH SCH (08:30)
[2022-02-06] MEDS: PARoxetine HCL 20 MG TAB PO SCH (08:31)
[2022-02-06] MEDS: UMECLIDINIUM BROMIDE 62.5MCG/BLISTER 7 PUFFS/INHALER INH SCH (08:31)
[2022-02-06] MEDS: ROFLUMILAST 500 MCG TAB PO SCH (08:31)
[2022-02-06] MEDS: ASPIRIN 81 MG ECTAB PO SCH (08:31)
[2022-02-06] MEDS: POTASSIUM CHLORIDE CRTAB 20 MEQ TABCR PO SCH ×2 (08:34→21:01)
--- NOTE | 2022-02-06 08:38 | Hospitalist Progress Note ---
Date of Service February 06, 2022 Assessment & Plan (1) COPD exacerbation: Plan: 76-year-old woman with COPD, chronic respiratory failure with hypoxia and hypercapnia, HFpEF, tobacco use, CKD 3, CAD with stenting in 2014 s/p AVERY x2 in RCA, hyperlipidemia, and hypertension here for management of acute on chronic exacerbation of COPD. 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 Convert to p.o. prednisone in a.m. * Doxycycline X 5 days * Consider pulmonary rehab as outpatient * Nocturnal polysomnography ordered (in order to qualify for nighttime BiPAP- patient currently uses CPAP) * Respiratory 2 step ordered to reevaluate oxygen requirement (patient currently on 2 L daytime) HFpEF No signs of volume overload on admission Last echocardiogram in 10/2019 revealing mild LVH with normal systolic function, mild aortic regurgitation, mild mitral regurgitation. Home Lasix converted to IV for morning dose. * Continue home metoprolol, Lasix p.o. as tolerated CAD / HTN / HLD Status post AVERY x2 in the RCA in 2014 * Continue metoprolol, atorvastatin Hypothyroidism * Continue levothyroxine CKD Reported history of CKD stage III, although creatinine upon arrival today was 0.85 and previous values seem to be consistent with such as well * Monitor, renally dose medications as appropriate Anxiety and Depression * Continue home medications Transaminitis AST 52 / ALT 61 / ALP 110 with normal TBili, INR, Cr on admission. Transaminitis continues to improve. Primarily suspect to NAFL -RUQ US showed fatty sparing indicative of hepatic steatosis. 4.4 cm hepatic lobe cyst, approximately same from CT in Dec 2020. * Hepatitis B and hepatitis C serologies pending * Trend transaminases Code: DNR/DNI, but ok with temporary intubation for acute respiratory support if unable to tolerate BiPAP in acute setting Diet: HH PPX: Lovenox Dispo: MedSurg telemetry (2) CHF (congestive heart failure): (3) CAD (coronary artery disease): (4) Hypothyroidism: (5) CKD (chronic kidney disease) stage 3, GFR 30-59 ml/min: (6) Anxiety and depression: (7) Transaminitis: Admission and Anticipated Discharge Date Admission Date: February 03, 2022 Supervising Physician Co-Signing Physician Notes I personally examined the patient and verified all chester points of history and exam, discussed case, and agree with decision making with Dr Montemayor Generally feeling better overall. Considering quitting smoking somewhat, although does not want to commit. Team determined that she had CPAP at home not BiPAP, discussed with case management to try to change. Vitals noted, in general she is awake and alert pleasant no distress. She is using a nebulizer, but unfortunately puffing on it more like a cigarette. HEENT normocephalic atraumatic mucous membranes moist. Lungs with diminished air entry throughout somewhat coarse on exhalation but no rales rhonchi or wheezes. No conversational dyspnea no rales no rhonchi good effort. COPD exacerbation with what appears to be acute on chronic hypoxic and hypercapnic respiratory failurereview of PFTs from greater than 2 years ago, she is severe, possibly approaching end-stage COPD. Continue BiPAP as needed and at bedtime and set up BiPAP for home. Continue steroids and nebulizers for now. Hopefully home tomorrow. Continue doxycycline. DVT prophylaxisLovenox Subjective No acute events overnight. Patient appears much improved this morning. She denies dyspnea or chest pain. She has ambulated with assistance from nursing to and from the bathroom without any resulting dyspnea as well. Review of Systems 2 Review of Systems: All systems reviewed & are unremarkable except as noted in HPI & below Physical Exam Physical Exam: General: No acute distress HEENT: PERRLA. Normal conjunctiva, anicteric sclera. Oropharynx normal. Respiratory: Normal respiratory effort, mild diffuse wheezes heard on auscultation. No crackles Cardiovascular: RRR without murmurs, gallops, or rubs. No edema. GI: Soft abdomen with normal bowel sounds heard on auscultation. Nontender x4 quadrants Neuro: Alert and oriented x3. Results & Data Results & Data ([facility]) Vital Signs (Past 12 Hours) Vital Signs Temp Pulse Pulse Pulse Resp BP BP 02/06/22 07:36 70 02/06/22 07:33 36.3 C L 74 18 158/82 H 02/06/22 07:04 70 20 02/06/22 03:31 61 22 02/06/22 03:30 68 18 143/80 H 02/05/22 21:59 83 02/06/22 00:12 20 02/05/22 23:06 36.9 C 88 20 160/93 H 02/05/22 22:51 02/05/22 22:34 84 18 Pulse Ox O2 Del Method O2 Flow Rate FiO2 02/06/22 07:36 02/06/22 07:33 98 Nasal Cannula 2 02/06/22 07:04 93 Nasal Cannula 2 02/06/22 03:31 99 30 02/06/22 03:30 99 BiPAP 02/05/22 21:59 02/06/22 00:12 100 BiPAP 30 02/05/22 23:06 94 Nasal Cannula 2 02/05/22 22:51 Nasal Cannula 2 02/05/22 22:34 95 Nasal Cannula 2 Resident Activity Tracking Resident Involvement: Resident Care Provided Care Provided: Adult Hospital Medicine (1) CHF (congestive heart failure) Heart failure chronicity: chronic Heart failure type: unspecified Qualified Code(s): I50.9 - Heart failure, unspecified (2) Hypothyroidism Hypothyroidism type: unspecified Qualified Code(s): E03.9 - Hypothyroidism, unspecified
[2022-02-06 08:47] LABS: Albumin Globulin Ratio 1.8 (0.9-2); Bilirubin,Total 0.5 mg/dl (0.2-1.0); Calcium 10.3 mg/dl (8.5-10.1); Creatinine Clr Calc Pharmacy 62.4 ml/min; Est GFR (Non-African American) 71.6 ml/min; Globulin 2.2 gm/dl (2.5-4.0); Potassium 4.2 mmol/L (3.5-5.1); Total Protein 6.2 gm/dl (6.0-8.3)
[2022-02-06] MEDS ORDERED: BIOTENE BUCCAL PRN (16:19)
--- NOTE | 2022-02-06 16:40 | Billing Data ---
Date of Service February 06, 2022 Coding Level of Care Code 11868 Subseq Hosp Care Lvl 3
--- NOTE | 2022-02-06 16:41 | Billing Data ---
Date of Service February 06, 2022 Coding Level of Care Code 85910 Subseq Hosp Care Lvl 3
[2022-02-06] MEDS: ENOXAPARIN INJ 40 MG/0.4 ML SYR SQ SCH (20:54)
[2022-02-07] MEDS: ALBUT/IPRATROP 3MG/0.5MG NEB 3 ML VIAL INH SCH ×3 (02:20→10:40)
[2022-02-07] MEDS: LEVOTHYROXINE SODIUM 112 MCG TABLET PO SCH (06:53)
[2022-02-07 06:56] LABS: Base Excess VBG 6.4 mEq/L; HCO3 VBG 32 mmol/L; Oxygen Saturation VBG 95.1 %; PCO2 VBG 48 mmHg (38-50); PO2 VBG 67 mmHg; pH VBG 7.43 (7.36-7.41)
[2022-02-07 07:01] LABS: Basophils # (auto) 0.01 K/uL (0-0.2); Basophils % (auto) 0.1 %; Hematocrit (blood only) 38.3 % (34.1-44.9); Hemoglobin 12.6 g/dl (12.0-16.0); Immature Granulocytes # (auto) 0.04 K/uL (0.00-0.02); Immature Granulocytes % (auto) 0.5 %; Lymphocytes # (auto) 0.98 K/uL (1.2-3.4); Lymphocytes % (auto) 12.2 %; Mean Corpuscular Hemoglobin 29.5 pg (25.0-34.0); Mean Corpuscular Hgb Conc 32.9 g/dL (32.0-36.0); Mean Corpuscular Volume 89.7 fL (80.0-100.0); Mean Platelet Volume 9.6 fL (9.4-12.3); Monocytes # (auto) 0.63 K/uL (0.24-0.82); Monocytes % (auto) 7.8 %; Neutrophils # (auto) 6.39 K/uL (1.4-6.5); Neutrophils % (auto) 79.4 %; Platelet Count 241 K/uL (130-400); RDW Coefficient of Variation 13.6 % (11.5-14.5); RDW Standard Deviation 44.5 fL (36.4-46.3); Red Blood Count 4.27 M/uL (3.93-5.22); White Blood Count 8.05 K/ul (4.8-10.8)
[2022-02-07 07:47] LABS: Albumin Globulin Ratio 1.7 (0.9-2); Albumin Level 3.8 gm/dl (3.4-5.0); BUN Creatinine Ratio 33.7 (10-20); Bilirubin,Total 0.6 mg/dl (0.2-1.0); Creatinine Clr Calc Pharmacy 58.9 ml/min; Est GFR (African American) 76.1 ml/min; Est GFR (Non-African American) 65.6 ml/min; Globulin 2.2 gm/dl (2.5-4.0); Potassium 4.5 mmol/L (3.5-5.1)
[2022-02-07] MEDS: DOXYCYCLINE HYCLATE 100 MG CAP PO SCH (08:55)
[2022-02-07] MEDS: UMECLIDINIUM BROMIDE 62.5MCG/BLISTER 7 PUFFS/INHALER INH SCH (08:55)
[2022-02-07] MEDS: FLUTICASONE/VILANTEROL 200/25MCG 14 PUFFS/INHALER INH SCH (08:55)
[2022-02-07] MEDS: guaiFENesin 600 MG TABCR PO SCH (08:55)
[2022-02-07] MEDS: NICOTINE 7 MG/24 HR TDSY TD SCH (08:56)
[2022-02-07] MEDS: FUROSEMIDE 40 MG TAB PO SCH (08:56)
[2022-02-07] MEDS: ATORVASTATIN 40 MG TAB PO SCH (08:56)
[2022-02-07] MEDS: ASPIRIN 81 MG ECTAB PO SCH (08:56)
[2022-02-07] MEDS: METOPROLOL TARTRATE 25 MG TAB PO SCH (08:56)
[2022-02-07] MEDS: methylPREDNISolone 40 MG in SYRINGE 0 ML IV SCH (08:57)
[2022-02-07] MEDS: PARoxetine HCL 20 MG TAB PO SCH (08:57)
[2022-02-07] MEDS: ROFLUMILAST 500 MCG TAB PO SCH (08:57)
[2022-02-07] MEDS: POTASSIUM CHLORIDE CRTAB 20 MEQ TABCR PO SCH (09:00)
--- NOTE | 2022-02-07 11:01 | Discharge Summary ---
Date of Service February 07, 2022 Admission HPI Per Admitting Provider 76-year-old female with a history of chronic respiratory failure with hypoxia and hypercapnia, HFpEF, severe COPD, tobacco abuse smoking 1ppd x >40 years, CKD 3, coronary artery disease with STEMI in 2015 s/p 2x AVERY in RCA, hyperlipidemia hypertension, anxiety and depression who presented to [facility] for shortness of breath. 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 Was out doing errands today and she felt significantly more short of breath compared to usual. She felt like she was wheezing a lot and couldn't catch her breath. No CP or palpitations. No n/v/d. No recent travel, long car rides, leg swelling. Medications reviewed and include aspirin, atorvastatin, budesonideformoterol, furosemide 40 mg every morning, duo nebs 4 times daily, levothyroxine, Toprol tartrate, nitroglycerin, paroxetine, Roflumilast, umeclidinium inh. She has been taking her medications and inhalers as prescribed. Last echocardiogram in 10/2019 revealing mild LVH with normal systolic function, mild aortic regurgitation, mild mitral regurgitation. Denies alcohol or recreational drug use. Endorses smoking, as outlined above. In the ED, patient required BiPAP to maintain adequate oxygenation; blood pressure 150/104, respiratory rate 29, temperature 36.7 on admission. Weight 84.9 kg compared to 81.3 kg on 11/12. CBC did not demonstrate any abnormalities, INR 1.0, chemistries revealing hypokalemia 3.2, AST 52/ALT 61/ALP 110, high-sensitivity troponin 7.2, BNP 228. COVID, influenza, RSV negative. Chest x-ray demonstrated subsegmental right basilar opacities concerning for atelectasis versus pneumonitis as well as emphysema with chronic interstitial coarsening. She was given DuoNebs. Admission Exam Per Admitting Provider General: 76-year old female who is alert, oriented, and appears in no acute distress. Comfortable on BiPAP HEENT: NCAT. - Eyes - Sclera are white, anicteric, an d without injection. - Mouth - MMM - Neck - supple, no appreciable JVD Cardiac: Difficult exam given BiPAP and respiratory status. Normal rate and regular rhythm; S1 and S2 present with no murmurs, rubs, or gallops. Pulmonary: Good respiratory effort with symmetric expansion of the chest. No use of accessory muscles. Lungs demonstrating bilateral expiratory wheezes in the upper lung sethi. Abdominal: Normoactive bowel sounds. Abdomen was soft, nondistended, and non- tender to palpation. Extremities: Upper and lower extremities are warm and well perfused. No peripheral edema in the lower extremities bilaterally Psych: Well-developed, well-nourished, appropriately dressed for occasion. Behavior is cooperative and appropriate. Affect is WNL. Insight is appropriate. Principal Diagnosis Chronic COPD with chronic worsening hypoxia Discharge Exam General: Well-appearing, alert, interactive, and in no acute distress. HEENT: Normocephalic, atraumatic. EOM intact. Good conjugate gaze. Nares patent. Moist mucosal membranes. Neck: Supple. No lymphadenopathy. Normal ROM. CV: Regular rate and rhythm. Normal S1 and S2. No murmurs gallops or rubs. Respiratory: Normal respiratory effort. Decreased breath sounds at the bases bilaterally. No crackles, rhonchi, or wheezes. Abdomen: Soft, nondistended abdomen. No bruits heard on auscultation. No tenderness to deep palpation. No guarding or rebound. Extremities: Capillary refill <2 sec. 2+ dp equal bilaterally. No pedal edema. Neuro: Alert and oriented x3. Skin: Clean, dry, and intact. No rashes, bruises, or erythema. Discharge Data Allergies Allergy/AdvReac Type Severity Reaction Status Date / Time Penicillins Allergy Severe SWELLING Verified 02/03/22 20:16 Sulfa (Sulfonamide Allergy Intermediate RASH Verified 02/03/22 20:16 Antibiotics) bupropion AdvReac Intermediate Hallucinati Verified 02/03/22 20:16 ng morphine AdvReac Intermediate bradycardia Verified 02/03/22 20:16 and hypotension promethazine AdvReac Intermediate bradycardia Verified 02/03/22 20:16 and hypotension Consultations 02/03/22 19:46 ED Decision to Admit Stat Ordered Studies 02/04/22 US liver Routine Hospital Course (1) COPD exacerbation: 76-year-old woman with COPD, chronic respiratory failure with hypoxia and hypercapnia, HFpEF, tobacco use, CKD 3, CAD with stenting in 2015 s/p AVERY x2 in RCA, hyperlipidemia, and hypertension here for management of acute on chronic exacerbation of COPD. 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 Appears to be COPD with worsening hypoxia despite nightly CPAP at home, daytime oxygen requirement of 2L via cannula. Will likely need to escalate to BiPAP to reduce incidence of future exacerbations. * Continue BiPAP as needed to maintain oxygen saturations over 88%, wean as tolerated * Mucociliary clearance with scheduled flutter valves and incentive spirometry + Mucinex * DuoNebs every 6 hours scheduled * Continue home Incruse and Symbicort and Roflumilast * Complete 5 day course of prednisone * Doxycycline x5 days. One day left at time of discharge. * Consider pulmonary rehab as outpatient HFpEF No signs of volume overload on admission Last echocardiogram in 10/2019 revealing mild LVH with normal systolic function, mild aortic regurgitation, mild mitral regurgitation. Home Lasix converted to IV for morning dose. * Continue home metoprolol, Lasix p.o. as tolerated CAD / HTN / HLD Status post AVERY x2 in the RCA in 2014 * Continue metoprolol, atorvastatin Hypothyroidism * Continue levothyroxine CKD Reported history of CKD stage III, although creatinine upon arrival today was 0.85 and previous values seem to be consistent with such as well * Monitor, renally dose medications as appropriate Anxiety and Depression * Continue home medications Transaminitis: resolved AST 52 / ALT 61 / ALP 110 with normal TBili, INR, Cr on admission. Transaminitis continues to improve. AST 19 ALT 31 at discharge. Primarily suspect to NAFL -RUQ US showed fatty sparing indicative of hepatic steatosis. 4.4 cm hepatic lobe cyst, approximately same from CT in Dec 2020. Hepatitis B and hepatitis C serologies pending at time of discharge. (2) CHF (congestive heart failure): (3) CAD (coronary artery disease): (4) Hypothyroidism: (5) CKD (chronic kidney disease) stage 3, GFR 30-59 ml/min: (6) Anxiety and depression: (7) Transaminitis: Total Time Total Time Spent Total Time Spent (In Minutes): <30 Discharge Plan Discharge Items Patient Disposition: Home - Self-Care Reason For Visit: COPD EXACERBATION Discharge Diagnosis: Chronic COPD with chronic, worsening hypoxia requiring BiPAP Activity: Per Instructions section Non-emergency contact: Primary Care Provider and Glazier Apprentice Call non-emergency contact if: you have any medication questions and your symptoms worsen Follow-up/Referrals: Eriberto Gonsalez, [Primary Care Provider] - 02/14/22 1:00 pm Diet: Regular Addtl Attending Provider Instructions: Dear Jackelyn, You were admitted to the hospital for severe, worsening shortness of breath and cough. You were treated with BiPAP ventilation support, DuoNeb, and steroids, to which responded well. Now that your condition is improved, we feel you can be safely discharged home. A discharge summary will be sent to your primary care physician to ensure continuity of care. Please bring this discharge summary with you to your next office appointment so that your provider can review it at that time. Follow-up appointments: * We have requested a follow-up appointment with Dr. Dhaval Gonsalez, your primary care physician within one week of discharge. Please call their office ( [phone]) if you do not hear from them. * Keep all your follow-up appointments as already scheduled. If you cannot make an appointment, notify your provider. Medications: Your medication list has been reviewed and reconciled upon discharge to ensure accuracy and continuity of care. An updated list of all your medications is included with your hospital discharge paperwork. Please review this list closely, and make note of any changes. * We sent a new medication called doxycycline to your pharmacy. Take doxycycline 100 mg twice daily for 1 day (2 tablets left). * We sent a new medication called prednisone to your pharmacy. Take prednisone 10 mg tabs as follows: -30 mg (3 tablets) twice a day for 2 days, then -25 mg (2.5 tablets) twice a day for 2 days, then -20 mg (2 tablets) twice a day for 2 days, then -15 mg (1.5 tablets) twice a day for 2 days, then -10 mg (1 tablet) twice a day for 2 days, then STOP. Take your medications as instructed; do not skip a dose of your medicines. Make sure all of your doctors know every medicine you are taking (including gyam-mtg-qnmbcjo medicines, vitamins, and supplements). Call your primary care provider before taking any new medicines (including zrsf-jzm-ictbwnf medicines, vitamins, and supplements), because some of these may interact with your current medications, or may make your symptoms worse. Tell your primary care provider if you cannot afford your medications. CONTACT YOUR PRIMARY CARE PROVIDER if you experience any of the following: * Sudden shortness of breath at rest, or with some activity. * Difficulty following your treatment plan, or difficulty taking medications CALL 911 OR GO TO THE EMERGENCY DEPARTMENT if you experience any of the following: * Sudden, severe abdominal pain or nausea/vomiting * Severe chest pain, or chest pain that radiates (moves) to your jaw or arm * Sudden, severe shortness of breath or difficulty breathing Thank you for allowing us to participate in your care. Pending Studies at Discharge: No Stand-Alone Forms: [facility], Smoking Cessation Medications and DC Order Prescriptions: New doxycycline hyclate 100 mg Capsule 100 mg PO BID Qty: 2 0RF prednisone 10 mg tablets,dose pack 10 mg PO BID Qty: 48 0RF (DME) Non invasive ventilator DME Misc See Rx Instructions .ROUTE Qty: 1 0RF Rx Instructions: As directed Continued (DME) Aeroneb Go Nebulizer Misc See Rx Instructions .MEDSUPPLY Qty: 1 0RF Rx Instructions: With tubing and supplies. J44.9. J45.9. potassium chloride 10 mEq tablet extended release 20 meq PO BID Qty: 180 3RF paroxetine HCl [Paxil] 40 mg tablet 40 mg PO DAILY Qty: 90 3RF levothyroxine [Synthroid] 112 mcg tablet 112 mcg PO DAILY Qty: 90 3RF atorvastatin [Lipitor] 40 mg tablet 40 mg PO DAILY Qty: 90 3RF (DME) Depends Underwear Large See Rx Instructions .Route .MEDSUPPLY Qty: 90 5RF Rx Instructions: For patient use, change two to three times daily. furosemide 20 mg tablet 40 mg PO QAM Qty: 180 3RF Rx Instructions: TAKE TWO TABLETS BY MOUTH TWICE DAILY metoprolol tartrate 25 mg tablet 25 mg PO BID Qty: 60 11RF Combivent Respimat 20-100 mcg/actuation mist 1 puff inhalation Q6H Qty: 1 5RF ipratropium-albuterol 0.5 mg-3 mg(2.5 mg base)/3 mL solution for nebulization 3 ml INHALATION QID Qty: 360 5RF nitroglycerin [Nitrostat] 0.4 mg tablet, sublingual 0.4 mg sublingual UD PRN (Reason: Chest Pain) Qty: 25 3RF Rx Instructions: NEEDED FOR CHEST PAIN : ONE TABLET UNDER THE TONGUE EVERY 5 MINUTES UP TO 3 DOSES. budesonide-formoterol 160-4.5 mcg/actuation HFA aerosol inhaler 2 puff INHALATION BID Qty: 6 7RF roflumilast 500 mcg tablet 500 mcg PO DAILY Qty: 90 7RF (DME) Portable Oxygen Misc See Rx Instructions .MEDSUPPLY Qty: 1 0RF Rx Instructions: Oxygen 2 liters continuous via nasal cannula on exertion with portable concentrator. CYNTHIA 99 aspirin 81 mg Tablet,Delayed Release (Dr/Ec) 81 mg PO DAILY acetaminophen [Tylenol Arthritis Pain] 650 mg Tablet Extended Release 1,300 mg PO HS polysaccharide iron complex 150 mg iron capsule 150 mg PO BID Rx Instructions: Take one capsule twice daily. Avoid dairy/calcium-containing products and/or antacids for at least two hours brfore and after taking this med. Discharge Orders: Discharge Order (Routine); Ordered 02/07/22 Ordered By: Araceli Montemayor Admission Data Admit Date/Time: 02/03/22 19:58 Attending Provider: Colin sIlas Admit Provider: Colin Alcala Primary Care Provider: Eriberto Gonsalez Other Providers: Ricardo Lindo Other Interventions: Discharge Summary Assessment (RN) Last Done: 02/07/22 13:09 Supervising Physician Co-Signing Physician Notes I personally examined the patient and verified all chester points of history and exam, discussed case, and agree with decision making with Dr Montemayor. Feeling better, feels up to going home. Breathing improved overall. Vitals noted, in general she is awake and alert pleasant no distress. HEENT normocephalic atraumatic mucous membranes moist. Lungs with diminished air entry throughout somewhat coarse on exhalation but no rales rhonchi or wheezes. No conversational dyspnea no rales no rhonchi good effort. COPD exacerbation with what appears to be acute on chronic hypoxic and hypercapnic respiratory failurereview of PFTs from greater than 2 years ago, she is severe, possibly approaching end-stage COPD. Continue BiPAP as needed and at bedtime and actually has BiPAP for home. Home with a tapering steroid course and finish course of antibiotics, continue inhalers, encouraged smoke cessation repeatedly throughout her stay DVT prophylaxisLovenox Resident Activity Tracking Resident Involvement: Resident Care Provided Care Provided: Adult Hospital Medicine
--- NOTE | 2022-02-07 19:47 | Billing Data ---
Date of Service February 07, 2022 Coding Level of Care Code D/C DAY MANAGEMENT <30 MINS
[2022-02-09 15:28] LABS: HBSAG NON-REACTIVE (NON-REACTIVE); Hepatitis B Core Antibody IgM NON-REACTIVE (NON-REACTIVE); Hepatitis BE Antibody Nonreactive
== END 2022-02-07 13:30 | disposition home or self-care (01) | DRG 190 ==
LOC: ED 17:49 → SUATTDRO 19:58 → EDINP 19:58 → 1E 22:58 → 2N 02-05 00:11

== ENCOUNTER 2023-03-02 18:32 | Inpatient (IN) ==
--- NOTE | 2023-03-02 18:42 | Emergency Department Note ---
Impression & Plan Pneumonia, Acute exacerbation of chronic obstructive pulmonary disease, Respiratory failure, Hypoxia, Elevated troponin I level ED Provider Note NAME: SHARAN YEN AGE: 77 SEX: F : 1945 ARRIVES VIA: Ambulance INFORMANT: Patient, EMS ED PROVIDER(S): Ramon Landin DO CHIEF COMPLAINT: Difficulty breathing HPI: The patient is a 77-year-old female who has a history of coronary artery disease as well as COPD who presented to the emergency department for an evaluation of shortness of breath. The patient has been having ongoing symptoms over the course of the last week. She has had a cough. She denies having any chest pain or leg swelling. She does wear CPAP at night. She was placed on BiPAP as well as given a DuoNeb as well as given Solu-Medrol prior to arrival. This did improve her symptoms. She was noted to have oxygen saturation in the 80s prior to arrival. She denies having any hemoptysis. ROS: See above HPI for pertinent positives & negatives. A total of 10 systems reviewed and were otherwise negative. PAST MEDICAL HISTORY: See Below PAST SURGICAL HISTORY: See Below FAMILY HISTORY: See Below SOCIAL HISTORY: See Below HOME MEDICATIONS: See Below ALLERGIES: See Below VITALS: See Below PHYSICAL EXAMINATION: GENERAL: The patient is awake and alert. The patient somewhat anxious appearing EYES: The conjunctivae are clear. The pupils are round and reactive. EARS, NOSE, MOUTH AND THROAT: The nose is without any evidence of any deformity. NECK: The neck is nontender and supple. RESPIRATORY: Diminished breath sounds are noted throughout with rhonchi in the right lung field mostly. There is significant tachypnea and conversational dyspnea. CARDIOVASCULAR: Regular rate and rhythm noted there no murmurs rubs or gallops normal S1 normal S2. GASTROINTESTINAL: The abdomen is soft. Abdomen is nontender. MUSCULOSKELETAL/EXTREMITIES: There is no evidence of gross deformity full range of motion is noted in the hips and shoulders. SKIN: Skin is cool and dry. There is no significant pedal edema or calf tenderness. NEUROLOGIC: Patient is awake alert and oriented x3 MEDICAL DECISION MAKING: The patient is a 77-year-old female who presented to the emergency department with shortness of breath. The patient's had symptoms over the course of the last few days. The patient presented to the emergency department by ambulance. The patient was placed on BiPAP. She was also given IV steroids and bronchodilator therapy prior to arrival. She was further treated with IV fluids and IV antibiotics by myself. I discussed patient's laboratory and radiographic studies with her and her family members. She was reevaluated multiple times. The patient appeared to be significantly improved on my evaluation. [facility] have agreed to evaluate the patient in the emergency department for further management and disposition. Triage Nursing notes reviewed. Prior medical records reviewed Vital Signs: reviewed and remarkable for hypoxia. Differential diagnosis: Reactive airway disease, pneumonia, pneumothorax, COPD, CHF, infections, cardiac ischemia, pulmonary embolism, musculoskeletal, gastrointestinal, as well as other pathologies. ER treatment provided: See below Diagnostics interpreted by me: ECG: EKG was obtained in the emergency department. My interpretation is sinus tachycardia at 105 bpm. PVCs were noted. There is no acute ST segment abnormalities noted. This was compared to a tracing from February 05, 2022. The ectopy is new otherwise no significant changes were noted. Cardiac Monitoring: An order was placed for continuous cardiac monitoring. The monitor shows a rate of 99 bpm with sinus rhythm. Laboratory studies: As stated above and show below. Imaging studies: See below. Radiographic imaging was reviewed by myself Consultation(s): I discussed this case with Jj who [facility] ED COURSE: Procedures: none Critical Care: I have personally spent greater than 40 minutes of critical care time in the direct management of this patient. This includes bedside care, interpretation of diagnostic studies, and testing, discussion with consultants, patient, and family members, and other required patient management activities. This 40 minutes is in excess of all separately billable procedures. Past Med/Surg History Medical History (Updated 03/02/23 @ 23:02 by Ramon Landin DO) Transaminitis Current smoker STEMI (ST elevation myocardial infarction) May 2014. Inferior wall myocardial infarction status post PCI with drug- eluting stent x2 to the RCA. Residual 80% stenosis of D1 CHF (congestive heart failure) Ventricular fibrillation Cardiac arrest Hypertension Surgical History History of lumbar discectomy History of left mastectomy History of excision of lesion History of intravascular stent placement History of tonsillectomy History of kidney surgery History of cholecystectomy History of appendectomy Family History Brother Brain cancer Mother Cancer of kidney Father Coronary arteriosclerosis Son Myocardial infarction Denies family history of Ovarian cancer Prostate cancer Breast cancer Colorectal cancer Social History Smoking Status: Unknown if ever smoked Tobacco Type: Cigarettes Age Started Using Tobacco: 15; packs per day: 0.5; Cigarettes Per Day: 20; Second Hand Exposure: No; Do You Dip or Chew Tobacco: No; Hx Alcohol Use: No Hx Substance Use: No Preferred Language: Wolof Communication Ability: Effective Visual Impairment: No Limitations Hearing Ability: Normal Dry Wall Finisher Required: No Beliefs That Will Affect Care: None marital status: / Current Living Situation: Alone 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, 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 Feels Safe at Home: Yes Childhood Exposure to Second-Hand Smoke: No Diet: regular Dental Care, Regularly: No Physical Activity Frequency: Does not Exercise Seatbelt Use: always Sunscreen Use: No Assistive Devices: Cane, Oxygen - Continuous and Walker Allergies Allergies Allergy/AdvReac Type Severity Reaction Status Date / Time Penicillins Allergy Severe SWELLING Verified 03/02/23 19:11 Sulfa (Sulfonamide Allergy Intermediate RASH Verified 03/02/23 19:11 Antibiotics) bupropion AdvReac Intermediate Hallucinati Verified 03/02/23 19:11 ng morphine AdvReac Intermediate bradycardia Verified 03/02/23 19:11 and hypotension promethazine AdvReac Intermediate bradycardia Verified 03/02/23 19:11 and hypotension Home Meds Home Medications Medication Instructions Recorded Confirmed acetaminophen 650 mg 1,300 mg PO HS 08/07/18 03/02/23 tablet,extended release (Tylenol Arthritis Pain) aspirin 81 mg tablet,delayed 81 mg PO DAILY 08/07/18 03/02/23 release azithromycin 250 mg tablet 250 mg PO [id number] 03/02/23 03/02/23 calcium carbonate 300 mg (750 mg) 300 - 600 mg PO DIRECTED PRN 03/02/23 03/02/23 chewable tablet (Calcium Antacid) HEARTBURN/INDIGESTION diphenhydramine HCl 25 mg capsule 25 mg PO DIRECTED PRN 03/02/23 03/02/23 (Benadryl) SLEEP/CONGESTION Previous Rx's Medication Instructions Recorded nitroglycerin 0.4 mg sublingual 0.4 mg sublingual UD PRN Chest 11/22/18 tablet (Nitrostat) Pain #25 tabs nebulizers (Aeroneb Go Nebulizer) #1 ea 06/26/20 Portable Oxygen #1 ea 08/16/21 Depends Underwear #90 ea 09/13/21 Non invasive ventilator DME #1 ea 02/07/22 levothyroxine 112 mcg tablet 112 mcg PO DAILY #90 tabs 04/17/22 (Synthroid) paroxetine HCl 40 mg tablet (Paxil) 40 mg PO DAILY #90 tabs 04/17/22 atorvastatin 40 mg tablet (Lipitor) 40 mg PO DAILY #90 tabs 06/12/22 ipratropium 20 mcg-albuterol 100 1 puff inhalation Q6H #3 Inhalers 07/29/22 mcg/actuation mist for inhalation (Combivent Respimat) metoprolol tartrate 25 mg tablet 25 mg PO BID #60 tabs 09/22/22 budesonide-formoterol HFA 160 2 puff inhalation BID #3 Inhalers 10/09/22 mcg-4.5 mcg/actuation aerosol inhaler ipratropium 0.5 mg-albuterol 3 mg 3 ml inhalation QID #360 mL 10/09/22 (2.5 mg base)/3 mL nebulization soln roflumilast 500 mcg tablet 500 mcg PO DAILY #90 tabs 10/09/22 umeclidinium 62.5 mcg/actuation 1 inh inhalation DAILY #3 Inhalers 10/09/22 blister powder for inhalation (Incruse Ellipta) furosemide 20 mg tablet 40 mg (2 x 20 mg) PO BID 90 days 12/10/22 #360 tabs polysaccharide iron complex 150 mg 150 mg PO BID 90 days #180 caps 02/13/23 iron capsule potassium chloride 10 mEq 20 meq (2 x 10 mEq) PO BID #360 02/13/23 tablet,extended release tabs Results & Data (ED) Vital Signs Vital Signs - 24 hr 03/02/23 18:39 03/02/23 18:44 03/02/23 18:51 Temperature Temperature Source Pulse Rate 107 H 106 H Pulse Rate [Bilateral] Respiratory Rate 28 H Respiratory Effort / Characteristics Spontaneous Respiratory Depth Normal Respiratory Pattern Tachypnea Blood Pressure Blood Pressure [Right Arm] Blood Pressure Mean Blood Pressure Mean [Right Arm] Pulse Oximetry 100 Oxygen Delivery Method CPAP Fraction of Inspired Oxygen 40 Sepsis Recent Fever Within 48 Hours Sepsis New/Unexplained Change in Mental Status Sepsis Action Taken by Nursing 03/02/23 19:09 03/02/23 19:09 03/02/23 19:09 Temperature 37.6 C H 37.6 C H Temperature Source Axillary Axillary Pulse Rate 99 H Pulse Rate [Bilateral] 99 H Respiratory Rate 22 18 Respiratory Effort / Characteristics Respiratory Depth Respiratory Pattern Blood Pressure 130/88 Blood Pressure [Right Arm] 130/88 Blood Pressure Mean 102 Blood Pressure Mean [Right Arm] 102 Pulse Oximetry 100 100 100 Oxygen Delivery Method CPAP CPAP Room Air Fraction of Inspired Oxygen Sepsis Recent Fever Within 48 Hours Yes Sepsis New/Unexplained Change in Mental Status No Sepsis Action Taken by Nursing No Action Required 03/02/23 19:09 Temperature Temperature Source Pulse Rate 99 H Pulse Rate [Bilateral] Respiratory Rate Respiratory Effort / Characteristics Respiratory Depth Respiratory Pattern Blood Pressure Blood Pressure [Right Arm] Blood Pressure Mean Blood Pressure Mean [Right Arm] Pulse Oximetry 100 Oxygen Delivery Method CPAP Fraction of Inspired Oxygen Sepsis Recent Fever Within 48 Hours Sepsis New/Unexplained Change in Mental Status Sepsis Action Taken by Skilled Nursing Medications Current Medication List: was personally reviewed by me Laboratory Data Attestation: I reviewed the patient's lab results. 03/02/23 18:40 03/02/23 18:40 Lab Results 03/02/23 Range/Units 18:40 WBC 11.70 H (4.8-10.8) K/ul RBC 4.49 (4.20-5.40) M/uL Hgb 12.9 (12.0-16.0) g/dl Hct 40.7 (37.0-47.0) % MCV 90.6 (80.0-100.0) fL MCH 28.7 (25.0-34.0) pg MCHC 31.7 L (32.0-36.0) g/dL RDW Std Deviation 45.1 (36.4-46.3) fL RDW Coeff of Yun 13.5 (11.5-14.5) % Plt Count 231 (130-400) K/uL MPV 9.1 L (9.4-12.4) fL Immature Gran % (Auto) 0.6 % Neut % (Auto) 78.6 % Lymph % (Auto) 11.9 % [place] % (Auto) 8.5 % Eos % (Auto) 0.1 % Baso % (Auto) 0.3 % Neut # (Auto) 9.20 H (1.40-6.50) K/uL Lymph # (Auto) 1.39 (1.20-3.40) K/uL [place] # (Auto) 1.00 H (0.11-0.59) K/uL Eos # (Auto) 0.01 (0.00-0.50) K/uL Baso # (Auto) 0.03 (0.00-0.20) K/uL Immature Gran # (Auto) 0.07 (0.01-0.20) K/uL PT 11.0 (9.0-12.0) Seconds INR 1.0 (0.9-1.1) APTT 30 (21-31) Seconds PTT Ratio 1.1 VBG pH 7.37 (7.36-7.41) VBG pCO2 49 (38-50) mmHg VBG pO2 57 mmHg VBG HCO3 28 mmol/L VBG O2 Saturation 89.0 % VBG Base Excess 2.2 mEq/L Sodium 138 (136-145) mmol/L Potassium 3.7 (3.5-5.1) mmol/L Chloride 103 (98-107) mmol/L Carbon Dioxide 26 (21-32) mmol/L Anion Gap 9 (3-11) BUN 9 (6-23) mg/dl Creatinine 0.77 (0.6-1.2) mg/dl Est Cr Clr Drug Dosing 63.8 ml/min Est GFR ( Amer) 86.3 ml/min Est GFR (Non-Af Amer) 74.5 ml/min BUN/Creatinine Ratio 11.7 (10-20) Glucose 128 H (70-99(Fasting)) mg/dl Lactate 1.3 (0.4-2.0) mmol/L Calcium 9.7 (8.6-10.3) mg/dl Magnesium 2.0 (1.7-2.4) mg/dl Total Bilirubin 0.9 (0.2-1.0) mg/dl Direct Bilirubin 0.2 (0-0.2) mg/dl AST 19 (13-39) U/L ALT 21 (7-52) U/L Alkaline Phosphatase 89 (34-104) U/L Troponin I High Sens 79.3 H* (0-14) pg/ml Total Protein 6.9 (6.0-8.3) gm/dl Albumin 3.8 (3.4-5.0) gm/dl Procalcitonin 0.11 (0-0.5) ng/ml Adenovirus (PCR) Not Detected (NotDetected) B. pertussis DNA (PCR) Not Detected (NotDetected) B.parapertussis DNA PCR Not Detected (NotDetected) C. pneumoniae DNA (PCR) Not Detected (NotDetected) Coronavirus OC43 (PCR) Not Detected (NotDetected) Coronavirus HKU1 (PCR) Not Detected (NotDetected) Coronavirus 229E (PCR) Not Detected (NotDetected) SARS-CoV-2 (PCR) Not Detected (NotDetected) Coronavirus NL63 (PCR) Not Detected (NotDetected) Human Metapneumovir PCR Not Detected (NotDetected) Influenza Type A (PCR) Not Detected (NotDetected) Influenza Type B (PCR) Not Detected (NotDetected) M. pneumoniae (PCR) Not Detected (NotDetected) Parainfluenza 1 (PCR) Not Detected (NotDetected) Parainfluenza 2 (PCR) Not Detected (NotDetected) Parainfluenza 3 (PCR) Not Detected (NotDetected) Parainfluenza 4 (PCR) Not Detected (NotDetected) RSV (PCR) Not Detected (NotDetected) Entero/Rhino (PCR) Not Detected (NotDetected) Administered Medications Enoxaparin Sodium (Enoxaparin Inj 40 Mg/0.4 Ml Syr) 40 mg SQ Q24H TIM Stop: 04/01/23 21:59 Last Admin: 03/02/23 22:46 Dose: 40 mg Documented By: CHICK ROOM SUPERVISOR Azithromycin 500 mg/ Dextrose 255 mls @ 127.5 mls/hr IV NOW STA Stop: 03/02/23 23:14 Last Admin: 03/02/23 22:49 Dose: 127.5 mls/hr Documented By: CHICK [employer]OM SUPERVISOR Parenteral Electrolytes (Plasma-Lyte A Ph 7.4) 1,000 mls @ 80 mls/hr IV .[id number] TIM Stop: 03/03/23 09:29 Last Admin: 03/02/23 22:44 Dose: 80 mls/hr Documented By: CHICK ROOM SUPERVISOR Metoprolol Tartrate (Metoprolol Tartrate 25 Mg Tab) 25 mg PO BID TIM Stop: 04/01/23 21:14 Last Admin: 03/02/23 22:46 Dose: 25 mg Documented By: CHICK ROOM SUPERVISOR Polysaccharide Iron Complex (Iron Polysaccharide Complex 150 Mg Capsule) 150 mg PO BID TIM Stop: 04/01/23 21:14 Last Admin: 03/02/23 22:46 Dose: 150 mg Documented By: CHICK [employer]OM SUPERVISOR Discontinued Medications Albuterol (Albut/Ipratrop 3mg/0.5mg Neb 3 Ml Vial) 3 ml NEB NOW STA; Protocol Stop: 03/02/23 20:30 Last Admin: 03/02/23 22:44 Dose: 3 ml Documented By: CHICK ROOM SUPERVISOR Guaifenesin (Guaifenesin 600 Mg Tabcr) 1,200 mg PO NOW STA Stop: 03/02/23 21:18 Last Admin: 03/02/23 22:46 Dose: 1,200 mg Documented By: CHICK ROOM SUPERVISOR Sodium Chloride (Nss) 1,000 mls @ 999 mls/hr IV .Q1H1M ONE Stop: 03/02/23 20:24 Last Infusion: 03/02/23 22:50 Dose: Infused Documented By: CHICK ROOM SUPERVISOR Admin: 03/02/23 20:28 Dose: 999 mls/hr Documented By: TBS Cefepime HCl (Maxipime) 2,000 mg in 20 mls @ 5 mls/min IV NOW STA; Protocol Stop: 03/02/23 19:27 Last Admin: 03/02/23 20:29 Dose: 5 mls/min Documented By: TBS Acetaminophen (Ofirmev) 1,000 mg in 100 mls @ 400 mls/hr IV NOW STA Stop: 03/02/23 21:30 Last Infusion: 03/02/23 22:52 Dose: Infused Documented By: CHICK [employer]OM SUPERVISOR Admin: 03/02/23 22:30 Dose: 400 mls/hr Documented By: CHICK ROOM SUPERVISOR Lidocaine (Lidocaine 5% 1 Patch) 1 patch TD NOW STA Stop: 03/02/23 21:17 Last Admin: 03/02/23 22:48 Dose: 1 patch Documented By: CHICK ROOM SUPERVISOR Imaging Data Attestation: I personally reviewed and interpreted this imaging study as follows: My Impression: 1 view chest x-ray was obtained in the emergency department. My interpretation is no free air, there was an infiltrate noted in the right base. Final report below. Radiologist's Impression: Chest X-Ray 03/02/23 18:38 XR chest 1V portable CLINICAL HISTORY: Sepsis. COMPARISON STUDY: Chest radiograph February 05, 2022. Chest CT June 27, 2014. FINDINGS: Emphysema is present. There is no pneumothorax or pleural effusion. Cardiomediastinal silhouette is unremarkable. There is mild reticulonodular interstitial thickening. Patchy right lower lung opacities are present. There are left axillary surgical clips. IMPRESSION: 1. Patchy right lower lung airspace opacities which favor an infectious process. Radiographic follow-up to ensure resolution is recommended. 2. Emphysema. ACT 112: Negative or not required by law. Electronically signed by: Pavel Henao M.D. 03/02/2023 7:08 PM Discharge Plan Visit Data Chief Complaint: Respiratory Problems ED Provider: Ramon Landin Discharge Problem: Pneumonia, Acute exacerbation of chronic obstructive pulmonary disease, Respiratory failure, Hypoxia, Elevated troponin I level Patient Disposition: Being Evaluated by Hospitalist Discharge Instructions Interventions: ED Discharge Assessment Last Done: 03/02/23 21:15 Discharge Problem: Pneumonia Qualifiers: Pneumonia type: due to unspecified organism Laterality: right Lung location: u nspecified part of lung Qualified Code(s): J18.9 - Pneumonia, unspecified organism Respiratory failure Qualifiers: Chronicity: acute Respiratory failure complication: hypoxia Qualified Code(s): J96.01 - Acute respiratory failure with hypoxia
[2023-03-02 18:57] LABS: Base Excess VBG 2.2 mEq/L; HCO3 VBG 28 mmol/L; PCO2 VBG 49 mmHg (38-50); PO2 VBG 57 mmHg; pH VBG 7.37 (7.36-7.41)
[2023-03-02 19:05] LABS: Basophils # (auto) 0.03 K/uL (0.00-0.20); Basophils % (auto) 0.3 %; Eosinophils # (auto) 0.01 K/uL (0.00-0.50); Eosinophils % (auto) 0.1 %; Hematocrit (blood only) 40.7 % (37.0-47.0); Hemoglobin 12.9 g/dl (12.0-16.0); Immature Granulocytes # (auto) 0.07 K/uL (0.01-0.20); Immature Granulocytes % (auto) 0.6 %; Lymphocytes # (auto) 1.39 K/uL (1.20-3.40); Lymphocytes % (auto) 11.9 %; Mean Corpuscular Hemoglobin 28.7 pg (25.0-34.0); Mean Corpuscular Hgb Conc 31.7 g/dL (32.0-36.0); Mean Corpuscular Volume 90.6 fL (80.0-100.0); Mean Platelet Volume 9.1 fL (9.4-12.4); Monocytes % (auto) 8.5 %; Neutrophils % (auto) 78.6 %; Platelet Count 231 K/uL (130-400); RDW Coefficient of Variation 13.5 % (11.5-14.5); RDW Standard Deviation 45.1 fL (36.4-46.3); Red Blood Count 4.49 M/uL (4.20-5.40)
--- NOTE | 2023-03-02 19:09 | XRay Report ---
XR chest 1V portable CLINICAL HISTORY: Sepsis. COMPARISON STUDY: Chest radiograph February 05, 2022. Chest CT June 27, 2014. FINDINGS: Emphysema is present. There is no pneumothorax or pleural effusion. Cardiomediastinal silho uette is unremarkable. There is mild reticulonodular interstitial thickening. Patchy right lower lung opacities are present. There are left axillary surgical clips. IMPRESSION: 1. Patchy right lower lung airspace opacities which favor an infectious process. Radiographic follow- up to ensure resolution is recommended. 2. Emphysema. ACT 112: Negative or not required by law. Electronically signed by: Pavel eHnao M.D. 03/02/2023 7:08 PM
[2023-03-02 19:17] LABS: Albumin Level 3.8 gm/dl (3.4-5.0); BUN Creatinine Ratio 11.7 (10-20); Bilirubin Direct 0.2 mg/dl (0-0.2); Bilirubin,Total 0.9 mg/dl (0.2-1.0); Calcium 9.7 mg/dl (8.6-10.3); Creatinine Clr Calc Pharmacy 63.8 ml/min; Est GFR (African American) 86.3 ml/min; Est GFR (Non-African American) 74.5 ml/min; Potassium 3.7 mmol/L (3.5-5.1); Total Protein 6.9 gm/dl (6.0-8.3)
[2023-03-02] MEDS ORDERED: SODIUM CHLORIDE 0.9% 1,000 ML IV ONE (19:24)
[2023-03-02] MEDS ORDERED: CEFEPIME 2,000 MG/20 ML VIAL IV STA (19:24)
[2023-03-02 19:27] LABS: Partial Thromboplastin Ratio 1.1; Partial Thromboplastin Time 30 Seconds (21-31); Troponin I High Sensitivity 79.3 pg/ml (0-14)
[2023-03-02 19:47] LABS: Adenovirus PCR Not Detected (NotDetected); Bordetella parapertussis PCR Not Detected (NotDetected); Bordetella pertussis PCR Not Detected (NotDetected); Chlamydia pneumoniae PCR Not Detected (NotDetected); Coronavirus 229E PCR Not Detected (NotDetected); Coronavirus CoV-2 (COVID19)PCR Not Detected (NotDetected); Coronavirus HKU1 PCR Not Detected (NotDetected); Coronavirus NL63 PCR Not Detected (NotDetected); Coronavirus OC43PCR Not Detected (NotDetected); Human Metapneumovirus PCR Not Detected (NotDetected); Influenza A PCR Not Detected (NotDetected); Influenza B PCR Not Detected (NotDetected); Mycoplasma pneumoniae PCR Not Detected (NotDetected); Parainfluenza Virus 1 PCR Not Detected (NotDetected); Parainfluenza Virus 2 PCR Not Detected (NotDetected); Parainfluenza Virus 3 PCR Not Detected (NotDetected); Parainfluenza Virus 4 PCR Not Detected (NotDetected); Respiratory Syncytial VirusPCR Not Detected (NotDetected); Rhinovirus/Enterovirus PCR Not Detected (NotDetected)
--- NOTE | 2023-03-02 20:15 | History & Physical Report ---
Date of Service March 02, 2023 Assessment & Plan (1) Acute on chronic hypoxic respiratory failure: Plan: -Admit to the PCU on tele and pulse oximetry -Currently hemodynamically stable and stable on CPAP at 8/5 -Presented to the ED today via EMS after experiencing increased SOB and work of breathing when taking her HS CPAP off -Was placed back on CPAP by EMS and continued in the ED -Found to have a RLL consolidation on CXR suspicious for Pneumonia -No significant fluid on CXR, full respiratory biofire negative -Received a dose of 125 mg IV Solu-medrol and DuoNeb in the ED -S/P cefepime and 1L NSS in the ED -Continue Cefepime and will add azithromycin to cover atypicals -Continue on CPAP overnight, will obtain ABG later tonight to monitor for response to treatment -Continue IV solumedrol at 40 mg Q8H for now -Will start Budesonide and formoterol nebs BID17 -QIDr DuoNebs, incentive spirometry, flutter therapy -Follow blood and sputum cultures -SQ lovenox for DVT PPX -NPO while on CPAP, will give 1 bag LR overnight for hydration -AM CBC, BMP, mag, abg (2) Acute exacerbation of chronic obstructive pulmonary disease: Plan: -See acute on chronic hypoxic respiratory failure (3) Elevated troponin: Plan: -Initial high sen trop elevated at 79 -Patient denies chest pain at rest, experiences BL rib pain with coughing with reproducible pain on palpation -No acute ST segment or T-wave changes on ECG -Likely due to demand with her known CAD -Will follow 2 hour repeat high sen trop ordered on admission -If trop is downtrending will trend an am level, if increasing will trend q6h overnight -Continue to monitor on tele (4) Pneumonia: Plan: -See acute on chronic hypoxic respiratory failure (5) Current smoker: Plan: -Strongly encouraged cessation -Will order prn nicotine patches while admitted (6) Hypothyroidism: Plan: -Continue levothyroxine (7) CAD (coronary artery disease): (8) CHF (congestive heart failure): Plan: -Euvolemic to mildly dehydrated on exam -S/P 1L NSS in the ED -Will give 1L LR at 80 mL/hr overnight while on CPAP -Will plan to conitnue BID PO lasix tomorrow to avoid volume overload (9) Hypertension: Plan: -Stable -Continue metoprolol Plan The patient was discussed with Dr. Lindo at the time of the admission History of Present Illness Chief Complaint: SOB Primary Care Provider: Eriberto Gonsalez DO Hayden is a 77-year-old female with a history of chronic respiratory failure with hypoxia and hypercapnia, HFpEF, severe COPD, tobacco abuse smoking 1ppd x >40 years, CKD 3, coronary artery disease with STEMI in 2015 s/p 2x AVERY in RCA, hyperlipidemia hypertension, anxiety and depression who presented to the [facility] ED via EMS on 03/02/23 with complaints acute of chronic respiratory failure. EMS noted the patient to be in significant respiratory distress and placed her on Bipap. She was given 125 mg IV Solu-medrol and a DuoNeb treatment in route. On arrival she was stable on CPAP, tachycardic at 100, with a temp of 37.6C. Labs were significant for a leukocytosis of 11 with neutrophil predominance of 11, initial high sen trop of 79, and full respiratory biofire negative. Prior to admission the patient was given 1L NSS and a dose of Cefepime. At the time of the exam the patient was sitting in bed in no acute distress, currently comfortable on Bipap with her family bedisde. She states that she has been felling generally unwell for the past 2 weeks. Over the past 2-3 days she has noticed an increased in her chronic cough, green sputum production, and increased SOB. She woke up this am and was significantly more SOB after taking her HS CPAP off. She placed her normal 2L NC on but was too SOB and called EM. She has been experiencing BL lower rib pain when coughing but denies chest pain at rest, hemoptysis, abd pain, nausea, vomiting, diarrhea, dysuria, hematuria, melena, LE swelling, and recent trauma. She is still smoking 1PPD and states "I think I am going to quit now". I stressed the importance of cessation to avoid further Pulmonary compromise. We discussed code status, she is a DNR/DNI. I explained that if she were to continue to decompensate on CPAP/Bipap the next step would be comfort measures. The patient expressed understanding and agreement with the plan. Please refer to Dr. Lindo's attestation for any changes to the treatment plan Allergies Allergy/AdvReac Type Severity Reaction Status Date / Time Penicillins Allergy Severe SWELLING Verified 03/02/23 19:11 Sulfa (Sulfonamide Allergy Intermediate RASH Verified 03/02/23 19:11 Antibiotics) bupropion AdvReac Intermediate Hallucinati Verified 03/02/23 19:11 ng morphine AdvReac Intermediate bradycardia Verified 03/02/23 19:11 and hypotension promethazine AdvReac Intermediate bradycardia Verified 03/02/23 19:11 and hypotension Home Medications Medication Instructions Recorded Confirmed Type acetaminophen 650 mg 1,300 mg PO HS 08/07/18 03/02/23 History tablet,extended release (Tylenol Arthritis Pain) aspirin 81 mg tablet,delayed 81 mg PO DAILY 08/07/18 03/02/23 History release nitroglycerin 0.4 mg sublingual 0.4 mg sublingual UD PRN Chest 11/22/18 03/02/23 Rx tablet (Nitrostat) Pain #25 tabs nebulizers (Aeroneb Go Nebulizer) #1 ea 06/26/20 02/12/23 Rx Portable Oxygen #1 ea 08/16/21 02/12/23 Rx Depends Underwear #90 ea 09/13/21 02/12/23 Rx Non invasive ventilator DME #1 ea 02/07/22 02/12/23 Rx levothyroxine 112 mcg tablet 112 mcg PO DAILY #90 tabs 04/17/22 03/02/23 Rx (Synthroid) paroxetine HCl 40 mg tablet (Paxil) 40 mg PO DAILY #90 tabs 04/17/22 03/02/23 Rx atorvastatin 40 mg tablet (Lipitor) 40 mg PO DAILY #90 tabs 06/12/22 03/02/23 Rx ipratropium 20 mcg-albuterol 100 1 puff inhalation Q6H #3 Inhalers 07/29/22 03/02/23 Rx mcg/actuation mist for inhalation (Combivent Respimat) metoprolol tartrate 25 mg tablet 25 mg PO BID #60 tabs 09/22/22 03/02/23 Rx budesonide-formoterol HFA 160 2 puff inhalation BID #3 Inhalers 10/09/22 03/02/23 Rx mcg-4.5 mcg/actuation aerosol inhaler ipratropium 0.5 mg-albuterol 3 mg 3 ml inhalation QID #360 mL 10/09/22 03/02/23 Rx (2.5 mg base)/3 mL nebulization soln roflumilast 500 mcg tablet 500 mcg PO DAILY #90 tabs 10/09/22 03/02/23 Rx umeclidinium 62.5 mcg/actuation 1 inh inhalation DAILY #3 Inhalers 10/09/22 03/02/23 Rx blister powder for inhalation (Incruse Ellipta) furosemide 20 mg tablet 40 mg (2 x 20 mg) PO BID 90 days 12/10/22 03/02/23 Rx #360 tabs polysaccharide iron complex 150 mg 150 mg PO BID 90 days #180 caps 02/13/23 03/02/23 Rx iron capsule potassium chloride 10 mEq 20 meq (2 x 10 mEq) PO BID #360 02/13/23 03/02/23 Rx tablet,extended release tabs azithromycin 250 mg tablet 250 mg PO 3XWK 03/02/23 03/02/23 History calcium carbonate 300 mg (750 mg) 300 - 600 mg PO DIRECTED PRN 03/02/23 03/02/23 History chewable tablet (Calcium Antacid) HEARTBURN/INDIGESTION diphenhydramine HCl 25 mg capsule 25 mg PO DIRECTED PRN 03/02/23 03/02/23 History (Benadryl) SLEEP/CONGESTION Past Med/Surg History Medical History (Updated 03/02/23 @ 23:02 by Ramon Landin DO) Transaminitis Current smoker STEMI (ST elevation myocardial infarction) May 2014. Inferior wall myocardial infarction status post PCI with drug- eluting stent x2 to the RCA. Residual 80% stenosis of D1 CHF (congestive heart failure) Ventricular fibrillation Cardiac arrest Hypertension Surgical History History of lumbar discectomy History of left mastectomy History of excision of lesion History of intravascular stent placement History of tonsillectomy History of kidney surgery History of cholecystectomy History of appendectomy Family History Brother Brain cancer Mother Cancer of kidney Father Coronary arteriosclerosis Son Myocardial infarction Denies family history of Ovarian cancer Prostate cancer Breast cancer Colorectal cancer Social History Smoking Status: Unknown if ever smoked Tobacco Type: Cigarettes Age Started Using Tobacco: 15; packs per day: 0.5; Cigarettes Per Day: 20; Second Hand Exposure: No; Do You Dip or Chew Tobacco: No; Hx Alcohol Use: No Hx Substance Use: No Preferred Language: British Communication Ability: Effective Visual Impairment: No Limitations Hearing Ability: Normal Lead Driver Required: No Beliefs That Will Affect Care: None marital status: / Current Living Situation: Alone 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, 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 Feels Safe at Home: Yes Childhood Exposure to Second-Hand Smoke: No Diet: regular Dental Care, Regularly: No Physical Activity Frequency: Does not Exercise Seatbelt Use: always Sunscreen Use: No Assistive Devices: Cane, Oxygen - Continuous and Walker Physical Exam Physical Exam: Physical Exam: General: In no acute distress, stated age, chronically ill appearing, smells of smoke HEENT: Normocephalic, atraumatic, no scleral icterus, pupils around round, symmetrical, and reactive to light, dry mucus membranes, trachea midline, no thyromegaly Chest/Pulm: No respiratory distress while on CPAP/Bipap, symmetrical chest expansion, rhonchi noted in the RLL with expiratory wheezing in all other lung sethi Cardiac: RRR, no murmurs noted Abdomen: Negative for ascites and bruising, normoactive bowel sounds, soft, non-tender to palpation throughout Musculoskeletal: Symmetrical and without signs of acute trauma, upper and lower extremities with full ROM, no atrophy, spasticity, or flaccidity >Reproducible pain on palpation of the BL lower ribs Extremities: Radial, dorsalis pedis, and posterior tibial pulses are intact and symmetrical, no edema noted in the BL LE's Skin: Warm, dry, no rashes , lesions, or scars noted Neuro: Alert and oriented to person, place, month, year, and president, no focal defects, no tremors noted Psych: No acute distress, calm and cooperative during the exam Results & Data Results & Data Vital Signs (Past 12 Hours) Vital Signs Temp Pulse Pulse Resp BP BP Pulse Ox 03/02/23 19:09 99 H 100 03/02/23 19:09 37.6 C H 99 H 18 130/88 100 03/02/23 19:09 100 03/02/23 19:09 37.6 C H 99 H 22 130/88 100 03/02/23 18:51 03/02/23 18:44 106 H 03/02/23 18:39 107 H 28 H 100 O2 Del Method FiO2 03/02/23 19:09 CPAP 03/02/23 19:09 Room Air 03/02/23 19:09 CPAP 03/02/23 19:09 CPAP 03/02/23 18:51 CPAP 03/02/23 18:44 03/02/23 18:39 40 Laboratory Results Abnormal lab results 03/02/23 Range/Units 18:40 WBC 11.70 H (4.8-10.8) K/ul MCHC 31.7 L (32.0-36.0) g/dL MPV 9.1 L (9.4-12.4) fL Neut # (Auto) 9.20 H (1.40-6.50) K/uL [place] # (Auto) 1.00 H (0.11-0.59) K/uL Glucose 128 H (70-99(Fasting)) mg/dl Troponin I High Sens 79.3 H* (0-14) pg/ml Diagnostic Findings Chest X-Ray 03/02/23 18:38 XR chest 1V portable CLINICAL HISTORY: Sepsis. COMPARISON STUDY: Chest radiograph February 05, 2022. Chest CT June 27, 2014. FINDINGS: Emphysema is present. There is no pneumothorax or pleural effusion. Cardiomediastinal silhouette is unremarkable. There is mild reticulonodular interstitial thickening. Patchy right lower lung opacities are present. There are left axillary surgical clips. IMPRESSION: 1. Patchy right lower lung airspace opacities which favor an infectious process. Radiographic follow-up to ensure resolution is recommended. 2. Emphysema. ACT 112: Negative or not required by law. Electronically signed by: Pavel Henao M.D. 03/02/2023 7:08 PM ECG Additional Comments: Sinus tachycardia without acute ST segment or T-wave changes Code Status & VTE Plan Code Status DNR/DNI VTE Prophylaxis Plan VTE Prophylaxis will be ordered: Yes Supervising Physician Co-Signing Physician Notes Attending addendum: I have physically seen this patient, have supervised the MINDY's activities, and agree with the H&P unless as otherwise noted. Assessment and Plan: Acute on chronic respiratory failure with hypoxia/right lower lobe pneumonia/COPD exacerbation- Required placement of BiPAP in the ED for improvement in O2 sats Respiratory BioFire test negative Received Solu-Medrol 125 mg IV in the ED and a DuoNeb treatment Placed on cefepime 2 g IV every 12 hours Azithromycin 500 mg IV daily Guaifenesin extended release 12 mg p.o. twice daily Continue BiPAP Solu-Medrol 40 mg IV every 8 hours Duonebs every 4 hours while awake and every 2 hours when necessary. Increasing troponin/NSTEMI/CAD/hypertension/history of CHF- EKG without acute changes The patient will be admitted to telemetry for serial cardiac enzymes, serial EKG's, cardiac rhythm monitoring and a 2-D echocardiogram with Dopplers. Continue aspirin 81 mg daily, azithromycin 40 mg daily, metoprolol tartrate 25 mg twice daily and potassium chloride 20 mEq twice daily Temporarily hold furosemide 40 mg twice daily Troponin initially 79.3, then increased to 628.9 without EKG changes Patient is being started on heparin drip low-dose without bolus per protocol Consult cardiology Tobacco use disorder- Tobacco cessation counseling PG Care Time/CCT Total # of Minutes Spent Total Time Spent with Patient: Total time spent is greater than 50% in coordination of care (as documented) at patient's floor/unit and/or counseling patient: Coding [place] [address] INT INP/OBS CARE MIN Patient Type Established Medical Decision Making High Complexity Diagnoses Acute on chronic hypoxic respiratory failure J96.21 Acute exacerbation of chronic obstructive pulmonary disease J44.1 Elevated troponin R79.89 Pneumonia J18.9 Laterality: right Lung location: unspecified part of lung Pneumonia type: due to unspecified organism Current smoker F17.200 Hypothyroidism, unspecified type E03.9 Hypothyroidism type: unspecified CAD (coronary artery disease) I25.10 Chronic congestive heart failure, unspecified heart failure type I50.9 Heart failure chronicity: chronic Heart failure type: unspecified Essential hypertension I10 Hypertension type: essential hypertension (4) Pneumonia Laterality: right Lung location: unspecified part of lung Pneumonia type: due to unspecified organism Qualified Code(s): J18.9 - Pneumonia, unspecified organism (6) Hypothyroidism Hypothyroidism type: unspecified Qualified Code(s): E03.9 - Hypothyroidism, unspecified (8) CHF (congestive heart failure) Heart failure chronicity: chronic Heart failure type: unspecified Qualified Code(s): I50.9 - Heart failure, unspecified (9) Hypertension Hypertension type: essential hypertension Qualified Code(s): I10 - Essential (primary) hypertension
[2023-03-02] MEDS ORDERED: ALBUT/IPRATROP 3MG/0.5MG NEB 3 ML VIAL NEB STA (20:29)
[2023-03-02] MEDS ORDERED: PLASMA-LYTE A 1,000 ML IV SCH (21:00)
[2023-03-02] MEDS ORDERED: AZITHROMYCIN 500 MG in DEXTROSE 5% 250 ML IV STA (21:15)
[2023-03-02] MEDS ORDERED: ACETAMINOPHEN 325 MG TAB PO PRN (21:15)
[2023-03-02] MEDS ORDERED: LIDOCAINE 5% 1 PATCH TD STA (21:16)
[2023-03-02] MEDS ORDERED: ACETAMINOPHEN 1,000 MG/100 ML VIAL IV STA (21:16)
[2023-03-02] MEDS ORDERED: guaiFENesin 600 MG TABCR PO STA (21:17)
[2023-03-02] MEDS ORDERED: ENOXAPARIN INJ 40 MG/0.4 ML SYR SQ SCH (22:00)
[2023-03-02] MEDS: METOPROLOL TARTRATE 25 MG TAB PO SCH (22:46)
[2023-03-02] MEDS: IRON POLYSACCHARIDE COMPLEX 150 MG CAPSULE PO SCH (22:46)
[2023-03-03] MEDS ORDERED: Heparin IV Adult Wt-Based Low-Dose *NO* INITIAL Bolus Protocol IV STA (00:08)
[2023-03-03 00:13] LABS: Base Excess VBG 0.5 mEq/L; HCO3 VBG 26 mmol/L; Oxygen Saturation VBG 98.2 %; PCO2 VBG 44 mmHg (38-50); PO2 VBG 102 mmHg; pH VBG 7.38 (7.36-7.41)
[2023-03-03] MEDS: HEPARIN SODIUM/DEXTROSE 25,000 UNITS/500 ML BAG IV SCH (01:36)
[2023-03-03 03:38] LABS: Basophils # (auto) 0.03 K/uL (0.00-0.20); Basophils % (auto) 0.3 %; Hematocrit (blood only) 38.6 % (37.0-47.0); Hemoglobin 11.9 g/dl (12.0-16.0); Immature Granulocytes # (auto) 0.14 K/uL (0.01-0.20); Immature Granulocytes % (auto) 1.2 %; Lymphocytes # (auto) 0.46 K/uL (1.20-3.40); Lymphocytes % (auto) 3.9 %; Mean Corpuscular Hgb Conc 30.8 g/dL (32.0-36.0); Mean Corpuscular Volume 90.8 fL (80.0-100.0); Mean Platelet Volume 9.3 fL (9.4-12.4); Monocytes % (auto) 5.1 %; Neutrophils # (auto) 10.53 K/uL (1.40-6.50); Neutrophils % (auto) 89.5 %; Platelet Count 218 K/uL (130-400); RDW Coefficient of Variation 13.6 % (11.5-14.5); RDW Standard Deviation 46.2 fL (36.4-46.3); Red Blood Count 4.25 M/uL (4.20-5.40); White Blood Count 11.76 K/ul (4.8-10.8)
[2023-03-03 03:55] LABS: BUN Creatinine Ratio 16.9 (10-20); Calcium 9.3 mg/dl (8.6-10.3); Creatinine Clr Calc Pharmacy 69.2 ml/min; Est GFR (African American) 95.2 ml/min; Est GFR (Non-African American) 82.2 ml/min; Magnesium 2.3 mg/dl (1.7-2.4); Potassium 4.3 mmol/L (3.5-5.1)
[2023-03-03] MEDS: CEFEPIME 2,000 MG in SYRINGE 0 ML IV SCH ×3 (04:01→20:04)
[2023-03-03] MEDS ORDERED: ALBUT/IPRATROP 3MG/0.5MG NEB 3 ML VIAL ONE (04:39)
[2023-03-03] MEDS ORDERED: methylPREDNISolone 40 MG in SYRINGE 0 ML IV STA (04:50)
[2023-03-03 05:42] LABS: Appearance Urine Clear (Clear); Bacteria Urine Automated Negative (Negative); Bilirubin Urine Negative (Negative); Blood Urine Negative (Negative); Color Urine Dark Yellow; Epithelial Cell Urine Auto >30 /lpf (0-5); Glucose Urine UA Negative (Negative); Ketones Urine Negative (Negative); Leukocyte Esterase Urine Negative (Negative); Nitrite Urine Negative (Negative); Protein Urine 2+ (Negative); RBC Urine Automated 0-4 /hpf (0-4); Specific Gravity Urine 1.024 (1.000-1.030); Urobilinogen Urine Negative (Negative); pH Urine 6.5 (4.5-7.5)
[2023-03-03] MEDS: ALBUT/IPRATROP 3MG/0.5MG NEB 3 ML VIAL NEB SCH ×5 (06:58→23:28)
[2023-03-03] MEDS: BUDESONIDE 0.5 MG/2 ML VIAL (PULMICORT) NEB SCH ×2 (06:58→21:00)
[2023-03-03] MEDS: FORMOTEROL 20 MCG/2 ML VIAL NEB SCH ×2 (06:58→21:00)
[2023-03-03] MEDS: NICOTINE 21 MG/24 HR TDSY TD SCH (08:24)
[2023-03-03] MEDS: METOPROLOL TARTRATE 25 MG TAB PO SCH ×2 (08:25→20:05)
[2023-03-03] MEDS: UMECLIDINIUM BROMIDE 62.5MCG/BLISTER 7 PUFFS/INHALER INH SCH (08:25)
[2023-03-03] MEDS: methylPREDNISolone 40 MG in SYRINGE 0 ML IV SCH ×3 (08:25→23:01)
[2023-03-03] MEDS: IRON POLYSACCHARIDE COMPLEX 150 MG CAPSULE PO SCH ×2 (08:26→20:05)
[2023-03-03] MEDS: ASPIRIN 81 MG ECTAB PO SCH (08:26)
[2023-03-03] MEDS: ATORVASTATIN 40 MG TAB PO SCH (08:26)
[2023-03-03] MEDS: ROFLUMILAST 500 MCG TAB PO SCH (08:26)
[2023-03-03] MEDS: PARoxetine HCL 20 MG TAB PO SCH (08:26)
[2023-03-03] MEDS: LEVOTHYROXINE SODIUM 112 MCG TABLET PO SCH (08:26)
--- NOTE | 2023-03-03 12:03 | Cardiology Consultation ---
Date of Consultation March 03, 2023 Assessment & Plan (1) Elevated troponin: -mild elevation likely secondary to acute respiratory failure. -no anginal-type chest discomfort or EKG changes. -doubt acute coronary ischemia. -continue usual outpatient regimen. -no further cardiac evaluation necessary at this time. (2) CAD (coronary artery disease): -RCA AVERY x2, May 2014. -continue medical management. (3) Chronic diastolic CHF (congestive heart failure): -no evidence of hypervolemia, however, Lasix currently on hold. -would resume usual outpatient dose of Lasix 40 mg b.i.d. History of Present Illness Attending Physician: Narendra Kaur MD History of Present Illness Mrs. Waggoner is a 77-year-old female admitted yesterday with acute on chronic respiratory failure which required a BiPAP mask. Her high sensitivity troponin is trending upward, therefore, this consultation was ordered. Of note, patient typically follows with Dr. Meza in the outpatient setting. The patient was in usual state of health until approximately 2-3 days prior to presentation. She began to notice an increase in her exertional dyspnea and a cough productive of a greenish sputum. On the day of presentation, she was having difficulty breathing at rest, therefore, call 911. Evaluation here noted a right lower lobe pneumonia. She was started on antibiotics and intravenous steroids. She was also given a litre of fluid and her Lasix was placed on hold. She does carry history of coronary artery disease having suffered a non ST elevation [place] back in May 2014. She had 2 drug-eluting stents placed within the RCA. She has done well from a cardiac perspective since that time. She did have an episode of diastolic CHF back in January 2022. She has been maintained on a daily diuretic since that time. Currently, patient is resting comfortably in bed without complaints. Past medical and surgical history 1. Coronary artery disease-see above 2. RCA AVERY x2 May-2014 3. Chronic diastolic CHF 4. Hypertension 5. Hypercholesterolemia 6. Mild mitral regurgitation 7. Mild aortic insufficiency 8. COPD 9. Chronic renal failure 10. Anxiety/depression 11. Appendectomy 12. Cholecystectomy 13. Left mastectomy 14. Lumbar diskectomy 15. Tonsillectomy Social history , lives alone Smokes 1 pack of cigarettes daily No alcohol Family history Noncontributory Review of systems A 10 point review of systems was undertaken and negative except that described above. Allergies Allergy/AdvReac Type Severity Reaction Status Date / Time Penicillins Allergy Severe SWELLING Verified 03/02/23 19:11 Sulfa (Sulfonamide Allergy Intermediate RASH Verified 03/02/23 19:11 Antibiotics) bupropion AdvReac Intermediate Hallucinati Verified 03/02/23 19:11 ng morphine AdvReac Intermediate bradycardia Verified 03/02/23 19:11 and hypotension promethazine AdvReac Intermediate bradycardia Verified 03/02/23 19:11 and hypotension Home Medications Medication Instructions Recorded Confirmed Type acetaminophen 650 mg 1,300 mg PO HS 08/07/18 03/02/23 History tablet,extended release (Tylenol Arthritis Pain) aspirin 81 mg tablet,delayed 81 mg PO DAILY 08/07/18 03/02/23 History release nitroglycerin 0.4 mg sublingual 0.4 mg sublingual UD PRN Chest 11/22/18 03/02/23 Rx tablet (Nitrostat) Pain #25 tabs nebulizers (Aeroneb Go Nebulizer) #1 ea 06/26/20 02/12/23 Rx Portable Oxygen #1 ea 08/16/21 02/12/23 Rx Depends Underwear #90 ea 09/13/21 02/12/23 Rx Non invasive ventilator DME #1 ea 02/07/22 02/12/23 Rx levothyroxine 112 mcg tablet 112 mcg PO DAILY #90 tabs 04/17/22 03/02/23 Rx (Synthroid) paroxetine HCl 40 mg tablet (Paxil) 40 mg PO DAILY #90 tabs 04/17/22 03/02/23 Rx atorvastatin 40 mg tablet (Lipitor) 40 mg PO DAILY #90 tabs 06/12/22 03/02/23 Rx ipratropium 20 mcg-albuterol 100 1 puff inhalation Q6H #3 Inhalers 07/29/22 03/02/23 Rx mcg/actuation mist for inhalation (Combivent Respimat) metoprolol tartrate 25 mg tablet 25 mg PO BID #60 tabs 09/22/22 03/02/23 Rx budesonide-formoterol HFA 160 2 puff inhalation BID #3 Inhalers 10/09/22 03/02/23 Rx mcg-4.5 mcg/actuation aerosol inhaler ipratropium 0.5 mg-albuterol 3 mg 3 ml inhalation QID #360 mL 10/09/22 03/02/23 Rx (2.5 mg base)/3 mL nebulization soln roflumilast 500 mcg tablet 500 mcg PO DAILY #90 tabs 10/09/22 03/02/23 Rx umeclidinium 62.5 mcg/actuation 1 inh inhalation DAILY #3 Inhalers 10/09/22 03/02/23 Rx blister powder for inhalation (Incruse Ellipta) furosemide 20 mg tablet 40 mg (2 x 20 mg) PO BID 90 days 12/10/22 03/02/23 Rx #360 tabs polysaccharide iron complex 150 mg 150 mg PO BID 90 days #180 caps 02/13/23 03/02/23 Rx iron capsule potassium chloride 10 mEq 20 meq (2 x 10 mEq) PO BID #360 02/13/23 03/02/23 Rx tablet,extended release tabs azithromycin 250 mg tablet 250 mg PO 3XWK 03/02/23 03/02/23 History calcium carbonate 300 mg (750 mg) 300 - 600 mg PO DIRECTED PRN 03/02/23 03/02/23 History chewable tablet (Calcium Antacid) HEARTBURN/INDIGESTION diphenhydramine HCl 25 mg capsule 25 mg PO DIRECTED PRN 03/02/23 03/02/23 History (Benadryl) SLEEP/CONGESTION Patient History Medical History (Updated 03/03/23 @ 12:16 by Ramon Talavera MD) Transaminitis Current smoker STEMI (ST elevation myocardial infarction) May 2014. Inferior wall myocardial infarction status post PCI with drug- eluting stent x2 to the RCA. Residual 80% stenosis of D1 CHF (congestive heart failure) Ventricular fibrillation Cardiac arrest Hypertension Surgical History History of lumbar discectomy History of left mastectomy History of excision of lesion History of intravascular stent placement History of tonsillectomy History of kidney surgery History of cholecystectomy History of appendectomy Family History Brother Brain cancer Mother Cancer of kidney Father Coronary arteriosclerosis Son Myocardial infarction Denies family history of Ovarian cancer Prostate cancer Breast cancer Colorectal cancer Social History Smoking Status: Unknown if ever smoked Tobacco Type: Cigarettes Age Started Using Tobacco: 15; packs per day: 0.5; Cigarettes Per Day: 20; Second Hand Exposure: No; Do You Dip or Chew Tobacco: No; Hx Alcohol Use: No Hx Substance Use: No Preferred Language: Albanian Communication Ability: Effective Visual Impairment: No Limitations Hearing Ability: Normal Fabric Inspector Required: No Beliefs That Will Affect Care: None marital status: / Current Living Situation: Alone 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 HEENT exam notes a BiPAP mask in place. Neck is supple with full carotid upstrokes. No obvious bruits. Jugular is pressure is difficult to assess. Cardiovascular exam reveals a regular rhythm with distant heart sounds. No obvious murmurs. No S3. Lungs note diffuse rhonchi. Abdomen is soft and nontender. Extremities reveal intact radial artery pulses bilaterally. Trace pretibial edema is noted. Results & Data Vital Signs (Past 12 Hours) Vital Signs Temp Pulse Pulse Resp BP BP Pulse Ox 03/03/23 10:07 66 21 96 03/03/23 10:07 68 20 96 03/03/23 07:18 65 03/03/23 06:59 69 24 97 03/03/23 06:59 69 24 97 03/03/23 05:10 74 20 110/84 97 03/03/23 04:41 95 H 30 H 96 03/03/23 04:41 102 H 30 H 96 03/03/23 02:15 70 23 98 03/03/23 02:00 69 21 99 03/03/23 02:00 67 20 111/82 99 03/03/23 01:30 68 28 H 98 03/03/23 01:02 71 29 H 98 03/03/23 01:00 36.9 C 72 23 102/74 99 03/03/23 00:30 72 26 H 98 03/03/23 00:00 72 25 H 96/71 L 99 O2 Del Method FiO2 03/03/23 10:07 40 03/03/23 10:07 BiPAP 40 03/03/23 07:18 03/03/23 06:59 40 03/03/23 06:59 BiPAP 40 03/03/23 05:10 BiPAP 03/03/23 04:41 40 03/03/23 04:41 BiPAP 40 03/03/23 02:15 40 03/03/23 02:00 BiPAP 03/03/23 02:00 BiPAP 03/03/23 01:30 BiPAP 03/03/23 01:02 BiPAP 03/03/23 01:00 BiPAP 03/03/23 00:30 BiPAP 03/03/23 00:00 BiPAP Laboratory Results CBC notes hemoglobin 11.9, hematocrit 30.6, white count 11.7, platelet count [id number]. Electrolytes note a sodium of 137, potassium 4.3, chloride 105, bicarb 25, BUN 12, creatinine 0.71, glucose of 155. Initial high sensitivity troponin was 79.3 with follow-up values of 620.9 and 686. Diagnostic Findings EKG notes sinus rhythm with occasional PVCs. Chest x-ray notes emphysematous changes and a right lower lobe infiltrate. PG Care Time/CCT Total # of Minutes Spent Total Time Spent with Patient: Total time spent is greater than 50% in coordination of care (as documented) at patient's floor/unit and/or counseling patient: Coding Level of Care Code 79601 INT INP/OBS CARE 3/75MIN Diagnoses Elevated troponin R79.89 CAD (coronary artery disease) I25.10 Chronic diastolic CHF (congestive heart failure) I50.32
--- NOTE | 2023-03-03 12:34 | Electrocardiogram Report ---
Test Reason : Blood Pressure : / mmHG Vent. Rate : 105 BPM Atrial Rate : 105 BPM P-R Int : 136 ms QRS Dur : 096 ms QT Int : 354 ms P-R-T Axes : 060 072 067 degrees QTc Int : 467 ms Poor data quality, interpretation may be adversely affected Sinus tachycardia Otherwise normal ECG When compared with ECG of 05-FEB-2022 08:03, Nonspecific T wave abnormality no longer evident in Lateral leads Confirmed by Ramon Talavera ([id number]) on 03/03/2023 12:33:51 PM Referred By: REFERRED SELF Confirmed By:Ramon Talvaera
--- NOTE | 2023-03-03 12:41 | Electrocardiogram Report ---
Test Reason : Blood Pressure : / mmHG Vent. Rate : 073 BPM Atrial Rate : 073 BPM P-R Int : 148 ms QRS Dur : 094 ms QT Int : 434 ms P-R-T Axes : 035 069 059 degrees QTc Int : 478 ms Sinus rhythm with occasional Premature ventricular complexes Otherwise normal ECG When compared with ECG of 02-MAR-2023 18:42, (unconfirmed) Fusion complexes are no longer Present Premature ventricular complexes are now Present Confirmed by Ramon Talavera ([id number]) on 03/03/2023 12:41:53 PM Referred By: REFERRED SELF Confirmed By:Ramon Talavera
--- NOTE | 2023-03-03 16:53 | Hospitalist Progress Note ---
Date of Service March 03, 2023 Assessment & Plan (1) Acute on chronic hypoxic respiratory failure: Plan: Likely secondary to COPD exacerbation and pneumonia of the right lower lobe Continue IV Solu-Medrol 40 mg IV every 8 Continue cefepime and azithromycin to treat pneumonia Improving slowly Follow blood and sputum cultures -on Budesonide and formoterol nebs BID17 -QIDr DuoNebs, incentive spirometry, flutter therapy -SQ lovenox for DVT PPX -AM CBC, BMP, mag, abg (2) Acute exacerbation of chronic obstructive pulmonary disease: Plan: -See acute on chronic hypoxic respiratory failure (3) Elevated troponin: Plan: Likely secondary to demand ischemia Cardiology consulted, no further cardiac workup/intervention recommended (4) Pneumonia: Plan: -See acute on chronic hypoxic respiratory failure (5) Current smoker: Plan: -Strongly encouraged cessation -Continue nicotine patches while admitted (6) Hypothyroidism: Plan: -Continue levothyroxine (7) CAD (coronary artery disease): (8) CHF (congestive heart failure): Plan: -Euvolemic Discontinued IV fluids Will start the patient on a clear liquid diet now that off of CPAP -Will plan to conitnue BID PO lasix tomorrow to avoid volume overload (9) Hypertension: Plan: -Stable -Continue metoprolol Admission and Anticipated Discharge Date Admission Date: March 02, 2023 Subjective Patient says that she is feeling better. Her breathing is more effortless today at rest. However when she gets out of bed, she gets short of breath. She is still coughing. "I think I am going to quit smoking" Review of Systems Review of Systems: All systems reviewed & are unremarkable except as noted in Subjective Physical Exam Physical Exam: General: Awake, conversant Heart: S1, S2/regular rate and rhythm, no murmur rubs or gallops Lungs: Diminished breath sounds. Bilateral wheezing. Prolonged expiration. Normal effort Abdomen: Soft/nontender/nondistended. No hepatosplenomegaly Extremities: No clubbing/cyanosis. No edema Behavior: Appropriate, cooperative Results & Data Results & Data Vital Signs (Past 12 Hours) Vital Signs Temp Pulse Pulse Resp BP BP Pulse Ox 03/03/23 16:38 36.9 C 03/03/23 16:00 66 20 114/72 94 03/03/23 15:39 61 21 96 03/03/23 13:05 36.8 C 67 20 130/70 99 03/03/23 13:02 67 21 130/76 98 03/03/23 13:00 03/03/23 12:32 03/03/23 12:00 65 21 112/74 97 03/03/23 10:07 66 21 96 03/03/23 10:07 68 20 96 03/03/23 07:18 65 03/03/23 06:59 69 24 97 03/03/23 06:59 69 24 97 03/03/23 05:10 74 20 110/84 97 O2 Del Method O2 Flow Rate FiO2 03/03/23 16:38 03/03/23 16:00 Oxymask 4 03/03/23 15:39 BiPAP 50 03/03/23 13:05 BiPAP 03/03/23 13:02 BiPAP 40 03/03/23 13:00 BiPAP 40 03/03/23 12:32 BiPAP 03/03/23 12:00 BiPAP 40 03/03/23 10:07 40 03/03/23 10:07 BiPAP 40 03/03/23 07:18 03/03/23 06:59 40 03/03/23 06:59 BiPAP 40 03/03/23 05:10 BiPAP Laboratory Results Abnormal lab results 03/02/23 03/02/23 03/03/23 Range/Units 18:40 21:12 03:19 WBC 11.70 H 11.76 H (4.8-10.8) K/ul Hgb 11.9 L (12.0-16.0) g/dl MCHC 31.7 L 30.8 L (32.0-36.0) g/dL MPV 9.1 L 9.3 L (9.4-12.4) fL Neut # (Auto) 9.20 H 10.53 H (1.40-6.50) K/uL Lymph # (Auto) 0.46 L (1.20-3.40) K/uL [place] # (Auto) 1.00 H 0.60 H (0.11-0.59) K/uL Glucose 128 H 155 H (70-99(Fasting)) mg/dl Troponin I High Sens 79.3 H* 628.9 H* D 686.0 H* (0-14) pg/ml Urine Protein (Negative) Urine WBC (Auto) (0-5) /hpf U Hyaline Cast (Auto) (0-5) /lpf U Epithel Cells (Auto) (0-5) /lpf 03/03/23 03/03/23 03/03/23 Range/Units 04:58 09:55 14:52 WBC (4.8-10.8) K/ul Hgb (12.0-16.0) g/dl MCHC (32.0-36.0) g/dL MPV (9.4-12.4) fL Neut # (Auto) (1.40-6.50) K/uL Lymph # (Auto) (1.20-3.40) K/uL [place] # (Auto) (0.11-0.59) K/uL Glucose (70-99(Fasting)) mg/dl Troponin I High Sens 527.2 H* D 343.6 H* D (0-14) pg/ml Urine Protein 2+ H (Negative) Urine WBC (Auto) 5-10 H (0-5) /hpf U Hyaline Cast (Auto) 5-10 H (0-5) /lpf U Epithel Cells (Auto) >30 H (0-5) /lpf Diagnostic Findings Chest X-Ray 03/02/23 18:38 XR chest 1V portable CLINICAL HISTORY: Sepsis. COMPARISON STUDY: Chest radiograph February 05, 2022. Chest CT June 27, 2014. FINDINGS: Emphysema is present. There is no pneumothorax or pleural effusion. Cardiomediastinal silhouette is unremarkable. There is mild reticulonodular interstitial thickening. Patchy right lower lung opacities are present. There are left axillary surgical clips. IMPRESSION: 1. Patchy right lower lung airspace opacities which favor an infectious process. Radiographic follow-up to ensure resolution is recommended. 2. Emphysema. ACT 112: Negative or not required by law. Electronically signed by: Pavel Henao M.D. 03/02/2023 7:08 PM PG Care Time/CCT Total # of Minutes Spent Total Time Spent with Patient: Total time spent is greater than 50% in coordination of care (as documented) at patient's floor/unit and/or counseling patient: Coding Level of Care Code 87377 SUB INP/OBS CARE 2/35MIN Diagnoses Acute on chronic hypoxic respiratory failure J96.21 Acute exacerbation of chronic obstructive pulmonary disease J44.1 Elevated troponin R79.89 Pneumonia J18.9 Laterality: right Lung location: unspecified part of lung Pneumonia type: due to unspecified organism Current smoker F17.200 Hypothyroidism, unspecified type E03.9 Hypothyroidism type: unspecified CAD (coronary artery disease) I25.10 Chronic congestive heart failure, unspecified heart failure type I50.9 Heart failure type: unspecified Heart failure chronicity: chronic Essential hypertension I10 Hypertension type: essential hypertension (4) Pneumonia Laterality: right Lung location: unspecified part of lung Pneumonia type: due to unspecified organism Qualified Code(s): J18.9 - Pneumonia, unspecified organism (6) Hypothyroidism Hypothyroidism type: unspecified Qualified Code(s): E03.9 - Hypothyroidism, unspecified (8) CHF (congestive heart failure) Heart failure type: unspecified Heart failure chronicity: chronic Qualified Code(s): I50.9 - Heart failure, unspecified (9) Hypertension Hypertension type: essential hypertension Qualified Code(s): I10 - Essential (primary) hypertension
[2023-03-04] MEDS: ALBUT/IPRATROP 3MG/0.5MG NEB 3 ML VIAL NEB SCH ×5 (03:34→19:43)
[2023-03-04 04:30] LABS: Hematocrit (blood only) 34.4 % (37.0-47.0); Hemoglobin 11.1 g/dl (12.0-16.0); Immature Granulocytes # (auto) 0.07 K/uL (0.01-0.20); Immature Granulocytes % (auto) 0.8 %; Lymphocytes # (auto) 0.48 K/uL (1.20-3.40); Lymphocytes % (auto) 5.4 %; Mean Corpuscular Hemoglobin 28.7 pg (25.0-34.0); Mean Corpuscular Hgb Conc 32.3 g/dL (32.0-36.0); Mean Corpuscular Volume 88.9 fL (80.0-100.0); Mean Platelet Volume 9.9 fL (9.4-12.4); Monocytes % (auto) 4.5 %; Neutrophils # (auto) 7.93 K/uL (1.40-6.50); Neutrophils % (auto) 89.3 %; Platelet Count 225 K/uL (130-400); RDW Coefficient of Variation 13.5 % (11.5-14.5); RDW Standard Deviation 44.2 fL (36.4-46.3); Red Blood Count 3.87 M/uL (4.20-5.40); White Blood Count 8.88 K/ul (4.8-10.8)
[2023-03-04] MEDS: CEFEPIME 2,000 MG in SYRINGE 0 ML IV SCH (04:30)
[2023-03-04] MEDS: HEPARIN SODIUM/DEXTROSE 25,000 UNITS/500 ML BAG IV SCH (04:36)
[2023-03-04 04:46] LABS: BUN Creatinine Ratio 27.8 (10-20); Calcium 9.7 mg/dl (8.6-10.3); Creatinine Clr Calc Pharmacy 55.2 ml/min; Est GFR (African American) 71.5 ml/min; Est GFR (Non-African American) 61.7 ml/min; Potassium 4.2 mmol/L (3.5-5.1)
[2023-03-04] MEDS: LEVOTHYROXINE SODIUM 112 MCG TABLET PO SCH (06:22)
[2023-03-04] MEDS: FORMOTEROL 20 MCG/2 ML VIAL NEB SCH ×2 (07:31→19:43)
[2023-03-04] MEDS: BUDESONIDE 0.5 MG/2 ML VIAL (PULMICORT) NEB SCH ×2 (07:32→19:43)
[2023-03-04 08:17] LABS: ANTI-Xa, UFH(UnfractionatedHep 0.21 IU/ml (0.3-0.7)
[2023-03-04] MEDS: ASPIRIN 81 MG ECTAB PO SCH (08:26)
[2023-03-04] MEDS: methylPREDNISolone 40 MG in SYRINGE 0 ML IV SCH ×2 (08:26→20:29)
[2023-03-04] MEDS: NICOTINE 21 MG/24 HR TDSY TD SCH (08:27)
[2023-03-04] MEDS: METOPROLOL TARTRATE 25 MG TAB PO SCH ×2 (08:27→20:05)
[2023-03-04] MEDS: IRON POLYSACCHARIDE COMPLEX 150 MG CAPSULE PO SCH ×2 (08:27→20:04)
[2023-03-04] MEDS: ATORVASTATIN 40 MG TAB PO SCH (08:28)
[2023-03-04] MEDS: ROFLUMILAST 500 MCG TAB PO SCH (08:28)
[2023-03-04] MEDS: PARoxetine HCL 20 MG TAB PO SCH (08:28)
[2023-03-04] MEDS: AZITHROMYCIN 250 MG TAB PO SCH (09:10)
[2023-03-04] MEDS: ENOXAPARIN INJ 40 MG/0.4 ML SYR SQ SCH (09:10)
[2023-03-04] MEDS: UMECLIDINIUM BROMIDE 62.5MCG/BLISTER 7 PUFFS/INHALER INH SCH (09:11)
[2023-03-04] MEDS: cefTRIAXone SODIUM 2,000 MG in DEXTROSE 5 % MINI-B 50 ML IV SCH (12:22)
[2023-03-04] MEDS: FUROSEMIDE 40 MG TAB PO SCH ×2 (13:14→20:04)
--- NOTE | 2023-03-04 14:27 | Hospitalist Progress Note ---
Date of Service March 04, 2023 Assessment & Plan (1) Acute on chronic hypoxic respiratory failure: Plan: Likely secondary to COPD exacerbation and pneumonia of the right lower lobe Reduce Solu-Medrol to 40 mg IV twice daily Continue azithromycin, switch from cefepime to ceftriaxone to treat pneumonia Improving slowly Follow blood and sputum cultures -on Budesonide and formoterol nebs BID17 -QIDr DuoNebs, incentive spirometry, flutter therapy -SQ lovenox for DVT PPX -AM CBC, BMP, mag, abg (2) Acute exacerbation of chronic obstructive pulmonary disease: Plan: -See acute on chronic hypoxic respiratory failure (3) Elevated troponin: Plan: Likely secondary to demand ischemia Cardiology consulted, no further cardiac workup/intervention recommended Discontinued heparin drip (4) Pneumonia: Plan: -See acute on chronic hypoxic respiratory failure (5) Current smoker: Plan: -Strongly encouraged cessation -Continue nicotine patches while admitted (6) Hypothyroidism: Plan: -Continue levothyroxine (7) CAD (coronary artery disease): (8) CHF (congestive heart failure): Plan: -Euvolemic Discontinued IV fluids Start the patient on a heart healthy solid diet Resume Lasix twice daily home dose (9) Hypertension: Plan: -Stable -Continue metoprolol Plan DVT prophylaxis: Lovenox CODE STATUS: DNR/DNI Admission and Anticipated Discharge Date Admission Date: March 02, 2023 Subjective Patient says that she continues to feel better but not back to her usual baseline yet. She still gets winded with exertion. She is now on 4 L of oxygen. At home she is on 2 L chronically Review of Systems Review of Systems: All systems reviewed & are unremarkable except as noted in Subjective Physical Exam Physical Exam: General: Awake, conversant Heart: S1, S2/regular rate and rhythm, no murmur rubs or gallops Lungs: Diminished breath sounds. Bilateral wheezing slightly better today. Prolonged expiration. Normal effort Abdomen: Soft/nontender/nondistended. No hepatosplenomegaly Extremities: No clubbing/cyanosis. No edema Behavior: Appropriate, cooperative Results & Data Results & Data Vital Signs (Past 12 Hours) Vital Signs Temp Pulse Pulse Pulse Resp BP Pulse Ox 03/04/23 11:43 36.6 C 80 24 129/82 95 03/04/23 11:14 68 18 98 03/04/23 09:00 36.6 C 79 20 142/85 H 97 03/04/23 08:00 03/04/23 08:00 75 03/04/23 07:32 77 18 97 03/04/23 05:00 36.8 C 68 22 130/75 100 03/04/23 03:34 24 97 03/04/23 03:34 65 22 98 O2 Del Method O2 Flow Rate FiO2 03/04/23 11:43 Nasal Cannula 2 03/04/23 11:14 Nasal Cannula 5 03/04/23 09:00 Nasal Cannula 2 03/04/23 08:00 Nasal Cannula 2 03/04/23 08:00 03/04/23 07:32 BiPAP 40 03/04/23 05:00 BiPAP 03/04/23 03:34 BiPAP 40 03/04/23 03:34 40 Laboratory Results Abnormal lab results 03/03/23 03/03/23 03/04/23 Range/Units 14:52 21:32 03:47 RBC 3.87 L (4.20-5.40) M/uL Hgb 11.1 L (12.0-16.0) g/dl Hct 34.4 L (37.0-47.0) % Neut # (Auto) 7.93 H (1.40-6.50) K/uL Lymph # (Auto) 0.48 L (1.20-3.40) K/uL Heparin Anti-Xa, Unfract (0.3-0.7) IU/ml BUN 25 H (6-23) mg/dl BUN/Creatinine Ratio 27.8 H (10-20) Glucose 147 H (70-99(Fasting)) mg/dl Troponin I High Sens 343.6 H* D 271.2 H* D (0-14) pg/ml 03/04/23 Range/Units 07:20 RBC (4.20-5.40) M/uL Hgb (12.0-16.0) g/dl Hct (37.0-47.0) % Neut # (Auto) (1.40-6.50) K/uL Lymph # (Auto) (1.20-3.40) K/uL Heparin Anti-Xa, Unfract 0.21 L (0.3-0.7) IU/ml BUN (6-23) mg/dl BUN/Creatinine Ratio (10-20) Glucose (70-99(Fasting)) mg/dl Troponin I High Sens (0-14) pg/ml PG Care Time/CCT Total # of Minutes Spent Total Time Spent with Patient: Total time spent is greater than 50% in coordination of care (as documented) at patient's floor/unit and/or counseling patient: Coding Level of Care Code 33930 SUB INP/OBS CARE 2/35MIN Diagnoses Acute on chronic hypoxic respiratory failure J96.21 Acute exacerbation of chronic obstructive pulmonary disease J44.1 Elevated troponin R79.89 Pneumonia J18.9 Laterality: right Lung location: unspecified part of lung Pneumonia type: due to unspecified organism Current smoker F17.200 Hypothyroidism, unspecified type E03.9 Hypothyroidism type: unspecified CAD (coronary artery disease) I25.10 Chronic congestive heart failure, unspecified heart failure type I50.9 Heart failure type: unspecified Heart failure chronicity: chronic Essential hypertension I10 Hypertension type: essential hypertension (4) Pneumonia Laterality: right Lung location: unspecified part of lung Pneumonia type: due to unspecified organism Qualified Code(s): J18.9 - Pneumonia, unspecified organism (6) Hypothyroidism Hypothyroidism type: unspecified Qualified Code(s): E03.9 - Hypothyroidism, unspecified (8) CHF (congestive heart failure) Heart failure type: unspecified Heart failure chronicity: chronic Qualified Code(s): I50.9 - Heart failure, unspecified (9) Hypertension Hypertension type: essential hypertension Qualified Code(s): I10 - Essential (primary) hypertension
[2023-03-05] MEDS: ALBUT/IPRATROP 3MG/0.5MG NEB 3 ML VIAL NEB SCH ×7 (00:58→23:00)
[2023-03-05 04:38] LABS: Basophils # (auto) 0.01 K/uL (0.00-0.20); Basophils % (auto) 0.1 %; Hematocrit (blood only) 37.8 % (37.0-47.0); Hemoglobin 11.8 g/dl (12.0-16.0); Immature Granulocytes # (auto) 0.06 K/uL (0.01-0.20); Immature Granulocytes % (auto) 0.8 %; Lymphocytes # (auto) 0.49 K/uL (1.20-3.40); Lymphocytes % (auto) 6.7 %; Mean Corpuscular Hgb Conc 31.2 g/dL (32.0-36.0); Mean Corpuscular Volume 89.8 fL (80.0-100.0); Mean Platelet Volume 9.5 fL (9.4-12.4); Monocytes # (auto) 0.44 K/uL (0.11-0.59); Monocytes % (auto) 6.1 %; Neutrophils # (auto) 6.27 K/uL (1.40-6.50); Neutrophils % (auto) 86.3 %; Platelet Count 245 K/uL (130-400); RDW Coefficient of Variation 13.4 % (11.5-14.5); RDW Standard Deviation 44.2 fL (36.4-46.3); Red Blood Count 4.21 M/uL (4.20-5.40); White Blood Count 7.27 K/ul (4.8-10.8)
[2023-03-05 04:56] LABS: BUN Creatinine Ratio 28.8 (10-20); Calcium 9.7 mg/dl (8.6-10.3); Creatinine Clr Calc Pharmacy 39.8 ml/min; Est GFR (African American) 48.1 ml/min; Est GFR (Non-African American) 41.5 ml/min; Potassium 3.8 mmol/L (3.5-5.1)
[2023-03-05] MEDS: LEVOTHYROXINE SODIUM 112 MCG TABLET PO SCH (05:35)
[2023-03-05] MEDS: FORMOTEROL 20 MCG/2 ML VIAL NEB SCH ×2 (07:53→19:34)
[2023-03-05] MEDS: BUDESONIDE 0.5 MG/2 ML VIAL (PULMICORT) NEB SCH ×2 (07:53→19:34)
[2023-03-05] MEDS: AZITHROMYCIN 250 MG TAB PO SCH (08:05)
[2023-03-05] MEDS: PARoxetine HCL 20 MG TAB PO SCH (08:05)
[2023-03-05] MEDS: FUROSEMIDE 40 MG TAB PO SCH ×2 (08:05→20:35)
[2023-03-05] MEDS: methylPREDNISolone 40 MG in SYRINGE 0 ML IV SCH (08:05)
[2023-03-05] MEDS: NICOTINE 21 MG/24 HR TDSY TD SCH (08:05)
[2023-03-05] MEDS: METOPROLOL TARTRATE 25 MG TAB PO SCH ×2 (08:05→20:35)
[2023-03-05] MEDS: ENOXAPARIN INJ 40 MG/0.4 ML SYR SQ SCH (08:06)
[2023-03-05] MEDS: UMECLIDINIUM BROMIDE 62.5MCG/BLISTER 7 PUFFS/INHALER INH SCH (08:06)
[2023-03-05] MEDS: ROFLUMILAST 500 MCG TAB PO SCH (08:06)
[2023-03-05] MEDS: ASPIRIN 81 MG ECTAB PO SCH (08:06)
[2023-03-05] MEDS: IRON POLYSACCHARIDE COMPLEX 150 MG CAPSULE PO SCH ×2 (08:06→20:35)
[2023-03-05] MEDS: ATORVASTATIN 40 MG TAB PO SCH (08:06)
[2023-03-05] MEDS: cefTRIAXone SODIUM 2,000 MG in DEXTROSE 5 % MINI-B 50 ML IV SCH (11:36)
[2023-03-05] MEDS ORDERED: FUROSEMIDE 40 MG TAB PO ONE (13:08)
[2023-03-05] MEDS ORDERED: POTASSIUM CHLORIDE CRTAB 20 MEQ TABCR PO STA (13:08)
--- NOTE | 2023-03-05 13:35 | Hospitalist Progress Note ---
Date of Service March 05, 2023 Assessment & Plan (1) Acute on chronic hypoxic respiratory failure: Plan: Likely secondary to COPD exacerbation and pneumonia of the right lower lobe Reduce Solu-Medrol further to 40 mg IV daily Continue azithromycin, ceftriaxone to treat pneumonia Improving slowly Follow blood and sputum cultures -on Budesonide and formoterol nebs BID17 -QIDr DuoNebs, incentive spirometry, flutter therapy -SQ lovenox for DVT PPX -AM CBC, BMP, mag, abg (2) Acute exacerbation of chronic obstructive pulmonary disease: Plan: -See acute on chronic hypoxic respiratory failure (3) Elevated troponin: Plan: Likely secondary to demand ischemia Cardiology consulted, no further cardiac workup/intervention recommended Discontinued heparin drip (4) Pneumonia: Plan: -See acute on chronic hypoxic respiratory failure (5) Current smoker: Plan: -Strongly encouraged cessation -Continue nicotine patches while admitted (6) Hypothyroidism: Plan: -Continue levothyroxine (7) CAD (coronary artery disease): (8) CHF (congestive heart failure): Plan: -Patient feels like she is a little fluid overloaded She feels as though she has "fluid in her lungs" Normally she takes an extra dose of Lasix when she feels like this on top of he r twice a day dosing of Lasix Extra 40 mg p.o. Lasix with potassium supplements ordered Check BMP in a.m. (9) Hypertension: Plan: -Stable -Continue metoprolol Plan DVT prophylaxis: Lovenox CODE STATUS: DNR/DNI Admission and Anticipated Discharge Date Admission Date: March 02, 2023 Subjective Patient says that she feels like there is fluid in her lungs today. She has had fluid in her lungs before and she felt the same way. She says that normally she takes Lasix extra dose on top of her twice a day dosing when she feels like this. She denies any leg swelling or increased abdominal girth. Review of Systems Review of Systems: All systems reviewed & are unremarkable except as noted in Subjective Physical Exam Physical Exam: General: Awake, conversant Heart: S1, S2/regular rate and rhythm, no murmur rubs or gallops Lungs: Diminished breath sounds. No wheezing heard today. Prolonged expiration. Normal effort Abdomen: Soft/nontender/nondistended. No hepatosplenomegaly Extremities: No clubbing/cyanosis. No edema Behavior: Appropriate, cooperative Results & Data Results & Data Vital Signs (Past 12 Hours) Vital Signs Temp Pulse Pulse Resp BP BP Pulse Ox 03/05/23 12:00 36.8 C 70 22 143/89 H 99 03/05/23 11:34 03/05/23 11:17 111 H 31 H 98 03/05/23 11:17 111 H 31 H 98 03/05/23 08:38 03/05/23 08:38 83 03/05/23 07:53 88 17 96 03/05/23 07:33 36.8 C 86 20 150/102 H 94 03/05/23 05:00 74 29 H 142/91 H 95 03/05/23 04:00 76 34 H 135/74 94 03/05/23 03:00 85 18 97 03/05/23 02:48 80 18 96 03/05/23 02:00 68 25 H 99 Pulse Ox O2 Del Method O2 Flow Rate O2 Flow Rate FiO2 03/05/23 12:00 CPAP 03/05/23 11:34 88 L 2 03/05/23 11:17 BiPAP 40 03/05/23 11:17 40 03/05/23 08:38 Nasal Cannula 2 03/05/23 08:38 03/05/23 07:53 Nasal Cannula 2 03/05/23 07:33 Nasal Cannula 4 03/05/23 05:00 03/05/23 04:00 03/05/23 03:00 03/05/23 02:48 Nasal Cannula 4 03/05/23 02:00 Laboratory Results Abnormal lab results 03/04/23 03/05/23 Range/Units 16:17 04:13 Hgb 11.8 L (12.0-16.0) g/dl MCHC 31.2 L (32.0-36.0) g/dL Lymph # (Auto) 0.49 L (1.20-3.40) K/uL BUN 36 H (6-23) mg/dl Creatinine 1.25 H D (0.6-1.2) mg/dl BUN/Creatinine Ratio 28.8 H (10-20) Glucose 141 H (70-99(Fasting)) mg/dl POC Glucose 125 H (70-99) mg/dl PG Care Time/CCT Total # of Minutes Spent Total Time Spent with Patient: Total time spent is greater than 50% in coordination of care (as documented) at patient's floor/unit and/or counseling patient: Coding Level of Care Code 75994 SUB INP/OBS CARE MIN Diagnoses Acute on chronic hypoxic respiratory failure J96.21 Acute exacerbation of chronic obstructive pulmonary disease J44.1 Elevated troponin R79.89 Pneumonia J18.9 Laterality: right Lung location: unspecified part of lung Pneumonia type: due to unspecified organism Current smoker F17.200 Hypothyroidism, unspecified type E03.9 Hypothyroidism type: unspecified CAD (coronary artery disease) I25.10 Chronic congestive heart failure, unspecified heart failure type I50.9 Heart failure type: unspecified Heart failure chronicity: chronic Essential hypertension I10 Hypertension type: essential hypertension (4) Pneumonia Laterality: right Lung location: unspecified part of lung Pneumonia type: due to unspecified organism Qualified Code(s): J18.9 - Pneumonia, unspecified organism (6) Hypothyroidism Hypothyroidism type: unspecified Qualified Code(s): E03.9 - Hypothyroidism, unspecified (8) CHF (congestive heart failure) Heart failure type: unspecified Heart failure chronicity: chronic Qualified Code(s): I50.9 - Heart failure, unspecified (9) Hypertension Hypertension type: essential hypertension Qualified Code(s): I10 - Essential (primary) hypertension
[2023-03-05] MEDS ORDERED: hydrALAZINE HCL 20 MG/ML VIAL IV PRN (15:37)
[2023-03-06] MEDS: ALBUT/IPRATROP 3MG/0.5MG NEB 3 ML VIAL NEB SCH ×6 (03:24→23:28)
[2023-03-06] MEDS: LEVOTHYROXINE SODIUM 112 MCG TABLET PO SCH (07:02)
[2023-03-06] MEDS: FORMOTEROL 20 MCG/2 ML VIAL NEB SCH ×2 (07:18→19:53)
[2023-03-06] MEDS: BUDESONIDE 0.5 MG/2 ML VIAL (PULMICORT) NEB SCH ×2 (07:18→19:53)
[2023-03-06] MEDS: METOPROLOL TARTRATE 25 MG TAB PO SCH ×2 (07:58→20:17)
[2023-03-06] MEDS: UMECLIDINIUM BROMIDE 62.5MCG/BLISTER 7 PUFFS/INHALER INH SCH (07:58)
[2023-03-06] MEDS: ASPIRIN 81 MG ECTAB PO SCH (07:59)
[2023-03-06] MEDS: NICOTINE 21 MG/24 HR TDSY TD SCH (07:59)
[2023-03-06] MEDS: IRON POLYSACCHARIDE COMPLEX 150 MG CAPSULE PO SCH ×2 (07:59→20:17)
[2023-03-06] MEDS: FUROSEMIDE 40 MG TAB PO SCH ×2 (07:59→20:16)
[2023-03-06] MEDS: ROFLUMILAST 500 MCG TAB PO SCH (08:00)
[2023-03-06] MEDS: ENOXAPARIN INJ 40 MG/0.4 ML SYR SQ SCH (08:00)
[2023-03-06] MEDS: PARoxetine HCL 20 MG TAB PO SCH (08:00)
[2023-03-06] MEDS: ATORVASTATIN 40 MG TAB PO SCH (08:00)
[2023-03-06] MEDS: AZITHROMYCIN 250 MG TAB PO SCH (08:00)
[2023-03-06 08:39] LABS: Hematocrit (blood only) 43.7 % (37.0-47.0); Hemoglobin 14.1 g/dl (12.0-16.0); Mean Corpuscular Hemoglobin 28.7 pg (25.0-34.0); Mean Corpuscular Hgb Conc 32.3 g/dL (32.0-36.0); Mean Platelet Volume 9.3 fL (9.4-12.4); Platelet Count 300 K/uL (130-400); RDW Coefficient of Variation 13.5 % (11.5-14.5); RDW Standard Deviation 44.1 fL (36.4-46.3); Red Blood Count 4.91 M/uL (4.20-5.40); White Blood Count 9.45 K/ul (4.8-10.8)
[2023-03-06 08:46] LABS: BUN Creatinine Ratio 26.6 (10-20); Calcium 10.1 mg/dl (8.6-10.3); Creatinine Clr Calc Pharmacy 38.7 ml/min; Est GFR (African American) 46.7 ml/min; Est GFR (Non-African American) 40.3 ml/min; Potassium 3.4 mmol/L (3.5-5.1)
[2023-03-06] MEDS ORDERED: methylPREDNISolone 40 MG in SYRINGE 0 ML IV SCH (09:00)
[2023-03-06] MEDS ORDERED: FUROSEMIDE 40 MG TAB PO ONE (11:05)
[2023-03-06] MEDS: cefTRIAXone SODIUM 2,000 MG in DEXTROSE 5 % MINI-B 50 ML IV SCH (11:42)
--- NOTE | 2023-03-06 13:34 | Hospitalist Progress Note ---
Date of Service March 06, 2023 Assessment & Plan (1) Acute on chronic hypoxic respiratory failure: Plan: Likely secondary to COPD exacerbation and pneumonia of the right lower lobe Switch from IV Solu-Medrol to p.o. prednisone today Continue azithromycin, ceftriaxone to treat pneumonia Improving slowly Follow blood and sputum cultures -on Budesonide and formoterol nebs BID17 -QIDr DuoNebs, incentive spirometry, flutter therapy -SQ lovenox for DVT PPX -AM CBC, BMP, mag, abg (2) Acute exacerbation of chronic obstructive pulmonary disease: Plan: -See acute on chronic hypoxic respiratory failure (3) Elevated troponin: Plan: Likely secondary to demand ischemia Cardiology consulted, no further cardiac workup/intervention recommended Discontinued heparin drip (4) Pneumonia: Plan: -See acute on chronic hypoxic respiratory failure (5) Current smoker: Plan: -Strongly encouraged cessation -Continue nicotine patches while admitted (6) Hypothyroidism: Plan: -Continue levothyroxine (7) CAD (coronary artery disease): (8) CHF (congestive heart failure): Plan: She felt as though she has "fluid in her lungs" and was given an extra dose of Lasix to which she responded well. She does not feel as short of breath today and says she had a good urine output in response to the Lasix She still feels that she needs another dose of Lasix today Normally she takes an extra dose of Lasix when she feels like this on top of her twice a day dosing of Lasix Extra 40 mg p.o. Lasix with potassium supplements ordered Check BMP in a.m. (9) Hypertension: Plan: -Stable -Continue metoprolol Plan DVT prophylaxis: Lovenox CODE STATUS: DNR/DNI Admission and Anticipated Discharge Date Admission Date: March 02, 2023 Subjective Patient feels better today. Yesterday she had said that her lungs were filling up with fluid. She got Lasix extra dose and her breathing has improved. She says that she would dose herself an extra Lasix pill again today as she is still does not feel like she is back to her usual baseline Review of Systems Review of Systems: All systems reviewed & are unremarkable except as noted in Subjective Physical Exam Physical Exam: General: Awake, conversant Heart: S1, S2/regular rate and rhythm, no murmur rubs or gallops Lungs: Diminished breath sounds. No wheezing heard today. Prolonged expiration. Normal effort Abdomen: Soft/nontender/nondistended. No hepatosplenomegaly Extremities: No clubbing/cyanosis. No edema Behavior: Appropriate, cooperative Results & Data Results & Data Vital Signs (Past 12 Hours) Vital Signs Temp Pulse Pulse Resp BP BP Pulse Ox 03/06/23 11:03 36.5 C 67 20 109/66 96 03/06/23 10:46 68 20 96 03/06/23 08:00 98 H 130/83 94 03/06/23 07:40 03/06/23 07:39 68 03/06/23 07:18 76 17 99 03/06/23 04:00 36.6 C 79 20 125/74 97 03/06/23 03:20 72 18 99 O2 Del Method O2 Flow Rate 03/06/23 11:03 Room Air 03/06/23 10:46 Nasal Cannula 2 03/06/23 08:00 Nasal Cannula 4 03/06/23 07:40 Nasal Cannula 4 03/06/23 07:39 03/06/23 07:18 Nasal Cannula 2 03/06/23 04:00 Nasal Cannula 4 03/06/23 03:20 Nasal Cannula 2 Laboratory Results Abnormal lab results 03/06/23 Range/Units 08:12 MPV 9.3 L (9.4-12.4) fL Potassium 3.4 L (3.5-5.1) mmol/L BUN 34 H (6-23) mg/dl Creatinine 1.28 H (0.6-1.2) mg/dl BUN/Creatinine Ratio 26.6 H (10-20) Glucose 126 H (70-99(Fasting)) mg/dl PG Care Time/CCT Total # of Minutes Spent Total Time Spent with Patient: Total time spent is greater than 50% in coordination of care (as documented) at patient's floor/unit and/or counseling patient: Coding Level of Care Code 90448 SUB INP/OBS CARE 2/35MIN Diagnoses Acute on chronic hypoxic respiratory failure J96.21 Acute exacerbation of chronic obstructive pulmonary disease J44.1 Elevated troponin R79.89 Pneumonia J18.9 Laterality: right Lung location: unspecified part of lung Pneumonia type: due to unspecified organism Current smoker F17.200 Hypothyroidism, unspecified type E03.9 Hypothyroidism type: unspecified CAD (coronary artery disease) I25.10 Chronic congestive heart failure, unspecified heart failure type I50.9 Heart failure type: unspecified Heart failure chronicity: chronic Essential hypertension I10 Hypertension type: essential hypertension (4) Pneumonia Laterality: right Lung location: unspecified part of lung Pneumonia type: due to unspecified organism Qualified Code(s): J18.9 - Pneumonia, unspecified organism (6) Hypothyroidism Hypothyroidism type: unspecified Qualified Code(s): E03.9 - Hypothyroidism, unspecified (8) CHF (congestive heart failure) Heart failure type: unspecified Heart failure chronicity: chronic Qualified Code(s): I50.9 - Heart failure, unspecified (9) Hypertension Hypertension type: essential hypertension Qualified Code(s): I10 - Essential (primary) hypertension
[2023-03-07] MEDS: ALBUT/IPRATROP 3MG/0.5MG NEB 3 ML VIAL NEB SCH ×2 (03:09→07:27)
[2023-03-07 04:47] LABS: BUN Creatinine Ratio 25.6 (10-20); Calcium 10.2 mg/dl (8.6-10.3); Creatinine Clr Calc Pharmacy 38.4 ml/min; Est GFR (African American) 46.3 ml/min; Est GFR (Non-African American) 39.9 ml/min; Potassium 3.5 mmol/L (3.5-5.1)
[2023-03-07] MEDS: LEVOTHYROXINE SODIUM 112 MCG TABLET PO SCH (05:59)
[2023-03-07] MEDS: FORMOTEROL 20 MCG/2 ML VIAL NEB SCH (07:26)
[2023-03-07] MEDS: BUDESONIDE 0.5 MG/2 ML VIAL (PULMICORT) NEB SCH (07:26)
[2023-03-07] MEDS: AZITHROMYCIN 250 MG TAB PO SCH (08:53)
[2023-03-07] MEDS: IRON POLYSACCHARIDE COMPLEX 150 MG CAPSULE PO SCH (08:53)
[2023-03-07] MEDS: ROFLUMILAST 500 MCG TAB PO SCH (08:53)
[2023-03-07] MEDS: NICOTINE 21 MG/24 HR TDSY TD SCH (08:53)
[2023-03-07] MEDS: ATORVASTATIN 40 MG TAB PO SCH (08:54)
[2023-03-07] MEDS: ASPIRIN 81 MG ECTAB PO SCH (08:54)
[2023-03-07] MEDS: ENOXAPARIN INJ 40 MG/0.4 ML SYR SQ SCH (08:54)
[2023-03-07] MEDS: PARoxetine HCL 20 MG TAB PO SCH (08:54)
[2023-03-07] MEDS: UMECLIDINIUM BROMIDE 62.5MCG/BLISTER 7 PUFFS/INHALER INH SCH (08:55)
[2023-03-07] MEDS ORDERED: predniSONE 20 MG TAB PO SCH (09:00)
[2023-03-07] MEDS: FUROSEMIDE 40 MG TAB PO SCH (09:31)
--- NOTE | 2023-03-07 09:43 | Discharge Summary ---
Date of Service March 07, 2023 Admission HPI Per Admitting Provider Jackelyn is a 77-year-old female with a history of chronic respiratory failure with hypoxia and hypercapnia, HFpEF, severe COPD, tobacco abuse smoking 1ppd x >40 years, CKD 3, coronary artery disease with STEMI in 2015 s/p 2x AVERY in RCA, hyperlipidemia hypertension, anxiety and depression who presented to the [facility] ED via EMS on 03/02/23 with complaints acute of chronic respiratory failure. EMS noted the patient to be in significant respiratory distress and placed her on Bipap. She was given 125 mg IV Solu-medrol and a DuoNeb treatment in route. On arrival she was stable on CPAP, tachycardic at 100, with a temp of 37.6C. Labs were significant for a leukocytosis of 11 with neutrophil predominance of 11, initial high sen trop of 79, and full respiratory biofire negative. Prior to admission the patient was given 1L NSS and a dose of Cefepime. At the time of the exam the patient was sitting in bed in no acute distress, currently comfortable on Bipap with her family bedisde. She states that she has been felling generally unwell for the past 2 weeks. Over the past 2-3 days she has noticed an increased in her chronic cough, green sputum production, and increased SOB. She woke up this am and was significantly more SOB after taking her HS CPAP off. She placed her normal 2L NC on but was too SOB and called EM. She has been experiencing BL lower rib pain when coughing but denies chest pain at rest, hemoptysis, abd pain, nausea, vomiting, diarrhea, dysuria, hematuria, melena, LE swelling, and recent trauma. She is still smoking 1PPD and states "I think I am going to quit now". I stressed the importance of cessation to avoid further Pulmonary compromise. We discussed code status, she is a DNR/DNI. I explained that if she were to continue to decompensate on CPAP/Bipap the next step would be comfort measures. The patient expressed understanding and agreement with the plan. Please refer to Dr. Lindo's attestation for any changes to the treatment plan Admission Exam Per Admitting Provider General: In no acute distress, stated age, chronically ill appearing, smells of smoke HEENT: Normocephalic, atraumatic, no scleral icterus, pupils around round, symmetrical, and reactive to light, dry mucus membranes, trachea midline, no thyromegaly Chest/Pulm: No respiratory distress while on CPAP/Bipap, symmetrical chest expansion, rhonchi noted in the RLL with expiratory wheezing in all other lung sethi Cardiac: RRR, no murmurs noted Abdomen: Negative for ascites and bruising, normoactive bowel sounds, soft, non- tender to palpation throughout Musculoskeletal: Symmetrical and without signs of acute trauma, upper and lower extremities with full ROM, no atrophy, spasticity, or flaccidity >Reproducible pain on palpation of the BL lower ribs Extremities: Radial, dorsalis pedis, and posterior tibial pulses are intact and symmetrical, no edema noted in the BL LE's Skin: Warm, dry, no rashes , lesions, or scars noted Neuro: Alert and oriented to person, place, month, year, and president, no focal defects, no tremors noted Psych: No acute distress, calm and cooperative during the exam Principal Diagnosis Acute on chronic hypoxic respiratory failure Acute exacerbation of COPD Right lower lung community-acquired pneumonia Demand ischemia Discharge Exam General: Awake, conversant Heart: S1, S2/regular rate and rhythm, no murmur rubs or gallops Lungs: Diminished breath sounds. No wheezing heard today. Prolonged expiration. Normal effort Abdomen: Soft/nontender/nondistended. No hepatosplenomegaly Extremities: No clubbing/cyanosis. No edema Behavior: Appropriate, cooperative Discharge Data Allergies Allergy/AdvReac Type Severity Reaction Status Date / Time Penicillins Allergy Severe SWELLING Verified 03/02/23 19:11 Sulfa (Sulfonamide Allergy Intermediate RASH Verified 03/02/23 19:11 Antibiotics) bupropion AdvReac Intermediate Hallucinati Verified 03/02/23 19:11 ng morphine AdvReac Intermediate bradycardia Verified 03/02/23 19:11 and hypotension promethazine AdvReac Intermediate bradycardia Verified 03/02/23 19:11 and hypotension Consultations 03/02/23 20:06 ED Decision to Admit Stat 03/03/23 04:55 Consult Cardiology Routine 03/03/23 10:12 Consult Cardiology Routine Hospital Course (1) Acute on chronic hypoxic respiratory failure: Likely secondary to COPD exacerbation and pneumonia of the right lower lobe Was treated with IV Solu-Medrol during this hospital stay Will discharge on p.o. prednisone Was treated with IV ceftriaxone and azithromycin for pneumonia Will discharge on p.o. Keflex Improved Cultures negative (2) Acute exacerbation of chronic obstructive pulmonary disease: -See acute on chronic hypoxic respiratory failure (3) Elevated troponin: Likely secondary to demand ischemia Cardiology consulted, no further cardiac workup/intervention recommended Discontinued heparin drip (4) Pneumonia: -See acute on chronic hypoxic respiratory failure (5) Current smoker: -Strongly encouraged cessation -Continue nicotine patches while admitted (6) Hypothyroidism: -Continue levothyroxine (7) CAD (coronary artery disease): (8) CHF (congestive heart failure): She felt as though she has "fluid in her lungs" and was given an extra dose of Lasix to which she responded well. She does not feel as short of breath today and says she had a good urine output in response to the Lasix She was given a few extra doses of 40 mg of Lasix during this hospital stay on top of her p.o. 40 mg Lasix twice daily Her creatinine has been mildly elevated in the past 3 days at 1.2. This may need to be monitored outpatient (9) Hypertension: -Stable -Continue metoprolol Plan DVT prophylaxis: Lovenox CODE STATUS: DNR/DNI Total Time Total Time Spent Total Time Spent (In Minutes): 35 Discharge Plan Discharge Items Patient Disposition: Home - Home Health Services Reason For Visit: ACUTE ON CHRONIC HYPOXIC RESPIRATORY FAILURE, RLL Discharge Diagnosis: Acute on chronic hypoxic respiratory failure Acute exacerbation of COPD Right lower lung community-acquired pneumonia Demand ischemia Activity: Resume your previous activity Non-emergency contact: Primary Care Provider Call non-emergency contact if: you have any medication questions and your symptoms worsen Follow-up/Referrals: Eriberto Gonsalez, [Primary Care Provider] - 03/18/23 1:00 pm Diet: Heart Healthy and Low Sodium (2gm) Addtl Attending Provider Instructions: Advised to follow-up with PCP in 1 week Advised to follow-up with wick and base assembler in 1 month Advised to note that you are being discharged on oral antibiotics and oral prednisone to complete the course Advised on smoking cessation Pending Studies at Discharge: No Stand-Alone Forms: My [employer], Smoking Cessation Medications and DC Order Prescriptions: New prednisone 10 mg tablet 10 mg PO DAILY Qty: 20 0RF Rx Instructions: 4 tabs for 2 days, then drop by 1 tab every 2 days, then stop cephalexin 500 mg capsule 500 mg PO BID 2 Days Qty: 4 0RF Continued (DME) Aeroneb Go Nebulizer Misc See Rx Instructions .MEDSUPPLY Qty: 1 0RF Rx Instructions: With tubing and supplies. J44.9. J45.9. (DME) Depends Underwear Large See Rx Instructions .Route .MEDSUPPLY Qty: 90 5RF Rx Instructions: For patient use, change two to three times daily. levothyroxine [Synthroid] 112 mcg tablet 112 mcg PO DAILY Qty: 90 3RF paroxetine HCl [Paxil] 40 mg tablet 40 mg PO DAILY Qty: 90 3RF atorvastatin [Lipitor] 40 mg tablet 40 mg PO DAILY Qty: 90 3RF Combivent Respimat 20-100 mcg/actuation mist 1 puff inhalation Q6H Qty: 3 3RF metoprolol tartrate 25 mg tablet 25 mg PO BID Qty: 60 11RF furosemide 20 mg tablet 40 mg PO BID 90 Days Qty: 360 3RF potassium chloride 10 mEq tablet extended release 20 meq PO BID Qty: 360 3RF polysaccharide iron complex 150 mg iron capsule 150 mg PO BID 90 Days Qty: 180 1RF Hold Instructions: pending Rx Instructions: Take one capsule twice daily. Avoid dairy/calcium-containing products and/or antacids for at least two hours brfore and after taking this med. budesonide-formoterol 160-4.5 mcg/actuation HFA aerosol inhaler 2 puff INHALATION BID Qty: 3 4RF ipratropium-albuterol 0.5 mg-3 mg(2.5 mg base)/3 mL solution for nebulization 3 ml INHALATION QID Qty: 360 5RF roflumilast 500 mcg tablet 500 mcg PO DAILY Qty: 90 4RF Incruse Ellipta 62.5 mcg/actuation blister with device 1 inh inhalation DAILY Qty: 3 4RF nitroglycerin [Nitrostat] 0.4 mg tablet, sublingual 0.4 mg sublingual UD PRN (Reason: Chest Pain) Qty: 25 3RF Rx Instructions: NEEDED FOR CHEST PAIN : ONE TABLET UNDER THE TONGUE EVERY 5 MINUTES UP TO 3 DOSES. (DME) Portable Oxygen Misc See Rx Instructions .MEDSUPPLY Qty: 1 0RF Rx Instructions: Oxygen 2 liters continuous via nasal cannula on exertion with portable concentrator. CYNTHIA 99 aspirin 81 mg Tablet,Delayed Release (Dr/Ec) 81 mg PO DAILY acetaminophen [Tylenol Arthritis Pain] 650 mg Tablet Extended Release 1,300 mg PO HS (DME) Non invasive ventilator DME Misc See Rx Instructions .Route Qty: 1 0RF Rx Instructions: As directed azithromycin 250 mg tablet 250 mg PO 3XWK Rx Instructions: 250 mg orally 1 tab p.o. on Ramxyb-Qzwppkrok-Tvkjcr; calcium carbonate [Calcium Antacid] 300 mg (750 mg) Tablet,Chewable 300 - 600 mg PO DIRECTED PRN (Reason: HEARTBURN/INDIGESTION) diphenhydramine HCl [Benadryl] 25 mg Capsule 25 mg PO DIRECTED PRN (Reason: SLEEP/CONGESTION) Discharge Orders: Discharge Order (Routine); Ordered 03/07/23 Ordered By: Narendra Kaur Admission Data Admit Date/Time: 03/02/23 20:06 Attending Provider: Narendra Kaur Admit Provider: Ricardo Lindo Primary Care Provider: Eriberto Gonsalez Other Providers: Ricardo Lindo; Garcia Victoria; [facility]; [facility] Other Interventions: Discharge Summary Assessment (RN) Last Done: 03/07/23 09:49 Coding Level of Care Code 26596 INP/OBS DISCH >30 MIN Diagnoses Acute on chronic hypoxic respiratory failure J96.21 Acute exacerbation of chronic obstructive pulmonary disease J44.1 Elevated troponin R79.89 Pneumonia J18.9 Laterality: right Lung location: unspecified part of lung Pneumonia type: due to unspecified organism Current smoker F17.200 Hypothyroidism, unspecified type E03.9 Hypothyroidism type: unspecified CAD (coronary artery disease) I25.10 Chronic congestive heart failure, unspecified heart failure type I50.9 Heart failure chronicity: chronic Heart failure type: unspecified Essential hypertension I10 Hypertension type: essential hypertension
[2023-03-07] MEDS: METOPROLOL TARTRATE 25 MG TAB PO SCH (10:10)
== END 2023-03-07 11:08 | disposition home health service (06) | DRG 189 ==
LOC: ED 18:32 → EDINP 20:06 → SUATTDRO 20:06 → 1E 03-03 12:32

== ENCOUNTER 2025-02-13 07:45 | Inpatient (IN) ==
--- NOTE | 2025-02-13 08:05 | Emergency Department Note ---
Impression & Plan Acute exacerbation of chronic obstructive pulmonary disease, Acute hypercapnic respiratory failure ED Provider Note NAME: SHARAN YEN AGE: 79 SEX: F : 1945 ARRIVES VIA: Ambulance INFORMANT: Patient ED PROVIDER(S): Colin Thompson DO CHIEF COMPLAINT: shortness of breath HPI: Patient is a 79-year-old female with a past medical history of CHF, COPD on chronic 2 L nasal cannula who presents to the ER for cough, congestion, and shortness of breath which started yesterday. She notes it has been getting significantly worse. She cannot breathe. Was brought in by EMS. She was given 125 Solu-Medrol and several albuterol nebs. Patient denies any chest pain. No belly pain. No nausea, vomiting or diarrhea. No dysuria, urgency or frequency. ADDITIONAL HISTORY OBTAINED: Per HPI Chronic Medical/Social Conditions Affecting Care: Per HPI PAST MEDICAL HISTORY:See Below PAST SURGICAL HISTORY:See Below FAMILY HISTORY:See Below SOCIAL HISTORY:See Below HOME MEDICATIONS:See Below ALLERGIES:See Below VITALS:See Below PHYSICAL EXAMINATION: GENERAL: Sitting up in bed, alert, slightly ill-appearing, dyspneic with conversation on oxy mask EYE EXAM: normal conjunctiva. PERRL and EOM's grossly intact. OROPHARYNX: no exudate, no erythema, lips, buccal mucosa, and tongue normal and mucous membranes are moist NECK: supple, no nuchal rigidity, no adenopathy, non-tender LUNGS: Wheezing bilaterally. Normal chest wall mechanics HEART: no murmurs, S1 normal and S2 normal ABDOMEN: abdomen soft, non-tender, normo-active bowel sounds, no masses, no rebound or guarding. UPPER EXTREMITIES: upper extremities are grossly normal. LOWER EXTREMITIES: No pitting edema. Calves are equal bilaterally NEURO EXAM: Normal sensorium, cranial nerves II-XII grossly intact, normal speech, no gross weakness of arms, no gross weakness of legs. MEDICAL DECISION MAKING: Patient is a 79-year-old female who presents to the ER for shortness of breath and was slightly confused upon arrival. On my evaluation she did have wheezing and was flipped to BiPAP. IV was established and blood work is obtained. Labs show a leukocytosis of 11,000. No significant anemia. VBG with a pH of 7.19 and a CO2 of 83 which is likely cause of her mild confusion. BMP with a mildly elevated glucose of 260. LFTs with a faint transaminitis in the 90s. Lipase was normal. Troponin mildly elevated. COVID flu and RSV pending. Chest x-ray with a right lower lobe infiltrate. Patient was given IV Rocephin and azithromycin. COVID flu and RSV was negative. Did discuss CODE STATUS with family and they are not 100% sure and she will talk with the remainder of the family. Consults/Care Managements Discussions: Per MDM Triage Nursing notes reviewed. Limited review of prior medical records performed Vital Signs: reviewed and remarkable for HTN Differential diagnosis: Differential diagnoses includes but is not limited to pneumonia, bronchitis, COPD/Asthma exacerbation, pneumothorax, pulmonary embolism, congestive heart failure, acute coronary syndrome ER treatment provided: See below Diagnostics interpreted by me include EKG and cardiac monitoring as listed below: -Cardiac Monitoring: An order was placed for continuous cardiac monitoring. The monitor shows a rate of 95 with sinus rhythm. -ECG: Sinus tachycardia rate of 95 Normal axis No PVCs QTc 442 -Laboratory studies:Interpreted by me as stated above in MDM and shown below. Imaging studies: Xrays: As interpreted by me: Portable AP upright 1 view of the chest shows right lower lobe infiltrate CTs show: none Procedures:none Critical Care: I have personally spent 33 minutes of critical care time in the direct management of this patient. This includes bedside care, interpretation of diagnostic studies, and testing, discussion with consultants, patient, and family members, and other required patient management activities. This 33 minutes is in excess of all separately billable procedures. Past Med/Surg History Problem List (Updated 02/13/25 @ 14:59 by Colin Thompson DO) Acute hypercapnic respiratory failure (Acute) Acute exacerbation of chronic obstructive pulmonary disease (Acute) Chronic bronchitis Short of breath on exertion Chronic diastolic CHF (congestive heart failure) Acute on chronic hypoxic respiratory failure Acute exacerbation of chronic obstructive pulmonary disease (Acute) Stage 4 very severe COPD by GOLD classification Hypercalcemia History of elevated glucose Anxiety and depression (Chronic) Other stressful life events affecting family and household (Chronic) HLD (hyperlipidemia) (Chronic) Urinary incontinence Spinal stenosis Current smoker (Chronic) Osteoarthritis of right hip Chronic respiratory failure with hypoxia and hypercapnia (Chronic) COPD with emphysema (Chronic) CKD (chronic kidney disease) stage 3, GFR 30-59 ml/min Hypothyroidism (Chronic) CAD (coronary artery disease) (Chronic) CHF (congestive heart failure) (Chronic) Hypertension (Chronic) Medical History Elevated troponin I level Elevated troponin Hypoxia Pneumonia Cellulitis of hand, left Transaminitis STEMI (ST elevation myocardial infarction) Ventricular fibrillation Cardiac arrest Surgical History History of lumbar discectomy History of left mastectomy History of excision of lesion History of intravascular stent placement History of tonsillectomy History of kidney surgery History of cholecystectomy History of appendectomy Family History Brother Brain cancer Mother Cancer of kidney Father Coronary arteriosclerosis Son Myocardial infarction Denies family history of Ovarian cancer Prostate cancer Breast cancer Colorectal cancer Social History Smoking Status: Heavy tobacco smoker Tobacco Type: Cigarettes Age Started Using Tobacco: 15; packs per day: 1; Second Hand Exposure: No; Do You Dip or Chew Tobacco: No; Hx Alcohol Use: No Hx Substance Use: No Preferred Language: Algerian Communication Ability: Effective Visual Impairment: No Limitations Hearing Ability: Normal Wire Brush Operator Required: No Beliefs That Will Affect Care: None marital status: / Current Living Situation: Alone 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, 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 Feels Safe at Home: Yes Safety Concerns: Feels Safe At This Time Childhood Exposure to Second-Hand Smoke: No Diet: regular Dental Care, Regularly: No Physical Activity Frequency: Does not Exercise Seatbelt Use: always Sunscreen Use: No Assistive Devices: Denture - Upper, Denture - Lower, Oxygen - Continuous and Walker Allergies Allergies Allergy/AdvReac Type Severity Reaction Status Date / Time Penicillins Allergy Severe SWELLING Verified 01/06/25 14:02 Sulfa (Sulfonamide Allergy Intermediate RASH Verified 01/06/25 14:02 Antibiotics) bupropion AdvReac Intermediate Hallucinati Verified 01/06/25 14:02 ng morphine AdvReac Intermediate bradycardia Verified 01/06/25 14:02 and hypotension promethazine AdvReac Intermediate bradycardia Verified 01/06/25 14:02 and hypotension Home Meds Home Medications Medication Instructions Recorded Confirmed acetaminophen 650 mg 1,300 mg PO HS 08/07/18 02/13/25 tablet,extended release (Tylenol Arthritis Pain) aspirin 81 mg tablet,delayed 81 mg PO DAILY 08/07/18 02/13/25 release calcium carbonate (Calcium Antacid) 300 - 600 mg PO DIRECTED PRN 03/02/23 02/13/25 HEARTBURN/INDIGESTION diphenhydramine HCl 25 mg capsule 25 mg PO DIRECTED PRN 03/02/23 02/13/25 (Benadryl) SLEEP/CONGESTION cholecalciferol (vitamin D3) 25 25 mcg PO DAILY 07/17/23 02/13/25 mcg (1,000 unit) capsule Previous Rx's Medication Instructions Recorded nebulizers ([employer] Go Nebulizer) #1 ea 06/26/20 Portable Oxygen #1 ea 08/16/21 Depends Underwear #90 ea 09/13/21 Non invasive ventilator DME #1 ea 02/07/22 nitroglycerin 0.4 mg sublingual 0.4 mg sublingual UD PRN Chest 07/21/23 tablet (Nitrostat) Pain #25 tabs metoprolol tartrate 25 mg tablet 25 mg PO BID #60 tabs 09/14/24 atorvastatin 40 mg tablet (Lipitor) 40 mg PO DAILY #90 tabs 10/19/24 furosemide 20 mg tablet 40 mg (2 x 20 mg) PO BID 90 days 10/19/24 #360 tabs levothyroxine 125 mcg tablet 125 mcg PO DAILY #90 tabs 10/19/24 (Synthroid) paroxetine HCl 40 mg tablet (Paxil) 40 mg PO DAILY #90 tabs 10/19/24 potassium chloride 10 mEq 20 meq (2 x 10 mEq) PO BID #360 10/19/24 tablet,extended release tabs azithromycin 250 mg tablet 250 mg PO 3XWK #36 tabs 12/16/24 fluticasone fur. 200 mcg-umeclid 1 inh inhalation DAILY #3 Inhalers 12/16/24 62.5 mcg-vilant 25 mcg inhalat.powder (Trelegy Ellipta) ipratropium 0.5 mg-albuterol 3 mg 3 ml inhalation QID #360 mL 12/16/24 (2.5 mg base)/3 mL nebulization soln ipratropium 20 mcg-albuterol 100 1 puff inhalation Q6H #3 Inhalers 12/16/24 mcg/actuation mist for inhalation (Combivent Respimat) roflumilast 500 mcg tablet 500 mcg PO DAILY #90 tabs 12/16/24 Results & Data (ED) Vital Signs Vital Signs - 24 hr 02/13/25 07:55 02/13/25 07:59 02/13/25 08:01 Pulse Rate 96 H 98 H Pulse Rate [Apical] Respiratory Rate 23 Respiratory Effort / Characteristics Grunting Labored Respiratory Depth Deep Respiratory Pattern Regular Blood Pressure 236/136 H Blood Pressure [Right Arm] Blood Pressure Mean 169 Blood Pressure Mean [Right Arm] Pulse Oximetry 93 93 Oxygen Delivery Method Oxymask Oxymask Oxygen Flow Rate 8 8 Fraction of Inspired Oxygen Sepsis Recent Fever Within 48 Hours No Sepsis New/Unexplained Change in Mental Status N/A Sepsis Action Taken by Nursing No Action Required 02/13/25 08:05 02/13/25 08:19 02/13/25 08:22 Pulse Rate 88 Pulse Rate [Apical] 85 Respiratory Rate 30 H 30 H Respiratory Effort / Characteristics Spontaneous Labored Spontaneous Labored Respiratory Depth Normal Respiratory Pattern Tachypnea Blood Pressure Blood Pressure [Right Arm] Blood Pressure Mean Blood Pressure Mean [Right Arm] Pulse Oximetry 93 97 96 Oxygen Delivery Method Oxymask BiPAP Oxygen Flow Rate 8 Fraction of Inspired Oxygen 40 40 Sepsis Recent Fever Within 48 Hours Sepsis New/Unexplained Change in Mental Status Sepsis Action Taken by Nursing 02/13/25 08:30 Pulse Rate Pulse Rate [Apical] 101 H Respiratory Rate 24 Respiratory Effort / Characteristics Non-Labored Spontaneous Respiratory Depth Normal Respiratory Pattern Blood Pressure Blood Pressure [Right Arm] 156/110 H Blood Pressure Mean Blood Pressure Mean [Right Arm] 125 Pulse Oximetry 97 Oxygen Delivery Method BiPAP Oxygen Flow Rate Fraction of Inspired Oxygen Sepsis Recent Fever Within 48 Hours Sepsis New/Unexplained Change in Mental Status Sepsis Action Taken by Nursing Laboratory Data 02/13/25 07:50 02/13/25 07:50 Lab Results 02/13/25 02/13/25 Range/Units 07:50 08:08 WBC 11.62 H (4.8-10.8) K/ul RBC 4.82 (4.20-5.40) M/uL Hgb 13.3 (12.0-16.0) g/dL Hct 42.7 (37.0-47.0) % MCV 88.6 (80.0-100.0) fL MCH 27.6 (25.0-34.0) pg MCHC 31.1 L (32.0-36.0) g/dL RDW Std Deviation 44.6 (36.4-46.3) fL RDW Coeff of Yun 13.8 (11.5-14.5) % Plt Count 302 (130-400) K/uL MPV 9.2 L (9.4-12.4) fL Immature Gran % (Auto) 0.4 % Neut % (Auto) 41.2 % Lymph % (Auto) 48.7 % Titus % (Auto) 7.2 % Eos % (Auto) 2.0 % Baso % (Auto) 0.5 % Neut # (Auto) 4.78 (1.40-6.50) K/uL Lymph # (Auto) 5.66 H (1.20-3.40) K/uL Titus # (Auto) 0.84 H (0.11-0.59) K/uL Eos # (Auto) 0.23 (0.00-0.50) K/uL Baso # (Auto) 0.06 (0.00-0.20) K/uL Immature Gran # (Auto) 0.05 (0.01-0.20) K/uL Blood Smear Review VBG pH 7.19 L (7.36-7.41) VBG pCO2 83 H (38-50) mmHg VBG pO2 90 mmHg VBG HCO3 32 mmol/L VBG O2 Saturation 98.0 % VBG Base Excess 1.0 mEq/L Sodium 139 (136-145) mmol/L Potassium 4.3 (3.5-5.1) mmol/L Chloride 101 (98-107) mmol/L Carbon Dioxide 30 (21-32) mmol/L Anion Gap 8 (3-11) BUN 17 (6-23) mg/dl Creatinine 0.95 (0.6-1.2) mg/dl Est Cr Clr Drug Dosing Not Reportable eGFR 60.95 BUN/Creatinine Ratio 17.9 (10-20) Glucose 260 H (70-99(Fasting)) mg/dl Calcium 9.5 (8.6-10.3) mg/dl Total Bilirubin 0.5 (0.2-1.0) mg/dl AST 97 H (13-39) U/L ALT 84 H (7-52) U/L Alkaline Phosphatase 133 H (34-104) U/L Troponin I High Sens 17.1 H (0-14) pg/ml C-Reactive Protein < 0.50 (0-0.5) mg/dl Total Protein 6.7 (6.0-8.3) gm/dl Albumin 4.2 (3.4-5.0) gm/dl Globulin 2.5 (2.5-4.0) gm/dl Albumin/Globulin Ratio 1.7 (0.9-2) Lipase 97 H (11-82) U/L Procalcitonin < 0.02 (0-0.5) ng/ml SARS-CoV-2 (PCR) NEGATIVE (Negative) Influenza Type A (PCR) Negative (Neg) Influenza Type B (PCR) Negative (Neg) RSV (RT-PCR) Negative (Neg) Administered Medications Albuterol (Albut/Ipratrop 3mg/0.5mg Neb 3 Ml Vial) 3 ml INH QIDR TIM; Protocol Stop: 03/15/25 10:59 Last Admin: 02/13/25 14:20 Dose: 3 ml Documented By: Admin: 02/13/25 11:15 Dose: 3 ml Documented By: DEBBIE Enoxaparin Sodium (Enoxaparin Inj 40 Mg/0.4 Ml Syr) 40 mg SQ DAILY [facility] Stop: 03/15/25 14:14 Last Admin: 02/13/25 14:54 Dose: 40 mg Documented By: TB Discontinued Medications Albuterol (Albut/Ipratrop 3mg/0.5mg Neb 3 Ml Vial) 9 ml NEB NOW STA; Protocol Stop: 02/13/25 08:04 Last Admin: 02/13/25 08:22 Dose: 9 ml Documented By: ANTHONY Ceftriaxone Sodium (Rocephin) 2,000 mg in 50 mls @ 100 mls/hr IV NOW STA Stop: 02/13/25 08:34 Last Infusion: 02/13/25 08:49 Dose: Infused Documented By: Admin: 02/13/25 08:13 Dose: 100 mls/hr Documented By: VICENTE Azithromycin (Zithromax) 500 mg in 255 mls @ 127.5 mls/hr IV NOW ONE Stop: 02/13/25 10:04 Last Infusion: 02/13/25 11:19 Dose: Infused Documented By: Admin: 02/13/25 08:48 Dose: 127.5 mls/hr Documented By: VICENTE Methylprednisolone (Methylprednisolone 125 Mg/2 Ml Vial) 40 mg IV NOW STA Stop: 02/13/25 08:04 Last Admin: 02/13/25 08:06 Dose: Not Given Documented By: VICENTE Imaging Data Radiologist's Impression: Chest X-Ray 02/13/25 07:52 XR chest 1V portable CLINICAL HISTORY: Shortness of breath. COMPARISON STUDY: Chest radiograph March 02, 2023. Chest CT June 27, 2014. FINDINGS: There is no pneumothorax or pleural effusion. Underlying emphysema is noted. There is also chronic interstitial thickening within the lungs. Mild asymmetric right lower lung opacity is present. There may also be minimal patchy left upper lung opacity. There are left axillary surgical clips. Cardiomediastinal silhouette is stable. IMPRESSION: 1. Mild asymmetric right lower lung opacity and possible patchy left upper lung opacity. The findings may represent an infectious process. Follow-up chest radiographs in one month to ensure resolution is recommended. 2. Emphysema. 3. Slight increase in interstitial thickening. Mild superimposed pulmonary edema cannot be excluded. ACT 112: Negative or not required by law. Electronically signed by: Pavel Henao M.D. 02/13/2025 8:18 AM Discharge Plan Visit Data Chief Complaint: Shortness of Breath/Dyspnea Stated Complaint: SOB ED Provider: Colin Thompson Discharge Problem: Acute exacerbation of chronic obstructive pulmonary disease, Acute hypercapnic respiratory failure Patient Disposition: Admitted As Inpatient Condition: Critical Discharge Instructions Interventions: ED Discharge Assessment Last Done: 02/13/25 10:09
[2025-02-13 08:12] LABS: Base Excess VBG 1.0 mEq/L; HCO3 VBG 32 mmol/L; Oxygen Saturation VBG 98.0 %; PCO2 VBG 83 mmHg (38-50); PO2 VBG 90 mmHg; pH VBG 7.19 (7.36-7.41)
[2025-02-13] MEDS: cefTRIAXone SODIUM 2,000 MG/50 ML BAG IV STA (08:13)
[2025-02-13 08:17] LABS: Hematocrit (blood only) 42.7 % (37.0-47.0); Hemoglobin 13.3 g/dL (12.0-16.0); Mean Corpuscular Hemoglobin 27.6 pg (25.0-34.0); Mean Corpuscular Volume 88.6 fL (80.0-100.0); Platelet Count 302 K/uL (130-400); RDW Standard Deviation 44.6 fL (36.4-46.3); Red Blood Count 4.82 M/uL (4.20-5.40); White Blood Count 11.62 K/ul (4.8-10.8)
--- NOTE | 2025-02-13 08:20 | XRay Report ---
XR chest 1V portable CLINICAL HISTORY: Shortness of breath. COMPARISON STUDY: Chest radiograph March 02, 2023. Chest CT June 27, 2014. FINDINGS: There is no pneumothorax or pleural effusion. Underlying emphysema is noted. There is also chronic interstitial thickening within the lungs. Mild asymmetric right lower lung opacity is present . There may also be minimal patchy left upper lung opacity. There are left axillary surgical clips. C ardiomediastinal silhouette is stable. IMPRESSION: 1. Mild asymmetric right lower lung opacity and possible patchy left upper lung opacity. The findings may represent an infectious process. Follow-up chest radiographs in one month to ensure resolution i s recommended. 2. Emphysema. 3. Slight increase in interstitial thickening. Mild superimposed pulmonary edema cannot be excluded. ACT 112: Negative or not required by law. Electronically signed by: Pavel Henao M.D. 02/13/2025 8:18 AM
[2025-02-13] MEDS: ALBUT/IPRATROP 3MG/0.5MG NEB 3 ML VIAL NEB STA (08:22)
[2025-02-13 08:40] LABS: Alanine Aminotransferase 84 U/L (7-52); Albumin Globulin Ratio 1.7 (0.9-2); Albumin Level 4.2 gm/dl (3.4-5.0); Alkaline Phosphatase 133 U/L (34-104); Anion Gap 8 (3-11); Bilirubin,Total 0.5 mg/dl (0.2-1.0); Blood Urea Nitrogen 17 mg/dl (6-23); Calcium 9.5 mg/dl (8.6-10.3); Carbon Dioxide 30 mmol/L (21-32); Chloride 101 mmol/L (98-107); Globulin 2.5 gm/dl (2.5-4.0); Glucose 260 mg/dl (70-99(Fasting)); Lipase 97 U/L (11-82); Potassium 4.3 mmol/L (3.5-5.1); Sodium 139 mmol/L (136-145); Total Protein 6.7 gm/dl (6.0-8.3)
[2025-02-13] MEDS: AZITHROMYCIN 500 MG/255 ML BAG IV ONE (08:48)
[2025-02-13 08:56] LABS: Immature Granulocytes # (auto) 0.05 K/uL (0.01-0.20); Immature Granulocytes % (auto) 0.4 %
[2025-02-13 09:06] LABS: Influenza A virus by PCR Negative (Neg); Influenza B virus by PCR Negative (Neg); SARS CoV2 RNA(COVID-19) Ceph NEGATIVE (Negative)
--- NOTE | 2025-02-13 09:28 | History & Physical Report ---
Date of Service February 13, 2025 Assessment & Plan Plan #Acute on chronic hypoxic respiratory failure Titrate supplemental oxygen as needed to maintain SpO2 89 to 92% Continuous pulse oximetry #Pneumonia CXR on arrival revealed right lower lung opacity consistent with infectious process Leukocytosis at 11.62 on arrival; afebrile Ceftriaxone 2000 mg IV q24h Azithromycin 500 mg p.o. q24h #Acute COPD exacerbation Continue home inhalers Duoneb PRN #HFpEF Continue Lasix 40 mg BID Disposition: VTE PPx: History of Present Illness Chief Complaint: SOB/dyspnea Primary Care Provider: Eriberto Gonsalez DO Mrs. Waggoner is a 79-year-old female with PMH of severe COPD (stage IV), CHF, anxiety, depression, HLD, HTN, tobacco use, and CAD. She presented via EMS on 02/13 after waking up with severe shortness of breath, wheezing, and diaphoresis. EMS reported SpO2 was 82% on 3L NC. Patient reports good compliance with her diuretics at home. Patient is hypertensive at 156/110 and tachycardic to 101 bpm at time of admission; SpO2 97% on BiPAP. ED course: Azithromycin 500 mg IV Ceftriaxone 2000 mg IV Solu-Medrol 40 mg IV DuoNeb 9 mL neb ROS: Patient endorses Patient denies Allergies Allergy/AdvReac Type Severity Reaction Status Date / Time Penicillins Allergy Severe SWELLING Verified 01/06/25 14:02 Sulfa (Sulfonamide Allergy Intermediate RASH Verified 01/06/25 14:02 Antibiotics) bupropion AdvReac Intermediate Hallucinati Verified 01/06/25 14:02 ng morphine AdvReac Intermediate bradycardia Verified 01/06/25 14:02 and hypotension promethazine AdvReac Intermediate bradycardia Verified 01/06/25 14:02 and hypotension Home Medications Medication Instructions Recorded Confirmed Type acetaminophen 650 mg 1,300 mg PO HS 08/07/18 02/13/25 History tablet,extended release (Tylenol Arthritis Pain) aspirin 81 mg tablet,delayed 81 mg PO DAILY 08/07/18 02/13/25 History release nebulizers (Aeroneb Go Nebulizer) #1 ea 06/26/20 02/13/25 Rx Portable Oxygen #1 ea 08/16/21 02/13/25 Rx Depends Underwear #90 ea 09/13/21 02/13/25 Rx Non invasive ventilator DME #1 ea 02/07/22 02/13/25 Rx calcium carbonate (Calcium Antacid) 300 - 600 mg PO DIRECTED PRN 03/02/23 02/13/25 History HEARTBURN/INDIGESTION diphenhydramine HCl 25 mg capsule 25 mg PO DIRECTED PRN 03/02/23 02/13/25 History (Benadryl) SLEEP/CONGESTION cholecalciferol (vitamin D3) 25 25 mcg PO DAILY 07/17/23 02/13/25 History mcg (1,000 unit) capsule nitroglycerin 0.4 mg sublingual 0.4 mg sublingual UD PRN Chest 07/21/23 02/13/25 Rx tablet (Nitrostat) Pain #25 tabs metoprolol tartrate 25 mg tablet 25 mg PO BID #60 tabs 09/14/24 02/13/25 Rx atorvastatin 40 mg tablet (Lipitor) 40 mg PO DAILY #90 tabs 10/19/24 02/13/25 Rx furosemide 20 mg tablet 40 mg (2 x 20 mg) PO BID 90 days 10/19/24 02/13/25 Rx #360 tabs levothyroxine 125 mcg tablet 125 mcg PO DAILY #90 tabs 10/19/24 02/13/25 Rx (Synthroid) paroxetine HCl 40 mg tablet (Paxil) 40 mg PO DAILY #90 tabs 10/19/24 02/13/25 Rx potassium chloride 10 mEq 20 meq (2 x 10 mEq) PO BID #360 10/19/24 02/13/25 Rx tablet,extended release tabs azithromycin 250 mg tablet 250 mg PO 3XWK #36 tabs 12/16/24 02/13/25 Rx fluticasone fur. 200 mcg-umeclid 1 inh inhalation DAILY #3 Inhalers 12/16/24 02/13/25 Rx 62.5 mcg-vilant 25 mcg inhalat.powder (Trelegy Ellipta) ipratropium 0.5 mg-albuterol 3 mg 3 ml inhalation QID #360 mL 12/16/24 02/13/25 Rx (2.5 mg base)/3 mL nebulization soln ipratropium 20 mcg-albuterol 100 1 puff inhalation Q6H #3 Inhalers 12/16/24 02/13/25 Rx mcg/actuation mist for inhalation (Combivent Respimat) roflumilast 500 mcg tablet 500 mcg PO DAILY #90 tabs 12/16/24 02/13/25 Rx Past Med/Surg History Problem List Chronic bronchitis Short of breath on exertion Chronic diastolic CHF (congestive heart failure) Acute on chronic hypoxic respiratory failure Acute exacerbation of chronic obstructive pulmonary disease (Acute) Stage 4 very severe COPD by GOLD classification Hypercalcemia History of elevated glucose Anxiety and depression (Chronic) Other stressful life events affecting family and household (Chronic) HLD (hyperlipidemia) (Chronic) Urinary incontinence Spinal stenosis Current smoker (Chronic) Osteoarthritis of right hip Chronic respiratory failure with hypoxia and hypercapnia (Chronic) COPD with emphysema (Chronic) CKD (chronic kidney disease) stage 3, GFR 30-59 ml/min Hypothyroidism (Chronic) CAD (coronary artery disease) (Chronic) CHF (congestive heart failure) (Chronic) Hypertension (Chronic) Medical History Elevated troponin I level Elevated troponin Hypoxia Pneumonia Cellulitis of hand, left Transaminitis STEMI (ST elevation myocardial infarction) Ventricular fibrillation Cardiac arrest Surgical History History of lumbar discectomy History of left mastectomy History of excision of lesion History of intravascular stent placement History of tonsillectomy History of kidney surgery History of cholecystectomy History of appendectomy Family History Brother Brain cancer Mother Cancer of kidney Father Coronary arteriosclerosis Son Myocardial infarction Denies family history of Ovarian cancer Prostate cancer Breast cancer Colorectal cancer Social History Smoking Status: Unknown if ever smoked Tobacco Type: Cigarettes Age Started Using Tobacco: 15; packs per day: 1; Second Hand Exposure: No; Do You Dip or Chew Tobacco: No; Hx Alcohol Use: No Hx Substance Use: No Preferred Language: [place] Communication Ability: Effective Visual Impairment: No Limitations Hearing Ability: Normal Stone And 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 Apprentice Required: No Beliefs That Will Affect Care: None marital status: / Current Living Situation: Alone 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, 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 Feels Safe at Home: Yes Childhood Exposure to Second-Hand Smoke: No Diet: regular Dental Care, Regularly: No Physical Activity Frequency: Does not Exercise Seatbelt Use: always Sunscreen Use: No Assistive Devices: Cane, Oxygen - Continuous and Walker Review of Systems Review of Systems: See HPI above Physical Exam Physical Exam: General: no acute distress; non-toxic appearing; cooperative HEENT: normocephalic, atraumatic; PERRLA; vision and hearing intact Neck: supple; trachea midline Skin: warm, dry without signs of tenting; no cyanosis; no rashes, bruising, lesions, or erythema noted CV: chest wall NTP; RRR; S1/S2 normal; no murmurs/rubs/gallops; pulses intact and symmetric at radial, DP, and PT Lungs: no acute respiratory distress; symmetrical chest wall expansion; clear breath sounds across all lung sethi w/o adventitious sounds; no wheezing ABD: Soft, NTP; BS present; no rebound/guarding; no distention MSK: no tics or fasciculations; no edema noted in the LEs b/l, nonerythematous Neuro: A&Ox3; normal mood and affect; fluent speech; sensation intact and symmetric in the LEs b/l Results & Data Results & Data Vital Signs (Past 12 Hours) Vital Signs Pulse Pulse Resp BP BP Pulse Ox O2 Del Method 02/13/25 08:30 101 H 24 156/110 H 97 BiPAP 02/13/25 08:22 85 30 H 96 BiPAP 02/13/25 08:19 88 30 H 97 02/13/25 08:05 93 Oxymask 02/13/25 08:01 98 H 02/13/25 07:59 93 Oxymask 02/13/25 07:55 96 H 23 236/136 H 93 Oxymask O2 Flow Rate FiO2 02/13/25 08:30 02/13/25 08:22 40 02/13/25 08:19 40 02/13/25 08:05 8 02/13/25 08:01 02/13/25 07:59 8 02/13/25 07:55 8 Laboratory Results Abnormal lab results 02/13/25 Range/Units 07:50 WBC 11.62 H (4.8-10.8) K/ul MCHC 31.1 L (32.0-36.0) g/dL MPV 9.2 L (9.4-12.4) fL Lymph # (Auto) 5.66 H (1.20-3.40) K/uL [place] # (Auto) 0.84 H (0.11-0.59) K/uL VBG pH 7.19 L (7.36-7.41) VBG pCO2 83 H (38-50) mmHg Glucose 260 H (70-99(Fasting)) mg/dl AST 97 H (13-39) U/L ALT 84 H (7-52) U/L Alkaline Phosphatase 133 H (34-104) U/L Troponin I High Sens 17.1 H (0-14) pg/ml Lipase 97 H (11-82) U/L Diagnostic Findings Chest X-Ray 02/13/25 07:52 XR chest 1V portable CLINICAL HISTORY: Shortness of breath. COMPARISON STUDY: Chest radiograph March 02, 2023. Chest CT June 27, 2014. FINDINGS: There is no pneumothorax or pleural effusion. Underlying emphysema is noted. There is also chronic interstitial thickening within the lungs. Mild asymmetric right lower lung opacity is present. There may also be minimal patchy left upper lung opacity. There are left axillary surgical clips. Cardiomediastinal silhouette is stable. IMPRESSION: 1. Mild asymmetric right lower lung opacity and possible patchy left upper lung opacity. The findings may represent an infectious process. Follow-up chest radiographs in one month to ensure resolution is recommended. 2. Emphysema. 3. Slight increase in interstitial thickening. Mild superimposed pulmonary edema cannot be excluded. ACT 112: Negative or not required by law. Electronically signed by: Pavel Henao M.D. 02/13/2025 8:18 AM PG Care Time/CCT Total # of Minutes Spent Total Time Spent with Patient: Total time spent is greater than 50% in coordination of care (as documented) at patient's floor/unit and/or counseling patient: C[place] [address] INT INP/OBS CARE 3/75MIN Patient Type Established Medical Decision Making High Complexity
[2025-02-13] MEDS ORDERED: ALUMINUM/MAGNESIUM SUSP 30 ML UDC PO PRN (10:30)
[2025-02-13] MEDS ORDERED: ONDANSETRON INJ 2 MG/ML 2 ML VIAL IV PRN (10:30)
[2025-02-13] MEDS ORDERED: NITROGLYCERIN SL 0.4 MG/TAB TAB SL PRN (10:30)
[2025-02-13] MEDS ORDERED: MELATONIN 3 MG TAB PO PRN (10:30)
--- NOTE | 2025-02-13 11:14 | History & Physical Report ---
Date of Service February 13, 2025 Assessment & Plan (1) Pneumonia: (2) Acute on chronic hypoxic respiratory failure: (3) Acute exacerbation of chronic obstructive pulmonary disease: (4) Chronic respiratory failure with hypoxia and hypercapnia: (5) Chronic diastolic CHF (congestive heart failure): (6) Current smoker: (7) CKD (chronic kidney disease) stage 3, GFR 30-59 ml/min: (8) CAD (coronary artery disease): (9) Short of breath on exertion: Plan Jackelyn a 79yo lady with PMH of chronic respiratory failure with hypoxia and hypercapnia, COPD, CHF who was brought to the ED by EMS for shortness of breath that started this morning. Workup in the ED revealed right lung lobe opacity suggesting pneumonia. Pt is currently admitted and being managed for community acquired pneumonia, acute on chronic hypoxic respiratory failure, and COPD exacerbation. #Community Acquired Pneumonia CXR notable for right lobe opacity. WBC 11.6 -ceftriaxone 2g qdaily (day 1/5) -azithromycin 500mg qdaily (day 1) #Acute Hypoxic Hypercapnic Respiratory Failure #COPD Exacerbation #Respiratory Acidosis VBG pH 7.18, CO2 83 -continue home inhalers -continue roflumilast 500mcg daily -duoNebs QID scheduled -duoNebs q6hrs prn -abx per above -methylprednisolone 40mg IV bid -supplemental O2 prn, keep sats 88-93 -encourage smoking cessation #Congestive Diastolic Heart Failure -continue metoprolol 25mg bid -furosemide 20mg bid #CAD -continue aspirin, atorvastatin, nitroglycerin prn #Hypothyroidism -levothyroxine 125mcg #Chronic Pain -650mg Acetaminophen q6hr prn #Elevated Blood Glucose receiving corticosteroids. Random glucose 260 -recheck A1C -sliding scale with carb ratio 11, correction factor 30 -consider lantus 12 qhs Dispo: PCU DVT prophylaxis: Lovenox 40mg daily Admission and Anticipated Discharge Date Admission Date: February 13, 2025 History of Present Illness Chief Complaint: sob Primary Care Provider: Eriberto Gonsalez DO Jackelyn a 79yo lady with PMH of chronic respiratory failure with hypoxia and hypercapnia, COPD, CHF who was brought to the ED by EMS for shortness of breath that started this morning. The SOB came on suddenly and was associated with a productive cough of clear sputum. The dyspnea occurs with rest and exertion. The pt is a one pack per day smoker with no desire to quit as per the family. She was not recently ill and denies any sick contacts or falls/trauma/injuries. Denies fever, chills, CP, N/V, abdominal pain, leg edema, or complaints. Allergies Allergy/AdvReac Type Severity Reaction Status Date / Time Penicillins Allergy Severe SWELLING Verified 01/06/25 14:02 Sulfa (Sulfonamide Allergy Intermediate RASH Verified 01/06/25 14:02 Antibiotics) bupropion AdvReac Intermediate Hallucinati Verified 01/06/25 14:02 ng morphine AdvReac Intermediate bradycardia Verified 01/06/25 14:02 and hypotension promethazine AdvReac Intermediate bradycardia Verified 01/06/25 14:02 and hypotension Home Medications Medication Instructions Recorded Confirmed Type acetaminophen 650 mg 1,300 mg PO HS 08/07/18 02/13/25 History tablet,extended release (Tylenol Arthritis Pain) aspirin 81 mg tablet,delayed 81 mg PO DAILY 08/07/18 02/13/25 History release nebulizers (Aeroneb Go Nebulizer) #1 ea 06/26/20 02/13/25 Rx Portable Oxygen #1 ea 08/16/21 02/13/25 Rx Depends Underwear #90 ea 09/13/21 02/13/25 Rx Non invasive ventilator DME #1 ea 02/07/22 02/13/25 Rx calcium carbonate (Calcium Antacid) 300 - 600 mg PO DIRECTED PRN 03/02/23 02/13/25 History HEARTBURN/INDIGESTION diphenhydramine HCl 25 mg capsule 25 mg PO DIRECTED PRN 03/02/23 02/13/25 History (Benadryl) SLEEP/CONGESTION cholecalciferol (vitamin D3) 25 25 mcg PO DAILY 07/17/23 02/13/25 History mcg (1,000 unit) capsule nitroglycerin 0.4 mg sublingual 0.4 mg sublingual UD PRN Chest 07/21/23 02/13/25 Rx tablet (Nitrostat) Pain #25 tabs metoprolol tartrate 25 mg tablet 25 mg PO BID #60 tabs 09/14/24 02/13/25 Rx atorvastatin 40 mg tablet (Lipitor) 40 mg PO DAILY #90 tabs 10/19/24 02/13/25 Rx furosemide 20 mg tablet 40 mg (2 x 20 mg) PO BID 90 days 10/19/24 02/13/25 Rx #360 tabs levothyroxine 125 mcg tablet 125 mcg PO DAILY #90 tabs 10/19/24 02/13/25 Rx (Synthroid) paroxetine HCl 40 mg tablet (Paxil) 40 mg PO DAILY #90 tabs 10/19/24 02/13/25 Rx potassium chloride 10 mEq 20 meq (2 x 10 mEq) PO BID #360 10/19/24 02/13/25 Rx tablet,extended release tabs azithromycin 250 mg tablet 250 mg PO 3XWK #36 tabs 12/16/24 02/13/25 Rx fluticasone fur. 200 mcg-umeclid 1 inh inhalation DAILY #3 Inhalers 12/16/24 02/13/25 Rx 62.5 mcg-vilant 25 mcg inhalat.powder (Trelegy Ellipta) ipratropium 0.5 mg-albuterol 3 mg 3 ml inhalation QID #360 mL 12/16/24 02/13/25 Rx (2.5 mg base)/3 mL nebulization soln ipratropium 20 mcg-albuterol 100 1 puff inhalation Q6H #3 Inhalers 12/16/24 02/13/25 Rx mcg/actuation mist for inhalation (Combivent Respimat) roflumilast 500 mcg tablet 500 mcg PO DAILY #90 tabs 12/16/24 02/13/25 Rx Past Med/Surg History Problem List (Updated 02/13/25 @ 14:59 by Colin Thompson DO) Acute hypercapnic respiratory failure (Acute) Acute exacerbation of chronic obstructive pulmonary disease (Acute) Chronic bronchitis Short of breath on exertion Chronic diastolic CHF (congestive heart failure) Acute on chronic hypoxic respiratory failure Acute exacerbation of chronic obstructive pulmonary disease (Acute) Stage 4 very severe COPD by GOLD classification Hypercalcemia History of elevated glucose Anxiety and depression (Chronic) Other stressful life events affecting family and household (Chronic) HLD (hyperlipidemia) (Chronic) Urinary incontinence Spinal stenosis Current smoker (Chronic) Osteoarthritis of right hip Chronic respiratory failure with hypoxia and hypercapnia (Chronic) COPD with emphysema (Chronic) CKD (chronic kidney disease) stage 3, GFR 30-59 ml/min Hypothyroidism (Chronic) CAD (coronary artery disease) (Chronic) CHF (congestive heart failure) (Chronic) Hypertension (Chronic) Medical History Elevated troponin I level Elevated troponin Hypoxia Pneumonia Cellulitis of hand, left Transaminitis STEMI (ST elevation myocardial infarction) Ventricular fibrillation Cardiac arrest Surgical History History of lumbar discectomy History of left mastectomy History of excision of lesion History of intravascular stent placement History of tonsillectomy History of kidney surgery History of cholecystectomy History of appendectomy Family History Brother Brain cancer Mother Cancer of kidney Father Coronary arteriosclerosis Son Myocardial infarction Denies family history of Ovarian cancer Prostate cancer Breast cancer Colorectal cancer Social History Smoking Status: Heavy tobacco smoker Tobacco Type: Cigarettes Age Started Using Tobacco: 15; packs per day: 1; Second Hand Exposure: No; Do You Dip or Chew Tobacco: No; Hx Alcohol Use: No Hx Substance Use: No Preferred Language: Dominican Communication Ability: Effective Visual Impairment: No Limitations Hearing Ability: Normal Display Fabrication Supervisor Required: No Beliefs That Will Affect Care: None marital status: / Current Living Situation: Alone 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 AAOx3 HEENT: head normocephalic, atraumatic. EOMI RESP: diminished breath sounds on left, crackles in upper and lower lobe on right CARDIOVASCULAR: S1 and S2 heard. No murmurs, rubs, or gallops. Radial pulses 2+ RRR GI: Normoactive bowel sounds, no tenderness or masses felt to palpation MSK: no gross abnormalities or focal deficits SKIN: warm, dry, no edema PSYCH: appropriate mood and affect NEURO: no focal deficits. speech fluent Results & Data Results & Data Vital Signs (Past 12 Hours) Vital Signs Temp Pulse Pulse Pulse Resp BP BP 02/13/25 10:56 80 02/13/25 10:48 02/13/25 10:31 36.6 C 78 24 147/86 H 02/13/25 10:30 02/13/25 09:38 84 22 124/93 02/13/25 08:30 101 H 24 156/110 H 02/13/25 08:22 85 30 H 02/13/25 08:19 88 30 H 02/13/25 08:05 02/13/25 08:01 98 H 02/13/25 07:59 02/13/25 07:55 96 H 23 236/136 H Pulse Ox Pulse Ox O2 Del Method O2 Del Method O2 Flow Rate O2 Flow Rate FiO2 02/13/25 10:56 02/13/25 10:48 Nasal Cannula 3 02/13/25 10:31 94 Oxymask 3 02/13/25 10:30 94 Nasal Cannula 3 02/13/25 09:38 92 Oxymask 3 02/13/25 08:30 97 BiPAP 02/13/25 08:22 96 BiPAP 40 02/13/25 08:19 97 40 02/13/25 08:05 93 Oxymask 8 02/13/25 08:01 02/13/25 07:59 93 Oxymask 8 02/13/25 07:55 93 Oxymask 8 Code Status & VTE Plan VTE Prophylaxis Plan VTE Prophylaxis will be ordered: Yes Supervising Physician Co-Signing Physician Notes I personally examined the patient and verified all chester points of history and exam, discussed case, and agree with decision making with Dr Salinas feeling better whenever I follow-up with her a few hours after admission then s he was even whenever resident physician saw her. Breathing starting to feel easier. Vitals noted, in general she is awake and alert pleasant no distress. HEENT normocephalic atraumatic mucous membranes moist. Lungs with diffuse wheezing (as opposed to diminished air entry earlier) no accessory muscle use no conversational dyspnea. Acute hypoxic and hypercapnic respiratory failure superimposed on what appears to be chronic respiratory failure in the setting of COPD exacerbation caused by community-acquired pneumoniaZithromax/Rocephin/steroids/nebulizers/supportive care/time. DVT prophylaxisLovenox Resident Activity Tracking Resident Involvement: Resident Care Provided Care Provided: Adult Hospital Medicine (1) Pneumonia Laterality: right Lung location: unspecified part of lung Pneumonia type: due to unspecified organism Qualified Code(s): J18.9 - Pneumonia, unspecified organism
[2025-02-13] MEDS: ALBUT/IPRATROP 3MG/0.5MG NEB 3 ML VIAL INH SCH (11:15)
[2025-02-13] MEDS ORDERED: CARBOHYDRATES FOR HYPOGLYCEMIA PO PRN (13:56)
[2025-02-13] MEDS ORDERED: GLUCOSE 10 TAB/TUBE PO PRN (13:56)
[2025-02-13] MEDS ORDERED: GLUCAGON FOR INJ 1 MG VIAL SQ PRN (13:56)
[2025-02-13] MEDS ORDERED: GLUCOSE 40% GEL 15 GM TUBE PO PRN (13:56)
[2025-02-13] MEDS ORDERED: DEXTROSE 50% 50 ML SYRINGE IV PRN (13:56)
[2025-02-13] MEDS ORDERED: ACETAMINOPHEN 325 MG TAB PO PRN (14:02)
[2025-02-13] MEDS: ENOXAPARIN INJ 40 MG/0.4 ML SYR SQ SCH (14:54)
--- NOTE | 2025-02-13 17:41 | Billing Data ---
Date of Service February 13, 2025 Coding Level of Care Code 42203 INT INP/OBS CARE
[2025-02-13] MEDS: INSULIN ASPART PER UNIT CHARGE SC SCH (17:53)
[2025-02-13 18:05] LABS: Base Excess VBG 8.2 mEq/L; HCO3 VBG 35 mmol/L; Oxygen Saturation VBG 60.1 %; PCO2 VBG 58 mmHg (38-50); PO2 VBG 36 mmHg; pH VBG 7.39 (7.36-7.41)
[2025-02-13] MEDS ORDERED: NON-FORMULARY MEDICATION (Acetaminophen [Tylenol Arthritis Pain] 650 mg Tablet Extended Re PO SCH (21:00)
[2025-02-13] MEDS: METOPROLOL TARTRATE 25 MG TAB PO SCH (21:18)
[2025-02-13] MEDS: POTASSIUM CHLORIDE 10 MEQ TABCR PO SCH (21:18)
[2025-02-13] MEDS: FUROSEMIDE 40 MG TAB PO SCH (21:18)
[2025-02-13] MEDS: ALBUT/IPRATROP 3MG/0.5MG NEB 3 ML VIAL NEB PRN (23:06)
[2025-02-14] MEDS: LEVOTHYROXINE SODIUM 125 MCG TABLET PO SCH (06:01)
[2025-02-14 06:09] LABS: Hematocrit (blood only) 37.4 % (37.0-47.0); Hemoglobin 12.3 g/dL (12.0-16.0); Immature Granulocytes # (auto) 0.01 K/uL (0.01-0.20); Immature Granulocytes % (auto) 0.1 %; Mean Corpuscular Hemoglobin 28.1 pg (25.0-34.0); Mean Corpuscular Volume 85.4 fL (80.0-100.0); Platelet Count 219 K/uL (130-400); RDW Standard Deviation 42.9 fL (36.4-46.3); Red Blood Count 4.38 M/uL (4.20-5.40); White Blood Count 7.63 K/ul (4.8-10.8)
[2025-02-14 06:32] LABS: Alanine Aminotransferase 58.0 U/L (7-52); Albumin Globulin Ratio 1.8 (0.9-2); Albumin Level 4.2 gm/dl (3.4-5.0); Alkaline Phosphatase 109.0 U/L (34-104); Anion Gap 8.0 (3-11); Bilirubin,Total 0.5 mg/dl (0.2-1.0); Blood Urea Nitrogen 18.0 mg/dl (6-23); Calcium 10.2 mg/dl (8.6-10.3); Carbon Dioxide 29.0 mmol/L (21-32); Chloride 102.0 mmol/L (98-107); Creatinine Clr Calc Pharmacy 60.6 ml/min; Globulin 2.4 gm/dl (2.5-4.0); Glucose 137.0 mg/dl (70-99(Fasting)); Potassium 4.3 mmol/L (3.5-5.1); Sodium 139.0 mmol/L (136-145); Total Protein 6.6 gm/dl (6.0-8.3)
[2025-02-14 08:11] LABS: Hemoglobin A1C 5.3 % (4.5-5.6)
--- NOTE | 2025-02-14 08:39 | Hospitalist Progress Note ---
Date of Service February 14, 2025 Assessment & Plan (1) Pneumonia: (2) Acute on chronic hypoxic respiratory failure: (3) Acute exacerbation of chronic obstructive pulmonary disease: (4) Chronic respiratory failure with hypoxia and hypercapnia: (5) Chronic diastolic CHF (congestive heart failure): (6) Current smoker: (7) CKD (chronic kidney disease) stage 3, GFR 30-59 ml/min: (8) CAD (coronary artery disease): (9) Short of breath on exertion: Plan Jackelyn a 79yo lady with PMH of chronic respiratory failure with hypoxia and hypercapnia, COPD, CHF who was brought to the ED by EMS for shortness of breath that started this morning. Workup in the ED revealed right lung lobe opacity suggesting pneumonia. Pt is currently admitted and being managed for community acquired pneumonia, acute on chronic hypoxic respiratory failure, and COPD exacerbation. #Community Acquired Pneumonia CXR notable for right lobe opacity. WBC 11.6-->7.6 -ceftriaxone 2g qdaily (day 2/5) -azithromycin 500mg qdaily (day 2/5) #Acute Hypoxic Hypercapnic Respiratory Failure #COPD Exacerbation #Respiratory Acidosis VBG pH 7.18, CO2 83 -continue home inhalers -continue roflumilast 500mcg daily -duoNebs QID scheduled -duoNebs q6hrs prn -abx per above -d/c methylprednisolone 40mg IV bid -prednisone PO 40mg qdaily (day 2/5) -supplemental O2 prn, keep sats 88-93 -encourage smoking cessation #Congestive Diastolic Heart Failure -continue metoprolol 25mg bid -furosemide 20mg bid #CAD -continue aspirin, atorvastatin, nitroglycerin prn #Hypothyroidism -levothyroxine 125mcg #Chronic Pain -650mg Acetaminophen q6hr prn #Elevated Blood Glucose receiving corticosteroids. Random glucose 260 on admission -A1C: 5.3 -sliding scale with correction factor 30 -consider lantus 12 qhs DVT prophylaxis: Lovenox 40mg daily Admission and Anticipated Discharge Date Admission Date: February 13, 2025 Supervising Physician Co-Signing Physician Notes I personally examined the patient and verified all chester points of history and exam, discussed case, and agree with decision making with Dr Salinas feeling better than yesterday breathing easier no WINTERS. normally 2L at home ~3L w exertion. vitals noted nad heent nc at mmm lungs better air entry faint wheeze no accessory muscles good effort Acute hypoxic and hypercapnic respiratory failure superimposed on what appears to be chronic respiratory failure in the setting of COPD exacerbation caused by community-acquired pneumoniaZithromax/Rocephin/steroids/nebulizers/supportive care/time. improving. potentially home tomorrow DVT prophylaxisLovenox Subjective No overnight events. Today, Jackelyn feels better and states she feels at her baseline. She does not have much of an appetite but states that is her baseline. She is tolerating what she can eat well. Denies fever, chills, SOB, CP, abdominal pain. Review of Systems Review of Systems: per HPI Physical Exam Physical Exam: GA: well groomed, well appearing. AAOx3 HEENT: head normocephalic, atraumatic. EOMI RESP: on 2L NC. normal respiratory effort. normal breath sounds b/l. CARDIOVASCULAR: S1 and S2 heard. No murmurs, rubs, or gallops. Radial pulses 2+ RRR MSK: no gross abnormalities or focal deficits SKIN: warm, dry, no edema PSYCH: appropriate mood and affect NEURO: no focal deficits. speech fluent Results & Data Results & Data Vital Signs (Past 12 Hours) Vital Signs Temp Pulse Pulse Resp BP Pulse Ox O2 Del Method 02/14/25 07:40 36.6 C 75 18 158/81 H 97 Nasal Cannula 02/14/25 07:13 84 18 97 Nasal Cannula 02/14/25 03:00 36.7 C 77 20 155/88 H 96 Nasal Cannula 02/14/25 01:03 75 25 H 95 02/13/25 23:38 36.7 C 75 22 154/83 H 95 Nasal Cannula 02/13/25 23:06 81 24 94 Nasal Cannula 02/13/25 22:00 76 02/13/25 21:00 Nasal Cannula O2 Flow Rate 02/14/25 07:40 3 02/14/25 07:13 3 02/14/25 03:00 02/14/25 01:03 2 02/13/25 23:38 2 02/13/25 23:06 2 02/13/25 22:00 02/13/25 21:00 2 Resident Activity Tracking Resident Involvement: Resident Care Provided Care Provided: Adult Hospital Medicine (1) Pneumonia Laterality: right Lung location: unspecified part of lung Pneumonia type: due to unspecified organism Qualified Code(s): J18.9 - Pneumonia, unspecified organism
[2025-02-14] MEDS: UMECLIDINIUM/VILANTEROL 62.5/25MCG 7 PUFFS/INHALER INH SCH (09:32)
[2025-02-14] MEDS: FLUTICASONE FUROATE 200MCG 14 PUFFS/INHALER INH SCH (09:33)
[2025-02-14] MEDS: ASPIRIN 81 MG ECTAB PO SCH (09:34)
[2025-02-14] MEDS: ROFLUMILAST 500 MCG TAB PO SCH (09:34)
[2025-02-14] MEDS: ATORVASTATIN 40 MG TAB PO SCH (09:34)
[2025-02-14] MEDS: predniSONE 20 MG TAB PO ONE (09:35)
[2025-02-14] MEDS: cefTRIAXone SODIUM 2,000 MG/50 ML BAG IV SCH (09:36)
[2025-02-14] MEDS: AZITHROMYCIN 500 MG/255 ML BAG IV SCH (09:42)
--- NOTE | 2025-02-14 17:22 | Billing Data ---
Date of Service February 14, 2025 Coding Level of Care Code 01519 SUB INP/OBS CARE MIN
--- NOTE | 2025-02-15 06:00 | Electrocardiogram Report ---
Test Reason : Blood Pressure : */* mmHG Vent. Rate : 95 BPM Atrial Rate : 95 BPM P-R Int : 162 ms QRS Dur : 106 ms QT Int : 352 ms P-R-T Axes : 59 80 83 degrees QTcB Int : 442 ms Normal sinus rhythm Nonspecific ST abnormality When compared with ECG of 03-Mar-2023 00:04, Premature ventricular complexes are no longer Present Confirmed by Juliano Ramirez ([id number]) on 02/15/2025 6:00:05 AM Referred By: REFERRED SELF Confirmed By: Juliano Ramirez
[2025-02-15 06:33] LABS: Hematocrit (blood only) 37.9 % (37.0-47.0); Hemoglobin 12.2 g/dL (12.0-16.0); Immature Granulocytes # (auto) 0.03 K/uL (0.01-0.20); Immature Granulocytes % (auto) 0.3 %; Mean Corpuscular Hemoglobin 27.6 pg (25.0-34.0); Mean Corpuscular Volume 85.7 fL (80.0-100.0); Platelet Count 219 K/uL (130-400); RDW Standard Deviation 44.0 fL (36.4-46.3); Red Blood Count 4.42 M/uL (4.20-5.40); White Blood Count 9.46 K/ul (4.8-10.8)
[2025-02-15 06:50] LABS: Anion Gap 7.0 (3-11); Blood Urea Nitrogen 19.0 mg/dl (6-23); Calcium 9.9 mg/dl (8.6-10.3); Carbon Dioxide 32.0 mmol/L (21-32); Chloride 102.0 mmol/L (98-107); Creatinine Clr Calc Pharmacy 62.2 ml/min; Potassium 3.9 mmol/L (3.5-5.1); Sodium 141.0 mmol/L (136-145)
--- NOTE | 2025-02-15 07:49 | Discharge Summary ---
Date of Service February 15, 2025 Admission HPI Per Admitting Provider Jackelyn chavez 79yo lady with PMH of chronic respiratory failure with hypoxia and hypercapnia, COPD, CHF who was brought to the ED by EMS for shortness of breath that started this morning. The SOB came on suddenly and was associated with a productive cough of clear sputum. The dyspnea occurs with rest and exertion. The pt is a one pack per day smoker with no desire to quit as per the family. She was not recently ill and denies any sick contacts or falls/trauma/injuries. Denies fever, chills, CP, N/V, abdominal pain, leg edema, or complaints. Principal Diagnosis Pneumonia, COPD Exacerbation Discharge Exam GA: well groomed, well appearing. AAOx3 HEENT: head normocephalic, atraumatic. EOMI RESP: on 2L NC. normal respiratory effort. normal breath sounds b/l. CARDIOVASCULAR: S1 and S2 heard. No murmurs, rubs, or gallops. Radial pulses 2+ MSK: no gross abnormalities or focal deficits SKIN: warm, dry, no edema PSYCH: appropriate mood and affect NEURO: no focal deficits. speech fluent Discharge Data Allergies Allergy/AdvReac Type Severity Reaction Status Date / Time Penicillins Allergy Severe SWELLING Verified 01/06/25 14:02 Sulfa (Sulfonamide Allergy Intermediate RASH Verified 01/06/25 14:02 Antibiotics) bupropion AdvReac Intermediate Hallucinati Verified 01/06/25 14:02 ng morphine AdvReac Intermediate bradycardia Verified 01/06/25 14:02 and hypotension promethazine AdvReac Intermediate bradycardia Verified 01/06/25 14:02 and hypotension Consultations 02/13/25 08:42 ED Decision to Admit Stat Hospital Course (1) Pneumonia: (2) Acute on chronic hypoxic respiratory failure: (3) Acute exacerbation of chronic obstructive pulmonary disease: (4) Chronic respiratory failure with hypoxia and hypercapnia: (5) Chronic diastolic CHF (congestive heart failure): (6) Current smoker: (7) CKD (chronic kidney disease) stage 3, GFR 30-59 ml/min: (8) CAD (coronary artery disease): (9) Short of breath on exertion: Plan Jackelyn a 79yo lady with PMH of chronic respiratory failure with hypoxia and hypercapnia, COPD, CHF who was brought to the ED by EMS for shortness of breath that started this morning. Workup in the ED revealed right lung lobe opacity suggesting pneumonia. Pt is currently admitted and being managed for community acquired pneumonia, acute on chronic hypoxic respiratory failure, and COPD exacerbation. #Community Acquired Pneumonia CXR notable for right lobe opacity. WBC 11.6-->7.6 -ceftriaxone 2g qdaily (day 3/5), switch to cefpodoxime 200mg bid OP -azithromycin 500mg qdaily (day 3/5), continue OP #Acute Hypoxic Hypercapnic Respiratory Failure #COPD Exacerbation #Respiratory Acidosis VBG pH 7.18, CO2 83 -continue home regimen -continue prednisone 40mg (day 3/5) #Congestive Diastolic Heart Failure -continue metoprolol 25mg bid -furosemide 20mg bid #CAD -continue aspirin, atorvastatin, nitroglycerin prn #Hypothyroidism -levothyroxine 125mcg #Chronic Pain -home regimen Total Time Total Time Spent Total Time Spent (In Minutes): <30 Discharge Plan Discharge Items Patient Disposition: Home - Self-Care Reason For Visit: SOB Discharge Diagnosis: Pneumonia Condition on Discharge: Critical Activity: Resume your previous activity Non-emergency contact: Primary Care Provider Call non-emergency contact if: you have any medication questions, your symptoms worsen, your pain is worsening and you have a fever Follow-up/Referrals: Eriberto Gonsalez, [Primary Care Provider] - 02/20/25 11:00 am (02/20/25 at 11:00 with Izabella HERRERA) Diet: Heart Healthy Addtl Attending Provider Instructions: You were admitted to the hospital for pneumonia which caused a COPD exacerbation. You were treated with antibiotics, inhalers, nebulizers, and steroids. You were deemed safe/stable for discharge when you were back on your home oxygen and felt like your normal self prior to this event. Medications Your medication list has been reviewed and reconciled. An updated list is included with your discharge paperwork; please review this list closely and make note of any changes. We sent a prescription for azithromycin and cefpodoxime to your pharmacy. Start the antibitoics tomorrow.Take the cefpodoxime antibiotic twice daily for 2 more days. Take the azithromycine antibiotic once daily for the next 2 days. Please hold your at home dose of azithromycin until you finish the course we prescribe you. If you have any questions, please contact your PCP. We also sent a prescription for prednisone 40mg once daily for the next 2 days. Take your medications as instructed; do not skip a dose. Make sure all of your doctors know every medicine you are taking (including [id number] medicines, vitamins, and supplements). Call your PCP before taking any new medicines because some of these may interact with your current medications, or may make your symptoms worse. Follow-up appointments: Make a follow-up appointment with your PCP within the next week. It is very important that you follow up with them shortly after discharge from the hospital. Keep all your follow-up appointments as already scheduled. If you cannot make an appointment, notify your provider. Please bring a copy of this discharge summary with you to your next office appointment so that your provider can review it at that time and stay updated on your hospitalization and potential changes in your care. Contact your PCP if your symptoms return or worsen. Call 911 or go to the ER if you experience any of the following: Sudden, severe abdominal pain or nausea/vomiting Severe chest pain, or chest pain that radiates (moves) to your jaw or arm Sudden, severe shortness of breath or difficulty breathing Thank you for allowing us to participate in your care. Pending Studies at Discharge: No Stand-Alone Forms: [facility] [employer], Smoking Cessation Medications and DC Order Prescriptions: New prednisone 20 mg tablet 40 mg PO DAILY 2 Days Qty: 4 0RF cefpodoxime 200 mg tablet 200 mg PO BID 2 Days Qty: 4 0RF Rx Instructions: must administer with a meal/food azithromycin 500 mg tablet 500 mg PO DAILY 2 Days Qty: 2 0RF Rx Instructions: start on day 2 of therapy Continued (DME) Aeroneb Go Nebulizer Misc See Rx Instructions .MEDSUPPLY Qty: 1 0RF Rx Instructions: With tubing and supplies. J44.9. J45.9. (DME) Depends Underwear Large See Rx Instructions .Route .MEDSUPPLY Qty: 90 5RF Rx Instructions: For patient use, change two to three times daily. metoprolol tartrate 25 mg tablet 25 mg PO BID Qty: 60 11RF furosemide 20 mg tablet 40 mg PO BID 90 Days Qty: 360 3RF levothyroxine [Synthroid] 125 mcg tablet 125 mcg PO DAILY Qty: 90 3RF paroxetine HCl [Paxil] 40 mg tablet 40 mg PO DAILY Qty: 90 3RF potassium chloride 10 mEq tablet extended release 20 meq PO BID Qty: 360 3RF atorvastatin [Lipitor] 40 mg tablet 40 mg PO DAILY Qty: 90 3RF cholecalciferol (vitamin D3) 25 mcg (1,000 unit) capsule 25 mcg PO DAILY nitroglycerin [Nitrostat] 0.4 mg tablet, sublingual 0.4 mg sublingual UD PRN (Reason: Chest Pain) Qty: 25 3RF Rx Instructions: NEEDED FOR CHEST PAIN : ONE TABLET UNDER THE TONGUE EVERY 5 MINUTES UP TO 3 DOSES. (DME) Portable Oxygen Misc See Rx Instructions .MEDSUPPLY Qty: 1 0RF Rx Instructions: Oxygen 2 liters continuous via nasal cannula on exertion with portable concentrator. CYNTHIA 99 roflumilast 500 mcg tablet 500 mcg PO DAILY Qty: 90 1RF ipratropium-albuterol 0.5 mg-3 mg(2.5 mg base)/3 mL solution for nebulization 3 ml INHALATION QID Qty: 360 5RF Combivent Respimat 20-100 mcg/actuation mist 1 puff inhalation Q6H Qty: 3 1RF Trelegy Ellipta 200-62.5-25 mcg blister with device 1 inh inhalation DAILY Qty: 3 1RF azithromycin 250 mg tablet 250 mg PO 3XWK Qty: 36 2RF Rx Instructions: 250 mg orally 1 tab p.o. on Hembqk-[id number]-[id number]; aspirin 81 mg Tablet,Delayed Release (Dr/Ec) 81 mg PO DAILY acetaminophen [Tylenol Arthritis Pain] 650 mg Tablet Extended Release 1,300 mg PO HS (DME) Non invasive ventilator DME Misc See Rx Instructions .Route Qty: 1 0RF Rx Instructions: As directed Calcium Antacid 300 mg (750 mg) Tablet,Chewable 300 - 600 mg PO DIRECTED PRN (Reason: HEARTBURN/INDIGESTION) diphenhydramine HCl [Benadryl] 25 mg Capsule 25 mg PO DIRECTED PRN (Reason: SLEEP/CONGESTION) Discharge Orders: Discharge Order (Routine); Ordered 02/15/25 Ordered By: Jatin Salinas Admission Data Admit Date/Time: 02/13/25 09:38 Attending Provider: Colin Islas Admit Provider: Jatin Salinas Primary Care Provider: Eriberto Gonsalez Other Providers: Colin Islas Other Interventions: Discharge Summary Assessment (RN) Last Done: 02/15/25 12:21 Supervising Physician Co-Signing Physician Notes I personally examined the patient and verified all chester points of history and exam, discussed case, and agree with decision making with Dr Salinas feels better overall feels up to going home. vitals noted nad heent nc at mmm lungs continue to show better air entry some wheeze no accessory muscles good effort Acute hypoxic and hypercapnic respiratory failure superimposed on what appears to be chronic respiratory failure in the setting of COPD exacerbation caused by community-acquired pneumoniaZithromax/Rocephin/steroids/nebulizers/supportive care/time. improving. safe/stable for home today, Rx as above DVT prophylaxisLovenox Resident Activity Tracking Resident Involvement: Resident Care Provided Care Provided: Adult Hospital Medicine
[2025-02-15] MEDS: predniSONE 20 MG TAB PO STA (10:57)
[2025-02-15] MEDS: AZITHROMYCIN 250 MG TAB PO ONE (10:57)
[2025-02-15 11:07] VITALS: BP 134/80; PULSE 78; RESP 18; TEMP 97.3; O2SAT 93
--- NOTE | 2025-02-15 13:19 | Billing Data ---
Date of Service February 15, 2025 Coding Level of Care Code 80641 IN/OBS DISCH 30 MIN/LESS
== END 2025-02-15 13:20 | disposition home or self-care (01) | DRG 193 ==
LOC: ED 07:45 → 4W 09:38
DX: Z88.0 Allergy status to penicillin; J96.12 Chronic respiratory failure with hypercapnia; Z79.82 Long term (current) use of aspirin; N18.30 Chronic kidney disease, stage 3 unspecified; Z90.12 Acquired absence of left breast and nipple; I50.32 Chronic diastolic (congestive) heart failure; Z79.899 Other long term (current) drug therapy; Z88.2 Allergy status to sulfonamides; I25.10 Atherosclerotic heart disease of native coronary artery without angina pectoris; J44.0 Chronic obstructive pulmonary disease with (acute) lower respiratory infection; J44.1 Chronic obstructive pulmonary disease with (acute) exacerbation; G89.29 Other chronic pain; F17.210 Nicotine dependence, cigarettes, uncomplicated; J96.11 Chronic respiratory failure with hypoxia; Z90.49 Acquired absence of other specified parts of digestive tract; Z88.5 Allergy status to narcotic agent; E03.9 Hypothyroidism, unspecified; Z99.81 Dependence on supplemental oxygen; J18.9 Pneumonia, unspecified organism; Z79.890 Hormone replacement therapy; Z88.8 Allergy status to other drugs, medicaments and biological substances; J96.21 Acute and chronic respiratory failure with hypoxia; I13.0 Hypertensive heart and chronic kidney disease with heart failure and stage 1 through stage 4 chronic kidney disease, or unspecified chronic kidney disease; E87.29 Other acidosis